=== PATIENT | female | born 1940 | race African-American/Black ===

== ENCOUNTER 2019-11-17 20:27 | Inpatient (IN) | payer MEDICARE, OTHER ==
[~2019-11-17] VITALS: Ht 167.6 cm; Wt 86.3 kg
[~2019-11-17 20:27] MED LIST: ATOR20TA; FLUO-125 PO; HYDR-2551; TOLT2TAB2
[2019-11-17 21:57] LABS: Basophils # (auto) 0 10 ^3/uL (0-0.2); Eosinophils # (auto) 0.1 10 ^3/uL (0-0.8); Hemoglobin 8.3 g/dL (12.2-16.2); Lymphocytes # (auto) 1.4 10 ^3/uL (0.4-5.4)
[2019-11-17 21:59] LABS: Basophils % (auto) 0.2 % (0.0-2.0); Eosinophils % (auto) 1.3 % (0.0-7.0); Hematocrit 26.2 % (36.0-46.0); Lymphocytes % (auto) 17.2 % (10.0-50.0); Mean Corpuscular Hemoglobin 27.1 pg (28.0-32.0); Mean Corpuscular Hgb Conc. 31.6 g/dL (32.0-36.0); Mean Corpuscular Volume 85.8 fL (80.0-100.0); Monocytes # (auto) 0.7 10 ^3/uL (0-1.3); Monocytes % (auto) 9.4 % (0.0-12.0); Neutrophils # (auto) 5.7 10 ^3/uL (1.6-8.6); Neutrophils % (auto) 71.9 % (37.0-80.0); Nucleated Red Blood Cells % 0.2 %; Platelet Count (auto) 347 10^3/uL (140-450); Red Blood Cells 3.06 10^6/uL (4.0-5.20); Red Cell Distribution Width 16.7 % (11.8-14.3); White Blood Cell 7.9 10^3/uL (4.4-10.8)
[2019-11-17 22:19] LABS: INR 0.97 (0.9-1.15); Partial Thromboplastin Time 25.1 sec (23.64-32.05)
[2019-11-17 22:32] LABS: Albumin 3.2 g/dL (3.4-5.0); Amylase 77 U/L (25-115); Anion Gap 5 (5-15); BUN/Creatinine Ratio 14.8; Blood Urea Nitrogen 20 mg/dL (7-18); Calcium 8.4 mg/dL (8.5-10.1); Carbon Dioxide 27 mmol/L (21-32); Chloride 110 mmol/L (98-107); GFR African American 49 mL/min; GFR Non-African American 40 mL/min; Glucose 95 mg/dL (74-106); Lipase 262 U/L (73-393); Magnesium 2.2 mg/dL (1.6-2.6); Potassium 3.5 mmol/L (3.5-5.1); Sodium 142 mmol/L (136-145)
[2019-11-17 22:41] LABS: Alanine Aminotransferase 29 U/L (13-56); Alkaline Phosphatase 121 U/L (45-117); Aspartate Aminotransferase 18 U/L (15-37); Bilirubin, Total 0.4 mg/dL (0.2-1.0); Total Protein 7.4 g/dL (6.4-8.2)
[2019-11-17] MEDS ORDERED: PANTOPRAZOLE 40 MG/10 ML VIAL INJ IV ONE (23:30)
[2019-11-17] MEDS ORDERED: SODIUM CHLORIDE 0.9% 1,000 ML IV ONE (23:30)
[2019-11-18] VITALS (8 sets, daily range): BP systolic 140–165; BP diastolic 63–90
[2019-11-18 00:13] LABS: Urine Bacteria FEW /hpf (None Seen); Urine Blood 1+ /uL (Negative); Urine Hyaline Cast FEW /lpf (0 - 2); Urine Mucus FEW (None Seen); Urine Specific Gravity 1.022 (1.001-1.035); Urine WBC 15 /hpf (0 - 5)
[2019-11-18 00:19] LABS: Alcohol, Urine < 3.0 mg/dL (0-10); Amphetamine Screen, Urine NEGATIVE (NEGATIVE); Barbiturate Scree,Urine NEGATIVE (NEGATIVE); Benzodiazephine Screen, Urine NEGATIVE (NEGATIVE); Cannabinoid Screen, Urine NEGATIVE (NEGATIVE); Cocaine Screen, Urine NEGATIVE (NEGATIVE); Opiate Scree,Urine NEGATIVE (NEGATIVE); Phencyclidine Screen, Urine NEGATIVE (NEGATIVE)
[2019-11-18] MEDS: SODIUM CHLORIDE 0.9% 1,000 ML IV SCH ×2 (01:24→18:12)
--- NOTE | 2019-11-18 01:58 | NUR ---
Telemetry admit from ER MARISOL DENNIS admitted to Telemetry unit. Patient oriented to Nidia Bautista,RN primary RN, unit, room, bed, and unit policies regarding patient care and visiting hours. Patient now on continuous telemetry monitoring, tele box #53 and telemetry reading on arrival to unit is NSR. Patient AAOX4, no acute S/S of distress, SOB or pain. On room air and ambulatory. Patient weighed by bedscale and encouraged to call if they need something. All questions and concerns addressed, patient verbalized understanding. Bed in lowest locked position, side rails up x2, call light within reach. Will continue to monitor every hour and as needed.
[2019-11-18 05:46] LABS: Basophils # (auto) 0 10 ^3/uL (0-0.2); Eosinophils # (auto) 0.1 10 ^3/uL (0-0.8); Eosinophils % (auto) 1.3 % (0.0-7.0); Monocytes # (auto) 0.8 10 ^3/uL (0-1.3)
[2019-11-18 05:47] LABS: Basophils % (auto) 0.5 % (0.0-2.0); Hematocrit 24.2 % (36.0-46.0); Hemoglobin 7.8 g/dL (12.2-16.2); Lymphocytes # (auto) 1.2 10 ^3/uL (0.4-5.4); Mean Corpuscular Hemoglobin 27.6 pg (28.0-32.0); Mean Corpuscular Hgb Conc. 32.1 g/dL (32.0-36.0); Mean Corpuscular Volume 85.9 fL (80.0-100.0); Monocytes % (auto) 9.6 % (0.0-12.0); Neutrophils # (auto) 6.2 10 ^3/uL (1.6-8.6); Neutrophils % (auto) 74.6 % (37.0-80.0); Platelet Count (auto) 283 10^3/uL (140-450); Red Blood Cells 2.81 10^6/uL (4.0-5.20); Red Cell Distribution Width 16.9 % (11.8-14.3); White Blood Cell 8.3 10^3/uL (4.4-10.8)
[2019-11-18 06:13] LABS: Potassium 3.6 mmol/L (3.5-5.1)
[2019-11-18 06:22] LABS: Calcium 7.8 mg/dL (8.5-10.1)
[2019-11-18] MEDS: cefTRIAXone 1GM/50ML D5W 50 ML IV SCH (09:29)
[2019-11-18] MEDS ORDERED: PANTOPRAZOLE 40 MG/10 ML VIAL INJ IV ONE (11:00)
--- NOTE | 2019-11-18 11:00 | NUR ---
MED REC COMPLETE SPOKE TO PATIENTS DAUGHTER, MARK, AND UPDATED MED REC
[2019-11-18] MEDS ORDERED: AGG25C PO (11:06)
[2019-11-18] MEDS ORDERED: BUPR100T14 PO (11:06)
[2019-11-18] MEDS ORDERED: MIRA50TA OR (11:08)
[2019-11-18] MEDS ORDERED: FERR-20 PO (11:08)
--- NOTE | 2019-11-18 11:10 | NUR ---
DR HARMAN BEDSIDE WITH PATIENT DISCUSSING PLAN OF CARE. ORDERS RECEIVED AND CARRIED OUT. INFORMED DR OF PATIENTS ELEVATED BP, NO ORDERS AT THIS TIME
--- NOTE | 2019-11-18 11:25 | NUR ---
BP MED ORDERS RECEIVED ORDERS FROM DR HARMAN TO START PATIENT BACK ON BP MEDS. CONFIRMED MED ORDER WITH PHARMACY AND PLACED ORDER RECEIVED FROM DR HARMAN
[2019-11-18] MEDS ORDERED: HCTZ 25 MG TAB PO ONE (11:30)
[2019-11-18] MEDS ORDERED: LOSARTAN POTASSIUM 50 MG TAB PO ONE (11:30)
--- NOTE | 2019-11-18 13:45 | NUR ---
DR NICOLAS BEDSIDE WITH PATIENT DISCUSSING PLAN OF CARE
[2019-11-18] MEDS: ATORVASTATIN 20 MG TAB PO SCH (17:23)
--- NOTE | 2019-11-18 19:50 | NUR ---
Opening Shift Note Assumed care of patient, awake and alert. No S/S of distress/SOB or pain. Instructed on POC and to call for assist PRN. Bed in lowest locked position, call light within reach, side rails up x2, fall precautions in place. Will continue to monitor for changes Q1hr and PRN.
[2019-11-19 05:00] VITALS: BP 160/85
[2019-11-19 07:12] LABS: White Blood Cell 7.3 10^3/uL (4.4-10.8)
[2019-11-19 07:13] LABS: Basophils # (auto) 0 10 ^3/uL (0-0.2); Eosinophils # (auto) 0.1 10 ^3/uL (0-0.8); Hemoglobin 7.5 g/dL (12.2-16.2); Monocytes # (auto) 0.6 10 ^3/uL (0-1.3); Neutrophils # (auto) 5.6 10 ^3/uL (1.6-8.6)
[2019-11-19 07:14] LABS: Basophils % (auto) 0.5 % (0.0-2.0); Eosinophils % (auto) 1.5 % (0.0-7.0); Hematocrit 23.5 % (36.0-46.0); Lymphocytes # (auto) 0.9 10 ^3/uL (0.4-5.4); Lymphocytes % (auto) 12.3 % (10.0-50.0); Mean Corpuscular Hemoglobin 27.4 pg (28.0-32.0); Mean Corpuscular Hgb Conc. 31.9 g/dL (32.0-36.0); Monocytes % (auto) 8.5 % (0.0-12.0); Neutrophils % (auto) 77.2 % (37.0-80.0); Platelet Count (auto) 270 10^3/uL (140-450); Red Blood Cells 2.73 10^6/uL (4.0-5.20); Red Cell Distribution Width 17.1 % (11.8-14.3)
[2019-11-19 07:23] LABS: INR 1.03 (0.9-1.15)
[2019-11-19 08:00] VITALS: BP 136/80
[2019-11-19 09:07] VITALS: BP 136/80
[2019-11-19] MEDS: PANTOPRAZOLE 40 MG/10 ML VIAL INJ IV SCH (09:25)
[2019-11-19] MEDS: LOSARTAN POTASSIUM 50 MG TAB PO SCH (09:26)
[2019-11-19] MEDS: cefTRIAXone 1GM/50ML D5W 50 ML IV SCH (09:26)
[2019-11-19] MEDS: buPROPion HCL 75 MG TAB PO SCH ×2 (09:27→21:45)
[2019-11-19] MEDS: HCTZ 25 MG TAB PO SCH (09:27)
[2019-11-19] MEDS: SODIUM CHLORIDE 0.9% 1,000 ML IV SCH (10:20)
--- NOTE | 2019-11-19 12:00 | NUR ---
DR NICOLAS ON UNIT
--- NOTE | 2019-11-19 12:05 | NUR ---
DR HARMAN BEDSIDE WITH PATIENT DISCUSSING PLAN OF CARE
--- NOTE | 2019-11-19 12:45 | NUR ---
INFORMED DR HARMAN PATIENT AGREED TO COLONOSCOPY. ORDERS RECEIVED TO HOLD D/C.
--- NOTE | 2019-11-19 12:50 | NUR ---
COLONOSCOPY INFORMED DR NICOLAS PATIENT HAS AGREED TO COLONOSCOPY TOMORROW.
[2019-11-19] MEDS ORDERED: GOLYTELY 4L KIT PO ONE (13:00)
[2019-11-19 13:40] VITALS: BP 160/76
[2019-11-19] MEDS: ONDANSETRON HCL 4 MG/2 ML VIAL IV PRN (16:37)
[2019-11-19 17:00] VITALS: BP 152/84
[2019-11-19] MEDS: ATORVASTATIN 20 MG TAB PO SCH (17:40)
[2019-11-19 22:00] VITALS: BP 142/72
[2019-11-20] MEDS: SODIUM CHLORIDE 0.9% 1,000 ML IV SCH ×2 (02:36→21:22)
[2019-11-20 05:00] VITALS: BP 133/79
[2019-11-20] MEDS ORDERED: GOLYTELY 4L KIT PO ONE (05:00)
[2019-11-20 06:55] LABS: Basophils # (auto) 0 10 ^3/uL (0-0.2); Basophils % (auto) 0.6 % (0.0-2.0); Eosinophils # (auto) 0.1 10 ^3/uL (0-0.8); Eosinophils % (auto) 1.6 % (0.0-7.0); Hematocrit 24.5 % (36.0-46.0); Hemoglobin 7.8 g/dL (12.2-16.2); Lymphocytes # (auto) 0.8 10 ^3/uL (0.4-5.4); Lymphocytes % (auto) 11.2 % (10.0-50.0); Mean Corpuscular Hemoglobin 27.5 pg (28.0-32.0); Mean Corpuscular Volume 85.9 fL (80.0-100.0); Monocytes # (auto) 0.6 10 ^3/uL (0-1.3); Monocytes % (auto) 8.8 % (0.0-12.0); Neutrophils # (auto) 5.2 10 ^3/uL (1.6-8.6); Neutrophils % (auto) 77.8 % (37.0-80.0); Platelet Count (auto) 261 10^3/uL (140-450); Red Blood Cells 2.85 10^6/uL (4.0-5.20); Red Cell Distribution Width 17.8 % (11.8-14.3); White Blood Cell 6.7 10^3/uL (4.4-10.8)
[2019-11-20 07:02] LABS: INR 1.02 (0.9-1.15); Partial Thromboplastin Time 25.2 sec (23.64-32.05)
[2019-11-20 07:10] LABS: Potassium 3.6 mmol/L (3.5-5.1)
[2019-11-20 07:12] LABS: BUN/Creatinine Ratio 6.3
--- NOTE | 2019-11-20 07:30 | NUR ---
Opening Shift Note Assumed care of patient, awake and alert. No S/S of distress/SOB or pain. Instructed on POC and to call for assist PRN, will continue to monitor for changes Q1hr and PRN. Bed is locked and in lowest position. Call light within reach.
[2019-11-20 08:00] VITALS: BP 156/70
[2019-11-20 09:00] VITALS: BP 156/70
[2019-11-20] MEDS: PANTOPRAZOLE 40 MG/10 ML VIAL INJ IV SCH (10:38)
[2019-11-20] MEDS: LOSARTAN POTASSIUM 50 MG TAB PO SCH (10:39)
[2019-11-20] MEDS: buPROPion HCL 75 MG TAB PO SCH ×2 (10:39→21:22)
[2019-11-20] MEDS: HCTZ 25 MG TAB PO SCH (10:39)
[2019-11-20] MEDS: cefTRIAXone 1GM/50ML D5W 50 ML IV SCH (10:40)
--- NOTE | 2019-11-20 12:30 | NUR ---
PRE-OP PHONE CALL RECEIVED FROM PRE-OP REGARDING PATIENTS COLONOSCOPY PROCEDURE. PRE-OP RN INFORMED PATIENT HAS NOT FINISHED GOLYTELY AND IS STILL HAVING LOOSE WATERY GREEN STOOLS. DR. NICOLAS WILL BE PAGED.
--- NOTE | 2019-11-20 12:35 | NUR ---
COLONOSCOPY PATIENT COLONOSCOPY RESCHEDULED FOR 11/21/2019. PATIENT WILL BE ON A CLEAR LIQUID DIET, NPO AFTER MIDNIGHT, PATIENT NEEDS TO FINISH GOLYTELY THAT IS AT BEDSIDE PER DR. NICOLAS. PATIENT IS AWARE OF RESCHEDULE OF COLONOSCOPY.
--- NOTE | 2019-11-20 12:54 | NUR ---
Est energy needs 0497-4433 kcal (20-25 kcal/kg BW 80.9kg) Est protein needs 65-81g (0.8-1g/kg BW 80.9kg) WIll reassess prn. Addendum: 11/20/19 at [address] Amended: Links added.
[2019-11-20 13:00] VITALS: BP 141/88
[2019-11-20] MEDS: ATORVASTATIN 20 MG TAB PO SCH (17:04)
[2019-11-20] MEDS ORDERED: cloNIDine HCL 0.1 MG TAB PO ONE (18:00)
--- NOTE | 2019-11-20 19:25 | NUR ---
ENDORSED CARE TO NIGHT BRYAN LAMAR
[2019-11-20 22:00] VITALS: BP 131/93
[2019-11-21] VITALS (8 sets, daily range): BP systolic 132–160; BP diastolic 69–86
[2019-11-21] MEDS ORDERED: DEXTROSE (50%) 50ML SYRG IV SCH
[2019-11-21] MEDS: InsuLIN REG 1unit/0.01ml Soln (100units/ml) SC SCH ×5 (06:00→23:28)
[2019-11-21] MEDS: ACCU-CHEK COMFORT CURVE STRIP VI SCH ×5 (06:00→23:28)
--- NOTE | 2019-11-21 07:20 | NUR ---
Opening Shift Note Assumed care of patient, awake and alert. No S/S of distress/SOB or pain.Bowel prep finished, this morning per night RN, patient reported stool is clear. Instructed on POC and to call for assist PRN, will continue to monitor for changes Q1hr and PRN. Bed is locked and in lowest position. Call light within reach.
--- NOTE | 2019-11-21 09:10 | NUR ---
COLONSCOPY TRANSPORTED PATIENT VIA HOSPITAL BED. TOLERATED WELL. ENDORSED CARE TO REJI PRE-OP RN.
[2019-11-21] MEDS ORDERED: FLUMAZENIL 0.1 MG/ML INJ 10ML MDV IV ONE (09:12)
[2019-11-21] MEDS ORDERED: SODIUM CHLORIDE LOCK 10 ML ONE (09:12)
[2019-11-21] MEDS ORDERED: NALOXONE HCL 0.4 MG/ML VIAL ONE (09:12)
[2019-11-21] MEDS ORDERED: diphenhdrAMINE HCL 50 MG/1 ML VL ONE (09:14)
[2019-11-21 09:22] LABS: Basophils # (auto) 0 10 ^3/uL (0-0.2); Eosinophils # (auto) 0.1 10 ^3/uL (0-0.8); Hemoglobin 7.5 g/dL (12.2-16.2); Mean Corpuscular Volume 85.8 fL (80.0-100.0); Monocytes # (auto) 0.5 10 ^3/uL (0-1.3); Neutrophils # (auto) 4.4 10 ^3/uL (1.6-8.6)
[2019-11-21 09:24] LABS: Basophils % (auto) 0.5 % (0.0-2.0); Eosinophils % (auto) 1.4 % (0.0-7.0); Hematocrit 23.8 % (36.0-46.0); Lymphocytes # (auto) 0.7 10 ^3/uL (0.4-5.4); Lymphocytes % (auto) 12.9 % (10.0-50.0); Mean Corpuscular Hemoglobin 26.9 pg (28.0-32.0); Mean Corpuscular Hgb Conc. 31.3 g/dL (32.0-36.0); Monocytes % (auto) 9.2 % (0.0-12.0); Platelet Count (auto) 259 10^3/uL (140-450); Red Blood Cells 2.77 10^6/uL (4.0-5.20); Red Cell Distribution Width 17.9 % (11.8-14.3); White Blood Cell 5.7 10^3/uL (4.4-10.8)
[2019-11-21] MEDS: MIDAZOLAM HCL 5 MG/ML-1ML VIAL ONE ×2 (09:39→09:44)
[2019-11-21] MEDS: fentaNYL CITRATE 100 MCG/2 ML VL ONE ×2 (09:39→09:44)
--- NOTE | 2019-11-21 10:41 | NUR ---
RETURNED FROM COLONOSCOPY RECEIVED FROM REJI ADAMS PATIENT DENIED PAIN, NO DISTRESS, TELE REATTACHED TO PATIENT. PER REPORT BIOSPY TAKEN AND SURGICAL CONSULT WITH DR FRY PENDING.
[2019-11-21] MEDS: LOSARTAN POTASSIUM 50 MG TAB PO SCH (11:22)
[2019-11-21] MEDS: buPROPion HCL 75 MG TAB PO SCH ×3 (11:22→22:08)
[2019-11-21] MEDS: HCTZ 25 MG TAB PO SCH (11:23)
[2019-11-21] MEDS: cefTRIAXone 1GM/50ML D5W 50 ML IV SCH (11:23)
[2019-11-21] MEDS: PANTOPRAZOLE 40 MG/10 ML VIAL INJ IV SCH (11:23)
[2019-11-21 12:08] LABS: Magnesium 1.8 mg/dL (1.6-2.6)
[2019-11-21 12:12] LABS: Phosphorus 3.2 mg/dL (2.5-4.90); Pre Albumin 19.8 mg/dL (20.0-40.0)
[2019-11-21] MEDS: SODIUM CHLORIDE 0.9% 1,000 ML IV SCH (12:20)
--- NOTE | 2019-11-21 15:16 | NUR ---
PICC LINE CONSENTS SIGNED BY DR SOSA.
[2019-11-21] MEDS ORDERED: TPN PER PHARMACY 0 ML IV SCH (16:00)
--- NOTE | 2019-11-21 16:00 | NUR ---
IV removal INFILTRATED IV DC'd with clean sterile technique, catheter fully intact. Pressure dressing applied to site. Patient tolerated well.
--- NOTE | 2019-11-21 17:00 | NUR ---
PICC LINE POSTPONED BRYAN OLIVAREZ STATED SHE IS TOO BUSY TO INSERT THE PICC LINE AND SHE WILL NEED TO DO IT TOMORROW.
--- NOTE | 2019-11-21 17:20 | NUR ---
HOUSE SUP MADE AWARE PICC LINE BRYAN OLIVAREZ WILL NOT HAVE TIME TO INSERT PICC LINE, THIS RN WAS INSTRUCTED TO CONTACT THE SPED TEACHER PICC LINE BRYAN MATIAS.
--- NOTE | 2019-11-21 17:40 | NUR ---
PER PBX PICC LINE RN CAN ONLY BE PAGED AT 8PM. WILL ENDORSE TO NIGHT RN. PATIENT WAITING FOR TPN AND 2 UNITS OF PRBC; NO OTHER LINE AVAILABLE.
[2019-11-21] MEDS: ATORVASTATIN 20 MG TAB PO SCH (18:29)
--- NOTE | 2019-11-21 18:30 | NUR ---
REFUSED ACCUCHECK PATIENT STATED "IM NOT EATING ANYTHING".
--- NOTE | 2019-11-21 19:16 | NUR ---
Opening Shift Note Assumed care of patient, awake and alert. No S/S of distress/SOB or pain. PICC line nurse at bedside. Instructed on POC and to call for assist PRN, will continue to monitor for changes Q1hr and PRN. Side rails up x2. Bed locked in lowest position. Call light within reach.
--- NOTE | 2019-11-21 19:30 | NUR ---
Unable to obtain PICC line PICC line nurse unable to place PICC line at this time.
[2019-11-21] MEDS ORDERED: AMINO ACID INFUSION IN D5W 2,000 ML IV NR (20:00)
--- NOTE | 2019-11-21 21:58 | NUR ---
1st unit blood transfusion Started Vitals within normal limits. Will monitor for 15 mins and then Q1H.
[2019-11-22] VITALS (9 sets, daily range): BP systolic 126–158; BP diastolic 70–85
--- NOTE | 2019-11-22 00:03 | NUR ---
First unit of blood transfused. No adverse reaction noted. Vital signs within normal limits. Will Administer second unit of blood.
--- NOTE | 2019-11-22 00:41 | NUR ---
2nd unit blood transfusion Started. Vitals within normal limits. Will monitor for 15 mins and then Q1H.
--- NOTE | 2019-11-22 03:05 | NUR ---
Second unit of blood transfused. No adverse reaction noted. Vital signs within normal limits.
[2019-11-22] MEDS: ACCU-CHEK COMFORT CURVE STRIP VI SCH ×4 (05:13→23:49)
[2019-11-22] MEDS: InsuLIN REG 1unit/0.01ml Soln (100units/ml) SC SCH ×4 (05:13→23:52)
[2019-11-22] MEDS: SODIUM CHLORIDE 0.9% 1,000 ML IV SCH ×2 (05:32→21:22)
[2019-11-22 07:13] LABS: Hematocrit 30.8 % (36.0-46.0); Hemoglobin 9.8 g/dL (12.2-16.2)
[2019-11-22 07:35] LABS: Albumin 2.9 g/dL (3.4-5.0); Calcium 8.1 mg/dL (8.5-10.1); Potassium 3.3 mmol/L (3.5-5.1)
[2019-11-22 07:40] LABS: Bilirubin, Total 0.8 mg/dL (0.2-1.0); Magnesium 1.8 mg/dL (1.6-2.6); Phosphorus 3.1 mg/dL (2.5-4.90); Total Protein 6.6 g/dL (6.4-8.2)
[2019-11-22] MEDS ORDERED: SODIUM CHLORIDE LOCK 50 ML ONE (07:54)
[2019-11-22] MEDS ORDERED: HYDROmorphone HCL 2 MG/ML VL ONE (07:54)
[2019-11-22] MEDS ORDERED: fentaNYL CITRATE 5 ML ONE (07:54)
[2019-11-22] MEDS ORDERED: fentaNYL CITRATE 100 MCG/2 ML VL ONE (07:54)
[2019-11-22] MEDS ORDERED: MIDAZOLAM HCL 1MG/1ML-2 ML VIAL ONE (07:54)
[2019-11-22] MEDS ORDERED: ONDANSETRON HCL 4 MG/2 ML VIAL ONE (07:54)
[2019-11-22] MEDS ORDERED: ROCURONIUM 10MG/ML 10ML VIAL IV ONE (07:54)
[2019-11-22] MEDS ORDERED: PROPOFOL 10 MG/ML 20 ML IV ONE (07:54)
--- NOTE | 2019-11-22 08:00 | NUR ---
PICC LINE RN BEDSIDE TO INSERT PICC LINE.
[2019-11-22] MEDS ORDERED: LIDOCAINE 1% (LOCAL ANESTH.) PF 5ml SDV ID ONE (08:30)
[2019-11-22] MEDS ORDERED: SUCCINYLCHOLINE CHLORIDE 20 MG/ML 10ML VIAL IV ONE (08:36)
--- NOTE | 2019-11-22 08:36 | NUR ---
PICC line placement Patient educated on need for PICC line placement. All risks and benefits explained and all questions and concerns addressed prior to procedure. Noted past medical history and allergies with no contraindications. INR and Plt counts within acceptable range. 5 fr PICC line inserted via right basilic vein using [employer]'s [employer] US and Tip Location System. Sterile technique with maximum barrier precautions utilized. Blood return obtained from each of the 2 lumens and each flushed easily with NS using proper technique. PICC secured with Stat-lock; biodisc and occlusive dressing applied. Stat portable chest x-ray obtained for PICC tip placement. *Baseline Arm Circumference 28 cm. Internal length 45 cm. External length 0 cm. PICC lot #[id number] Addendum: 11/22/19 at 1408 by SHER HO RN PICC placed at 08:00. Laureano ADAMS notified that PICC line has been placed, and that we are awaiting chest xray for confirmation to use.
--- NOTE | 2019-11-22 08:38 | NUR ---
TAKEN TO OR. TOLERATED WELL. ENDORSED CARE TO ALEXANDRA GUZMAN RN
[2019-11-22] MEDS ORDERED: cefTRIAXone SOD 1,000 MG VL ONE (08:44)
[2019-11-22] MEDS ORDERED: metroNIDAZOLE 500MG/100ML 100 ML IV ONE (08:44)
[2019-11-22] MEDS ORDERED: MORPHINE SULFATE 4 MG/ML SYR/VIAL IV PRN (08:45)
[2019-11-22] MEDS ORDERED: HYDROmorphone HCL 2 MG/ML VL IV PRN (08:45)
[2019-11-22] MEDS ORDERED: ONDANSETRON HCL 4 MG/2 ML VIAL IV PRN (08:45)
[2019-11-22] MEDS ORDERED: NEOSTIGMINE 1 MG/ML INJ (10mg/10ML VIAL) ONE (09:54)
[2019-11-22] MEDS ORDERED: GLYCOPYRROLATE 0.2 MG/ML 1ML VIAL ONE (09:54)
[2019-11-22] MEDS: HCTZ 25 MG TAB PO SCH (10:00)
[2019-11-22] MEDS: SODIUM CHLOR 0.9% PF (SALINE LOCK) 10ML VIAL/SYR IV SCH ×2 (10:00→21:22)
[2019-11-22] MEDS: PANTOPRAZOLE 40 MG/10 ML VIAL INJ IV SCH (10:00)
[2019-11-22] MEDS: LOSARTAN POTASSIUM 50 MG TAB PO SCH (10:00)
[2019-11-22] MEDS: buPROPion HCL 75 MG TAB PO SCH ×2 (10:00→21:29)
[2019-11-22] MEDS: cefTRIAXone 1GM/50ML D5W 50 ML IV SCH (10:00)
[2019-11-22] MEDS ORDERED: hydrALAZINE HCL 20 MG/ML VL ONE (10:45)
[2019-11-22] MEDS ORDERED: POTASSIUM PHOSPHATE 22 MEQ in SODIUM CHL 0.9% 100 ML IV ONE (11:00)
--- NOTE | 2019-11-22 13:00 | NUR ---
returned from surgery patient tolerated well.patient awake and groggy, arousable to name, denied pain. NG tube to right nare at 50cm, low intermittent suction. abdominal binder covering 2 dressings, clean radha and intact. j/p drain to left lower quadrant with minimal, serosanguineous drainage. Oxygen nasal cannula at 3 liters; NS at 60 mls.
[2019-11-22] MEDS: metroNIDAZOLE 500MG/100ML 100 ML IV SCH ×2 (14:00→21:22)
--- NOTE | 2019-11-22 14:30 | NUR ---
PICC line care/ Okay to use PICC line Xray completed and reviewed. PICC retracted 2 cm based on location. There was a mild amount of dried blood noted beneath dressing. Dressing changed and skin cleaned using sterile technique. No bleeding noted. New dressing was placed. Okay to use PICC line. Primary RN aware.
--- NOTE | 2019-11-22 14:31 | NUR ---
Nutrition Followup Notes (new PN) Wt: 81.3 kg Pt`s off the floor for sx when rounded this am. per record spt s/p colonoscopy and to have hemicolectomy today. pt is currently NPO and to begin PN support from tonight per records. Est energy needs 7093-1410 kcal (20-25 kcal/kg BW 80.9kg) Est protein needs 81-105g (1.0-1.3g/kg BW 80.9kg) reassessed as RFT wnl and pt post sx LAB: CA 8.1 L, ALB 2.9 L, PREALB 19.8 L. GI: Pt with no BM today per RN doc BS: 19 low risk Please refer to wound assessment report for full details. PES: Overweight aeb pt BMi is 28.8 kg/m2 which is overweight r/t caloric intake in excess of needs Comments Will continue to monitor NPO status, PN tolerance, skin status, pertinent labs and weight trends. Will f/u in 2-3 days. 1) Refer to OPD on DC 2) Continue current plan of care. 3) advance PN support to meet > 75% of needs
[2019-11-22] MEDS: ONDANSETRON HCL 4 MG/2 ML VIAL IV PRN (14:41)
[2019-11-22] MEDS: MORPHINE SULF INJ 2 MG/ML SYRINGE 1ML IV PRN (14:41)
--- NOTE | 2019-11-22 15:57 | NUR ---
Pharmacy notified patient still hasnt received TPN as ordered.
--- NOTE | 2019-11-22 17:00 | NUR ---
drained 100cc paty haywood drai, patient tolerated well.
--- NOTE | 2019-11-22 17:11 | NUR ---
BLOOD SUGAR 133 NO COVERAGE PATIENT IS NPO AND HAS NOT RECEIVED TPN. PHARMACY HAS BEEN NOTIFIED.
[2019-11-22] MEDS: ATORVASTATIN 20 MG TAB PO SCH (18:00)
[2019-11-22] MEDS: TPN PER PHARMACY IV NR ×9 (18:29)
--- NOTE | 2019-11-22 18:30 | NUR ---
scd placed on legs bilaterally
[2019-11-23] MEDS: MORPHINE SULF INJ 2 MG/ML SYRINGE 1ML IV PRN ×4 (04:44→20:11)
[2019-11-23 05:30] VITALS: BP 133/80
[2019-11-23] MEDS: ACCU-CHEK COMFORT CURVE STRIP VI SCH ×4 (06:24→23:48)
[2019-11-23] MEDS: metroNIDAZOLE 500MG/100ML 100 ML IV SCH ×3 (06:24→21:51)
[2019-11-23] MEDS: InsuLIN REG 1unit/0.01ml Soln (100units/ml) SC SCH ×4 (06:25→23:49)
--- NOTE | 2019-11-23 07:04 | NUR ---
CHASTITY Emptied 25cc of serous fluid removed from chastity bulb. Bulb depressed and capped.
--- NOTE | 2019-11-23 07:10 | NUR ---
OPENING NOTE Assumed care of patient at 0700. Respiratory sounds clear, unlabored and equal bilaterally. Patient verbalized that she is not having any pain at this time. Updated patient on POC. Bed locked in lowest position, HOB elevated at least 30 degrees, call light within reach and side rails up X 2. Will continue to monitor.
[2019-11-23 08:14] LABS: Albumin 2.5 g/dL (3.4-5.0); Calcium 7.9 mg/dL (8.5-10.1); Magnesium 1.9 mg/dL (1.6-2.6); Potassium 3.5 mmol/L (3.5-5.1)
[2019-11-23 08:18] LABS: BUN/Creatinine Ratio 12.7; Bilirubin, Total 0.5 mg/dL (0.2-1.0); Phosphorus 2.4 mg/dL (2.5-4.90); Total Protein 6.5 g/dL (6.4-8.2)
[2019-11-23 09:00] VITALS: BP 147/78
[2019-11-23] MEDS: PANTOPRAZOLE 40 MG/10 ML VIAL INJ IV SCH (09:53)
[2019-11-23] MEDS: LOSARTAN POTASSIUM 50 MG TAB PO SCH (09:54)
[2019-11-23] MEDS: HCTZ 25 MG TAB PO SCH (09:54)
[2019-11-23] MEDS: buPROPion HCL 75 MG TAB PO SCH ×2 (09:55→21:51)
[2019-11-23] MEDS: cefTRIAXone 1GM/50ML D5W 50 ML IV SCH (09:55)
[2019-11-23] MEDS: SODIUM CHLOR 0.9% PF (SALINE LOCK) 10ML VIAL/SYR IV SCH ×2 (09:58→21:51)
--- NOTE | 2019-11-23 11:30 | NUR ---
MD HARMAN AT BEDSIDE UPDATED MD ON PATIENT'S STATUS, MD IS AWARE. PER MD CONTINUE TO KEEP PATIENT NPO AND AWAIT FOR DR. SOSA TO SEE PATIENT. WILL FOLLOW THROUGH WITH ORDERS.
--- NOTE | 2019-11-23 13:19 | NUR ---
Assessment Cmm Technician spoke with pt per initial assessment. Pt is a 79 yr old AA female admitted for anemia. Pt was a/a/ox4, receptive to ss visit. Pt resides with her foster daughter Yohana who is 25 and able to assist pt as needed at home. Pt was independent with ADL's prior to admission, no dme. Pt does not have an AHCD, pt's daughter Loreto, who lives in [place], is pt's emergency decision maker. Pt declined AHCD info at this time. Pt's pcp is Dr. Carter. Plan is for pt to dc back home with family, ss will monitor pt for any home health needs upon dc. Addendum: 11/23/19 at 1325 by SOLO SANDERS Amended: Links added.
--- NOTE | 2019-11-23 13:46 | NUR ---
CHASTITY Emptied 35cc of serous fluid removed from chastity bulb. Bulb depressed and capped.
[2019-11-23 14:00] VITALS: BP 138/76
[2019-11-23] MEDS: SODIUM CHLORIDE 0.9% 1,000 ML IV SCH (14:20)
[2019-11-23 17:00] VITALS: BP 142/71
--- NOTE | 2019-11-23 17:04 | NUR ---
PATIENT ACCIDENTLY PULLED OUT NGT. WILL PLACE NEW ONE IN.
[2019-11-23] MEDS: ATORVASTATIN 20 MG TAB PO SCH (18:00)
--- NOTE | 2019-11-23 18:00 | NUR ---
Nasogastric tube insertion Patient educated on need for NG tube. All questions addressed. NGT inserted per MD order. Placement verified by aspiration of stomach contents, auscultation awaiting chest xray. Called radiology for stat CXR
--- NOTE | 2019-11-23 18:28 | NUR ---
NGT WAS NOT IN OPTIMAL PLACEMENT PER CXR. ATTEMPTED 5 TIMES (2 STUDENT LEAD DIE MOLDER RAMSEY, ONE TIME SELF, TWICE BY KAIWHAKAHAERE LETTY) UNSUCCESSFUL. PATIENT WANTS A BREAK FROM INSERTION.
--- NOTE | 2019-11-23 18:58 | NUR ---
CLOSING SHIFT NOTE ENDORSED CARE TO REGULATORY SUBMISSIONS ASSOCIATE RN YURY. PATIENT HAS NO S/S OF DISTRESS/SOB OR PAIN AT THIS TIME. INFORMED RN UNABLE TO ADMINISTER ATORVASTATIN DUE TO NO NGT. RN IS AWARE.
[2019-11-23] MEDS: TPN PER PHARMACY IV NR ×9 (19:45)
[2019-11-23] MEDS ORDERED: TPN PER PHARMACY IV NR ×10 (20:00)
[2019-11-23 22:21] VITALS: BP 154/86
[2019-11-24 05:38] VITALS: BP 151/79
[2019-11-24] MEDS: InsuLIN REG 1unit/0.01ml Soln (100units/ml) SC SCH ×3 (06:00→17:47)
[2019-11-24] MEDS: metroNIDAZOLE 500MG/100ML 100 ML IV SCH ×3 (06:58→22:06)
[2019-11-24] MEDS: ACCU-CHEK COMFORT CURVE STRIP VI SCH ×4 (06:59→23:48)
[2019-11-24] MEDS: SODIUM CHLORIDE 0.9% 1,000 ML IV SCH ×2 (06:59→23:47)
--- NOTE | 2019-11-24 07:39 | NUR ---
CHASTITY Emptied 50cc of serous fluid removed from chastity bulb. Bulb depressed and capped.
[2019-11-24 07:48] LABS: Basophils # (auto) 0 10 ^3/uL (0-0.2); Basophils % (auto) 0.2 % (0.0-2.0); Eosinophils # (auto) 0 10 ^3/uL (0-0.8); Eosinophils % (auto) 0.3 % (0.0-7.0); Hematocrit 29.5 % (36.0-46.0); Hemoglobin 9.3 g/dL (12.2-16.2); Lymphocytes # (auto) 0.7 10 ^3/uL (0.4-5.4); Lymphocytes % (auto) 3.9 % (10.0-50.0); Mean Corpuscular Hemoglobin 27.4 pg (28.0-32.0); Mean Corpuscular Hgb Conc. 31.5 g/dL (32.0-36.0); Monocytes # (auto) 1.1 10 ^3/uL (0-1.3); Monocytes % (auto) 6.5 % (0.0-12.0); Neutrophils # (auto) 15.7 10 ^3/uL (1.6-8.6); Neutrophils % (auto) 89.1 % (37.0-80.0); Platelet Count (auto) 225 10^3/uL (140-450); Red Blood Cells 3.39 10^6/uL (4.0-5.20); Red Cell Distribution Width 17.2 % (11.8-14.3); White Blood Cell 17.6 10^3/uL (4.4-10.8)
[2019-11-24] MEDS: ONDANSETRON HCL 4 MG/2 ML VIAL IV PRN (08:06)
[2019-11-24 08:08] LABS: Albumin 2.5 g/dL (3.4-5.0); Potassium 3.5 mmol/L (3.5-5.1)
[2019-11-24 08:12] LABS: BUN/Creatinine Ratio 15.6; Bilirubin, Total 0.5 mg/dL (0.2-1.0); Calcium 8.2 mg/dL (8.5-10.1); Phosphorus 2.3 mg/dL (2.5-4.90); Total Protein 6.4 g/dL (6.4-8.2)
--- NOTE | 2019-11-24 08:30 | NUR ---
Received pt resting in bed, call light with in reach, jane draining to gravity, TPN running, pt reports nausea, pt medicated for nausea, pt's CXR confirmed NGT placement, connected pt back in to suction to LIS, will continue to monitor pt.
[2019-11-24 09:16] VITALS: BP 163/86
[2019-11-24] MEDS ORDERED: POTASSIUM PHOSPHATE 22 MEQ in SODIUM CHL 0.9% 100 ML IV ONE (10:30)
[2019-11-24] MEDS: HCTZ 25 MG TAB PO SCH (10:56)
[2019-11-24] MEDS: buPROPion HCL 75 MG TAB PO SCH ×2 (10:57→22:07)
[2019-11-24] MEDS: LOSARTAN POTASSIUM 50 MG TAB PO SCH (10:57)
[2019-11-24] MEDS: SODIUM CHLOR 0.9% PF (SALINE LOCK) 10ML VIAL/SYR IV SCH ×2 (10:57→22:07)
[2019-11-24] MEDS: cefTRIAXone 1GM/50ML D5W 50 ML IV SCH (10:57)
[2019-11-24] MEDS: PANTOPRAZOLE 40 MG/10 ML VIAL INJ IV SCH (10:57)
--- NOTE | 2019-11-24 11:10 | NUR ---
Dr. Servin at bed side to see pt, doctor discussed the plan of care with pt.
--- NOTE | 2019-11-24 11:54 | NUR ---
Nutrition Followup Notes Wt: 86.3 kg Pt`s off the floor for sx when rounded this am. per record spt s/p colonoscopy and to have hemicolectomy today. pt is currently NPO with PN support @ 56 ml/hr providing 1460 kcals and 60 gm proteins 1220 NCP. Pt with fair PN support as it meets 72-90% kcals and 57-7% proteins Est energy needs 2421-5081 kcal (20-25 kcal/kg BW 80.9kg) Est protein needs 81-105g (1.0-1.3g/kg BW 80.9kg) reassessed as RFT wnl and pt post sx LAB: GLU 138 H, ALB 2.5 L. GI: Pt with no BM today per RN doc BS: 19 low risk Please refer to wound assessment report for full details. PES: Overweight aeb pt BMi is 28.8 kg/m2 which is overweight r/t caloric intake in excess of needs Comments Will continue to monitor NPO status, PN tolerance, skin status, pertinent labs and weight trends. Will f/u in 2-3 days. 1) Refer to OPD on DC 2) Continue current plan of care. 3) advance PN support to meet > 75% of needs
[2019-11-24] MEDS: PIPERACILLIN-TAZOB 3.375GM 100 ML IV SCH ×3 (12:10→23:47)
[2019-11-24 12:41] VITALS: BP 166/93
[2019-11-24 13:30] VITALS: BP 154/88
[2019-11-24 16:59] VITALS: BP 165/98
[2019-11-24] MEDS: ATORVASTATIN 20 MG TAB PO SCH (17:20)
--- NOTE | 2019-11-24 19:25 | NUR ---
NGT out ARTIFICIAL GLASS EYE MAKER reported to this primary RN, patients NGT is out. Entered room patient awake sitting up in bed holding NGT, patient states "I don't know how it came out, I was just on the phone." Patient alert and oriented x 3, re-oriented to time, patient follows direction and verbalized understanding. patient on oxygen at 2L via NC with even and unlabored respirations. Coates intact and draining to gravity, no kinks. Hypoactive bowel sounds. Surgical incision to mid abd, dressing clean, dry and intact. RANDA intact to right mid abd. Patient was able to turn with moderate assistance, sacrum intact, no redness noted. Bed in lowest locked position with side rails up x 2 and call light within reach, bed alarm on. Will insert new NGT.
[2019-11-24] MEDS ORDERED: TPN PER PHARMACY IV NR ×10 (20:00)
--- NOTE | 2019-11-24 21:35 | NUR ---
Nasogastric tube insertion Patient educated on need for NG tube, patient verbalized understanding. All questions addressed. NGT inserted per MD order. Placement verified by auscultation and chest x-ray.
[2019-11-24] MEDS: MORPHINE SULF INJ 2 MG/ML SYRINGE 1ML IV PRN (22:28)
--- NOTE | 2019-11-24 22:43 | NUR ---
Emptied 105mL from RANDA Drain of serosanguineous drainage. RANDA bulb to suction.
--- NOTE | 2019-11-24 22:45 | NUR ---
NGT verified with CXR NGT to LIS, light green drainage output.
[2019-11-25] MEDS: InsuLIN REG 1unit/0.01ml Soln (100units/ml) SC SCH ×4 (00:01→16:58)
--- NOTE | 2019-11-25 03:13 | NUR ---
Emptied 100mL from RANDA Drain of serosanguineous drainage. RANDA bulb to suction.
[2019-11-25] MEDS: metroNIDAZOLE 500MG/100ML 100 ML IV SCH ×3 (05:56→23:16)
[2019-11-25] MEDS: ACCU-CHEK COMFORT CURVE STRIP VI SCH ×3 (05:56→16:58)
--- NOTE | 2019-11-25 06:00 | NUR ---
Emptied 85mL from RANDA Drain of serosanguineous drainage. RANDA bulb to suction.
[2019-11-25 06:20] VITALS: BP 165/89
--- NOTE | 2019-11-25 06:25 | NUR ---
Paged Nader IRWIN RE: BP 165/89 patient denies pain, no s/s of distress. awaiting call back.
--- NOTE | 2019-11-25 06:28 | NUR ---
Received call back from MD Doe updated on patient status, no new orders at this time received, reassess BP and re-page if SBP >170.
--- NOTE | 2019-11-25 06:31 | NUR ---
NGT output 300ml for shift engineer
[2019-11-25 06:49] LABS: Basophils # (auto) 0 10 ^3/uL (0-0.2); Basophils % (auto) 0.1 % (0.0-2.0); Eosinophils # (auto) 0.2 10 ^3/uL (0-0.8); Eosinophils % (auto) 1.2 % (0.0-7.0); Hematocrit 30.8 % (36.0-46.0); Hemoglobin 10.1 g/dL (12.2-16.2); Lymphocytes # (auto) 0.6 10 ^3/uL (0.4-5.4); Lymphocytes % (auto) 3.8 % (10.0-50.0); Mean Corpuscular Hemoglobin 28.1 pg (28.0-32.0); Mean Corpuscular Hgb Conc. 32.8 g/dL (32.0-36.0); Mean Corpuscular Volume 85.8 fL (80.0-100.0); Monocytes # (auto) 1.2 10 ^3/uL (0-1.3); Monocytes % (auto) 7.1 % (0.0-12.0); Neutrophils # (auto) 14.3 10 ^3/uL (1.6-8.6); Neutrophils % (auto) 87.8 % (37.0-80.0); Nucleated Red Blood Cells % 0.1 %; Platelet Count (auto) 242 10^3/uL (140-450); Red Blood Cells 3.59 10^6/uL (4.0-5.20); Red Cell Distribution Width 16.5 % (11.8-14.3); White Blood Cell 16.2 10^3/uL (4.4-10.8)
[2019-11-25 06:53] LABS: Albumin 2.2 g/dL (3.4-5.0); Calcium 7.7 mg/dL (8.5-10.1); Potassium 3.5 mmol/L (3.5-5.1)
[2019-11-25 06:59] LABS: Bilirubin, Total 0.8 mg/dL (0.2-1.0)
[2019-11-25 07:02] LABS: Magnesium 2.2 mg/dL (1.6-2.6); Phosphorus 3.1 mg/dL (2.5-4.90)
[2019-11-25] MEDS: PIPERACILLIN-TAZOB 3.375GM 100 ML IV SCH ×3 (07:05→16:59)
--- NOTE | 2019-11-25 07:10 | NUR ---
Closing Note patient resting in bed oxygen on at 2L via NC with even and unlabored respirations. NGT secured and intact on LIS. Coates intact and draining to gravity. Abd binder. bed in lowest locked position with side rails up x 2 and call light within reach , bed alarm on. SCD's on to bilateral LE. Endorsed care to day shift RN.
--- NOTE | 2019-11-25 08:15 | NUR ---
RANDA OH APPROXIMATELY 110 ML SEROSANGUINOUS FLUID EMPTIED FROM RLQ RNADA DRAIN
--- NOTE | 2019-11-25 08:16 | NUR ---
Opening Shift Note Assumed care of patient, awake and alert. No S/S of distress/SOB or pain. Bed in lowest/locked position, bed rails up x2, call light within reach. Instructed on POC and to call for assist PRN. Will continue to monitor for changes Q1hr and PRN.
--- NOTE | 2019-11-25 08:16 | NUR ---
NG TUBE APPROXIMATELY 800 ML GREEN FLUID EMPTIED FROM SUCTION CANISTER. NEW CANISTER PLACED. WILL CONTINUE TO MONITOR
[2019-11-25 09:00] VITALS: BP 148/88
[2019-11-25] MEDS: PANTOPRAZOLE 40 MG/10 ML VIAL INJ IV SCH (09:31)
[2019-11-25] MEDS: SODIUM CHLOR 0.9% PF (SALINE LOCK) 10ML VIAL/SYR IV SCH ×2 (09:31→23:16)
[2019-11-25] MEDS: LOSARTAN POTASSIUM 50 MG TAB PO SCH (09:33)
[2019-11-25] MEDS: buPROPion HCL 75 MG TAB PO SCH ×2 (09:34→23:15)
[2019-11-25] MEDS: HCTZ 25 MG TAB PO SCH (09:34)
[2019-11-25] MEDS: MORPHINE SULF INJ 2 MG/ML SYRINGE 1ML IV PRN (09:43)
--- NOTE | 2019-11-25 09:46 | NUR ---
RANDA DRAIN APPROXIMATELY 40 ML SEROSANGUINOUS FLUID EMPTIED FROM RLQ RANDA DRAIN
--- NOTE | 2019-11-25 10:20 | NUR ---
MD ROUNDS DR Lee HARMAN AT BEDSIDE DISCUSSING POC WITH PATIENT. NEW ORDERS RECEIVED/WILL CARRY OUT. WILL CONTINUE TO MONITOR
--- NOTE | 2019-11-25 12:32 | NUR ---
PAGED IAN PAGED DR SOSA RE: NG TUBE, TPN FOR HOME HEALTH PER MD Lee HARMAN REQUEST. AWAITING RETURN CALL
--- NOTE | 2019-11-25 12:36 | NUR ---
MD RETURN CALL RECEIVED CALL FROM DR SOSA RE: NG TUBE, TPN FOR HOME HEALTH. NEW ORDERS RECEIVED, PER DR SOSA IF PATIENT IS PASSING GAS; D/C NG TUBE START CLEAR LIQUIDS. WILL CONTINUE TO MONITOR
[2019-11-25 13:00] VITALS: BP 145/77
[2019-11-25] MEDS: SODIUM CHLORIDE 0.9% 1,000 ML IV SCH ×2 (15:21→20:00)
--- NOTE | 2019-11-25 16:57 | NUR ---
RANDA DRAIN APPROXIMATELY 60 ML SEROSANGUINOUS FLUID EMPTIED FROM RLQ RANDA DRAIN
--- NOTE | 2019-11-25 16:57 | NUR ---
NG TUBE OUTPUT APPROXIMATELY 100 ML GREEN FLUID IN CANISTER.
[2019-11-25] MEDS: ATORVASTATIN 20 MG TAB PO SCH (16:59)
[2019-11-25 17:00] VITALS: BP 134/72
[2019-11-25] MEDS ORDERED: TPN PER PHARMACY IV NR ×11 (20:00)
[2019-11-25 22:00] VITALS: BP 135/76
--- NOTE | 2019-11-25 23:36 | NUR ---
ASSUMED CARE AT 1899. PATIENT ALERT ORIENTED, DENYING PAIN/DISCOMFORT. BOWEL SOUNDS ACTIVE TO RLQ. HYPOACTIVE TO LLQ RUQ AND LUQ. PT REQUESTED JUICE. DISCUSSED NPO STATUS UNTIL PASSING FLATUS. VERBALIZED INDERSTANDING. 2049 C/O PAIN TO ABDOMEN . MEDICATED WITH MORPHINE WITH ADEQUATE RELIEF FROM PAIN. WILL MONITOR
[2019-11-26] MEDS: MORPHINE SULF INJ 2 MG/ML SYRINGE 1ML IV PRN ×4 (00:47→21:00)
[2019-11-26] MEDS: PIPERACILLIN-TAZOB 3.375GM 100 ML IV SCH ×4 (00:47→16:51)
[2019-11-26 05:00] VITALS: BP 141/77
[2019-11-26] MEDS: ACCU-CHEK COMFORT CURVE STRIP VI SCH ×4 (06:00→16:51)
[2019-11-26] MEDS: InsuLIN REG 1unit/0.01ml Soln (100units/ml) SC SCH ×4 (06:29→16:51)
[2019-11-26] MEDS: metroNIDAZOLE 500MG/100ML 100 ML IV SCH ×3 (07:17→21:52)
[2019-11-26 09:00] VITALS: BP 138/71
[2019-11-26] MEDS: PANTOPRAZOLE 40 MG/10 ML VIAL INJ IV SCH (09:23)
[2019-11-26] MEDS: SODIUM CHLOR 0.9% PF (SALINE LOCK) 10ML VIAL/SYR IV SCH ×2 (09:24→21:52)
[2019-11-26] MEDS: LOSARTAN POTASSIUM 50 MG TAB PO SCH (09:24)
[2019-11-26] MEDS: HCTZ 25 MG TAB PO SCH (09:28)
[2019-11-26] MEDS: buPROPion HCL 75 MG TAB PO SCH ×2 (09:28→21:52)
[2019-11-26 10:28] LABS: Basophils # (auto) 0.1 10 ^3/uL (0-0.2); Basophils % (auto) 0.6 % (0.0-2.0); Eosinophils # (auto) 0.3 10 ^3/uL (0-0.8); Eosinophils % (auto) 2.4 % (0.0-7.0); Hematocrit 32.1 % (36.0-46.0); Hemoglobin 10.1 g/dL (12.2-16.2); Lymphocytes # (auto) 0.9 10 ^3/uL (0.4-5.4); Lymphocytes % (auto) 6.3 % (10.0-50.0); Mean Corpuscular Hemoglobin 27.1 pg (28.0-32.0); Mean Corpuscular Hgb Conc. 31.5 g/dL (32.0-36.0); Mean Corpuscular Volume 85.8 fL (80.0-100.0); Monocytes # (auto) 1.3 10 ^3/uL (0-1.3); Monocytes % (auto) 9.5 % (0.0-12.0); Neutrophils # (auto) 11.4 10 ^3/uL (1.6-8.6); Neutrophils % (auto) 81.2 % (37.0-80.0); Nucleated Red Blood Cells % 0.1 %; Platelet Count (auto) 270 10^3/uL (140-450); Red Blood Cells 3.74 10^6/uL (4.0-5.20); Red Cell Distribution Width 16.8 % (11.8-14.3)
--- NOTE | 2019-11-26 10:40 | NUR ---
MD ROUNDS DR Lee HARMAN AT BEDSIDE DISCUSSING POC WITH PATIENT. NEW ORDERS RECEIVED/WILL CARRY OUT. WILL CONTINUE TO MONITOR
[2019-11-26 11:15] LABS: Albumin 2.2 g/dL (3.4-5.0); Calcium 7.9 mg/dL (8.5-10.1); Magnesium 2.3 mg/dL (1.6-2.6); Potassium 4.1 mmol/L (3.5-5.1)
[2019-11-26 11:18] LABS: BUN/Creatinine Ratio 20.9; Bilirubin, Total 0.7 mg/dL (0.2-1.0); Phosphorus 2.9 mg/dL (2.5-4.90)
[2019-11-26 13:00] VITALS: BP 149/67
--- NOTE | 2019-11-26 14:33 | NUR ---
Nutrition Followup Notes Wt: 88.3 kg Pt`s s/p colonoscopy and hemicolectomy today. pt is currently NPO with PN support @ 70 ml/hr providing 1710 kcals and 80 gm proteins 1390 NCP. Pt with adequate PN support as it meets 84-105% kcals and 76-101% proteins Est energy needs 2585-2893 kcal (20-25 kcal/kg BW 80.9kg) Est protein needs 81-105g (1.0-1.3g/kg BW 80.9kg) reassessed as RFT wnl and pt post sx LAB: GLU 148 H, CA 7.7 L, ALB 2.2 L. GI: Pt with no BM today per RN doc BS: 20 low risk Please refer to wound assessment report for full details. PES: Overweight aeb pt BMi is 28.8 kg/m2 which is overweight r/t caloric intake in excess of needs Comments Will continue to monitor NPO status, PN tolerance, skin status, pertinent labs and weight trends. Will f/u in 2-3 days. 1) Refer to OPD on DC 2) Continue current plan of care. 3) advance PN support to meet > 75% of needs
[2019-11-26] MEDS: ATORVASTATIN 20 MG TAB PO SCH (16:51)
--- NOTE | 2019-11-26 16:52 | NUR ---
RANDA DRAIN APPROXIMATELY 40 ML SEROSANGUINOUS FLUID EMPTIED FROM RLQ RANDA DRAIN
--- NOTE | 2019-11-26 16:55 | NUR ---
NG TUBE OUTPUT APPROXIMATELY 350 ML GREEN FLUID IN CANISTER. OPENING SHIFT NG TUBE OUTPUT WAS APPROXIMATELY 250 ML GREEN FLUID.
[2019-11-26 17:00] VITALS: BP 149/79
--- NOTE | 2019-11-26 19:30 | NUR ---
Opening Shift Note Assumed care of patient, awake and alert. No S/S of distress/SOB or pain. POC discussed and questions answered. Bed locked in lowest position with side rails up x2 for safety. Call light is within reach and patient encouraged to call for assistance as needed. Will continue to monitor for changes Q1hr and PRN.
[2019-11-26] MEDS ORDERED: TPN PER PHARMACY IV NR ×12 (20:00)
[2019-11-26] MEDS: SODIUM CHLORIDE 0.9% 1,000 ML IV SCH (20:52)
[2019-11-26 22:13] VITALS: BP 154/81
[2019-11-27] MEDS: ACCU-CHEK COMFORT CURVE STRIP VI SCH ×4 (00:06→17:07)
[2019-11-27] MEDS: PIPERACILLIN-TAZOB 3.375GM 100 ML IV SCH ×4 (00:06→17:07)
[2019-11-27] MEDS: InsuLIN REG 1unit/0.01ml Soln (100units/ml) SC SCH ×4 (00:12→17:08)
--- NOTE | 2019-11-27 01:51 | NUR ---
ROUNDING ON PATIENT, PATIENT IS AWAKE STATING THE NG TUBE "CAME OUT". WILL CALL MD FOR NEW ORDERS.
--- NOTE | 2019-11-27 02:08 | NUR ---
RECEIVED ORDERS TO REPLACE NG TUBE. WILL CARRY OUT.
[2019-11-27] MEDS: MORPHINE SULF INJ 2 MG/ML SYRINGE 1ML IV PRN ×2 (03:33→13:22)
--- NOTE | 2019-11-27 05:07 | NUR ---
STILL PENDING CHEST XRAY RESULTS FOR PLACEMENT OF NGT. Addendum: 11/27/19 at 0568 by Olive Gutiérrez RN NGT NOT IN PLACE. DR. SOSA PAGED AT THIS TIME
[2019-11-27 05:26] VITALS: BP 155/72
[2019-11-27] MEDS: metroNIDAZOLE 500MG/100ML 100 ML IV SCH ×3 (05:42→20:56)
[2019-11-27 07:03] LABS: Albumin 2.2 g/dL (3.4-5.0); Calcium 7.8 mg/dL (8.5-10.1); Magnesium 2.5 mg/dL (1.6-2.6)
[2019-11-27 07:07] LABS: BUN/Creatinine Ratio 21.8; Bilirubin, Total 0.6 mg/dL (0.2-1.0); Phosphorus 3.1 mg/dL (2.5-4.90); Total Protein 6.3 g/dL (6.4-8.2)
--- NOTE | 2019-11-27 08:37 | NUR ---
MD RETURN CALL SPOKE WITH DR SOSA RE: NG TUBE. PER DR SOSA NG TUBE CAN REMAIN OUT. WILL CONTINUE TO MONITOR
[2019-11-27] MEDS: PANTOPRAZOLE 40 MG/10 ML VIAL INJ IV SCH (08:52)
[2019-11-27] MEDS: HCTZ 25 MG TAB PO SCH (08:53)
[2019-11-27] MEDS: SODIUM CHLOR 0.9% PF (SALINE LOCK) 10ML VIAL/SYR IV SCH ×2 (08:53→20:52)
[2019-11-27] MEDS: LOSARTAN POTASSIUM 50 MG TAB PO SCH (08:53)
[2019-11-27] MEDS: buPROPion HCL 75 MG TAB PO SCH ×2 (08:54→20:50)
[2019-11-27] MEDS: ACETAMINOPHEN 325 MG TAB PO PRN ×2 (08:58→21:41)
[2019-11-27 09:00] VITALS: BP 138/67
--- NOTE | 2019-11-27 10:10 | NUR ---
PHYSICAL THERAPY PATIENT AMBULATING IN HALLWAY WITH PT. PATIENT SITTING IN CHAIR. NO S/S OF DISTRESS, SOB. NO C/O PAIN. WILL CONTINUE TO MONITOR
--- NOTE | 2019-11-27 10:25 | NUR ---
DR IAN SOSA AT BEDSIDE ASSESSING PATIENT. DR SOSA UPDATED THIS RN THAT NG TUBE CAN REMAIN REMOVED, KEEP PATIENT NPO AT THIS MOMENT. WILL CONTINUE TO MONITOR
[2019-11-27 13:00] VITALS: BP 125/68
[2019-11-27 17:00] VITALS: BP 130/70
[2019-11-27] MEDS: ATORVASTATIN 20 MG TAB PO SCH (17:07)
--- NOTE | 2019-11-27 17:25 | NUR ---
RANDA DRAIN APPROXIMATELY 50 ML SEROSANGUINOUS FLUID EMPTIED FROM RLQ RANDA DRAIN
[2019-11-27] MEDS ORDERED: TPN PER PHARMACY IV NR ×12 (20:00)
--- NOTE | 2019-11-27 20:00 | NUR ---
Opening shift note Patient alert and oriented x 3, re-oriented to time, patient follows direction and verbalized understanding. patient on room air with even and unlabored respirations. Coates intact and draining to gravity, no kinks. Surgical incision to mid abd, dressing clean, dry and intact. RANDA intact to right mid abd. Patient was able to turn with moderate assistance, sacrum intact, no redness noted. Bed in lowest locked position with side rails up x 2 and call light within reach, bed alarm on. Will continue to monitor q1hr and prn.
[2019-11-27] MEDS: SODIUM CHLORIDE 0.9% 1,000 ML IV SCH (20:46)
[2019-11-27 22:41] VITALS: BP 156/82
[2019-11-28] MEDS: ACCU-CHEK COMFORT CURVE STRIP VI SCH ×4 (00:01→18:52)
[2019-11-28] MEDS: PIPERACILLIN-TAZOB 3.375GM 100 ML IV SCH ×5 (00:01→23:35)
[2019-11-28] MEDS: InsuLIN REG 1unit/0.01ml Soln (100units/ml) SC SCH ×4 (00:13→18:53)
[2019-11-28 05:12] VITALS: BP 146/80
[2019-11-28] MEDS: metroNIDAZOLE 500MG/100ML 100 ML IV SCH ×3 (05:31→22:15)
[2019-11-28 05:58] LABS: Basophils # (auto) 0 10 ^3/uL (0-0.2); Basophils % (auto) 0.3 % (0.0-2.0); Eosinophils # (auto) 0.3 10 ^3/uL (0-0.8); Hematocrit 31.7 % (36.0-46.0); Lymphocytes # (auto) 0.7 10 ^3/uL (0.4-5.4); Mean Corpuscular Hemoglobin 27.2 pg (28.0-32.0); Mean Corpuscular Hgb Conc. 31.5 g/dL (32.0-36.0); Mean Corpuscular Volume 86.2 fL (80.0-100.0); Monocytes # (auto) 1.4 10 ^3/uL (0-1.3); Monocytes % (auto) 9.9 % (0.0-12.0); Neutrophils # (auto) 11.3 10 ^3/uL (1.6-8.6); Neutrophils % (auto) 82.8 % (37.0-80.0); Platelet Count (auto) 277 10^3/uL (140-450); Red Blood Cells 3.68 10^6/uL (4.0-5.20); Red Cell Distribution Width 16.9 % (11.8-14.3); White Blood Cell 13.7 10^3/uL (4.4-10.8)
--- NOTE | 2019-11-28 06:00 | NUR ---
Emptied 55mL from RANDA Drain of serosanguineous drainage. RANDA bulb to suction.
[2019-11-28 06:15] LABS: Potassium 3.9 mmol/L (3.5-5.1)
--- NOTE | 2019-11-28 06:15 | NUR ---
BM patient has large loose dark brown bowel movement. patient was cleansed with full linen change. no redness to sacrum. noted redness to upper inner thighs, applied barrier cream. patient tolerated well.
[2019-11-28 06:23] LABS: Albumin 2.1 g/dL (3.4-5.0); Bilirubin, Total 0.4 mg/dL (0.2-1.0); Calcium 7.9 mg/dL (8.5-10.1); Magnesium 2.3 mg/dL (1.6-2.6); Phosphorus 3.1 mg/dL (2.5-4.90)
--- NOTE | 2019-11-28 07:15 | NUR ---
Closing Note patient resting in bed oxygen on at 2L via NC with even and unlabored respirations. Coates intact and draining to gravity. Abd binder. bed in lowest locked position with side rails up x 2 and call light within reach , bed alarm on. SCD's on to bilateral LE. Endorsed care to day shift RN.
[2019-11-28 09:00] VITALS: BP 143/63
[2019-11-28] MEDS: HCTZ 25 MG TAB PO SCH (09:37)
[2019-11-28] MEDS: buPROPion HCL 75 MG TAB PO SCH ×2 (09:37→22:15)
[2019-11-28] MEDS: SODIUM CHLOR 0.9% PF (SALINE LOCK) 10ML VIAL/SYR IV SCH ×2 (09:38→22:00)
[2019-11-28] MEDS: LOSARTAN POTASSIUM 50 MG TAB PO SCH (09:38)
[2019-11-28] MEDS: PANTOPRAZOLE 40 MG/10 ML VIAL INJ IV SCH (09:38)
[2019-11-28] MEDS: MORPHINE SULF INJ 2 MG/ML SYRINGE 1ML IV PRN ×2 (09:44→16:47)
--- NOTE | 2019-11-28 10:57 | NUR ---
Dr. Servin at bedside to discuss plan of care with patient. Patient has had 3 loose bowel movements in the last 2 hours. Orders received, will document and carry out
--- NOTE | 2019-11-28 11:00 | NUR ---
PHYSICAL THERAPY IN TODAY AND AMBULATED PATIENT APPROXIMATELY 100 FEET PER ELSA
--- NOTE | 2019-11-28 11:07 | NUR ---
Called pathology to obtain biopsy results. Awaiting fax of final results.
[2019-11-28] MEDS ORDERED: LOPERAMIDE HCL 2 MG CAP PO ONE (11:15)
[2019-11-28] MEDS ORDERED: LOPERAMIDE HCL 2 MG CAP PO PRN (11:15)
--- NOTE | 2019-11-28 12:00 | NUR ---
EMPTIED 90ML OF SEROSANGUINEOUS DRAINAGE FROM RIGHT RANDA DRAIN. COMPRESSED BULB BACK DOWN AND SECURED CLOSED.
[2019-11-28 12:35] VITALS: BP 148/70
--- NOTE | 2019-11-28 12:54 | NUR ---
Nutrition Followup Notes Wt: 88.3 kg Pt is NPO s/p surgery with TPN running @ 77 ml/hr, providing 1790 kcals, 100 gm proteins 1390 NPCs. Pt with adequate PN support as it meets 88-111% kcals and 95-123% proteins.Pt with no N/V/Pain today, feeling well. Will continue to monitor PO status, skin status, pertinent labs and weight trends. Will f/u in 2-3 days. Est energy needs 1591-6726 kcal (20-25 kcal/kg BW 80.9kg) Est protein needs 81-105g (1.0-1.3g/kg BW 80.9kg) reassessed as RFT wnl and pt post sx LAB: GLU 166 H, CA 7.9 L, ALB 2.1 L. GI: Pt with 1 BM today per RN doc BS: 19 low risk Please refer to wound assessment report for full details. PES: Overweight aeb pt BMI is 28.8 kg/m2 which is overweight r/t caloric intake in excess of needs Comments Will continue to monitor NPO status, PN tolerance, skin status, pertinent labs and weight trends. Will f/u in 2-3 days. 1) Refer to OPD on DC 2) Continue current plan of care. 3) advance PN support to meet > 75% of needs 4) Gradually advance pt to an oral diet when medically feasible and as tolerated per MD approval.
--- NOTE | 2019-11-28 13:30 | NUR ---
SPOKE WITH DR. Cinthya HARMAN REGARDING THE PATIENTS PATHOLOGY RESULTS. NOTIFIED HIM THE FAMILY IS REQUESTING THE PATHOLOGY RESULTS. DR. Cinthya HARMAN STATED HE WILL CALL THE FAMILY TOMORROW HE IS NO LONGER AT THE HOSPITAL.
--- NOTE | 2019-11-28 16:43 | NUR ---
COLLECTED C DIFF SAMPLE AND SENT TO LAB
[2019-11-28 16:54] VITALS: BP 149/75
[2019-11-28] MEDS: ATORVASTATIN 20 MG TAB PO SCH (18:51)
[2019-11-28] MEDS: SODIUM CHLORIDE 0.9% 1,000 ML IV SCH (20:00)
[2019-11-28] MEDS ORDERED: TPN PER PHARMACY IV NR ×12 (20:00)
[2019-11-29] MEDS: InsuLIN REG 1unit/0.01ml Soln (100units/ml) SC SCH ×5 (00:55→23:58)
[2019-11-29 01:46] VITALS: BP 148/66
[2019-11-29] MEDS: metroNIDAZOLE 500MG/100ML 100 ML IV SCH ×3 (05:10→21:05)
[2019-11-29] MEDS: ACCU-CHEK COMFORT CURVE STRIP VI SCH ×5 (05:14→23:53)
[2019-11-29 06:11] VITALS: BP 149/77
[2019-11-29] MEDS: PIPERACILLIN-TAZOB 3.375GM 100 ML IV SCH ×3 (06:21→17:03)
[2019-11-29 06:35] LABS: Basophils # (auto) 0.1 10 ^3/uL (0-0.2); Basophils % (auto) 0.5 % (0.0-2.0); Eosinophils # (auto) 0.2 10 ^3/uL (0-0.8); Monocytes # (auto) 1.5 10 ^3/uL (0-1.3); Monocytes % (auto) 9.5 % (0.0-12.0); Neutrophils # (auto) 12.9 10 ^3/uL (1.6-8.6); Red Cell Distribution Width 17.3 % (11.8-14.3); White Blood Cell 15.4 10^3/uL (4.4-10.8)
[2019-11-29 06:41] LABS: Eosinophils % (auto) 1.2 % (0.0-7.0); Hematocrit 29.8 % (36.0-46.0); Hemoglobin 9.6 g/dL (12.2-16.2); Lymphocytes # (auto) 0.8 10 ^3/uL (0.4-5.4); Lymphocytes % (auto) 5.1 % (10.0-50.0); Mean Corpuscular Hemoglobin 27.5 pg (28.0-32.0); Mean Corpuscular Hgb Conc. 32.2 g/dL (32.0-36.0); Mean Corpuscular Volume 85.4 fL (80.0-100.0); Neutrophils % (auto) 83.7 % (37.0-80.0); Platelet Count (auto) 293 10^3/uL (140-450); Red Blood Cells 3.49 10^6/uL (4.0-5.20)
[2019-11-29 07:00] LABS: Potassium 3.9 mmol/L (3.5-5.1)
[2019-11-29 07:08] LABS: Albumin 2.1 g/dL (3.4-5.0); BUN/Creatinine Ratio 25.7; Bilirubin, Total 0.4 mg/dL (0.2-1.0); Calcium 7.8 mg/dL (8.5-10.1); Total Protein 6.1 g/dL (6.4-8.2)
[2019-11-29 07:26] LABS: Pre Albumin 19.6 mg/dL (20.0-40.0)
--- NOTE | 2019-11-29 07:30 | NUR ---
Opening Shift Note Assumed care of patient, awake and alert. No S/S of distress/SOB or pain. Bed locked and in lowest position and call light is within reach. Instructed on POC and to call for assist PRN, and patient verbalized understanding. will continue to monitor for changes Q1hr and PRN.
[2019-11-29 08:40] VITALS: BP 143/69
[2019-11-29] MEDS: LOSARTAN POTASSIUM 50 MG TAB PO SCH (09:14)
[2019-11-29] MEDS: PANTOPRAZOLE 40 MG/10 ML VIAL INJ IV SCH (09:14)
[2019-11-29] MEDS: buPROPion HCL 75 MG TAB PO SCH ×2 (09:15→21:08)
[2019-11-29] MEDS: HCTZ 25 MG TAB PO SCH (09:15)
[2019-11-29] MEDS: SODIUM CHLOR 0.9% PF (SALINE LOCK) 10ML VIAL/SYR IV SCH ×2 (10:00→21:06)
[2019-11-29] MEDS: VANCOMYCIN 1GM/250ML 250 ML IV SCH ×2 (11:00→23:40)
[2019-11-29] MEDS ORDERED: VANCOMYCIN PER PHARMACY 0 MG IV SCH (11:00)
[2019-11-29 12:29] VITALS: BP 135/68
--- NOTE | 2019-11-29 16:08 | NUR ---
re-assessment Per consult [facility] for PT, med management, and safety eval. Per Dr Servin he has spoken with Sophie patients daughter and she is requesting [facility]. I have called Sophie and offered her a list of medicare providers. Per Sophie she wants [facility] that Dr Servin has suggested to her. MD order has been sent to [facility]. Per Rubi at [facility] home health service will start 24 to 48 hours from discharge. Sophie has been notified. Addendum: 11/29/19 at 1613 by Alexa WELSH Amended: Links added.
[2019-11-29 16:31] VITALS: BP 157/73
[2019-11-29] MEDS: MORPHINE SULF INJ 2 MG/ML SYRINGE 1ML IV PRN (17:03)
[2019-11-29] MEDS: ATORVASTATIN 20 MG TAB PO SCH (17:03)
--- NOTE | 2019-11-29 19:00 | NUR ---
Endorsed care to BRYAN MCQUEEN, Sowmya.
--- NOTE | 2019-11-29 19:30 | NUR ---
Opening Shift Note Assumed care of patient, awake and alert in High [place]'s position. No S/S of distress/SOB or pain this time. Instructed on POC and to call for assist PRN, will continue to monitor for changes Q1hr and PRN. RANDA drain to abd; dressing intact at midline. Nurse call light within pt reach. Bed low.
--- NOTE | 2019-11-29 19:37 | NUR ---
TPN rate decreased to 20ml/hr as instructed. Pt A&O, denies pain. Watching TV.
[2019-11-29] MEDS: SODIUM CHLORIDE 0.9% 1,000 ML IV SCH (20:00)
[2019-11-29] MEDS ORDERED: TPN PER PHARMACY IV NR ×12 (20:00)
--- NOTE | 2019-11-29 20:40 | NUR ---
Assisting GLOVE PRESSER with cleaning and repositioning pt after she was up to BSC. Dark bile green loose stool passed. Sheela care given and pt repositioned in bed. Pt mehnaz activity well.
[2019-11-29] MEDS: ACETAMINOPHEN 325 MG TAB PO PRN (21:07)
[2019-11-29 22:00] VITALS: BP 148/66
[2019-11-30] MEDS: metroNIDAZOLE 500MG/100ML 100 ML IV SCH ×3 (04:34→21:36)
[2019-11-30] MEDS: InsuLIN REG 1unit/0.01ml Soln (100units/ml) SC SCH ×3 (06:00→18:00)
[2019-11-30] MEDS: ACCU-CHEK COMFORT CURVE STRIP VI SCH ×3 (06:02→18:00)
[2019-11-30] MEDS: PIPERACILLIN-TAZOB 3.375GM 100 ML IV SCH ×2 (06:03)
[2019-11-30 06:11] LABS: Basophils # (auto) 0 10 ^3/uL (0-0.2); Basophils % (auto) 0.3 % (0.0-2.0); Eosinophils # (auto) 0.2 10 ^3/uL (0-0.8); Eosinophils % (auto) 1.7 % (0.0-7.0); Hematocrit 29.1 % (36.0-46.0); Hemoglobin 9.3 g/dL (12.2-16.2); Lymphocytes # (auto) 1.1 10 ^3/uL (0.4-5.4); Lymphocytes % (auto) 8.4 % (10.0-50.0); Mean Corpuscular Hemoglobin 27.1 pg (28.0-32.0); Mean Corpuscular Hgb Conc. 31.9 g/dL (32.0-36.0); Monocytes # (auto) 1.5 10 ^3/uL (0-1.3); Monocytes % (auto) 11.3 % (0.0-12.0); Neutrophils # (auto) 10.6 10 ^3/uL (1.6-8.6); Neutrophils % (auto) 78.3 % (37.0-80.0); Platelet Count (auto) 285 10^3/uL (140-450); Red Blood Cells 3.43 10^6/uL (4.0-5.20); Red Cell Distribution Width 16.9 % (11.8-14.3); White Blood Cell 13.5 10^3/uL (4.4-10.8)
[2019-11-30 06:31] LABS: Albumin 2.1 g/dL (3.4-5.0); Calcium 7.8 mg/dL (8.5-10.1); Potassium 3.7 mmol/L (3.5-5.1)
[2019-11-30 06:36] LABS: BUN/Creatinine Ratio 21.8; Bilirubin, Total 0.5 mg/dL (0.2-1.0); Total Protein 5.9 g/dL (6.4-8.2)
--- NOTE | 2019-11-30 06:56 | NUR ---
40ml watermelon colored drainage emptied from RANDA drain. Pt rouses and acknowledges person present by gaze or one word and goes back to sleep. Will endorse to day RN.
--- NOTE | 2019-11-30 07:30 | NUR ---
Opening Shift Note Assumed care of patient, awake and alert. No S/S of distress/SOB or pain. Bed locked and in lowest position and call light is within reach. Instructed on POC and to call for assist PRN, and patient verbalized understanding. Will continue to monitor for changes Q1hr and PRN.
[2019-11-30 09:00] VITALS: BP 149/80
[2019-11-30] MEDS: LOSARTAN POTASSIUM 50 MG TAB PO SCH (09:15)
[2019-11-30] MEDS: PANTOPRAZOLE 40 MG/10 ML VIAL INJ IV SCH (09:15)
[2019-11-30] MEDS: HCTZ 25 MG TAB PO SCH (09:16)
[2019-11-30] MEDS: buPROPion HCL 75 MG TAB PO SCH ×2 (09:16→21:36)
[2019-11-30] MEDS: SODIUM CHLOR 0.9% PF (SALINE LOCK) 10ML VIAL/SYR IV SCH ×2 (09:16→21:36)
[2019-11-30] MEDS: VANCOMYCIN 1GM/250ML 250 ML IV SCH (11:00)
[2019-11-30] MEDS: LINEZOLID 600MG/300ML 300 ML IV SCH ×2 (12:00→22:47)
[2019-11-30] MEDS: MORPHINE SULF INJ 2 MG/ML SYRINGE 1ML IV PRN ×2 (12:09→18:39)
[2019-11-30 13:00] VITALS: BP 146/74
--- NOTE | 2019-11-30 14:02 | NUR ---
Nutrition Followup Notes Wt: 86.4 kg Pt reports appetite is okay. Denies N/V and reports diarrhea possibly from the food. pt with inadequate oral intake aeb pt with 58% po intake x 3 on 11/28 per RN note. Est energy needs [id number] kcal (20-25 kcal/kg BW 80.9kg) Est protein needs 81-105g (1.0-1.3g/kg BW 80.9kg) reassessed as RFT wnl and pt post sx LAB: BUN 22H, Ca 7.8L, Alb 2.1L GI: Pt with 3 BMs today per RN doc BS: 19 low risk Please refer to wound assessment report for full details. PES: Overweight aeb pt BMI is 28.8 kg/m2 which is overweight r/t caloric intake in excess of needs Comments Will continue to monitor NPO status, PN tolerance, skin status, pertinent labs and weight trends. Will f/u in 3-5 days. 1) Refer to OPD on DC 2) Continue current plan of care. 3) advance PN support to meet > 75% of needs 4) Gradually advance pt to an oral diet when medically feasible and as tolerated per MD approval.
[2019-11-30 17:00] VITALS: BP 120/70
--- NOTE | 2019-11-30 18:06 | NUR ---
Spoke with daughter Maryjo, who stated that patient's brother Morro, is to pick patient up tomorrow between 1-2 pm if discharged.
[2019-11-30] MEDS: ATORVASTATIN 20 MG TAB PO SCH (18:11)
[2019-11-30] MEDS: SODIUM CHLORIDE 0.9% 1,000 ML IV SCH (18:38)
--- NOTE | 2019-11-30 20:07 | NUR ---
OPEN NOTE assumed care of pt. upon entering room pt awake and alert. pt on 2L nc no dsitress noted or expressed. pt has abdominal dressing and binder, dressing is clean dry and intact. pt has bulb drain in place, 40ml serous fluid emptied. pt updated on plan of care. bed locked, low and 2x rails up. call light in reach. this nurse to round q1hr and prn. pt encouraged to call as needed.
[2019-11-30] MEDS: ACETAMINOPHEN 325 MG TAB PO PRN (20:17)
[2019-11-30 22:00] VITALS: BP 140/75
[2019-12-01] MEDS: ACCU-CHEK COMFORT CURVE STRIP VI SCH ×3 (00:39→12:00)
[2019-12-01] MEDS: InsuLIN REG 1unit/0.01ml Soln (100units/ml) SC SCH ×3 (00:40→12:00)
[2019-12-01] MEDS: MORPHINE SULF INJ 2 MG/ML SYRINGE 1ML IV PRN ×2 (04:02→11:06)
[2019-12-01 05:00] VITALS: BP 139/79
[2019-12-01] MEDS: metroNIDAZOLE 500MG/100ML 100 ML IV SCH ×2 (06:13→13:46)
--- NOTE | 2019-12-01 07:29 | NUR ---
Opening Note Assumed pt care from NOC RN. Pt is a/ox4 with no s/s of distress or SOB. Pt is currently sitting upright in bed with no complaints at this time. Coates is present, free of kinks and draining to gravity. Incision to abdomen is clean, dry and intact. RANDA drain is present. Discussed POC with pt; pt verbalized understanding. Safety measures maintained with call light within reach, bed in lowest position and side rails up. Will continue to monitor.
[2019-12-01] MEDS: PANTOPRAZOLE 40 MG/10 ML VIAL INJ IV SCH (08:41)
[2019-12-01] MEDS: buPROPion HCL 75 MG TAB PO SCH (08:42)
[2019-12-01] MEDS: LINEZOLID 600MG/300ML 300 ML IV SCH (08:42)
[2019-12-01] MEDS: HCTZ 25 MG TAB PO SCH (08:42)
[2019-12-01] MEDS: LOSARTAN POTASSIUM 50 MG TAB PO SCH (08:42)
[2019-12-01] MEDS: SODIUM CHLOR 0.9% PF (SALINE LOCK) 10ML VIAL/SYR IV SCH (08:46)
[2019-12-01] MEDS: ACETAMINOPHEN 325 MG TAB PO PRN (08:49)
[2019-12-01 08:52] VITALS: BP 135/68
--- NOTE | 2019-12-01 09:30 | NUR ---
D/C Coates Coates catheter removed per BRYAN alegria. Pt states that she feels well enough to [facility]ulate [facility] Catheter was removed. Pt instructed to call with any needs for assistance. Will continue to monitor voiding needs. Addendum: 12/01/19 at 1341 by PROSPER CASTELLANOS RN RN Pt has since been able to void. Will continue with d/c.
--- NOTE | 2019-12-01 09:49 | NUR ---
Dr Servin at Bedside MD to see pt. Plans to d/c pt home today. MD requests that PICC line be d/c'ed. Will implement and noptify family of d/c. Will also continue to monitor pt's voiding needs post jane removal.
--- NOTE | 2019-12-01 11:02 | NUR ---
Updated Pt's Daughter Updated pt's daughter as to status of d/c, need to void and pending Alexa Moss to see pt. Informed her that I would inform her once all is set up. Will continue to monitor.
--- NOTE | 2019-12-01 11:15 | NUR ---
Pt declined PT tx with c/o fatigue. She stated she will engage in PT "after lunch". Addendum: 12/01/19 at 1131 by Shakeel العراقي AIRCRAFT SERVICER Amended: Links added.
[2019-12-01 12:30] VITALS: BP 135/68
[2019-12-01 13:00] VITALS: BP 140/69
--- NOTE | 2019-12-01 14:40 | NUR ---
PICC Line and Tele 53 D/C'ed PICC line to pt's R upper arm d/c'ed. Catheter was removed fully intact. Site is asymptomatic. Pressure was applied to site for 3 minutes with gauze and pressure dressing then applied. Pt instructed to keep dressing on for 30-40 minutes. Tele 53 d/c'ed and sent back to ICU Staff made aware.
--- NOTE | 2019-12-01 16:32 | NUR ---
Pt D/C'ed Off Unit Pt d/c'ed off unit via wheelchair. Pt is a/ox4 with no s/s of distress or SOB. Pt provided education material, follow up appointment information, and all questions were answered. Pt rx placed in [facility]. PICC line and tele were d/c'ed.
--- NOTE | 2019-12-01 17:02 | NUR ---
Forgotten Prescription Prescription was left behind by patient. Left Rx with [facility] to fill. Notified pt's daughter, Sophie [phone]. She is aware of need to strip picker additional RX.
== END 2019-12-01 16:34 | disposition home health service (06) | DRG 330 ==
LOC: ER 20:27 → TELE 20:28 → TELE-WESTW 11-18 01:57
PROVIDERS: ADMIT Hospitalist; ATTEND Family Medicine
PROC: 0DBE8ZX Excision of Large Intestine, Via Natural or Artificial Opening Endoscopic, Diagnostic (ICD-10-PCS; 2019-11-21)
PROC: 0D1L0Z4 Bypass Transverse Colon to Cutaneous, Open Approach (ICD-10-PCS; 2019-11-22)
PROC: 02H633Z Insertion of Infusion Device into Right Atrium, Percutaneous Approach (ICD-10-PCS; 2019-11-22)
PROC: 30233N1 Transfusion of Nonautologous Red Blood Cells into Peripheral Vein, Percutaneous Approach (ICD-10-PCS; 2019-11-22)
PROC: 0DTF0ZZ Resection of Right Large Intestine, Open Approach (ICD-10-PCS; principal; 2019-11-22 08:46)
PROC: 0D9670Z Drainage of Stomach with Drainage Device, Via Natural or Artificial Opening (ICD-10-PCS; 2019-11-27)
DX: C18.2 Malignant neoplasm of ascending colon (principal); K62.5 Hemorrhage of anus and rectum; D62 Acute posthemorrhagic anemia; N39.0 Urinary tract infection, site not specified; K57.30 Diverticulosis of large intestine without perforation or abscess without bleeding; K63.89 Other specified diseases of intestine; E78.00 Pure hypercholesterolemia, unspecified; F32.9 Major depressive disorder, single episode, unspecified; I12.9 Hypertensive chronic kidney disease with stage 1 through stage 4 chronic kidney disease, or unspecified chronic kidney disease; N18.3 Chronic kidney disease, stage 3 (moderate); E78.5 Hyperlipidemia, unspecified; Z53.29 Procedure and treatment not carried out because of patient's decision for other reasons; B95.2 Enterococcus as the cause of diseases classified elsewhere; E66.9 Obesity, unspecified; Z90.710 Acquired absence of both cervix and uterus; Z86.73 Personal history of transient ischemic attack (TIA), and cerebral infarction without residual deficits; Z68.25 Body mass index [BMI] 25.0-25.9, adult
CPT/HCPCS: 36415; 36569; 45380; 71045; 74176; 80048; 80053; 80061; 80307; 81001; 82040; 82150; 82378; 82962; 83690; 83735; 84075; 84100; 84450; 84460; 84478; 84484; 85014; 85018; 85025; 85379; 85610; 85730; 86850; 86900; 86901; 86920; 87040; 87086; 87088; 87186; 87493; 93005; 93306; 96365; 96366; 96375; 96376; 97110; 97116; 97163; 97530; C9113; G0378; J0330; J0696; J1815; J2250; J2405; J2543; J2704; J3490; J7131

== ENCOUNTER 2020-07-29 10:52 | Emergency (ER) | payer MEDICARE, OTHER ==
[~2020-07-29] VITALS: Ht 165.1 cm; Wt 70.3 kg
[~2020-07-29 10:52] MED LIST changes: +AGG25C PO; +BUPR100T14 PO; +FERR-20 PO; -HYDR-2551; +MIRA50TA OR; -TOLT2TAB2
[2020-07-29] MEDS ORDERED: cefTRIAXone 1GM/50ML D5W 50 ML IV ONE (11:15)
[2020-07-29 11:23] LABS: Basophils # (auto) 0 10 ^3/uL (0-0.2); Eosinophils # (auto) 0.1 10 ^3/uL (0-0.8); Monocytes # (auto) 0.8 10 ^3/uL (0-1.3); Neutrophils # (auto) 3.2 10 ^3/uL (1.6-8.6); Red Cell Distribution Width 15.2 % (11.8-14.3); White Blood Cell 5.2 10^3/uL (4.4-10.8)
[2020-07-29 11:24] LABS: Basophils % (auto) 0.6 % (0.0-2.0); Eosinophils % (auto) 1.3 % (0.0-7.0); Hematocrit 32.3 % (36.0-46.0); Hemoglobin 11.1 g/dL (12.2-16.2); Lymphocytes % (auto) 20.3 % (10.0-50.0); Mean Corpuscular Hemoglobin 39.4 pg (28.0-32.0); Mean Corpuscular Hgb Conc. 34.5 g/dL (32.0-36.0); Mean Corpuscular Volume 114.4 fL (80.0-100.0); Monocytes % (auto) 15.7 % (0.0-12.0); Neutrophils % (auto) 62.1 % (37.0-80.0); Nucleated Red Blood Cells % 0.2 %; Platelet Count (auto) 133 10^3/uL (140-450); Red Blood Cells 2.82 10^6/uL (4.0-5.20)
[2020-07-29 11:50] LABS: Chloride 111 mmol/L (98-107); Potassium 3.7 mmol/L (3.5-5.1); Sodium 143 mmol/L (136-145)
[2020-07-29 11:59] LABS: Alanine Aminotransferase 25 U/L (13-56); Alkaline Phosphatase 74 U/L (45-117); Anion Gap 9 (5-15); Aspartate Aminotransferase 38 U/L (15-37); BUN/Creatinine Ratio 13.9; Bilirubin, Total 1.4 mg/dL (0.2-1.0); Blood Urea Nitrogen 19 mg/dL (7-18); Calcium 8.6 mg/dL (8.5-10.1); Carbon Dioxide 23 mmol/L (21-32); GFR African American 48 mL/min; GFR Non-African American 40 mL/min; Glucose 80 mg/dL (74-106); Total Protein 6.8 g/dL (6.4-8.2)
[2020-07-29 12:27] VITALS: BP 148/69
== END 2020-07-29 14:20 | disposition home or self-care (01) ==
LOC: ER 10:52
DX: L03.032 Cellulitis of left toe (principal); R07.9 Chest pain, unspecified; D64.9 Anemia, unspecified; E44.1 Mild protein-calorie malnutrition; Z68.25 Body mass index [BMI] 25.0-25.9, adult; Z20.822 Contact with and (suspected) exposure to COVID-19
CPT/HCPCS: 36415; 71045; 73700; 80053; 83880; 84484; 85025; 87426; 96365; 96366; 99285; C9803; J0696; U0003

== ENCOUNTER 2022-01-08 17:24 | Emergency (ER) | payer OTHER, MEDICARE ==
[~2022-01-08] VITALS: Ht 165.1 cm; Wt 70.9 kg
[~2022-01-08 17:24] MED LIST changes: +BUPR-160 PO; -BUPR100T14 PO
[2022-01-08 18:47] LABS: Urine Bacteria MANY /hpf (None Seen); Urine Blood 3+ /uL (Negative); Urine Specific Gravity 1.018 (1.001-1.035); Urine WBC 517 /hpf (0 - 5); Urine WBC Clumps PRESENT /hpf (None Seen)
[2022-01-08 18:58] LABS: Albumin 3.1 g/dL (3.4-5.0); Calcium 8.5 mg/dL (8.5-10.1)
[2022-01-08 18:59] LABS: INR 0.98 (0.9-1.15)
[2022-01-08 19:01] LABS: Basophils # (auto) 0.1 10 ^3/uL (0-0.2); Basophils % (auto) 0.5 % (0.0-2.0); Eosinophils # (auto) 0.2 10 ^3/uL (0-0.8); Eosinophils % (auto) 2.1 % (0.0-7.0); Hematocrit 37.8 % (36.0-46.0); Hemoglobin 12.1 g/dL (12.2-16.2); Lymphocytes # (auto) 1.5 10 ^3/uL (0.4-5.4); Lymphocytes % (auto) 15.1 % (10.0-50.0); Mean Corpuscular Hemoglobin 31.5 pg (28.0-32.0); Mean Corpuscular Hgb Conc. 31.9 g/dL (32.0-36.0); Mean Corpuscular Volume 98.6 fL (80.0-100.0); Monocytes # (auto) 0.6 10 ^3/uL (0-1.3); Monocytes % (auto) 6.4 % (0.0-12.0); Neutrophils # (auto) 7.5 10 ^3/uL (1.6-8.6); Neutrophils % (auto) 75.9 % (37.0-80.0); Red Blood Cells 3.84 10^6/uL (4.0-5.20); Red Cell Distribution Width 13.3 % (11.8-14.3); White Blood Cell 9.9 10^3/uL (4.4-10.8)
[2022-01-08 19:15] LABS: Bilirubin, Total 0.4 mg/dL (0.2-1.0); Total Protein 6.7 g/dL (6.4-8.2)
[2022-01-08] MEDS ORDERED: NITR-87 PO (20:20)
[2022-01-08] MEDS ORDERED: SODIUM CHLORIDE 0.9% 1,000 ML IV ONE (20:30)
[2022-01-09 00:29] VITALS: BP 145/68
== END 2022-01-09 01:20 | disposition home or self-care (01) ==
LOC: ER 17:24
DX: N39.0 Urinary tract infection, site not specified (principal); I12.9 Hypertensive chronic kidney disease with stage 1 through stage 4 chronic kidney disease, or unspecified chronic kidney disease; N18.9 Chronic kidney disease, unspecified; E78.5 Hyperlipidemia, unspecified; Z86.73 Personal history of transient ischemic attack (TIA), and cerebral infarction without residual deficits; Z90.710 Acquired absence of both cervix and uterus
CPT/HCPCS: 36415; 74176; 80053; 81001; 82270; 85025; 85610; 96360; 99284; J7030

== ENCOUNTER 2024-05-31 09:33 | Inpatient (IN) | payer MEDICARE, OTHER, MEDICAID ==
[~2024-05-31] VITALS: Ht 157.5 cm; Wt 66.6 kg
[~2024-05-31 09:33] MED LIST changes: -BUPR-160 PO; +BUPR-346 PO; -FERR-20 PO; +FERR325T24 PO; +NITR-87 PO
--- NOTE | 2024-05-31 10:34 | ED.PDOC ---
History of Present Illness HPI Comments 83 year old female brought in by family presents to the ED with chief complaint of abnormal labs. Daughter reports that the patient had gotten a call from her Gasoline Locomotive Crane Operator noting that her Sodium was 167 and she had a UTI, advising to come to the ED for further evaluation. Daughter relays that the patient had her dialysis suspended by the food or baggage handling rampman a week ago due to not needing it. Patient denies any confusion, weakness, dizziness, headache, fever, chills, SOB, or chest pain. Chief Complaint: Abnormal LAB's Time Seen by MD: 10:30 Primary Care Provider: TAD Reviewed Notes: Nurses Notes, Medications, Allergies Allergies: Coded Allergies: NO KNOWN ALLERGIES (Unverified , 07/10/10) Home Meds Active Scripts Nitrofurantoin Monohydrate Mac (Macrobid) 100 Mg Cap, 100 MG PO BID for 7 Days, #14 CAP Prov:GLENDY KNAPP DO 01/08/22 Reported Medications Mirabegron Base (MYRBETRIQ) 50 Mg Tab, 50 MG OR DAILY, TAB 11/18/19 Ferrous Sulfate (Ferrous Sulfate) 325 Mg Tab, 325 MG PO BIDWM for 30 Days, MG 11/18/19 Bupropion Hcl (Bupropion Hcl) 100 Mg Tab, 150 MG PO DAILY for 30 Days, MG 11/18/19 Aspirin-Dipyridamole (Aggrenox) 1 Cap Cap, 1 CAP PO BID, #60 CAP 5 Refills 11/18/19 Fluoxetine Hcl (Fluoxetine Hcl) 20 Mg Cap, 40 MG PO DAILY 07/10/10 Atorvastatin Calcium (Lipitor) 20 Mg Tab 07/10/10 Information Source: Patient, Relative Mode of Arrival: Ambulatory Severity: Moderate Timing: Hours Duration: Since onset Prehospital treatment: None Past Medical History PAST MEDICAL HISTORY: Anemia, Cancer, CKF, CVA, Depression, High Lipids, HTN Surgical History: Hysterectomy Surgical History (Other): Colon cancer surgery BLASTING GANG MINER History: No Pertinent BLASTING GANG MINER History Family History Family History: Unknown Social History Smoker: Non-Smoker Alcohol: Other Drugs: Denies Drug Use Lives In: Home Constitutional: denies: chills, diaphoresis, fatigue, fever, malaise, sweats, weakness, others EENTM: denies: blurred vision, double vision, ear bleeding, ear discharge, ear drainage, ear pain, ear ringing, eye pain, eye redness, hearing loss, mouth pain, mouth swelling, nasal discharge, nose bleeding, nose congestion, nose pain, photophobia, tearing, throat pain, throat swelling, voice changes, others Respiratory: denies: cough, hemoptysis, orthopnea, SOB at rest, shortness of breath, SOB with excertion, stridor, wheezing, others Cardiovascular: denies: chest pain, dizzy spells, diaphoresis, Dyspnea on exertion, edema, irregular heart beat, left arm pain, lightheadedness, palpitations, PND, syncope, others Gastrointestinal: denies: abdomen distended, abdominal pain, blood streaked bowels, constipated, diarrhea, dysphagia, difficulty swallowing, hematemesis, melena, nausea, poor appetite, poor fluid intake, rectal bleeding, rectal pain, vomiting, others Genitourinary: denies: abnormal vagina bleeding, burning, dyspareunia, dysuria, flank pain, frequency, hematuria, incontinence, pain, , vagina discharge, urgency, others Neurological: denies: dizziness, fainting, headache, left sided numbness, left sided weakness, numbness, paresthesia, pre-existing deficit, right sided numbness, right sided weakness, seizure, speech problems, tingling, tremors, weakness, others Musculoskeletal: denies: back pain, gout, joint pain, joint swelling, muscle pain, muscle stiffness, neck pain, others Integumetry: denies: bruises, change in color, change in hair/nails, dryness, laceration, lesions, lumps, rash, wounds, others Allergic/Immunocompromised: denies: Difficulty Healing, Frequent Infections, Hives, Itching, others Hematologic/Lymphatic: denies: anemia, blood clots, easy bleeding, easy bruising, swollen glands, others Endocrine: denies: excessive hunger, excessive sweating, excessive thirst, excessive urination, flushing, intolerance to cold, intolerance to heat, unexplained weight gain, unexplained weight loss, others Psychiatric: denies: anxiety, bipolar disorder, depression, hopeless, panic disorder, schizophrenia, sleepless, suicidal, others All Other Systems: Reviewed and Negative Physical Exam General Appearance: Moderate Distress, Normal HEENT: Normal ENT Inspection, PERRL/EOMI Neck: Full Range of Motion, Non-Tender, Normal, Normal Inspection Respiratory: Chest Non-Tender, Lungs Clear, No Accessory Muscle Use, No Respiratory Distress, Normal Breath Sounds Cardiovascular: No Edema, No JVD, No Murmur, No Gallop, Normal Peripheral Pulses, Regular Rate/Rhythm Breast Exam: Deferred Gastrointestinal: No Organomegaly, Non Tender, No Pulsatile Mass, Normal Bowel Sounds, Soft Genitalia: Deferred Pelvic: Deferred Rectal: Deferred Extremities: No calf tenderness, Normal capillary refill, Non-tender, No pedal edema Musculoskeletal : Apperance: Normal Neurologic: Alert, food production worker II-XII nml as Tested, No Motor Deficits, Normal Affect, Normal Mood, No Sensory Deficits Cerebellar Function: NOT DONE Reflexes: NOT DONE Skin: Dry, Pallor, Warm Peripheral Pulses: 3+ Radial (R), 3+ Radial (L) Lymphatic: No Adenopathy Was a procedure done? Was a procedure done?: No Differential Dx Considerations may include: Hypernatremia, UTI X-Ray, Labs, Meds, VS Vital Signs Date Time Temp Pulse Resp B/P (MAP) Pulse Ox O2 Delivery O2 Flow Rate FiO2 05/31/24 14:00 89 14 86/57 (67) 98 05/31/24 13:00 94 14 84/54 (64) 98 05/31/24 12:37 98 12 97 Room Air* 0 21 05/31/24 12:30 97 14 79/53 (62) 97 05/31/24 12:07 96.4 100 14 91/58 (69) 99 96.4 05/31/24 11:40 78 14 49/29 (36) 94 05/31/24 09:53 96.3 88 20 112/43 (66) 97 Lab Test 05/31/24 13:30 05/31/24 12:31 Range/Units Urine Color Yellow Yellow Urine Clarity Turbid H Clear Urine pH 5.5 5.0-9.0 Urine Specific [place] 1.018 1.001-1.035 Urine Protein 1+ H Negative Urine Ketones Trace Negative Urine Blood Trace H Negative /uL Urine Nitrite Negative Negative Urine Bilirubin Negative Negative Urine Urobilinogen Normal Negative mg/dL Urine Leukocyte Esterase 3+ Negative /uL Urine RBC 2 0 - 4 /hpf Urine WBC 374 0 - 5 /hpf Urine Squamous Epithelial Cells Few <5 /hpf Urine Bacteria Few H None Seen /hpf Urine Glucose Normal Normal mg/dL White Blood Count 9.8 4.4-10.8 10^3/uL Red Blood Count 2.98 L 4.0-5.20 10^6/uL Hemoglobin 9.6 L 12.2-16.2 g/dL Hematocrit 30.4 L 36.0-46.0 % Mean Corpuscular Volume 102.1 H 80.0-100.0 fL Mean Corpuscular Hemoglobin 32.1 H 28.0-32.0 pg Mean Corpuscular Hemoglobin Concent 31.4 L 32.0-36.0 g/dL Red Cell Distribution Width 16.2 H 11.8-14.3 % Platelet Count 250 140-450 10^3/uL Mean Platelet Volume 8.9 6.9-10.8 fL Neutrophils (%) (Auto) 80.1 H 37.0-80.0 % Lymphocytes (%) (Auto) 14.4 10.0-50.0 % Monocytes (%) (Auto) 4.4 0.0-12.0 % Eosinophils (%) (Auto) 0.9 0.0-7.0 % Basophils (%) (Auto) 0.2 0.0-2.0 % Neutrophils # (Auto) 7.9 1.6-8.6 10 ^3/uL Lymphocytes # (Auto) 1.4 0.4-5.4 10 ^3/uL Monocytes # (Auto) 0.4 0-1.3 10 ^3/uL Eosinophils # (Auto) 0.1 0-0.8 10 ^3/uL Basophils # (Auto) 0 0-0.2 10 ^3/uL Nucleated Red Blood Cells 0.2 % Sodium Level 167 *H 136-145 mmol/L Potassium Level 4.2 3.5-5.1 mmol/L Chloride Level 134 H 98-107 mmol/L Carbon Dioxide Level 23 20-31 mmol/L Anion Gap 10 5-15 Blood Urea Nitrogen 81 *H 9-23 mg/dL Creatinine 2.52 H 0.550-1.02 mg/dL Glomerular Filtration Rate Calc 19 >90 mL/min BUN/Creatinine Ratio 32.1 H 10.0-20.0 Serum Glucose 131 H 74-106 mg/dL Calcium Level 9.5 8.7-10.4 mg/dL Current Medications Medications (Trade) Dose Ordered Sig/Jared Route Start Time Stop Time Status Last Admin Sodium Chloride 1,000 ml @ 1,000 mls/hr Q1H ONCE IV 05/31/24 13:30 05/31/24 14:29 DC 05/31/24 13:35 Patient alert. Sent by nephrology. Blood pressure on the low side. Saturation pristine on room air. Establish intravenous access. Was given fluids. Possible hypernatremia. Possible urinary tract infection. Was given Rocephin. Nephrology has stopped dialysis. Reviewed her previous visit. Family at bedside. Continue cardiac monitoring. Time of 1ST Reevaluation: 11:30 Reevaluation 1ST: Unchanged Patient Education/Counseling: Diagnosis, Treatment Family Education/Counseling: Diagnosis, Treatment Additional Information I reviewed the following notes from patient's past medical encounters: 01/08/22 for hematuria The following tests were ordered, and results were reviewed by me: CBC, BMP, UA Additional Information was gathered from interviewing the following independent historians: Family I reviewed and agreed with the following test results read by other providers: None I discussed treatment and results with medical personnel and family Departure 1 Departure Time of Disposition: 11:45 Impression: Primary Impression: Sepsis due to urinary tract infection Additional Impressions: Anemia Qualified Codes: D64.9 - Anemia, unspecified Hypotension Qualified Codes: I95.9 - Hypotension, unspecified Hypernatremia Disposition: ADMITTED INPATIENT Admit to: Med Surg Condition: Guarded Critical Care Note Critical Care Time?: Yes (90 min-critical care time only) Stability Stability form required: No Heart Score Heart Score: Heart Score Response (Comments) Value History N/A 0 EKG N/A 0 Age N/A 0 Risk Factors N/A 0 Troponin N/A 0 Total 0 I personally scribed for MINGO BENJAMIN MD ([email or web address]) on 05/31/24 at 10:34. Electronically submitted by Mendoza Isaacs ([email or web address]). MINGO BENJAMIN MD May 31, 2024 10:34
[2024-05-31 12:37] VITALS: PULSE 98; RESP 12; O2SAT 97
[2024-05-31 13:03] LABS: Basophils # (auto) 0 10 ^3/uL (0-0.2); Basophils % (auto) 0.2 % (0.0-2.0); Eosinophils # (auto) 0.1 10 ^3/uL (0-0.8); Eosinophils % (auto) 0.9 % (0.0-7.0); Hematocrit 30.4 % (36.0-46.0); Hemoglobin 9.6 g/dL (12.2-16.2); Lymphocytes # (auto) 1.4 10 ^3/uL (0.4-5.4); Lymphocytes % (auto) 14.4 % (10.0-50.0); Mean Corpuscular Hemoglobin 32.1 pg (28.0-32.0); Mean Corpuscular Hgb Conc. 31.4 g/dL (32.0-36.0); Mean Corpuscular Volume 102.1 fL (80.0-100.0); Monocytes # (auto) 0.4 10 ^3/uL (0-1.3); Monocytes % (auto) 4.4 % (0.0-12.0); Neutrophils # (auto) 7.9 10 ^3/uL (1.6-8.6); Neutrophils % (auto) 80.1 % (37.0-80.0); Nucleated Red Blood Cells % 0.2 %; Platelet Count (auto) 250 10^3/uL (140-450); Red Blood Cells 2.98 10^6/uL (4.0-5.20); Red Cell Distribution Width 16.2 % (11.8-14.3); White Blood Cell 9.8 10^3/uL (4.4-10.8)
[2024-05-31 13:11] LABS: Potassium 4.2 mmol/L (3.5-5.1)
[2024-05-31 13:12] LABS: Anion Gap 10 (5-15); Calcium 9.5 mg/dL (8.7-10.4); Carbon Dioxide 23 mmol/L (20-31)
[2024-05-31 13:17] LABS: BUN/Creatinine Ratio 32.1 (10.0-20.0)
[2024-05-31 13:21] LABS: Chloride 134 mmol/L (98-107); Glucose 131 mg/dL (74-106)
[2024-05-31 13:22] LABS: Blood Urea Nitrogen 81 mg/dL (9-23); Sodium 167 mmol/L (136-145)
[2024-05-31] MEDS: SODIUM CHLORIDE 0.9% 1,000 ML IV ONE (13:35)
[2024-05-31 14:46] LABS: Urine Bacteria FEW /hpf (None Seen); Urine Blood TRACE /uL (Negative); Urine Clarity Turbid (Clear); Urine Color Yellow (Yellow); Urine Protein, UAD 1+ (Negative); Urine Specific Gravity 1.018 (1.001-1.035); Urine Squamous Epithelial Cell FEW /hpf (<5); Urine Urobilinogen Normal (Negative); Urine WBC 374 /hpf (0 - 5); Urine pH 5.5 (5.0-9.0)
--- NOTE | 2024-05-31 15:26 | DVHINCON2 ---
Date of service: May 31, 2024 Reason for Consultation Acute kidney injury History of Present Illness 83-year-old female past medical history of acute kidney injury on hemodialysis. Patient was stopped on dialysis one week ago. She presents to the hospital for evaluation after renal clinic showed abnormal laboratory values. Her serum sodium was noted to be 167. Nephrology consulted for acute management. She has a positive urinalysis for urinary tract infection Allergies: Coded Allergies: NO KNOWN ALLERGIES (Unverified , 07/10/10) Home Meds Active Scripts Nitrofurantoin Monohydrate Mac (Macrobid) 100 Mg Cap, 100 MG PO BID for 7 Days, #14 CAP Prov:GLENDY KNAPP 01/08/22 Reported Medications Amlodipine Besylate (Amlodipine Besylate) 10 Mg Tab, 1 TAB PO DAILY 05/31/24 Carvedilol (Carvedilol) 6.25 Mg Tab, 1 TAB PO BID 05/31/24 Carbidopa-Levodopa (Carbidopa/Levodopa Er) 25 /100 Tab, 25-100 05/31/24 Pantoprazole Sodium Sesquihydr (Pantoprazole Sodium) 40 Mg Tab, 1 TAB PO DAILY 05/31/24 Mirabegron Base (MYRBETRIQ) 50 Mg Tab, 50 MG OR DAILY, TAB 11/18/19 Ferrous Sulfate (Ferrous Sulfate) 325 Mg Tab, 325 MG PO BIDWM for 30 Days, MG 11/18/19 Bupropion Hcl (Bupropion Hcl) 100 Mg Tab, 150 MG PO DAILY for 30 Days, MG 11/18/19 Aspirin-Dipyridamole (Aggrenox) 1 Cap Cap, 1 CAP PO BID, #60 CAP 5 Refills 11/18/19 Fluoxetine Hcl (Fluoxetine Hcl) 20 Mg Cap, 40 MG PO DAILY 07/10/10 Atorvastatin Calcium (Lipitor) 20 Mg Tab 07/10/10 Current Medications Current Medications Medications (Trade) Dose Ordered Sig/Jared Route PRN Reason Start Time Stop Time Status Last Admin Sodium Chloride 1,000 ml @ 70 mls/hr [id number] IV 05/31/24 16:00 05/31/24 16:09 Ondansetron HCl (Zofran) 4 mg Q4HP PRN IV NAUSEA / VOMITING 05/31/24 16:00 Enoxaparin Sodium (Lovenox) 30 mg DAILY SC 06/01/24 10:00 Ceftriaxone Sodium 50 ml @ 100 mls/hr DAILY@09 IV 06/01/24 09:00 Norepinephrine Bitartrate 250 ml @ 3.75 mls/hr Q24H IV 05/31/24 16:15 05/31/24 16:33 Family History: Patient reports no known family medical history. H&P Exam Vital Signs/I&O Vital Sign Date Time Temp Pulse Resp B/P (MAP) Pulse Ox O2 Delivery O2 Flow Rate FiO2 05/31/24 20:45 86 22 117/53 (74) 95 05/31/24 19:30 Room Air* 0 21 05/31/24 19:30 99.8 99.8 Physical Exam frail elderly female AAOxO no edema rrr jane nd nt ABD Labs/Diagnostic Data Labs/Diagnostic Data Laboratory Tests Test 05/31/24 15:39 05/31/24 13:30 05/31/24 12:31 Range/Units Lactic Acid Level 1.2 0.4-2.0 mmol/L Urine Color Yellow Yellow Urine Clarity Turbid H Clear Urine pH 5.5 5.0-9.0 Urine Specific [place] 1.018 1.001-1.035 Urine Protein 1+ H Negative Urine Ketones Trace Negative Urine Blood Trace H Negative /uL Urine Nitrite Negative Negative Urine Bilirubin Negative Negative Urine Urobilinogen Normal Negative mg/dL Urine Leukocyte Esterase 3+ Negative /uL Urine RBC 2 0 - 4 /hpf Urine WBC 374 0 - 5 /hpf Urine Squamous Epithelial Cells Few <5 /hpf Urine Bacteria Few H None Seen /hpf Urine Glucose Normal Normal mg/dL White Blood Count 9.8 4.4-10.8 10^3/uL Red Blood Count 2.98 L 4.0-5.20 10^6/uL Hemoglobin 9.6 L 12.2-16.2 g/dL Hematocrit 30.4 L 36.0-46.0 % Mean Corpuscular Volume 102.1 H 80.0-100.0 fL Mean Corpuscular Hemoglobin 32.1 H 28.0-32.0 pg Mean Corpuscular Hemoglobin Concent 31.4 L 32.0-36.0 g/dL Red Cell Distribution Width 16.2 H 11.8-14.3 % Platelet Count 250 140-450 10^3/uL Mean Platelet Volume 8.9 6.9-10.8 fL Neutrophils (%) (Auto) 80.1 H 37.0-80.0 % Lymphocytes (%) (Auto) 14.4 10.0-50.0 % Monocytes (%) (Auto) 4.4 0.0-12.0 % Eosinophils (%) (Auto) 0.9 0.0-7.0 % Basophils (%) (Auto) 0.2 0.0-2.0 % Neutrophils # (Auto) 7.9 1.6-8.6 10 ^3/uL Lymphocytes # (Auto) 1.4 0.4-5.4 10 ^3/uL Monocytes # (Auto) 0.4 0-1.3 10 ^3/uL Eosinophils # (Auto) 0.1 0-0.8 10 ^3/uL Basophils # (Auto) 0 0-0.2 10 ^3/uL Nucleated Red Blood Cells 0.2 % Erythrocyte Sedimentation Rate 96 H 0-20 mm/hr Sodium Level 167 *H 136-145 mmol/L Potassium Level 4.2 3.5-5.1 mmol/L Chloride Level 134 H 98-107 mmol/L Carbon Dioxide Level 23 20-31 mmol/L Anion Gap 10 5-15 Blood Urea Nitrogen 81 *H 9-23 mg/dL Creatinine 2.52 H 0.550-1.02 mg/dL Glomerular Filtration Rate Calc 19 >90 mL/min BUN/Creatinine Ratio 32.1 H 10.0-20.0 Serum Glucose 131 H 74-106 mg/dL Calcium Level 9.5 8.7-10.4 mg/dL C-Reactive Protein High Sensitivity 5.84 H <1.0 mg/dL Assessment Acute kidney injury likely in the setting of sepsis and volume depletion recently recovered renal function off dialysis Chronic kidney disease 3a Hypernatremia due to volume depletion Prerenal BISI Urinary tract infection Hypotonic IV fluids Electrolyte replacement IV antibiotics Avoid hypotension Plan discussed with: Patient CLEMENTINA DOWLING MD May 31, 2024 15:26
[2024-05-31] MEDS: SOD CHL 0.45% 1,000 ML IV ONE (15:30)
[2024-05-31] MEDS ORDERED: ONDANSETRON HCL 4 MG/2 ML VIAL IV PRN (16:00)
[2024-05-31] MEDS: cefTRIAXone 1GM/50ML D5W 50 ML IV ONE (16:05)
[2024-05-31] MEDS: SODIUM CHLORIDE 0.9% 1,000 ML IV SCH (16:09)
--- NOTE | 2024-05-31 16:18 | DVHHP2 ---
History of Present Illness Reason for Visit: Abnormal labs History of Present Illness Kamala Galaviz is an 83-year-old female with past medical history of hypertension, hyperlipidemia, end-stage renal disease on HD 3 days a week since April of 2024 per caregiver, anemia, CVA, depression, colonoscopy, and hysterectomy who presents to the ED with abnormal labs and confusion. Per caregiver Azeb, the hand or machine paster called her and advised her to take the patient to the hospital today as yesterday the patient had labs drawn at [facility] with results given today that were abnormal. Patient was supposed to go get dialyzed today however nephrology called the patient's caregiver and informed her that the patient no longer needed dialysis. Patient's caregiver denies any recent illness or sick contacts. Cardiovascular: HTN, hyperipidemia [employer]: CVA Heme/Onc: Anemia NOS Psych: Depression Renal/: Chronic renal failure Past Surgical History: Hysterectomy, Other (Colonoscopy) Family History: None Smoke: No ALCOHOL: none Drugs: None Lives: Other (Caregiver) Domestic Violence: Neg Review of Systems Constitutional: No: Fever, Chills, Sweats, Weakness, Malaise, Other Eyes: No: Pain, Vision change, Conjunctivae inflammation, Eyelid inflammation, Other, Redness ENT: No: Ear pain, Ear discharge, Nose pain, Nose discharge, Nose congestion, Mouth pain, Mouth swelling, Throat pain, Throat swelling, Other Respiratory: No: Cough, Dry, Shortness of breath, SOB with excertion, Wheezing, Hemoptysis, Pleuritic Pain, Sputum, Wheezing, Other Cardiovascular: No: Chest Pain, Palpitations, Orthopnea, Paroxysmal Noc. Dyspnea, Edema, Lt Headedness, Other Gastrointestinal: No: Nausea, Vomiting, Abdominal Pain, Diarrhea, Constipation, Melena, Hematochezia, Other Genitourinary: No Dysuria, No Frequency, No Incontinence, No Hematuria, No Retention, No Other Musculoskeletal: No: other, neck pain, shoulder pain, arm pain, back pain, hand pain, leg pain, foot pain Skin: No: Rash, Lesions, Jaundice, Bruising, Other Neurological: Confusion; No: Weakness, Numbness, Incoordination, Change in speech, Seizures, Other Allergies: Coded Allergies: NO KNOWN ALLERGIES (Unverified , 07/10/10) Exam Vital Signs Vital Signs Date Time Temp Pulse Resp B/P (MAP) Pulse Ox O2 Delivery O2 Flow Rate FiO2 05/31/24 14:00 89 14 86/57 (67) 98 05/31/24 12:37 Room Air* 0 21 05/31/24 12:07 96.4 96.4 General Appearance: Alert, Oriented X3, Cooperative, No acute distress HEENT: Atraumatic, PERRLA, EOMI, Mucous membr. moist/pink Respiratory: Clear to auscultation, Normal air movement Cardiovascular: Normal S1, Normal S2, No murmurs Abdominal: Normal bowel sounds, Soft, No tenderness, No hepatospenomegaly, No masses Extremities: No clubbing, No cyanosis, No edema, Normal pulses, No tenderness/swelling Skin: No significant lesion Neuro: Normal speech, Normal tone, Sensation intact Psych/Mental Status: Mental status NL, Mood NL Labs/Xrays Labs Test 05/31/24 13:30 05/31/24 12:31 Range/Units Urine Color Yellow Yellow Urine Clarity Turbid H Clear Urine pH 5.5 5.0-9.0 Urine Specific Thornton 1.018 1.001-1.035 Urine Protein 1+ H Negative Urine Ketones Trace Negative Urine Blood Trace H Negative /uL Urine Nitrite Negative Negative Urine Bilirubin Negative Negative Urine Urobilinogen Normal Negative mg/dL Urine Leukocyte Esterase 3+ Negative /uL Urine RBC 2 0 - 4 /hpf Urine WBC 374 0 - 5 /hpf Urine Squamous Epithelial Cells Few <5 /hpf Urine Bacteria Few H None Seen /hpf Urine Glucose Normal Normal mg/dL White Blood Count 9.8 4.4-10.8 10^3/uL Red Blood Count 2.98 L 4.0-5.20 10^6/uL Hemoglobin 9.6 L 12.2-16.2 g/dL Hematocrit 30.4 L 36.0-46.0 % Mean Corpuscular Volume 102.1 H 80.0-100.0 fL Mean Corpuscular Hemoglobin 32.1 H 28.0-32.0 pg Mean Corpuscular Hemoglobin Concent 31.4 L 32.0-36.0 g/dL Red Cell Distribution Width 16.2 H 11.8-14.3 % Platelet Count 250 140-450 10^3/uL Mean Platelet Volume 8.9 6.9-10.8 fL Neutrophils (%) (Auto) 80.1 H 37.0-80.0 % Lymphocytes (%) (Auto) 14.4 10.0-50.0 % Monocytes (%) (Auto) 4.4 0.0-12.0 % Eosinophils (%) (Auto) 0.9 0.0-7.0 % Basophils (%) (Auto) 0.2 0.0-2.0 % Neutrophils # (Auto) 7.9 1.6-8.6 10 ^3/uL Lymphocytes # (Auto) 1.4 0.4-5.4 10 ^3/uL Monocytes # (Auto) 0.4 0-1.3 10 ^3/uL Eosinophils # (Auto) 0.1 0-0.8 10 ^3/uL Basophils # (Auto) 0 0-0.2 10 ^3/uL Nucleated Red Blood Cells 0.2 % Sodium Level 167 *H 136-145 mmol/L Potassium Level 4.2 3.5-5.1 mmol/L Chloride Level 134 H 98-107 mmol/L Carbon Dioxide Level 23 20-31 mmol/L Anion Gap 10 5-15 Blood Urea Nitrogen 81 *H 9-23 mg/dL Creatinine 2.52 H 0.550-1.02 mg/dL Glomerular Filtration Rate Calc 19 >90 mL/min BUN/Creatinine Ratio 32.1 H 10.0-20.0 Serum Glucose 131 H 74-106 mg/dL Calcium Level 9.5 8.7-10.4 mg/dL Assessment/Plan Assessment/Plan Assessment/Plan: UTI rule out sepsis ESRD on HD (M/W/F) since Apr 2024 Elevated BUN Elevated creatinine Anemia Coates catheterization IV antibiotics-ceftriaxone NS 1 L UA Urine culture Lactic acid Blood cultures ESR CRP Procalcitonin Protonix IV fluids Lovenox 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 labs Chronic hypertension Continue home medications Chronic hyperlipidemia Continue home medication History of anemia Monitor History of CVA Monitor Chronic depression Continue home medications FEN/PPX diet IVf DVT prophylaxis - Lovenox PUD prophylaxis - Protonix Discussed plan with patient, patient's daughter, patient's caregiver and nurse Admit to ICU Home meds reconciled Plan discussed with: Patient My Orders Orders - KATIE IRAHETA Procedure Category Date Status Time Urine Bacterial CIARA 05/31/24 Logged Culture 15:21 Lactic Acid W/ Reflex LAB 05/31/24 Logged Order 15:21 Blood Culture CIARA 05/31/24 Logged 15:21 Erythrocyte LAB 05/31/24 In Process Sedimentation Rate 15:21 C-Reactive Protein LAB 05/31/24 In Process 15:21 *Dr. [facility] CONS 05/31/24 Transmitted -[place] 15:51 Admit ADMIT 05/31/24 Transmitted 15:51 Allergies JOSE M 05/31/24 Transmitted 15:51 Code Status CODE 05/31/24 Transmitted 15:51 0.9% Ns 1000 Ml PHA 05/31/24 Transmitted 16:00 Ondansetron Hcl PHA 05/31/24 Transmitted (Zofran) 16:00 Complete Blood Count LAB 06/01/24 Verified 04:00 Comprehensive LAB 06/01/24 Verified Metabolic Panel 04:00 Npo (Nothing By DIET 05/31/24 Transmitted Mouth) Diet Dinner Enoxaparin Sodium PHA 06/01/24 Transmitted (Lovenox) 10:00 Ceftriaxone Ivpb PHA 06/01/24 Transmitted Rocephin 09:00 Date of Service: May 31, 2024 Billing Provider: KATIE IRAHETA Common Visit Codes: [id number] INP/OBS CARE (HIGH) KATIE IRAHETA May 31, 2024 16:18
[2024-05-31] MEDS ORDERED: CARB25TA77 (16:22)
[2024-05-31] MEDS ORDERED: PANT40T PO (16:22)
[2024-05-31] MEDS ORDERED: AMLO1TAB23 PO (16:22)
[2024-05-31] MEDS ORDERED: CARV6.2551 PO (16:22)
[2024-05-31] MEDS: NOREPINEPHRINE 8 MG/250ML KIT 250 ML IV SCH (16:33)
[2024-05-31 16:51] LABS: Erythrocyte Sedimentation Rate 96 mm/hr (0-20)
[2024-05-31] MEDS: LORazepam 2MG/ML-1ML VIAL IV ONE (18:45)
[2024-05-31 19:30] VITALS: PULSE 113; RESP 20; O2SAT 94
--- NOTE | 2024-05-31 19:56 | DVH ---
CHEST RADIOGRAPH Indication: insertion central line access Technique: Single frontal view of the chest was obtained COMPARISON: CHEST PORTABLE on DOS: 07/29/20, CHEST PORTABLE on DOS: 11/27/19, CHEST PORTABLE on DOS: 03/05, CHEST PORTABLE on DOS: 11/24/19 FINDINGS: Lines and Tubes: Right chest port, right central venous catheter and left tunneled central venous cat heter in satisfactory position. Lungs: Congestion Pleura: No effusion. No pneumothorax. Cardiomediastinal contours: Unremarkable Bones: Unremarkable IMPRESSION: Mild congestion. Lines and tubes in satisfactory position. No appreciable pneumothorax.
[2024-05-31] MEDS: SOD CHL 0.45% 1,000 ML IV SCH (22:00)
[2024-06-01 01:29] LABS: COVID19 ANTIGEN SOFIA FIA POSITIVE (NEGATIVE)
[2024-06-01 01:30] LABS: Rapid Influenza A Negative (Negative); Rapid Influenza B Negative (Negative)
[2024-06-01 07:12] LABS: Basophils # (auto) 0 10 ^3/uL (0-0.2); Basophils % (auto) 0.3 % (0.0-2.0); Eosinophils # (auto) 0.1 10 ^3/uL (0-0.8); Lymphocytes # (auto) 1.2 10 ^3/uL (0.4-5.4); Mean Corpuscular Hemoglobin 32.5 pg (28.0-32.0); Monocytes # (auto) 0.4 10 ^3/uL (0-1.3); White Blood Cell 6.7 10^3/uL (4.4-10.8)
[2024-06-01 07:15] LABS: Eosinophils % (auto) 1.5 % (0.0-7.0); Hematocrit 26.2 % (36.0-46.0); Hemoglobin 8.4 g/dL (12.2-16.2); Mean Corpuscular Volume 101.5 fL (80.0-100.0); Monocytes % (auto) 6.2 % (0.0-12.0); Nucleated Red Blood Cells % 0.2 %; Platelet Count (auto) 209 10^3/uL (140-450); Red Blood Cells 2.58 10^6/uL (4.0-5.20); Red Cell Distribution Width 16.2 % (11.8-14.3)
[2024-06-01 07:33] LABS: Alanine Aminotransferase < 9 U/L (7-40); Albumin 3.4 g/dL (3.2-4.8); Alkaline Phosphatase 123 U/L (46-116); Anion Gap 11 (5-15); Aspartate Aminotransferase 11 U/L (13-40); BUN/Creatinine Ratio 31.2 (10.0-20.0); Blood Urea Nitrogen 69 mg/dL (9-23); Calcium 8.3 mg/dL (8.7-10.4); Carbon Dioxide 21 mmol/L (20-31); Chloride 136 mmol/L (98-107); Glucose 70 mg/dL (74-106); Potassium 3.9 mmol/L (3.5-5.1); Total Protein 6.1 g/dL (5.7-8.2)
[2024-06-01 07:35] LABS: Bilirubin, Total 0.3 mg/dL (0.2-1.0); Sodium 168 mmol/L (136-145)
[2024-06-01] MEDS: D5W 5% 1,000 ML IV SCH (08:15)
--- NOTE | 2024-06-01 08:49 | DVHSR ---
APPROVED REPORT EXAM: Two-dimensional and M-mode echocardiogram with Doppler and color Doppler. Blood Pressure: 86/57 mmHg INDICATION Hypotensive RISK FACTORS Height: 5' 2", Weight: 137 DIMENSIONS LVDd3.9 (3.8-5.7cm)LA (2D)3.7 (1.9-4.0cm)Aortic Root3.4 (2.0-3.7cm) LVDs2.6 (2.5-4.0cm)LA (MM) (1.9-4.0cm)Aortic Cusp Exc1.8 (1.5-2.0cm) EF (%) 60.0 (55-70%)Rt. Atrium3.8 (1.9-4.0cm)Asc. Aorta cm IVSd1.1 (0.7-1.1cm)RV (D) (1.8-2.4cm) PWd0.9 (0.7-1.1cm) Mitral Valve MitralMitral Stenosis E wave1.10m/sMV Mean GR.mmHg E/A ratio0.02D MVAcm2 Aortic Valve Aortic ValveAortic Stenosis V11.00m/Shikha Mean GR.4mmHg V21.20m/Shikha Peak GR.6mmHg LVOT Diameter2.1 (1.8-2.4cm)Doppler AVA2.88cm2 Pulmonic Valve V20.60m/s Tricuspid Valve TR Velocity2.60m/s [id number] LEFT VENTRICLE The left ventricle is of normal size. Wall thickness is normal. Ejection fraction is estimated at 5 5-60%. There is no regional wall motion abnormalities. Diastolic function is indeterminate. RIGHT VENTRICLE Right ventricle is likely of normal size and systolic function. ATRIA Both atria are mildly dilated in size. MITRAL VALVE There is mild mitral annular calcification. No significant mitral regurgitation. PULMONIC VALVE Likely normal. TRICUSPID VALVE There is yigdvemh-le-zwopam central tricuspid regurgitation. PA systolic pressure is estimated at 35 mm Hg. AORTIC VALVE Trileaflet in morphology. Normal structure and function. GREAT VESSELS The aortic root is of normal size. Proximal ascending aorta is not visualized. PERICARDIAL EFFUSION No significant effusion. IVC is not well visualized. Conclusion The study is technically limited. Normal left ventricular size and systolic function. Ejection fraction estimated at 55-60%. The right ventricle is likely of normal size and systolic function. [id number]-[id number] tricuspid regurgitation. PA systolic pressure is estimated at 35 mm Hg. No significant pericardial effusion.
[2024-06-01] MEDS: cefTRIAXone 1GM/50ML D5W 50 ML IV SCH (09:00)
[2024-06-01] MEDS: ENOXAPARIN SOD 30 MG/0.3 ML SYRINGE SC SCH (10:00)
--- NOTE | 2024-06-01 11:02 | DVHNC2 ---
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) Indication: Hypotension, Volume resuscitation, Inability to obtain IV Room prepared for procedure: Yes Reclamation Supervisor performed hand hygien: Yes Maximal sterile barrier precau: Mask/Eye shield, Sterile gown, Cap, Sterlie gloves, Large sterlie drape Skin Preparation: Chlorhexidine gluconate Skin preparation completely dr: Yes Insertion site: Right, Internal jugular, Line secured Central line catheter type: [id number] dialysis Number of lumens: 3 Central line exchanged over a: No Antiseptic ointment applied to: Yes Post Assessment: Chest X-Ray, No Pneumothorax Informed consent obtained: Yes Risks/benefits/alt described: Yes Date of Service: May 31, 2024 Billing Provider: MINGO BENJAMIN MD Common Visit Codes: PROCEDURE ONLY Procedure Codes: [id number] NON-TUNNEL CV CATH CHRISTIE MOORE RESIDENT Jun 01, 2024 11:02
[2024-06-01 12:32] VITALS: PULSE 85; RESP 14; O2SAT 96
--- NOTE | 2024-06-01 14:21 | DVHPN2 ---
Progress Note Date Seen: Jun 01, 2024 Medical Necessity Reason Pt with a Central, PICC or Fol: Yes The following are medically ne: Coates Catheter Subjective Review of Systems: NEURO:Abnormal Objective vital signs Vital Sign Date Time Temp Pulse Resp B/P (MAP) Pulse Ox O2 Delivery O2 Flow Rate FiO2 06/01/24 12:32 85 14 96 Room Air* 0 21 06/01/24 12:00 119/55 (76) 05/31/24 19:30 99.8 99.8 Total Intake and Output 05/31/24 05/31/24 06/01/24 15:00 23:00 07:00 Intake Total 1000 ml 1609.375 ml 550.9375 ml Output Total 200 ml 300 ml 500 ml Balance 800 ml 1309.375 ml 50.9375 ml medications Current Medications Medications Dose Ordered Sig/Jared Route Start Time Stop Time Status Last Admin Dose Admin Ondansetron HCl 4 mg Q4HP PRN IV 05/31/24 16:00 Enoxaparin Sodium 30 mg DAILY SC 06/01/24 10:00 06/01/24 10:00 30 MG Ceftriaxone Sodium 50 ml @ 100 mls/hr DAILY@09 IV 06/01/24 09:00 06/01/24 09:00 100 MLS/HR Norepinephrine Bitartrate 250 ml @ 3.75 mls/hr Q24H IV 05/31/24 16:15 05/31/24 16:33 3.75 MLS/HR Dextrose 1,000 ml @ 100 mls/hr Q10H IV 06/01/24 08:15 06/01/24 08:15 100 MLS/HR Examination: GENERAL:Abnormal, NEURO:Abnormal laboratory and microbiology Laboratory Tests 06/01/24 06:13 Test 06/01/24 14:02 Range/Units Serum Glucose Pending Microbiology Date/Time Source Procedure Growth Status 05/31/24 13:30 Urine - [place] Urine Culture - Preliminary Resulted Problem List/Assessment/Plan Problem List/Assessment/Plan Acute kidney injury likely in the setting of sepsis and volume depletion recently recovered renal function off dialysis Chronic kidney disease 3a Hypernatremia due to volume depletion Prerenal BISI Urinary tract infection Hypotonic IV fluids change from 0.45%NACL to D5W @100cc/hr Electrolyte replacement IV antibiotics Avoid hypotension Plan discussed with: Patient My Orders My Orders Orders - CLEMENTINA DOWLING MD Procedure Category Date Status Time D5w 5% (Dextrose 5%) PHA 06/01/24 In Process 08:15 CLEMENTINA DOWLING MD Jun 01, 2024 14:21
[2024-06-01 14:50] LABS: Anion Gap 11 (5-15); Potassium 3.8 mmol/L (3.5-5.1)
[2024-06-01 14:56] LABS: BUN/Creatinine Ratio 26.9 (10.0-20.0)
[2024-06-01 15:13] LABS: Blood Urea Nitrogen 56 mg/dL (9-23); Calcium 8.3 mg/dL (8.7-10.4); Carbon Dioxide 19 mmol/L (20-31); Chloride 136 mmol/L (98-107); Glucose 115 mg/dL (74-106)
[2024-06-01 15:15] LABS: Sodium 166 mmol/L (136-145)
--- NOTE | 2024-06-01 20:19 | DVHPNRES ---
Progress Note Date Seen: Jun 01, 2024 Resident Creating Document: CYDNEY SERVIN RESIDENT Medical Necessity Reason Pt with a Central, PICC or Fol: Yes The following are medically ne: Coates Catheter Subjective Review of Systems Kamala Galaviz is an 83-year-old female with past medical history as described below presents to the ED with abnormal labs and confusion. Per caregiver Azeb, the hogshead stripper called her and advised her to take the patient to the hospital today as yesterday the patient had labs drawn at [facility] with results given today that were abnormal. Patient was supposed to go get dialyzed today however nephrology called the patient's caregiver and informed her that the patient no longer needed dialysis. Patient's caregiver denies any recent illness or sick contacts. Past medical history: hypertension, hyperlipidemia, end-stage renal disease on HD 3 days a week since April of 2024 per caregiver, anemia, CVA, depression, Past Surgical History: Hysterectomy, Colonoscopy Social history: Patient lives with caregiver and does not smoke, drink alcohol or use drugs. Review of systems Patient is confused and does not responds to questions being asked. Objective vital signs Vital Sign Date Time Temp Pulse Resp B/P (MAP) Pulse Ox O2 Delivery O2 Flow Rate FiO2 06/01/24 19:52 98.9 72 12 119/65 (83) 94 98.9 06/01/24 12:32 Room Air* 0 21 Total Intake and Output 05/31/24 05/31/24 06/01/24 15:00 23:00 07:00 Intake Total 1000 ml 1609.375 ml 550.9375 ml Output Total 200 ml 300 ml 500 ml Balance 800 ml 1309.375 ml 50.9375 ml medications Current Medications Medications Dose Ordered Sig/Jared Route Start Time Stop Time Status Last Admin Dose Admin Ondansetron HCl 4 mg Q4HP PRN IV 05/31/24 16:00 Enoxaparin Sodium 30 mg DAILY SC 06/01/24 10:00 06/01/24 10:00 30 MG Ceftriaxone Sodium 50 ml @ 100 mls/hr DAILY@09 IV 06/01/24 09:00 06/01/24 09:00 100 MLS/HR Norepinephrine Bitartrate 250 ml @ 3.75 mls/hr Q24H IV 05/31/24 16:15 05/31/24 16:33 3.75 MLS/HR Dextrose 1,000 ml @ 100 mls/hr Q10H IV 06/01/24 08:15 06/01/24 18:17 100 MLS/HR Examination Physical Examination Constitutional: Patient is A&O x1, is confused, sitting comfortably in bed without any acute respiratory distress Gen - no pallor, no icterus, no cyanosis, no clubbing, no LAD, no edema . Skin - Patients skin is warm and dry. HEENT - normocephalic, atraumatic, dry mucous membranes. Neck - full ROM, no LAD, Pulmonary - B/L equal air entry without crackles cardiovascular - normal S1,S2 heard. no murmurs heard. GI - soft abdomen. bowel sounds normoactive Neurological - patient is confused and further assessment could not be done laboratory and microbiology Laboratory Tests 06/01/24 14:02 06/01/24 06:13 Test 06/01/24 14:02 Range/Units Serum Glucose 115 H 74-106 mg/dL Microbiology Date/Time Source Procedure Growth Status 05/31/24 15:39 Blood Blood Culture - Preliminary NO GROWTH AFTER 24 HOURS OF INCUBATION. Resulted 05/31/24 13:30 Urine - [place] Urine Culture - Preliminary Resulted Problem List/Assessment/Plan Problem List/Assessment/Plan Sepsis UTI Acute kidney injury likely in the setting of sepsis and volume depletion Hypernatremia likely d/t volume depletion ?ESRD on HD (M/W/F) since Apr 2024, recovered renal function off dialysis Chronic kidney disease 3a Acute kidney injury likely in the setting of sepsis and volume depletion recently recovered renal function off dialysis Chronic kidney disease 3a Plan - Patient given 1L bolus in the ED - Free water deficiet 5.6L - now on D5W, with goal of correcting sodium <12Meq over 24hrs - BMP q6hrs - Ceftriaxone 1g IV Goals of care discussed with the patient's daughter and caregiver for over 23 mins. Full code Plan discussed with Plan discussed with: Daughter, Other (Caregiver azeb) My Orders My Orders Orders - CYDNEY SERVIN RESIDENT Procedure Category Date Status Time Full Liq Diet DIET 06/01/24 Transmitted Lunch Basic Metabolic Panel LAB 06/02/24 Verified 00:00 Basic Metabolic Panel LAB 06/02/24 Verified 06:00 Basic Metabolic Panel LAB 06/02/24 Verified 12:00 Basic Metabolic Panel LAB 06/02/24 Verified 18:00 Communication Order ORDERS 06/01/24 Transmitted 12:15 Date of Service: Jun 01, 2024 Billing Provider: PARIS SANCHEZ MD Common Visit Codes: [id number] INP/OBS CARE(HIGH) CYDNEY SERVIN RESIDENT Jun 01, 2024 20:19 PARIS SANCHEZ MD Jun 02, 2024 15:03
--- NOTE | 2024-06-01 23:42 | DVH ---
EXAM: CT HEAD WITHOUT CONTRAST INDICATION: ALOC, h/o previous stroke TECHNIQUE: CT of the head without intravenous contrast. Radiation Dose : 1. Head: CT Dose: CTDI volume is 57.5 mGy. Dose-length product is 1018 mGy*cm The dose indicators for CT are the volume Computed Tomography (CT) Dose Index (CTDIvol) and the Dose Length Product (DLP), and are measured in units of mGy and mGy-cm, respectively. These indicators are not patient dose, but values generated from the CT scanner acquisition factors. The report includes radiation exposure data for exposures received during this examination. COMPARISON: None FINDINGS: There is no evidence of acute intracranial hemorrhage, extra-axial collection, mass effect, midline s hift, herniation or hydrocephalus. The ventricles, sulci and cisterns are age appropriate. The hall-white differentiation is intact. Multiple chronic lacunar infarcts are seen in the bilateral basal ganglia ( right greater than left) Patchy periventricular and subcortical white matter hypoattenuation is nonspecific but may be related to small vessel ischemic disease. The visualized paranasal sinuses and mastoid air cells are clear. The surrounding soft tissues and osseous structures are unremarkable. IMPRESSION: 1. No acute intracranial abnormality. 2. Chronic microvascular ischemic changes. 3. Multiple chronic lacunar infarcts are seen in the bilateral basal ganglia (right greater than left ) Radiation optimization: All CT scans at this facility use at least one of these dose optimization lencho hniques: automated exposure control mA and/or kV adjustment per patient size (includes targeted exam s where dose is matched to clinical indication) or iterative reconstruction.
[2024-06-01 23:52] VITALS: BP 129/73; PULSE 86; RESP 17; TEMP 98.8; O2SAT 100
[2024-06-02] VITALS (10 sets, daily range): BP systolic 116–141; BP diastolic 65–74; PULSE 79–94; RESP 16–18; TEMP 89.8–98.8; O2SAT 94–100
[2024-06-02 00:48] LABS: Potassium 3.7 mmol/L (3.5-5.1)
[2024-06-02 00:49] LABS: Anion Gap 10 (5-15); Carbon Dioxide 21 mmol/L (20-31)
[2024-06-02 00:55] LABS: Glucose 80 mg/dL (74-106)
[2024-06-02 01:25] LABS: Blood Urea Nitrogen 51 mg/dL (9-23); Calcium 8.4 mg/dL (8.7-10.4); Chloride 132 mmol/L (98-107)
[2024-06-02 01:28] LABS: Sodium 163 mmol/L (136-145)
[2024-06-02 06:24] LABS: Basophils # (auto) 0 10 ^3/uL (0-0.2); Eosinophils # (auto) 0.1 10 ^3/uL (0-0.8); Hemoglobin 8.3 g/dL (12.2-16.2); Lymphocytes # (auto) 1.5 10 ^3/uL (0.4-5.4); Monocytes # (auto) 0.5 10 ^3/uL (0-1.3); Monocytes % (auto) 6.7 % (0.0-12.0)
[2024-06-02 06:27] LABS: Basophils % (auto) 0.4 % (0.0-2.0); Eosinophils % (auto) 1.6 % (0.0-7.0); Hematocrit 25.6 % (36.0-46.0); Lymphocytes % (auto) 20.6 % (10.0-50.0); Mean Corpuscular Hemoglobin 32.7 pg (28.0-32.0); Mean Corpuscular Hgb Conc. 32.5 g/dL (32.0-36.0); Mean Corpuscular Volume 100.6 fL (80.0-100.0); Neutrophils # (auto) 5.1 10 ^3/uL (1.6-8.6); Neutrophils % (auto) 70.7 % (37.0-80.0); Nucleated Red Blood Cells % 0.2 %; Platelet Count (auto) 192 10^3/uL (140-450); Red Blood Cells 2.55 10^6/uL (4.0-5.20); Red Cell Distribution Width 15.9 % (11.8-14.3); White Blood Cell 7.1 10^3/uL (4.4-10.8)
[2024-06-02 06:40] LABS: Anion Gap 10 (5-15); Carbon Dioxide 22 mmol/L (20-31)
[2024-06-02 06:45] LABS: BUN/Creatinine Ratio 26.1 (10.0-20.0); Glucose 92 mg/dL (74-106)
[2024-06-02] MEDS ORDERED: REMDESIVIR PER PHARMACY 0 ML IV SCH ×2 (06:45)
[2024-06-02 06:48] LABS: Blood Urea Nitrogen 46 mg/dL (9-23); Calcium 8.4 mg/dL (8.7-10.4); Chloride 130 mmol/L (98-107); Potassium 3.5 mmol/L (3.5-5.1)
[2024-06-02 06:54] LABS: Sodium 162 mmol/L (136-145)
[2024-06-02] MEDS: REMDESIVIR 200mg in NS 210mL LOADING DOSE ADULT IV ONE (09:00)
[2024-06-02] MEDS: ENOXAPARIN SOD 30 MG/0.3 ML SYRINGE SC SCH (10:00)
[2024-06-02] MEDS: ASPirin 81 mg TAB PO SCH (10:57)
[2024-06-02] MEDS: FLUoxetine HCL 20 MG CAP PO SCH (10:57)
[2024-06-02 12:52] LABS: Potassium 3.7 mmol/L (3.5-5.1)
[2024-06-02 12:53] LABS: Anion Gap 12 (5-15); Carbon Dioxide 21 mmol/L (20-31)
[2024-06-02 12:58] LABS: BUN/Creatinine Ratio 24.8 (10.0-20.0); Glucose 87 mg/dL (74-106)
[2024-06-02 13:05] LABS: Blood Urea Nitrogen 41 mg/dL (9-23); Calcium 8.4 mg/dL (8.7-10.4); Chloride 128 mmol/L (98-107)
[2024-06-02 13:06] LABS: Sodium 161 mmol/L (136-145)
[2024-06-02 19:24] LABS: Potassium 3.6 mmol/L (3.5-5.1)
[2024-06-02 19:25] LABS: Anion Gap 11 (5-15); Carbon Dioxide 20 mmol/L (20-31)
--- NOTE | 2024-06-02 19:28 | DVHPN2 ---
Progress Note Date Seen: Jun 02, 2024 Medical Necessity Reason Pt with a Central, PICC or Fol: Yes The following are medically ne: Coates Catheter Subjective Patient reports: Other (Feels weak) Review of Systems: Deferred Objective vital signs Vital Sign Date Time Temp Pulse Resp B/P (MAP) Pulse Ox O2 Delivery O2 Flow Rate FiO2 06/02/24 17:06 82 17 129/65 (86) 97 06/02/24 08:59 97.7 97.7 06/02/24 08:00 Room Air* 0 21 Total Intake and Output 06/01/24 06/01/24 06/02/24 15:00 23:00 07:00 Intake Total 610 ml 400 ml 0 ml Output Total 400 ml Balance 610 ml 400 ml -400 ml medications Current Medications Medications Dose Ordered Sig/Jared Route Start Time Stop Time Status Last Admin Dose Admin Ondansetron HCl 4 mg Q4HP PRN IV 05/31/24 16:00 Ceftriaxone Sodium 50 ml @ 100 mls/hr DAILY@09 IV 06/01/24 09:00 06/02/24 10:58 100 MLS/HR Norepinephrine Bitartrate 250 ml @ 3.75 mls/hr Q24H IV 05/31/24 16:15 05/31/24 16:33 3.75 MLS/HR Dextrose 1,000 ml @ 100 mls/hr Q10H IV 06/01/24 08:15 06/02/24 16:27 100 MLS/HR Enoxaparin Sodium 30 mg DAILY SC 06/02/24 10:00 Fluoxetine HCl 40 mg DAILY PO 06/02/24 10:00 06/02/24 10:57 40 MG Aspirin 81 mg DAILY PO 06/02/24 10:00 06/02/24 10:57 81 MG Remdesivir 100 mg/ Sodium Chloride 250 ml @ 250 mls/hr DAILY@1500 IV 06/03/24 15:00 06/06/24 15:59 Remdesivir 0 ml @ 0 mls/hr PER PHARMACY IV 06/02/24 06:45 06/06/24 06:46 laboratory and microbiology Laboratory Tests 06/02/24 05:43 Test 06/02/24 18:30 Range/Units Serum Glucose Pending Microbiology Date/Time Source Procedure Growth Status 05/31/24 15:39 Blood Blood Culture - Preliminary NO GROWTH AFTER 48 HOURS OF INCUBATION. Resulted 05/31/24 13:30 Urine - [place] Urine Culture - Final Complete Problem List/Assessment/Plan Problem List/Assessment/Plan Acute kidney injury likely in the setting of sepsis and volume depletion recently recovered renal function off dialysis Chronic kidney disease 3a Hypernatremia due to volume depletion Prerenal BISI Urinary tract infection Recommendations Continue D5W IV remove tunneled dialysis catheter We will follow Plan discussed with: Patient My Orders My Orders Orders - SHANNA FOX MD Procedure Category Date Status Time * Radiologist Consult CONS 06/02/24 Transmitted 12:50 SHANNA FOX MD Jun 02, 2024 19:28
[2024-06-02 19:30] LABS: BUN/Creatinine Ratio 24.1 (10.0-20.0); Blood Urea Nitrogen 38 mg/dL (9-23); Calcium 8.4 mg/dL (8.7-10.4); Chloride 125 mmol/L (98-107); Glucose 85 mg/dL (74-106); Sodium 156 mmol/L (136-145)
--- NOTE | 2024-06-02 19:31 | DVHPNRES ---
Progress Note Date Seen: Jun 02, 2024 Resident Creating Document: CYDNEY SERVIN RESIDENT Medical Necessity Reason Pt with a Central, PICC or Fol: Yes The following are medically ne: Coates Catheter Subjective Review of Systems Kamala Galaviz is an 83-year-old female with past medical history as described below presents to the ED with abnormal labs and confusion. Per caregiver Azeb, the sales attendant called her and advised her to take the patient to the hospital today as yesterday the patient had labs drawn at [facility] with results given today that were abnormal. Patient was supposed to go get dialyzed today however nephrology called the patient's caregiver and informed her that the patient no longer needed dialysis. Patient's caregiver denies any recent illness or sick contacts. Past medical history: hypertension, hyperlipidemia, end-stage renal disease on HD 3 days a week since April of 2024 per caregiver, anemia, CVA, depression, Past Surgical History: Hysterectomy, Colonoscopy Social history: Patient lives with caregiver and does not smoke, drink alcohol or use drugs. Review of systems Patient is confused and reports that she is feeling well. Objective vital signs Vital Sign Date Time Temp Pulse Resp B/P (MAP) Pulse Ox O2 Delivery O2 Flow Rate FiO2 06/02/24 17:06 82 17 129/65 (86) 97 06/02/24 08:59 97.7 97.7 06/02/24 08:00 Room Air* 0 21 Total Intake and Output 06/01/24 06/01/24 06/02/24 15:00 23:00 07:00 Intake Total 610 ml 400 ml 0 ml Output Total 400 ml Balance 610 ml 400 ml -400 ml medications Current Medications Medications Dose Ordered Sig/Jared Route Start Time Stop Time Status Last Admin Dose Admin Ondansetron HCl 4 mg Q4HP PRN IV 05/31/24 16:00 Ceftriaxone Sodium 50 ml @ 100 mls/hr DAILY@09 IV 06/01/24 09:00 06/02/24 10:58 100 MLS/HR Norepinephrine Bitartrate 250 ml @ 3.75 mls/hr Q24H IV 05/31/24 16:15 05/31/24 16:33 3.75 MLS/HR Dextrose 1,000 ml @ 100 mls/hr Q10H IV 06/01/24 08:15 06/02/24 16:27 100 MLS/HR Enoxaparin Sodium 30 mg DAILY SC 06/02/24 10:00 Fluoxetine HCl 40 mg DAILY PO 06/02/24 10:00 06/02/24 10:57 40 MG Aspirin 81 mg DAILY PO 06/02/24 10:00 06/02/24 10:57 81 MG Remdesivir 100 mg/ Sodium Chloride 250 ml @ 250 mls/hr DAILY@1500 IV 06/03/24 15:00 06/06/24 15:59 Remdesivir 0 ml @ 0 mls/hr PER PHARMACY IV 06/02/24 06:45 06/06/24 06:46 Examination Physical Examination Constitutional: Patient is A&O x1, is confused, sitting comfortably in bed without any acute respiratory distress Gen - no pallor, no icterus, no cyanosis, no clubbing, no LAD, no edema . Skin - Patients skin is warm and dry. HEENT - normocephalic, atraumatic, dry mucous membranes. Neck - full ROM, no LAD, Pulmonary - B/L equal air entry without crackles cardiovascular - normal S1,S2 heard. no murmurs heard. GI - soft abdomen. bowel sounds normoactive Neurological - patient is confused and further assessment could not be done laboratory and microbiology Laboratory Tests 06/02/24 05:43 Test 06/02/24 18:30 Range/Units Serum Glucose Pending Microbiology Date/Time Source Procedure Growth Status 05/31/24 15:39 Blood Blood Culture - Preliminary NO GROWTH AFTER 48 HOURS OF INCUBATION. Resulted 05/31/24 13:30 Urine - [place] Urine Culture - Final Complete Problem List/Assessment/Plan Problem List/Assessment/Plan Sepsis UTI Acute kidney injury likely in the setting of sepsis and volume depletion Hypernatremia likely d/t volume depletion ?ESRD on HD (M/W/F) since Apr 2024, recovered renal function off dialysis Chronic kidney disease 3a Acute kidney injury likely in the setting of sepsis and volume depletion recently recovered renal function off dialysis Chronic kidney disease 3a COVID pneumonia Plan - Patient given 1L bolus in the ED - Free water deficiet 5.6L - now on D5W, with goal of correcting sodium <12Meq over 24hrs - BMP q6hrs - Ceftriaxone 1g IV - On remdesevir 100mg daily Goals of care discussed with the patient's daughter and caregiver for over 23 mins. Full code Plan discussed with Plan discussed with: Patient My Orders My Orders Orders - CYDNEY SERVIN Procedure Category Date Status Time Enoxaparin Sodium PHA 06/02/24 In Process (Lovenox) 10:00 Fluoxetine Capsule PHA 06/02/24 In Process (Prozac Capsule) 10:00 Aspirin Tablet PHA 06/02/24 In Process 10:[address] 06/01/24 Resulted 21:55 Remdesivir 100mg PHA 06/03/24 In Process (Veklury) 15:00 Remdesivir Per PHA 06/02/24 In Process Pharmacy 06:45 Date of Service: Jun 02, 2024 Billing Provider: PARIS SANCHEZ MD Common Visit Codes: [id number] INP/OBS CARE(HIGH) CYDNEY SERVIN RESIDENT Jun 02, 2024 19:31 PARIS SANCHEZ MD Jun 02, 2024 21:24
[2024-06-03] VITALS (8 sets, daily range): BP systolic 130–144; BP diastolic 69–77; PULSE 56–83; RESP 16–19; TEMP 97–98.7; O2SAT 96–99
[2024-06-03 05:02] LABS: Basophils # (auto) 0 10 ^3/uL (0-0.2); Basophils % (auto) 0.2 % (0.0-2.0); Eosinophils # (auto) 0.1 10 ^3/uL (0-0.8); Eosinophils % (auto) 1.8 % (0.0-7.0); Hematocrit 27.8 % (36.0-46.0); Hemoglobin 8.9 g/dL (12.2-16.2); Lymphocytes # (auto) 1.5 10 ^3/uL (0.4-5.4); Lymphocytes % (auto) 19.9 % (10.0-50.0); Mean Corpuscular Hgb Conc. 32.1 g/dL (32.0-36.0); Mean Corpuscular Volume 99.5 fL (80.0-100.0); Monocytes # (auto) 0.3 10 ^3/uL (0-1.3); Monocytes % (auto) 4.3 % (0.0-12.0); Neutrophils # (auto) 5.6 10 ^3/uL (1.6-8.6); Neutrophils % (auto) 73.8 % (37.0-80.0); Nucleated Red Blood Cells % 0.1 %; Platelet Count (auto) 202 10^3/uL (140-450); Red Blood Cells 2.79 10^6/uL (4.0-5.20); Red Cell Distribution Width 15.5 % (11.8-14.3); White Blood Cell 7.5 10^3/uL (4.4-10.8)
[2024-06-03 05:33] LABS: Anion Gap 11 (5-15); Carbon Dioxide 21 mmol/L (20-31)
[2024-06-03 05:38] LABS: Chloride 121 mmol/L (98-107); Glucose 94 mg/dL (74-106); Potassium 3.3 mmol/L (3.5-5.1); Sodium 153 mmol/L (136-145)
[2024-06-03 05:39] LABS: BUN/Creatinine Ratio 24.1 (10.0-20.0); Blood Urea Nitrogen 41 mg/dL (9-23)
[2024-06-03] MEDS: POTASSIUM EFFERVESENT TAB 25 MEQ PO ONE (12:11)
[2024-06-03 14:55] LABS: Anion Gap 10 (5-15); Carbon Dioxide 22 mmol/L (20-31)
[2024-06-03] MEDS: REMDESIVIR 100mg in NS 230mL (5 DAY REGIMEN) IV SCH (14:59)
[2024-06-03 15:00] LABS: Glucose 95 mg/dL (74-106)
[2024-06-03 15:01] LABS: Blood Urea Nitrogen 35 mg/dL (9-23); Calcium 8.2 mg/dL (8.7-10.4); Chloride 118 mmol/L (98-107); Potassium 3.1 mmol/L (3.5-5.1); Sodium 150 mmol/L (136-145)
--- NOTE | 2024-06-03 15:43 | DVHPNRES ---
Progress Note Date Seen: Jun 03, 2024 Resident Creating Document: CYDNEY SERVIN RESIDENT Medical Necessity Reason Pt with a Central, PICC or Fol: Yes The following are medically ne: Coates Catheter Subjective Review of Systems Patient is more alert and oriented, reports that he is feeling better. denies shortness of breath, chest pain, abdominal pain. Follows commands Objective vital signs Vital Sign Date Time Temp Pulse Resp B/P (MAP) Pulse Ox O2 Delivery O2 Flow Rate FiO2 06/03/24 13:00 98.5 79 16 130/71 (90) 96 98.5 06/03/24 08:00 Room Air* 0 21 Total Intake and Output 06/02/24 06/02/24 06/03/24 15:00 23:00 07:00 Intake Total 300 ml 500 ml 1300 ml Output Total 1750 ml 800 ml Balance 300 ml -1250 ml 500 ml medications Current Medications Medications Dose Ordered Sig/Jared Route Start Time Stop Time Status Last Admin Dose Admin Ondansetron HCl 4 mg Q4HP PRN IV 05/31/24 16:00 Ceftriaxone Sodium 50 ml @ 100 mls/hr DAILY@09 IV 06/01/24 09:00 06/03/24 09:15 100 MLS/HR Norepinephrine Bitartrate 250 ml @ 3.75 mls/hr Q24H IV 05/31/24 16:15 05/31/24 16:33 3.75 MLS/HR Dextrose 1,000 ml @ 100 mls/hr Q10H IV 06/01/24 08:15 06/03/24 00:26 100 MLS/HR Enoxaparin Sodium 30 mg DAILY SC 06/02/24 10:00 06/03/24 09:15 30 MG Fluoxetine HCl 40 mg DAILY PO 06/02/24 10:00 06/03/24 09:15 40 MG Aspirin 81 mg DAILY PO 06/02/24 10:00 06/03/24 09:15 81 MG Remdesivir 100 mg/ Sodium Chloride 250 ml @ 250 mls/hr DAILY@1500 IV 06/03/24 15:00 06/06/24 15:59 06/03/24 14:59 250 MLS/HR Remdesivir 0 ml @ 0 mls/hr PER PHARMACY IV 06/02/24 06:45 06/06/24 06:46 Examination Physical Examination Constitutional: Patient is alert and oriented to place, time, person but does not know why she is in the hospital. No acute distress Gen - no pallor, no icterus, no cyanosis, no clubbing, no LAD, no edema . Skin - Patients skin is warm and dry. HEENT - normocephalic, atraumatic, dry mucous membranes. Neck - full ROM, no LAD, Pulmonary - B/L equal air entry without crackles cardiovascular - normal S1,S2 heard. no murmurs heard. GI - soft abdomen. bowel sounds normoactive Neurological - patient is A/O X 3. Bilateral lower extremity strength 3/5, bilateral upper extremity strength 3/5, no sensory deficit, no tremors. laboratory and microbiology Laboratory Tests 06/03/24 14:18 06/03/24 04:12 Test 06/03/24 14:18 Range/Units Serum Glucose 95 74-106 mg/dL Microbiology Date/Time Source Procedure Growth Status 05/31/24 15:39 Blood Blood Culture - Preliminary NO GROWTH AFTER 48 HOURS OF INCUBATION. Resulted 05/31/24 13:30 Urine - [place] Urine Culture - Final Complete Problem List/Assessment/Plan Problem List/Assessment/Plan Sepsis UTI Acute kidney injury likely in the setting of sepsis and volume depletion Hypernatremia likely d/t volume depletion ?ESRD on HD (M/W/F) since Apr 2024, recovered renal function off dialysis Chronic kidney disease 3a Acute kidney injury likely in the setting of sepsis and volume depletion recently recovered renal function off dialysis Chronic kidney disease 3a COVID pneumonia hypokalemia Plan - Patient given 1L bolus in the ED - Free water deficiet 5.6L - now on D5W, with goal of correcting sodium <12Meq over 24hrs - BMP q6hrs - serum sodium improving with the regular pattern. - Ceftriaxone 1g IV - remdesivir discontinued - potassium replacement with oral 50 mEq, magnesium pending - physical therapy evaluation Goals of care discussed with the patient's daughter and caregiver for over 23 mins. Full code Plan discussed with Dr. Mathews Plan discussed with: Patient, Other (RN (go )) My Orders My Orders Orders - CYDNEY SERVIN RESIDENT Procedure Category Date Status Time Pt Request For Service PT 06/03/24 Logged 09:46 Basic Metabolic Panel LAB 06/03/24 Logged 22:00 Basic Metabolic Panel LAB 06/04/24 Verified 06:00 Magnesium LAB 06/03/24 Verified 15:30 Potassium Chl Cristino PHA 06/03/24 Verified KCL 15:30 Date of Service: Jun 03, 2024 Billing Provider: ANNETTE MATHEWS MD Common Visit Codes: [id number] INP/OBS CARE(HIGH) CYDNEY SERVIN RESIDENT Jun 03, 2024 15:43 ANNETTE MATHEWS MD Jun 03, 2024 23:08
[2024-06-03] MEDS: POTASSIUM CHLORIDE 20 MEQ, LIDOCAINE 1% (LOCAL ANESTH.) 2 ML in SODIUM CHL 0.9% 100 ML IV ONE ×2 (17:24→21:00)
--- NOTE | 2024-06-03 19:07 | DVHPN2 ---
Progress Note Date Seen: Jun 03, 2024 Medical Necessity Reason Pt with a Central, PICC or Fol: Yes The following are medically ne: Coates Catheter Subjective Patient reports: Other Review of Systems: RESPIRATORY:Abnormal (cough) Objective vital signs Vital Sign Date Time Temp Pulse Resp B/P (MAP) Pulse Ox O2 Delivery O2 Flow Rate FiO2 06/03/24 16:52 98.5 56 16 144/69 (94) 97 98.5 06/03/24 08:00 Room Air* 0 21 Total Intake and Output 06/02/24 06/02/24 06/03/24 15:00 23:00 07:00 Intake Total 300 ml 500 ml 1300 ml Output Total 1750 ml 800 ml Balance 300 ml -1250 ml 500 ml medications Current Medications Medications Dose Ordered Sig/Jared Route Start Time Stop Time Status Last Admin Dose Admin Ondansetron HCl 4 mg Q4HP PRN IV 05/31/24 16:00 Ceftriaxone Sodium 50 ml @ 100 mls/hr DAILY@09 IV 06/01/24 09:00 06/03/24 09:15 100 MLS/HR Norepinephrine Bitartrate 250 ml @ 3.75 mls/hr Q24H IV 05/31/24 16:15 05/31/24 16:33 3.75 MLS/HR Dextrose 1,000 ml @ 100 mls/hr Q10H IV 06/01/24 08:15 06/03/24 00:26 100 MLS/HR Enoxaparin Sodium 30 mg DAILY SC 06/02/24 10:00 06/03/24 09:15 30 MG Fluoxetine HCl 40 mg DAILY PO 06/02/24 10:00 06/03/24 09:15 40 MG Aspirin 81 mg DAILY PO 06/02/24 10:00 06/03/24 09:15 81 MG Examination: GENERAL:Normal, LUNGS:Abnormal, ABDOMEN:Normal, MSK:Normal, NEURO:Normal laboratory and microbiology Laboratory Tests 06/03/24 14:18 06/03/24 04:12 Test 06/03/24 14:18 Range/Units Serum Glucose 95 74-106 mg/dL Microbiology Date/Time Source Procedure Growth Status 05/31/24 15:39 Blood Blood Culture - Preliminary NO GROWTH AFTER 72 HOURS OF INCUBATION. Resulted 05/31/24 13:30 Urine - [place] Urine Culture - Final Complete Problem List/Assessment/Plan Problem List/Assessment/Plan Acute kidney injury likely in the setting of sepsis and volume depletion recently recovered renal function off dialysis Chronic kidney disease 3a Hypernatremia due to volume depletion Prerenal BISI Urinary tract infection Recommendations Continue D5W IV --reduce rate sodium better remove tunneled dialysis catheter We will follow Plan discussed with: Patient, Other SHANNA FOX MD Jun 03, 2024 19:07
[2024-06-03] MEDS: D5W 5% 1,000 ML IV SCH (19:15)
[2024-06-03] MEDS: MAGNESIUM SULFATE 1GM/100ML 100 ML IV SCH (20:57)
[2024-06-03] MEDS: POTASSIUM CHL 20MEQ/100ML 100 ML IV ONE (22:52)
[2024-06-03] MEDS: MAGNESIUM SULFATE 1GM/100ML 100 ML IV ONE (22:53)
[2024-06-03 23:41] LABS: Anion Gap 9 (5-15); Carbon Dioxide 22 mmol/L (20-31)
[2024-06-03 23:46] LABS: BUN/Creatinine Ratio 21.9 (10.0-20.0)
[2024-06-03 23:57] LABS: Blood Urea Nitrogen 32 mg/dL (9-23); Calcium 8.2 mg/dL (8.7-10.4); Chloride 119 mmol/L (98-107); Glucose 121 mg/dL (74-106); Sodium 150 mmol/L (136-145)
[2024-06-04] VITALS (8 sets, daily range): BP systolic 98–150; BP diastolic 61–86; PULSE 80–88; RESP 16–18; TEMP 97.1–98.6; O2SAT 94–100
[2024-06-04 05:51] LABS: Basophils # (auto) 0 10 ^3/uL (0-0.2); Basophils % (auto) 0.3 % (0.0-2.0); Eosinophils # (auto) 0.1 10 ^3/uL (0-0.8); Eosinophils % (auto) 1.5 % (0.0-7.0); Hematocrit 31.5 % (36.0-46.0); Hemoglobin 10.3 g/dL (12.2-16.2); Lymphocytes # (auto) 1.2 10 ^3/uL (0.4-5.4); Lymphocytes % (auto) 13.3 % (10.0-50.0); Mean Corpuscular Hemoglobin 32.2 pg (28.0-32.0); Mean Corpuscular Hgb Conc. 32.6 g/dL (32.0-36.0); Mean Corpuscular Volume 98.9 fL (80.0-100.0); Monocytes # (auto) 0.4 10 ^3/uL (0-1.3); Monocytes % (auto) 4.6 % (0.0-12.0); Neutrophils # (auto) 7.2 10 ^3/uL (1.6-8.6); Neutrophils % (auto) 80.3 % (37.0-80.0); Nucleated Red Blood Cells % 0.1 %; Platelet Count (auto) 241 10^3/uL (140-450); Red Blood Cells 3.19 10^6/uL (4.0-5.20)
[2024-06-04 06:01] LABS: Potassium 4.1 mmol/L (3.5-5.1)
[2024-06-04 06:02] LABS: Anion Gap 11 (5-15); Carbon Dioxide 21 mmol/L (20-31)
[2024-06-04 06:07] LABS: BUN/Creatinine Ratio 20.3 (10.0-20.0); Glucose 101 mg/dL (74-106)
[2024-06-04 06:16] LABS: Blood Urea Nitrogen 27 mg/dL (9-23); Calcium 8.6 mg/dL (8.7-10.4); Chloride 116 mmol/L (98-107); Sodium 148 mmol/L (136-145)
--- NOTE | 2024-06-04 10:38 | DVHPNRES ---
Progress Note Date Seen: Jun 04, 2024 Resident Creating Document: ANANT HARRIS RESIDENT Medical Necessity Reason Pt with a Central, PICC or Fol: Yes The following are medically ne: Coates Catheter Subjective Review of Systems Patient is more alert and oriented, reports that he is feeling better. denies shortness of breath, chest pain, abdominal pain. Follows commands Objective vital signs Vital Sign Date Time Temp Pulse Resp B/P (MAP) Pulse Ox O2 Delivery O2 Flow Rate FiO2 06/04/24 09:00 97.8 81 16 98/80 (86) 97 97.8 06/04/24 08:00 Room Air* 0 21 Total Intake and Output 06/03/24 06/03/24 06/04/24 15:00 23:00 07:00 Intake Total 1030 ml 660 ml 200 ml Output Total 751 ml 1300 ml Balance 1030 ml -91 ml -1100 ml medications Current Medications Medications Dose Ordered Sig/Jared Route Start Time Stop Time Status Last Admin Dose Admin Ondansetron HCl 4 mg Q4HP PRN IV 05/31/24 16:00 Ceftriaxone Sodium 50 ml @ 100 mls/hr DAILY@09 IV 06/01/24 09:00 06/03/24 09:15 100 MLS/HR Norepinephrine Bitartrate 250 ml @ 3.75 mls/hr Q24H IV 05/31/24 16:15 05/31/24 16:33 3.75 MLS/HR Enoxaparin Sodium 30 mg DAILY SC 06/02/24 10:00 06/03/24 09:15 30 MG Fluoxetine HCl 40 mg DAILY PO 06/02/24 10:00 06/03/24 09:15 40 MG Aspirin 81 mg DAILY PO 06/02/24 10:00 06/03/24 09:15 81 MG Dextrose 1,000 ml @ 50 mls/hr Q20H IV 06/03/24 19:15 06/04/24 03:24 50 MLS/HR Examination Physical Examination Constitutional: Patient is alert and oriented to place, time, person but does not know why she is in the hospital. No acute distress Gen - no pallor, no icterus, no cyanosis, no clubbing, no LAD, no edema . Skin - Patients skin is warm and dry. HEENT - normocephalic, atraumatic, dry mucous membranes. Neck - full ROM, no LAD, Pulmonary - B/L equal air entry without crackles cardiovascular - normal S1,S2 heard. no murmurs heard. GI - soft abdomen. bowel sounds normoactive Neurological - patient is A/O X 3. Bilateral lower extremity strength 3/5, bilateral upper extremity strength 3/5, no sensory deficit, no tremors laboratory and microbiology Laboratory Tests 06/04/24 05:30 Test 06/04/24 05:30 Range/Units Serum Glucose 101 74-106 mg/dL Microbiology Date/Time Source Procedure Growth Status 05/31/24 15:39 Blood Blood Culture - Preliminary NO GROWTH AFTER 72 HOURS OF INCUBATION. Resulted 05/31/24 13:30 Urine - [place] Urine Culture - Final Complete Problem List/Assessment/Plan Problem List/Assessment/Plan Sepsis UTI Acute kidney injury likely in the setting of sepsis and volume depletion Hypernatremia likely d/t volume depletion ?ESRD on HD (M/W/F) since Apr 2024, recovered renal function off dialysis Chronic kidney disease 3a Acute kidney injury likely in the setting of sepsis and volume depletion recently recovered renal function off dialysis Chronic kidney disease 3a COVID pneumonia hypokalemia hypomagnesemia Plan - Patient given 1L bolus in the ED - Free water deficit 1.8 L - D5W 50cc/h - BMP daily - serum sodium improving with the regular pattern. - Ceftriaxone 1g IV - remdesivir discontinued - potassium replacement with oral 50 mEq, magnesium corrected - physical therapy evaluation -Pending IR for tunneled catheter removal tomorrow Goals of care discussed with the patient's daughter and caregiver for over 23 mins. Full code Plan discussed with Dr. Mathews Plan discussed with: Patient, Other (rn) Date of Service: Jun 04, 2024 Billing Provider: ANNETTE MATHEWS MD Common Visit Codes: [id number] INP/OBS CARE(HIGH) ANANT HARRIS RESIDENT Jun 04, 2024 10:38 ANNETTE MATHEWS MD Jun 05, 2024 00:20
--- NOTE | 2024-06-04 12:36 | DVHPN2 ---
Progress Note Date Seen: Jun 04, 2024 Medical Necessity Reason Pt with a Central, PICC or Fol: Yes The following are medically ne: Coates Catheter Subjective Patient reports: No new complaints, Other Review of Systems: Deferred Objective vital signs Vital Sign Date Time Temp Pulse Resp B/P (MAP) Pulse Ox O2 Delivery O2 Flow Rate FiO2 06/04/24 09:00 97.8 81 16 98/80 (86) 97 97.8 06/04/24 08:00 Room Air* 0 21 Total Intake and Output 06/03/24 06/03/24 06/04/24 15:00 23:00 07:00 Intake Total 1030 ml 660 ml 200 ml Output Total 751 ml 1300 ml Balance 1030 ml -91 ml -1100 ml medications Current Medications Medications Dose Ordered Sig/Jared Route Start Time Stop Time Status Last Admin Dose Admin Ondansetron HCl 4 mg Q4HP PRN IV 05/31/24 16:00 Ceftriaxone Sodium 50 ml @ 100 mls/hr DAILY@09 IV 06/01/24 09:00 06/04/24 10:06 100 MLS/HR Norepinephrine Bitartrate 250 ml @ 3.75 mls/hr Q24H IV 05/31/24 16:15 05/31/24 16:33 3.75 MLS/HR Enoxaparin Sodium 30 mg DAILY SC 06/02/24 10:00 06/04/24 10:06 30 MG Fluoxetine HCl 40 mg DAILY PO 06/02/24 10:00 06/04/24 10:06 40 MG Aspirin 81 mg DAILY PO 06/02/24 10:00 06/04/24 10:06 81 MG Dextrose 1,000 ml @ 50 mls/hr Q20H IV 06/03/24 19:15 06/04/24 03:24 50 MLS/HR Examination: GENERAL:Normal, LUNGS:Abnormal, NEURO:Normal laboratory and microbiology Laboratory Tests 06/04/24 05:30 Test 06/04/24 05:30 Range/Units Serum Glucose 101 74-106 mg/dL Microbiology Date/Time Source Procedure Growth Status 05/31/24 15:39 Blood Blood Culture - Preliminary NO GROWTH AFTER 72 HOURS OF INCUBATION. Resulted 05/31/24 13:30 Urine - [place] Urine Culture - Final Complete Problem List/Assessment/Plan Problem List/Assessment/Plan Acute kidney injury likely in the setting of sepsis and volume depletion recently recovered renal function off dialysis Chronic kidney disease 3a Hypernatremia due to volume depletion Prerenal BISI Urinary tract infection Positive COVID Recommendations Continue D5W IV --reduce rate sodium better remove tunneled dialysis catheter---IR consulted We will follow Plan discussed with: Patient, Other My Orders My Orders Orders - SHANNA FOX MD Procedure Category Date Status Time D5w 5% (Dextrose 5%) PHA 06/03/24 In Process 19:15 SHANNA FOX MD Jun 04, 2024 12:36
[2024-06-04 13:36] LABS: Urine Bacteria None Seen /hpf (None Seen); Urine WBC None Seen /hpf (0 - 5)
[2024-06-04 13:39] LABS: Urine Blood 2+ /uL (Negative); Urine Clarity Clear (Clear); Urine Color Light-Yellow (Yellow); Urine Protein, UAD 1+ (Negative); Urine Specific Gravity 1.012 (1.001-1.035); Urine Squamous Epithelial Cell None Seen /hpf (<5); Urine Urobilinogen Normal (Negative); Urine pH 6.5 (5.0-9.0)
[2024-06-04] MEDS: LORazepam 2MG/ML-1ML VIAL IV ONE (15:56)
[2024-06-04] MEDS: TEMAZEPAM 15 MG CAP PO ONE (22:02)
[2024-06-05] VITALS (8 sets, daily range): BP systolic 120–163; BP diastolic 53–92; PULSE 72–85; RESP 17–18; TEMP 97.1–98.7; O2SAT 94–98
[2024-06-05] MEDS: LIDOCAINE 2%HCL (LOCAL ANESTH.) INJ 10ml MDV ONE (08:48)
--- NOTE | 2024-06-05 10:05 | DVH ---
CHEST RADIOGRAPH Indication: POST TD CATHETER REMOVAL Technique: Single frontal view of the chest was obtained Comparison: XY CHEST XRAY 1 VIEW on DOS: 05/31/24, CHEST PORTABLE on DOS: 07/29/20, CHEST PORTABLE on D OS: 11/27/19, CHEST PORTABLE on DOS: 11/24/19, CHEST PORTABLE on DOS: 11/24/19 FINDINGS: Lines and Tubes: Right chest port with tip in the cavoatrial junction. Left hemodialysis catheter rem andrew Lungs: No focal consolidation. Pleura: No effusion. No pneumothorax. Cardiomediastinal contours: Unremarkable Bones: No acute osseous abnormality. IMPRESSION: No acute cardiopulmonary disease.
[2024-06-05 10:26] LABS: Basophils # (auto) 0 10 ^3/uL (0-0.2); Basophils % (auto) 0.3 % (0.0-2.0); Eosinophils # (auto) 0.2 10 ^3/uL (0-0.8); Eosinophils % (auto) 2.1 % (0.0-7.0); Hemoglobin 10.5 g/dL (12.2-16.2); Lymphocytes # (auto) 1.1 10 ^3/uL (0.4-5.4); Lymphocytes % (auto) 12.8 % (10.0-50.0); Mean Corpuscular Hemoglobin 32.2 pg (28.0-32.0); Mean Corpuscular Hgb Conc. 32.9 g/dL (32.0-36.0); Mean Corpuscular Volume 97.8 fL (80.0-100.0); Monocytes # (auto) 0.4 10 ^3/uL (0-1.3); Monocytes % (auto) 4.3 % (0.0-12.0); Neutrophils # (auto) 6.7 10 ^3/uL (1.6-8.6); Neutrophils % (auto) 80.5 % (37.0-80.0); Nucleated Red Blood Cells % 0.1 %; Platelet Count (auto) 255 10^3/uL (140-450); Red Blood Cells 3.27 10^6/uL (4.0-5.20); Red Cell Distribution Width 15.1 % (11.8-14.3); White Blood Cell 8.4 10^3/uL (4.4-10.8)
[2024-06-05 10:52] LABS: Alanine Aminotransferase 11 U/L (7-40); Albumin 3.9 g/dL (3.2-4.8); Anion Gap 9 (5-15); Aspartate Aminotransferase 16 U/L (13-40); BUN/Creatinine Ratio 13.6 (10.0-20.0); Blood Urea Nitrogen 16 mg/dL (9-23); Calcium 9.1 mg/dL (8.7-10.4); Carbon Dioxide 23 mmol/L (20-31); Glucose 104 mg/dL (74-106); Magnesium 1.8 mg/dL (1.6-2.6)
[2024-06-05 10:53] LABS: Bilirubin, Total 0.5 mg/dL (0.2-1.0); Total Protein 7.2 g/dL (5.7-8.2)
[2024-06-05 10:56] LABS: Alkaline Phosphatase 161 U/L (46-116); Chloride 113 mmol/L (98-107); Potassium 3.3 mmol/L (3.5-5.1); Sodium 145 mmol/L (136-145)
[2024-06-05 11:30] LABS: COVID19 ANTIGEN SOFIA FIA POSITIVE (NEGATIVE)
[2024-06-05] MEDS: POTASSIUM EFFERVESENT TAB 25 MEQ PO ONE (15:01)
--- NOTE | 2024-06-05 16:09 | DVHPN2 ---
Progress Note Date Seen: Jun 05, 2024 Medical Necessity Reason Pt with a Central, PICC or Fol: Yes The following are medically ne: Coates Catheter Subjective Patient reports: No new complaints Other Systems: Patient seen and examined by myself today Objective vital signs Vital Sign Date Time Temp Pulse Resp B/P (MAP) Pulse Ox O2 Delivery O2 Flow Rate FiO2 06/05/24 13:00 98.1 85 18 127/74 (91) 95 98.1 06/05/24 08:00 Room Air* 0 21 Total Intake and Output 06/04/24 06/04/24 06/05/24 15:00 23:00 07:00 Intake Total 250 ml 300 ml 650 ml Output Total 1100 ml 1200 ml Balance 250 ml -800 ml -550 ml medications Current Medications Medications Dose Ordered Sig/Jared Route Start Time Stop Time Status Last Admin Dose Admin Ondansetron HCl 4 mg Q4HP PRN IV 05/31/24 16:00 Ceftriaxone Sodium 50 ml @ 100 mls/hr DAILY@09 IV 06/01/24 09:00 06/05/24 09:40 100 MLS/HR Enoxaparin Sodium 30 mg DAILY SC 06/02/24 10:00 06/04/24 10:06 30 MG Fluoxetine HCl 40 mg DAILY PO 06/02/24 10:00 06/05/24 09:40 40 MG Aspirin 81 mg DAILY PO 06/02/24 10:00 06/05/24 09:41 81 MG Dextrose 1,000 ml @ 50 mls/hr Q20H IV 06/03/24 19:15 06/05/24 03:46 50 MLS/HR Examination: LUNGS:Normal, CVS:Normal, MSK:Normal laboratory and microbiology Laboratory Tests 06/05/24 10:03 Test 06/05/24 10:03 Range/Units Serum Glucose 104 74-106 mg/dL Microbiology Date/Time Source Procedure Growth Status 05/31/24 15:39 Blood Blood Culture - Final NO GROWTH AFTER 5 DAYS OF INCUBATION. Complete 05/31/24 13:30 Urine - [place] Urine Culture - Final Complete Problem List/Assessment/Plan Problem List/Assessment/Plan Acute kidney injury likely in the setting of sepsis and volume depletion recently recovered renal function off dialysis Chronic kidney disease 3a Hypernatremia due to volume depletion Prerenal BISI Urinary tract infection Positive COVID Recommendations Kidney function is improving Continue D5W IV --reduce rate sodium better remove tunneled dialysis catheter---IR consulted We will follow Plan discussed with: Patient NICK NICHOLAS MD Jun 05, 2024 16:08
--- NOTE | 2024-06-05 20:59 | DVHPNRES ---
Progress Note Date Seen: Jun 05, 2024 Resident Creating Document: CYDNEY SERVIN RESIDENT Medical Necessity Reason Pt with a Central, PICC or Fol: Yes The following are medically ne: Coates Catheter Subjective Review of Systems Patient's level of conscoiusness has been fluctuating. denies shortness of breath, chest pain, abdominal pain. Follows commands Objective vital signs Vital Sign Date Time Temp Pulse Resp B/P (MAP) Pulse Ox O2 Delivery O2 Flow Rate FiO2 06/05/24 20:00 72 06/05/24 20:00 Room Air* 0 21 06/05/24 16:49 97.7 18 137/77 (97) 96 97.7 Total Intake and Output 06/04/24 06/04/24 06/05/24 15:00 23:00 07:00 Intake Total 250 ml 300 ml 650 ml Output Total 1100 ml 1200 ml Balance 250 ml -800 ml -550 ml medications Current Medications Medications Dose Ordered Sig/Jared Route Start Time Stop Time Status Last Admin Dose Admin Ondansetron HCl 4 mg Q4HP PRN IV 05/31/24 16:00 Ceftriaxone Sodium 50 ml @ 100 mls/hr DAILY@09 IV 06/01/24 09:00 06/05/24 09:40 100 MLS/HR Enoxaparin Sodium 30 mg DAILY SC 06/02/24 10:00 06/04/24 10:06 30 MG Fluoxetine HCl 40 mg DAILY PO 06/02/24 10:00 06/05/24 09:40 40 MG Aspirin 81 mg DAILY PO 06/02/24 10:00 06/05/24 09:41 81 MG Dextrose 1,000 ml @ 50 mls/hr Q20H IV 06/03/24 19:15 06/05/24 03:46 50 MLS/HR Examination Constitutional: Patient is alert and oriented to place, person but not to time and does not know why she is in the hospital. No acute distress Gen - no pallor, no icterus, no cyanosis, no clubbing, no LAD, no edema . Skin - Patients skin is warm and dry. HEENT - normocephalic, atraumatic, dry mucous membranes. Neck - full ROM, no LAD, Pulmonary - B/L equal air entry without crackles cardiovascular - normal S1,S2 heard. no murmurs heard. GI - soft abdomen. bowel sounds normoactive Neurological - patient is A/O X 2. Bilateral lower extremity strength 3/5, bilateral upper extremity strength 3/5, no sensory deficit, no tremors laboratory and microbiology Laboratory Tests 06/05/24 10:03 Test 06/05/24 10:03 Range/Units Serum Glucose 104 74-106 mg/dL Microbiology Date/Time Source Procedure Growth Status 05/31/24 15:39 Blood Blood Culture - Final NO GROWTH AFTER 5 DAYS OF INCUBATION. Complete 05/31/24 13:30 Urine - [place] Urine Culture - Final Complete Problem List/Assessment/Plan Problem List/Assessment/Plan Sepsis UTI Acute kidney injury likely in the setting of sepsis and volume depletion Hypernatremia likely d/t volume depletion ?ESRD on HD (M/W/F) since Apr 2024, recovered renal function off dialysis Chronic kidney disease 3a Acute kidney injury likely in the setting of sepsis and volume depletion recently recovered renal function off dialysis Chronic kidney disease 3a COVID pneumonia hypokalemia Plan - Patient given 1L bolus in the ED - Free water deficiet 5.6L - now on D5W, with goal of correcting sodium <12Meq over 24hrs - BMP q6hrs - serum sodium improving with the regular pattern. - Ceftriaxone 1g IV - remdesivir discontinued - potassium replacement with oral 50 mEq, - physical therapy evaluation recommends patient can be d/c to homw if she has caregivers. - Serum sodium now within normal range, D5W to be held Goals of care discussed with the caregiver for over 23 mins. Full code Plan discussed with Dr. New Plan discussed with: Other (caregiver- shwetha) My Orders My Orders Orders - CYDNEY SERVIN Procedure Category Date Status Time * Book [employer]er CONS 06/05/24 Transmitted Consult CYDNEY SERVIN RESIDENT Jun 05, 2024 20:59
[2024-06-06 01:00] VITALS: BP 147/82; PULSE 84; RESP 18; TEMP 96.7; O2SAT 97
[2024-06-06 05:00] VITALS: BP_SYST 147; BP_SYST 162; BP_DIAS 82; BP_DIAS 89; PULSE 77; PULSE 84; RESP 18; TEMP 97.6; TEMP 97.9; O2SAT 97; O2SAT 98
[2024-06-06 06:12] LABS: Potassium 3.8 mmol/L (3.5-5.1)
[2024-06-06 06:13] LABS: Anion Gap 7 (5-15); Carbon Dioxide 24 mmol/L (20-31)
[2024-06-06 06:14] LABS: Calcium 9.3 mg/dL (8.7-10.4)
[2024-06-06 06:18] LABS: BUN/Creatinine Ratio 14.6 (10.0-20.0); Blood Urea Nitrogen 19 mg/dL (9-23); Chloride 114 mmol/L (98-107); Glucose 88 mg/dL (74-106); Sodium 145 mmol/L (136-145)
[2024-06-06] MEDS: D5W 5% IV ONE ×2 (06:39→10:01)
[2024-06-06 08:00] VITALS: PULSE 79; PULSE 85; RESP 18; O2SAT 100
[2024-06-06 09:00] VITALS: BP 152/87; PULSE 79; RESP 18; TEMP 97.5; O2SAT 98
--- NOTE | 2024-06-06 10:30 | DVHPN2 ---
Progress Note Date Seen: Jun 06, 2024 Medical Necessity Reason Pt with a Central, PICC or Fol: Yes The following are medically ne: [place] Catheter Subjective Patient reports: No new complaints Other Systems: Patient seen and examined by myself today in follow-up Objective vital signs Vital Sign Date Time Temp Pulse Resp B/P (MAP) Pulse Ox O2 Delivery O2 Flow Rate FiO2 06/06/24 09:00 97.5 79 18 152/87 (108) 98 97.5 06/05/24 20:00 Room Air* 0 21 Total Intake and Output 06/05/24 06/05/24 06/06/24 15:00 23:00 07:00 Intake Total 100 ml 1780 ml 100 ml Output Total 800 ml 500 ml Balance 100 ml 980 ml -400 ml medications Current Medications Medications Dose Ordered Sig/Jared Route Start Time Stop Time Status Last Admin Dose Admin Ondansetron HCl 4 mg Q4HP PRN IV 05/31/24 16:00 Enoxaparin Sodium 30 mg DAILY SC 06/02/24 10:00 06/04/24 10:06 30 MG Fluoxetine HCl 40 mg DAILY PO 06/02/24 10:00 06/06/24 09:35 40 MG Aspirin 81 mg DAILY PO 06/02/24 10:00 06/06/24 09:36 81 MG Examination: LUNGS:Normal, CVS:Normal, MSK:Normal laboratory and microbiology Laboratory Tests 06/06/24 05:13 06/05/24 10:03 Test 06/06/24 05:13 Range/Units Serum Glucose 88 74-106 mg/dL Microbiology Date/Time Source Procedure Growth Status 05/31/24 15:39 Blood Blood Culture - Final NO GROWTH AFTER 5 DAYS OF INCUBATION. Complete 05/31/24 13:30 Urine - [place] Urine Culture - Final Complete Problem List/Assessment/Plan Problem List/Assessment/Plan Acute kidney injury likely in the setting of sepsis and volume depletion recently recovered renal function off dialysis Chronic kidney disease 3a Hypernatremia due to volume depletion Prerenal BISI Urinary tract infection Positive COVID Recommendations Kidney function continue to improve off hemodialysis Hypernatremia resolved Increase H2O intake remove tunneled dialysis catheter---IR consulted I will sign off this case, please refer to nephrology two weeks after discharge for Chronic Kidney Disease follow-up Thank you for the consult Plan discussed with: Patient NICK NICHOLAS MD Jun 06, 2024 10:30
[2024-06-06 10:40] VITALS: BP 152/87; PULSE 79; RESP 18; TEMP 97.5; O2SAT 100
[2024-06-06] MEDS: CARVEDILOL 3.125 MG TAB PO ONE (10:59)
--- NOTE | 2024-06-06 19:34 | DVHDSRES ---
Discharge Summary Date of Admission Resident Creating Document: CYDNEY SERVIN RESIDENT May 31, 2024 at 15:51 Date of Discharge: Jun 06, 2024 Admitting Diagnosis UTI rule out sepsis ESRD on HD (M/W/F) since Apr 2024 Elevated BUN Elevated creatinine Anemia Chronic hypertension Chronic hyperlipidemia History of anemia History of CVA Chronic depression Wounds: none Labs/Diagnostic Data: Laboratory Results Test 06/06/24 05:13 06/05/24 10:03 06/05/24 09:47 06/04/24 13:30 Sodium Level 145 mmol/L (136-145) Potassium Level 3.8 mmol/L (3.5-5.1) Chloride Level 114 mmol/L (98-107) Carbon Dioxide Level 24 mmol/L (20-31) Anion Gap 7 (5-15) Blood Urea Nitrogen 19 mg/dL (9-23) Creatinine 1.30 mg/dL (0.550-1.02) Glomerular Filtration Rate Calc 41 mL/min (>90) BUN/Creatinine Ratio 14.6 (10.0-20.0) Serum Glucose 88 mg/dL (74-106) Calcium Level 9.3 mg/dL (8.7-10.4) White Blood Count 8.4 10^3/uL (4.4-10.8) Red Blood Count 3.27 10^6/uL (4.0-5.20) Hemoglobin 10.5 g/dL (12.2-16.2) Hematocrit 32.0 % (36.0-46.0) Mean Corpuscular Volume 97.8 fL (80.0-100.0) Mean Corpuscular Hemoglobin 32.2 pg (28.0-32.0) Mean Corpuscular Hemoglobin Concent 32.9 g/dL (32.0-36.0) Red Cell Distribution Width 15.1 % (11.8-14.3) Platelet Count 255 10^3/uL (140-450) Mean Platelet Volume 8.8 fL (6.9-10.8) Neutrophils (%) (Auto) 80.5 % (37.0-80.0) Lymphocytes (%) (Auto) 12.8 % (10.0-50.0) Monocytes (%) (Auto) 4.3 % (0.0-12.0) Eosinophils (%) (Auto) 2.1 % (0.0-7.0) Basophils (%) (Auto) 0.3 % (0.0-2.0) Neutrophils # (Auto) 6.7 10 ^3/uL (1.6-8.6) Lymphocytes # (Auto) 1.1 10 ^3/uL (0.4-5.4) Monocytes # (Auto) 0.4 10 ^3/uL (0-1.3) Eosinophils # (Auto) 0.2 10 ^3/uL (0-0.8) Basophils # (Auto) 0 10 ^3/uL (0-0.2) Nucleated Red Blood Cells 0.1 % Magnesium Level 1.8 mg/dL (1.6-2.6) Total Bilirubin 0.5 mg/dL (0.2-1.0) Aspartate Amino Transferase (AST) 16 U/L (13-40) Alanine Aminotransferase (ALT) 11 U/L (7-40) Alkaline Phosphatase 161 U/L (46-116) Total Protein 7.2 g/dL (5.7-8.2) Albumin 3.9 g/dL (3.2-4.8) SARS-CoV-2 Antigen (Rapid) Positive (NEGATIVE) Urine Color Light-yellow (Yellow) Urine Clarity Clear (Clear) Urine pH 6.5 (5.0-9.0) Urine Specific [place] 1.012 (1.001-1.035) Urine Protein 1+ (Negative) Urine Ketones Negative (Negative) Urine Blood 2+ /uL (Negative) Urine Nitrite 2+ (Negative) Urine Bilirubin Negative (Negative) Urine Urobilinogen Normal mg/dL (Negative) Urine Leukocyte Esterase 2+ /uL (Negative) Urine RBC <1 /hpf (0 - 4) Urine WBC None seen /hpf (0 - 5) Urine Squamous Epithelial Cells None seen /hpf (<5) Urine Bacteria None seen /hpf (None Seen) Urine Glucose Normal mg/dL (Normal) Test 05/31/24 22:52 05/31/24 15:39 05/31/24 12:31 Influenza Type A Antigen Negative (Negative) Influenza Type B Antigen Negative (Negative) Lactic Acid Level 1.2 mmol/L (0.4-2.0) Erythrocyte Sedimentation Rate 96 mm/hr (0-20) C-Reactive Protein High Sensitivity 5.84 mg/dL (<1.0) Other Laboratory Tests 06/06/24 05:13 06/05/24 10:03 Brief Hx & Hospital Course: Kamala Tapia is an 83-year-old female with past medical history as described below presents to the ED with abnormal labs and confusion. Per caregiver Azeb, the physiotherapist's assistant called her and advised her to take the patient to the hospital today as yesterday the patient had labs drawn at [facility] with results given today that were abnormal. Patient was supposed to go get dialyzed today however nephrology called the patient's caregiver and informed her that the patient no longer needed dialysis. Patient's caregiver denies any recent illness or sick contacts. Past medical history: hypertension, hyperlipidemia, end-stage renal disease on HD 3 days a week since April of 2024 per caregiver, anemia, CVA, depression, Past Surgical History: Hysterectomy, Colonoscopy Social history: Patient lives with caregiver and does not smoke, drink alcohol or use drugs. Hospital course On admission patient had altered level of consciousness and was agitated. On admission patient had low blood pressure likely in septic shock and had to be put on pressors support for a few hours following which her blood pressure stabilized and the pressor support was taken off. Patient had hyponatremia with sodium at 168. Water deficit was calculated to be 5.6 L and patient was started on D5 water with goal of correcting hypernatremia at a rate of less than 12 mEq/24hrs. Patient's electrolytes were monitored every 6 hours with a gradual reduction of the serum sodium. Patient was COVID positive and the put on isolation. Patient did not have respiratory distress throughout the course of the hospital stay. Serum sodium levels gradually improved at were within the normal range. Physical therapy assessed with the patient and recommended that patient can be sent home if she has caregivers. Patient's mental status improved. Patient's blood pressure remained within normal limits throughout most of the hospital stay but during the last day at blood pressures started to beat elevated and she was started on her home medication of carvedilol 6.25 mg b.i.d. caregivers were explained that patient can be started on her home blood pressure medication of carvedilol. Amlodipine can be also given to the patient if her blood pressure keeps elevated despite giving carvedilol. Patient was discharged in stable condition to home. Discharge plan Discharged in stable condition to home Follow up in the discharge clinic in 1 week Follow up with the PCP in 1 week Follow up with the Nephrology in the outpatient clinic with Dr. Curry in 2 weeks for further workup. Discharge medication: Continued home medications Consults/Reason for consult Nephrology consult due to ?ESRD, CKD stage 3, hypernatremia Operations or Procedures 2D echocardiogram Normal left ventricular size and systolic function. Ejection fraction estimated at 55-60%. The right ventricle is likely of normal size and systolic function. [id number] tricuspid regurgitation. PA systolic pressure is estimated at 35 mm Hg. No significant pericardial effusion. Tunneled catheter removal by IR Condition at Discharge: Good Final Diagnosis/Problems List Sepsis UTI Acute kidney injury likely in the setting of sepsis and volume depletion Hypernatremia likely d/t volume depletio ?ESRD on HD (M/W/F) since Apr 2024, recovered renal function off dialysis Chronic kidney disease 3a Acute kidney injury likely in the setting of sepsis and volume depletion recently recovered renal function off dialysis Chronic kidney disease 3a COVID pneumonia hypokalemia Discharge Disposition: Home Discharge Instruct/Medications Diet: Regular Activity: No Restrictions, As Tolerated Follow Up/Referral: Follow up in the d/c clinic in one week Follow up in the nephrology outpatient clinic with in 2 weeks Medications: as per EMR Discharge Statement: "Patient was advised to return to the ER or call 911 if any headaches, dizziness, shortness of breath, chest pain, abdominal pain, bleeding, fevers, or worsening of medical condition. Patient was counseled about treatment plan, medications, possible side effects, patientverbalized understanding. All questions were answered to the best of my ability. This discharge took greater then 30 minutes in planning, reviewing documentation, counseling the patient, and discussing with other team members." ASSESSMENT ASSESSMENT Assessment Sepsis UTI Acute kidney injury likely in the setting of sepsis and volume depletion Hypernatremia likely d/t volume depletion ?ESRD on HD (M/W/F) since Apr 2024, recovered renal function off dialysis Chronic kidney disease 3a Acute kidney injury likely in the setting of sepsis and volume depletion recently recovered renal function off dialysis Chronic kidney disease 3a COVID pneumonia hypokalemia CYDNEY SERVIN RESIDENT Jun 06, 2024 19:34
== END 2024-06-06 11:51 | disposition home or self-care (01) | DRG 871 ==
LOC: ER 09:33 → OVERFLOW 15:51 → TELE-EAST 06-01 23:34
PROVIDERS: ADMIT Hospitalist; ATTEND Hospitalist
PROC: 05HM33Z Insertion of Infusion Device into Right Internal Jugular Vein, Percutaneous Approach (ICD-10-PCS; principal; 2024-05-31)
PROC: XW033E5 Introduction of Remdesivir Anti-infective into Peripheral Vein, Percutaneous Approach, New Technology Group 5 (ICD-10-PCS; 2024-06-02)
DX: A41.89 Other specified sepsis (principal); J12.82 Pneumonia due to coronavirus disease 2019; N18.6 End stage renal disease; U07.1 COVID-19; R65.21 Severe sepsis with septic shock; N39.0 Urinary tract infection, site not specified; N17.9 Acute kidney failure, unspecified; E87.0 Hyperosmolality and hypernatremia; I12.0 Hypertensive chronic kidney disease with stage 5 chronic kidney disease or end stage renal disease; E86.9 Volume depletion, unspecified; D64.9 Anemia, unspecified; E87.6 Hypokalemia; E83.42 Hypomagnesemia; E78.5 Hyperlipidemia, unspecified; F32.A Depression, unspecified; Z99.2 Dependence on renal dialysis; Z86.73 Personal history of transient ischemic attack (TIA), and cerebral infarction without residual deficits; Z85.038 Personal history of other malignant neoplasm of large intestine; Z90.710 Acquired absence of both cervix and uterus
CPT/HCPCS: 36415; 36556; 70450; 71045; 80048; 80053; 81001; 83605; 83735; 85025; 85652; 86141; 87040; 87086; 87426; 87804; 92610; 93306; 96365; 97110; 97116; 97163; 97530; 99291; 99292; G0378; J2003; J3480

== ENCOUNTER 2024-06-29 18:15 | Inpatient (IN) | payer MEDICARE, OTHER, MEDICAID ==
[~2024-06-29] VITALS: Ht 162.6 cm; Wt 65.8 kg
[~2024-06-29 18:15] MED LIST changes: +AMLO1TAB23 PO; +CARB25TA77; +CARV6.2551 PO; -NITR-87 PO; +PANT40T PO
[2024-06-29] MEDS: SODIUM CHLORIDE 0.9% 1,000 ML IVB ONE (18:30)
[2024-06-29] MEDS: DOPamine 1600MCG/ML D5W 250 ML IV SCH (18:30)
--- NOTE | 2024-06-29 18:34 | ECG ---
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
[2024-06-29 18:45] VITALS: PULSE 47; RESP 12; O2SAT 99
--- NOTE | 2024-06-29 18:52 | ED.PDOC ---
Altered Mental Status HPI Comments 83-year-old female who comes in with chief complaint of altered level of consciousness with significant amount of hypothermia. According to the family, the patient was altered last night. 911 was called because the patient worsened today. When the paramedics arrived, the patient had a blood pressure of 84/40 with a pulse rate in the 40s. The patient was extremely cold to touch. When the patient arrived, the patient's blood pressure dropped even further. She was able to try to answer questions but because of her CVA she does have problems with her speech. There has been no vomiting or diarrhea. We are unable to get a history from the patient but we did called the hospice nurse who gave us some information on the patient. Chief Complaint: ALOC Time Seen by MD: 18:20 Primary Care Provider: TAD Reviewed Notes: Nurses Notes, Digital Account Coordinator Notes, Medications, Allergies (No allergies to medications) Allergies: Coded Allergies: NO KNOWN ALLERGIES (Unverified , 07/10/10) Home Meds Reported Medications Amlodipine Besylate (Amlodipine Besylate) 10 Mg Tab, 1 TAB PO DAILY 05/31/24 Carvedilol (Carvedilol) 6.25 Mg Tab, 1 TAB PO BID 05/31/24 Carbidopa-Levodopa (Carbidopa/Levodopa Er) 25 /100 Tab, 25-100 05/31/24 Pantoprazole Sodium Sesquihydr (Pantoprazole Sodium) 40 Mg Tab, 1 TAB PO DAILY 05/31/24 Mirabegron Base (MYRBETRIQ) 50 Mg Tab, 50 MG OR DAILY, TAB 11/18/19 Ferrous Sulfate (Ferrous Sulfate) 325 Mg Tab, 325 MG PO BIDWM for 30 Days, MG 11/18/19 Bupropion Hcl (Bupropion Hcl) 100 Mg Tab, 150 MG PO DAILY for 30 Days, MG 11/18/19 Aspirin-Dipyridamole (Aggrenox) 1 Cap Cap, 1 CAP PO BID, #60 CAP 5 Refills 11/18/19 Fluoxetine Hcl (Fluoxetine Hcl) 20 Mg Cap, 40 MG PO DAILY 07/10/10 Atorvastatin Calcium (Lipitor) 20 Mg Tab 07/10/10 Information Source: Emergency Med Personnel Mode of Arrival: EMS Severity: Moderate, Unable to Care for Self, Unresponsive Timing: Days Duration: Since onset Prehospital treatment: Accucheck (Accu-Chek was 173 EN route that), Director Case, IVF Quality: Decreased Alertness, Confusion Recent: Other (Hypothermia) History of: CVA Associated Signs and Symptoms: Slurred Speech Past Medical History PAST MEDICAL HISTORY: Anemia, Cancer, CKF, CVA, Depression, GERD, High Lipids, HTN Surgical History: Hysterectomy DATA WAREHOUSING SPECIALIST History: No Pertinent DATA WAREHOUSING SPECIALIST History Family History Family History: Unknown Social History Smoker: Non-Smoker Alcohol: Denies ETOH Use Drugs: Denies Drug Use Lives In: Home Constitutional: reports: weakness; denies: chills, diaphoresis, fatigue, fever, malaise, sweats, others EENTM: denies: blurred vision, double vision, ear bleeding, ear discharge, ear drainage, ear pain, ear ringing, eye pain, eye redness, hearing loss, mouth pain, mouth swelling, nasal discharge, nose bleeding, nose congestion, nose pain, photophobia, tearing, throat pain, throat swelling, voice changes, others Respiratory: denies: cough, hemoptysis, orthopnea, SOB at rest, shortness of breath, SOB with excertion, stridor, wheezing, others Cardiovascular: denies: chest pain, dizzy spells, diaphoresis, Dyspnea on exertion, edema, irregular heart beat, left arm pain, lightheadedness, palpitations, PND, syncope, others Gastrointestinal: denies: abdomen distended, abdominal pain, blood streaked bowels, constipated, diarrhea, dysphagia, difficulty swallowing, hematemesis, melena, nausea, poor appetite, poor fluid intake, rectal bleeding, rectal pain, vomiting, others Genitourinary: denies: abnormal vagina bleeding, burning, dyspareunia, dysuria, flank pain, frequency, hematuria, incontinence, pain, , vagina discharge, urgency, others Neurological: reports: weakness (Generalized weakness); denies: dizziness, fainting, headache, left sided numbness, left sided weakness, numbness, paresthesia, pre-existing deficit, right sided numbness, right sided weakness, seizure, speech problems, tingling, tremors, others Musculoskeletal: denies: back pain, gout, joint pain, joint swelling, muscle pain, muscle stiffness, neck pain, others Integumetry: reports: others (Hypothermia); denies: bruises, change in color, change in hair/nails, dryness, laceration, lesions, lumps, rash, wounds Allergic/Immunocompromised: denies: Difficulty Healing, Frequent Infections, Hives, Itching, others Hematologic/Lymphatic: denies: anemia, blood clots, easy bleeding, easy bruising, swollen glands, others Endocrine: denies: excessive hunger, excessive sweating, excessive thirst, excessive urination, flushing, intolerance to cold, intolerance to heat, unexplained weight gain, unexplained weight loss, others Psychiatric: denies: anxiety, bipolar disorder, depression, hopeless, panic disorder, schizophrenia, sleepless, suicidal, others Physical Exam General Appearance: Moderate Distress, Obese HEENT: Pale Conjuntivae (L), Pale Conjuntivae (R), Pharynx Normal, TMs Normal Neck: Full Range of Motion, Non-Tender, Normal, Normal Inspection Respiratory: Chest Non-Tender, Lungs Clear, No Accessory Muscle Use, No Respiratory Distress, Normal Breath Sounds Cardiovascular: Bradycardia, No Edema, No JVD, No Murmur, No Gallop Breast Exam: Deferred Gastrointestinal: No Organomegaly, Non Tender, No Pulsatile Mass, Normal Bowel Sounds, Soft Genitalia: Deferred Pelvic: Deferred Rectal: Deferred Extremities: No calf tenderness, Normal capillary refill, Pedal edema Musculoskeletal : Apperance: Normal Neurologic: oncology nurse II-XII nml as Tested, Motor Weakness, No Sensory Deficits, Other (Lethargic) Cerebellar Function: Unable to Test Reflexes: Normal Skin: Dry, Pallor, Other (Very cold to touch) Lymphatic: No Adenopathy EKG EKG : Pulse Rate (adult): 48 Cardiac Rhythm: SB Block: None ST: Nonsp Was a procedure done? Was a procedure done?: Yes Sedation Sedation?: No Informed consent obtained: No Central Line Recorder of insertion practice: Mechanic Foreman Occupation of enrollment services vice president: Other (Resident physician with supervision of the attending) Indication: Hypotension, CVP monitoring, Volume resuscitation Room prepared for procedure: Yes Mechanic Foreman performed hand hygien: Yes Maximal sterile barrier precau: Mask/Eye shield, Sterile gown, Cap, Sterlie gloves, Large sterlie drape Skin Preparation: Chlorhexidine gluconate Skin preparation completely dr: Yes Insertion site: Left, Internal jugular Central line catheter type: Gzo-[id number]-[id number] dialysis Number of lumens: 3 Central line exchanged over a: No Antiseptic ointment applied to: Yes Post Assessment: Chest X-Ray, Proper placement Informed consent obtained: No Risks/benefits/alt described: No Differential Diagnosis (ALOC) Differential Diagnosis: Dehydration, Encephalopathy, Hypoxemia, Other (Hypothermia, sepsis) X-Ray, Labs, Meds, VS Vital Signs Date Time Temp Pulse Resp B/P (MAP) Pulse Ox O2 Delivery O2 Flow Rate FiO2 06/29/24 21:19 116/48 06/29/24 20:47 75 06/29/24 19:30 94/33 06/29/24 19:30 94/33 06/29/24 19:05 71/31 06/29/24 19:01 85.3 53 9 68/32 (44) 96 85.3 06/29/24 18:45 47 12 99 Room Air* 0 21 06/29/24 18:42 84.2 48 16 66/39 (48) 97 67/31 (43) 06/29/24 18:30 50/24 06/29/24 18:23 48 06/29/24 18:17 48 Lab Test 06/29/24 20:52 06/29/24 19:23 06/29/24 19:00 06/29/24 18:58 Range/Units Troponin I High Sensitivity Pending 13 </=34 ng/L White Blood Count 10.2 4.4-10.8 10^3/uL Red Blood Count 3.61 L 4.0-5.20 10^6/uL Hemoglobin 11.5 L 12.2-16.2 g/dL Hematocrit 36.1 36.0-46.0 % Mean Corpuscular Volume 100.2 H 80.0-100.0 fL Mean Corpuscular Hemoglobin 31.9 28.0-32.0 pg Mean Corpuscular Hemoglobin Concent 31.8 L 32.0-36.0 g/dL Red Cell Distribution Width 17.4 H 11.8-14.3 % Platelet Count 178 140-450 10^3/uL Mean Platelet Volume 9.6 6.9-10.8 fL Neutrophils (%) (Auto) 85.6 H 37.0-80.0 % Lymphocytes (%) (Auto) 9.7 L 10.0-50.0 % Monocytes (%) (Auto) 3.9 0.0-12.0 % Eosinophils (%) (Auto) 0.5 0.0-7.0 % Basophils (%) (Auto) 0.3 0.0-2.0 % Neutrophils # (Auto) 8.7 H 1.6-8.6 10 ^3/uL Lymphocytes # (Auto) 1.0 0.4-5.4 10 ^3/uL Monocytes # (Auto) 0.4 0-1.3 10 ^3/uL Eosinophils # (Auto) 0 0-0.8 10 ^3/uL Basophils # (Auto) 0 0-0.2 10 ^3/uL Nucleated Red Blood Cells 0.1 % Sodium Level 152 H 136-145 mmol/L Potassium Level 4.4 3.5-5.1 mmol/L Chloride Level 118 H 98-107 mmol/L Carbon Dioxide Level 24 20-31 mmol/L Anion Gap 10 5-15 Blood Urea Nitrogen 62 H 9-23 mg/dL Creatinine 2.19 H 0.550-1.02 mg/dL Glomerular Filtration Rate Calc 22 >90 mL/min BUN/Creatinine Ratio 28.3 H 10.0-20.0 Serum Glucose 162 H 74-106 mg/dL Hemoglobin A1c Pending Lactic Acid Level 1.4 0.4-2.0 mmol/L Calcium Level 9.2 8.7-10.4 mg/dL Magnesium Level 2.4 1.6-2.6 mg/dL Influenza Type A Antigen Negative Negative Influenza Type B Antigen Negative Negative SARS-CoV-2 Antigen (Rapid) Negative NEGATIVE Urine Color Yellow Yellow Urine Clarity Turbid H Clear Urine pH 6.0 5.0-9.0 Urine Specific [place] 1.015 1.001-1.035 Urine Protein Trace H Negative Urine Ketones Negative Negative Urine Blood Negative Negative /uL Urine Nitrite Negative Negative Urine Bilirubin Negative Negative Urine Urobilinogen Normal Negative mg/dL Urine Leukocyte Esterase 3+ Negative /uL Urine RBC 3 0 - 4 /hpf Urine Microscopic WBC 67 H 0-5 /HPF Urine Squamous Epithelial Cells Few <5 /hpf Urine Bacteria Few H None Seen /hpf Urine Glucose Normal Normal mg/dL Current Medications Medications (Trade) Dose Ordered Sig/Jared Route Start Time Stop Time Status Last Admin Sodium Chloride 1,000 ml @ 1,000 mls/hr Q1H ONCE IVB 06/29/24 18:30 06/29/24 19:29 DC 06/29/24 18:30 Dopamine HCl/ Dextrose 250 ml @ 13.5 mls/hr [id number] IV 06/29/24 18:45 06/29/24 18:30 Norepinephrine Bitartrate 250 ml @ 3.75 mls/hr Q24H IV 06/29/24 19:00 06/29/24 19:05 Phenylephrine HCl 250 ml @ 30 mls/hr [id number] ONCE IV 06/29/24 21:04 06/30/24 05:23 06/29/24 21:19 Ceftriaxone Sodium 50 ml @ 100 mls/hr ONCE ONCE IV 06/29/24 21:00 06/29/24 21:29 DC 06/29/24 21:18 Famotidine (Pepcid Injection) 20 mg Q48H IV 06/29/24 22:00 06/29/24 21:28 Sodium Chloride (Saline Lock Ns) 10 ml Q8HR IV 06/29/24 22:00 06/29/24 21:29 IV Hep-Lock was established. The patient was significantly hypotensive The patient was then started on normal saline as a bolus We then placed at [place] to warm the patient was secondary to this significantly decreased temperature The urine test is positive for a UTI The patient was given Rocephin 1 g IV piggyback The CBC shows anemia with a hemoglobin of 11.5 and hematocrit of 36.1 The chemistry panel shows a BUN of 62 and a creatinine of 2.19 The rest of the chemistry panel is within normal limits The patient was started on dopamine initially when the patient arrived The patient was then also started on norepinephrine The patient remained hypotensive so phenylephrine was had it. The patient was blood pressure now seems to be increasing so we are going to monitor the phenylephrine The patient was also started on Pepcid 20 mg IV push The patient was being admitted to the ICU Critical Care involved bedside management as well as decision making an interpretation of labs Patient's seems to be improving and waking up at this time as family has arrived at bedside Images Reviewed?: Images reviewed and evaluated by me Time of 1ST Reevaluation: 21:40 Reevaluation 1ST: Improved Patient Education/Counseling: Pt Unresponsive Family Education/Counseling: Diagnosis, Treatment, Prognosis Departure 1 Departure Time of Disposition: 21:42 Impression: Primary Impression: Hypothermia Qualified Codes: T68.XXXA - Hypothermia, initial encounter Additional Impressions: Encephalopathy Qualified Codes: G93.40 - Encephalopathy, unspecified Hypotensive episode Symptomatic bradycardia Disposition: ADMITTED INPATIENT Admit to: ICU Condition: Critical Critical Care Note Critical Care Time?: Yes (90 min-critical care time only) Stability Stability form required: Yes Unstable for transfer: ICU, CCU, PCU, EWELINA (Intensive VS monitoring), Low BP (low high or fluctuating BP), May require CPR (possible rapid decline), ED Physician Assesment (Clinical assesment) Heart Score Heart Score: Heart Score Response (Comments) Value History Highly Suspicious 2 EKG Repolarization Disturb 1 Age >65 2 Risk Factors >3 or Hx ASHD 2 Troponin Normal limit 0 Total 7 ROHINI ROBBINS MD Jun 29, 2024 18:52
[2024-06-29] MEDS: DOPamine 1600MCG/ML D5W 250 ML IV ONE (18:55)
--- NOTE | 2024-06-29 18:57 | DVH ---
EXAM: CT HEAD WITHOUT CONTRAST HISTORY: aloc COMPARISON: CT HEAD WITHOUT CONTRAST on DOS: 06/01/24 TECHNIQUE: Axial images were obtained and reformatted in coronal and sagittal planes. All CT scans at this medical facility are performed using dose modulation techniques as appropriate t o a performed exam including the following: Automated exposure control was utilized; adjustment of th e MA and/or KV according to patient size; and use of iterative reconstruction technique. CT Dose: CTDI volume is 60 mGy. Dose-length product is 11 14 mGy*cm FINDINGS: Supratentorial Region: No evidence for large acute territorial ischemia. Old bilateral basal ganglia infarcts noted. No intracranial hemorrhage is noted. Confluent white matter hypoattenuating foci ar e noted bilaterally, which typically reflect chronic microvascular ischemic changes. Posterior Fossa: No acute abnormality. Brainstem: Unremarkable. Sellar/Suprasellar Region: Unremarkable. Ventricles, Cisterns, Sulci: Age-appropriate. Orbits: Unremarkable. Paranasal Sinuses: Unremarkable. Mastoid Air Cells: Unremarkable. Vasculature: Unremarkable. Bones/Soft Tissues: No acute abnormality. Other: None. IMPRESSION: 1. No acute intracranial process.
[2024-06-29] MEDS: NOREPINEPHRINE 8 MG/250ML KIT 250 ML IV SCH (19:05)
--- NOTE | 2024-06-29 19:08 | DVH ---
EXAMINATION: AP portable chest radiograph CLINICAL HISTORY: aloc COMPARISON: XY CHEST PORTABLE on DOS: 06/05/24, XY CHEST XRAY 1 VIEW on DOS: 05/31/24, CHEST PORTABLE o n DOS: 07/29/20 FINDINGS: Multiple wires overlie the thorax. Stable appearing right chest port catheter. Mild diffuse interstitial prominence and central vascular redistribution. No lobar consolidation mani ntified. No definite pleural effusion or pneumothorax. IMPRESSION: Pulmonary vascular congestion/interstitial edema. Please correlate to exclude atypical infection.
[2024-06-29] MEDS: NOREPINEPHRINE 8 MG/250ML KIT 250 ML IV ONE (19:09)
[2024-06-29 19:30] VITALS: PULSE 60; RESP 10; O2SAT 96
[2024-06-29 19:35] LABS: COVID19 ANTIGEN SOFIA FIA NEGATIVE (NEGATIVE); Rapid Influenza A Negative (Negative); Rapid Influenza B Negative (Negative)
[2024-06-29 19:41] LABS: Urine Bacteria FEW /hpf (None Seen); Urine Blood Negative /uL (Negative); Urine Clarity Turbid (Clear); Urine Color Yellow (Yellow); Urine Protein, UAD TRACE (Negative); Urine Specific Gravity 1.015 (1.001-1.035); Urine Squamous Epithelial Cell FEW /hpf (<5); Urine Urobilinogen Normal (Negative); Urine WBC 67 /HPF (0-5)
[2024-06-29 19:48] LABS: Basophils # (auto) 0 10 ^3/uL (0-0.2); Basophils % (auto) 0.3 % (0.0-2.0); Eosinophils # (auto) 0 10 ^3/uL (0-0.8); Eosinophils % (auto) 0.5 % (0.0-7.0); Hematocrit 36.1 % (36.0-46.0); Hemoglobin 11.5 g/dL (12.2-16.2); Lymphocytes % (auto) 9.7 % (10.0-50.0); Mean Corpuscular Hemoglobin 31.9 pg (28.0-32.0); Mean Corpuscular Hgb Conc. 31.8 g/dL (32.0-36.0); Mean Corpuscular Volume 100.2 fL (80.0-100.0); Monocytes # (auto) 0.4 10 ^3/uL (0-1.3); Monocytes % (auto) 3.9 % (0.0-12.0); Neutrophils # (auto) 8.7 10 ^3/uL (1.6-8.6); Neutrophils % (auto) 85.6 % (37.0-80.0); Nucleated Red Blood Cells % 0.1 %; Platelet Count (auto) 178 10^3/uL (140-450); Red Blood Cells 3.61 10^6/uL (4.0-5.20); Red Cell Distribution Width 17.4 % (11.8-14.3); White Blood Cell 10.2 10^3/uL (4.4-10.8)
[2024-06-29 19:52] LABS: Potassium 4.4 mmol/L (3.5-5.1)
[2024-06-29 19:53] LABS: Anion Gap 10 (5-15); Carbon Dioxide 24 mmol/L (20-31)
[2024-06-29 19:54] LABS: Calcium 9.2 mg/dL (8.7-10.4)
[2024-06-29 19:59] LABS: BUN/Creatinine Ratio 28.3 (10.0-20.0); Magnesium 2.4 mg/dL (1.6-2.6)
[2024-06-29 20:00] LABS: Blood Urea Nitrogen 62 mg/dL (9-23); Chloride 118 mmol/L (98-107); Glucose 162 mg/dL (74-106); Sodium 152 mmol/L (136-145)
--- NOTE | 2024-06-29 20:49 | DVH ---
EXAMINATION: AP portable chest radiograph CLINICAL HISTORY: Central line placement- left jugular COMPARISON: XY CHEST PORTABLE on DOS: 06/29/24 Findings and impression: Interval placement of a left-sided central venous line. The tip of the catheter terminates in the SV C just above the expected level of the cavoatrial junction. No sizeable pneumothorax identified. Grossly unchanged pulmonary vascular congestion/interstitial edema.
[2024-06-29] MEDS ORDERED: AZITHROMYCIN 500MG/ 250ML 250 ML IV ONE (21:00)
[2024-06-29] MEDS ORDERED: HYDROcodone-ACET 5/325MG TAB PO PRN (21:00)
[2024-06-29] MEDS ORDERED: DOCUSATE SOD 100 MG CAP PO PRN (21:00)
[2024-06-29] MEDS ORDERED: ONDANSETRON HCL 4 MG/2 ML VIAL IV PRN (21:00)
[2024-06-29] MEDS: cefTRIAXone 1GM/50ML D5W 50 ML IV ONE (21:18)
[2024-06-29] MEDS: PHENYLEPHRINE IV 250 ML IV ONE (21:19)
[2024-06-29] MEDS: FAMOTIDINE (10MG/ML) 2ML VL IV SCH (21:28)
[2024-06-29] MEDS: CARBIDOPA W LEVODOPA 25/100mg TABLET PO SCH (21:29)
[2024-06-29] MEDS: SODIUM CHLOR 0.9% PF (SALINE LOCK) 10ML VIAL/SYR IV SCH (21:29)
[2024-06-29] MEDS: ATORVASTATIN 20 MG TAB PO SCH (21:30)
--- NOTE | 2024-06-29 22:39 | DVHHP2 ---
History of Present Illness Reason for Visit: Hypotension History of Present Illness The patient is a 83-year-old female with multiple past medical history including depression, CVA, cancer, and hypertension who presented to [facility] ED for evaluation of altered level of consciousness. Patient's caregiver reports patient progressively get worse with hypothermia, extremely cold to touch, generalized weakness, and hypotensive, so EMS were called. When the paramedics arrived, the patient had a blood pressure of 84/40 with a pulse rate in the 40s. Patient was seen and evaluated in the ED, laboratory data shows WBC 10.2, platelets 178, sodium 152, potassium 4.4, BUN 62, creatinine 2.19, GFR 22, glucose 162, hemoglobin A1c 4.6, troponin 13, blood pressure 71/31 trending up to 141/41, heart rate 48, temperature 91.9 F, O2 saturation 99% on oxygen. Chest x-ray revealing pulmonary vascular congestion/interstitial edema; please correlate to exclude atypical infection. Urinalysis positive for urinary tract infection. Patient was started on IV norepinephrine drip, please see medication orders section in the computer. On my assessment, mortgage loan reviewer at bedside, no diaphoresis, no shortness of breaths, no diarrhea, no nausea, no vomiting, no fever, no chills. Patient was admitted for further evaluation and medical management. Past Medical History Anemia, Cancer, CKF, CVA, Depression, GERD, High Lipids, HTN Past Surgical History Hysterectomy Family History Reviewed, noncontributory to the management of this case. Past Social History The patient lives at home, denies smoking, alcohol or illicit drugs abuse. Review of Systems Constitutional: Yes: Weakness; No: Fever, Chills, Sweats, Malaise, Other Eyes: No: Pain, Vision change, Conjunctivae inflammation, Eyelid inflammation, Other, Redness ENT: No: Ear pain, Ear discharge, Nose pain, Nose discharge, Nose congestion, Mouth pain, Mouth swelling, Throat pain, Throat swelling, Other Respiratory: Shortness of breath; No: Cough, Dry, SOB with excertion, Wheezing, Hemoptysis, Pleuritic Pain, Sputum, Wheezing, Other Cardiovascular: No: Chest Pain, Palpitations, Orthopnea, Paroxysmal Noc. Dyspnea, Edema, Lt Headedness, Other Gastrointestinal: No: Nausea, Vomiting, Abdominal Pain, Diarrhea, Constipation, Melena, Hematochezia, Other Genitourinary: No Dysuria, No Frequency, No Incontinence, No Hematuria, No Retention, No Other Musculoskeletal: No: other, neck pain, shoulder pain, arm pain, back pain, hand pain, leg pain, foot pain Skin: No: Rash, Lesions, Jaundice, Bruising, Other Neurological: Weakness, Other (Altered level of consciousness); No: Numbness, Incoordination, Change in speech, Confusion, Seizures Allergies: Coded Allergies: NO KNOWN ALLERGIES (Unverified , 07/10/10) Medications Current Medications Medications Dose Ordered Sig/Jared Route Start Time Stop Time Status Last Admin Dose Admin Dopamine HCl/ Dextrose 250 ml @ 13.5 mls/hr [id number] IV 06/29/24 18:45 06/29/24 18:30 54 MLS/HR Norepinephrine Bitartrate 250 ml @ 3.75 mls/hr Q24H IV 06/29/24 19:00 06/29/24 19:05 3.75 MLS/HR Ceftriaxone Sodium 50 ml @ 100 mls/hr DAILY@09 IV 06/30/24 09:00 Famotidine 20 mg Q48H IV 06/29/24 22:00 06/29/24 21:28 20 MG Atorvastatin Calcium 10 mg HS PO 06/29/24 22:00 Sodium Chloride 10 ml Q8HR IV 06/29/24 22:00 06/29/24 21:29 10 ML Acetaminophen/ Hydrocodone Bitart 1 tab Q4HP PRN PO 06/29/24 21:00 Ondansetron HCl 4 mg Q4HP PRN IV 06/29/24 21:00 Docusate Sodium 100 mg BIDPRN PRN PO 06/29/24 21:00 Acetaminophen 650 mg Q6HP PRN PO 06/29/24 21:00 Carbidopa/Levodopa 1 tab TID PO 06/29/24 22:00 Doxycycline Hyclate 100 ml @ 50 mls/hr Q12H IV 06/29/24 21:45 Exam Vital Signs Vital Signs Date Time Temp Pulse Resp B/P (MAP) Pulse Ox O2 Delivery O2 Flow Rate FiO2 06/29/24 22:05 112/46 06/29/24 21:43 48 06/29/24 19:30 10 96 Nasal Cannula* 2 28 06/29/24 19:01 85.3 85.3 General Appearance: Alert, Oriented X3, Cooperative, No acute distress HEENT: Atraumatic, PERRLA, EOMI, Mucous membr. moist/pink Respiratory: Normal air movement, Other (Diminished breath sounds) Cardiovascular: Regular rate, Normal S1, Normal S2, No murmurs Abdominal: Normal bowel sounds, Soft, No tenderness, No hepatospenomegaly, No masses Extremities: No clubbing, No cyanosis, No edema, Normal pulses, No tenderness/swelling Skin: No rashes, No breakdown, No significant lesion Neuro: Normal speech, Normal tone, Sensation intact, Cranial nerves 3-12 NL, Reflexes 2+, Other (Generalized weakness) Psych/Mental Status: Mental status NL, Mood NL Labs/Xrays Labs Test 06/29/24 20:52 06/29/24 19:23 06/29/24 19:00 06/29/24 18:58 Range/Units Troponin I High Sensitivity 14 </=34 ng/L White Blood Count 10.2 4.4-10.8 10^3/uL Red Blood Count 3.61 L 4.0-5.20 10^6/uL Hemoglobin 11.5 L 12.2-16.2 g/dL Hematocrit 36.1 36.0-46.0 % Mean Corpuscular Volume 100.2 H 80.0-100.0 fL Mean Corpuscular Hemoglobin 31.9 28.0-32.0 pg Mean Corpuscular Hemoglobin Concent 31.8 L 32.0-36.0 g/dL Red Cell Distribution Width 17.4 H 11.8-14.3 % Platelet Count 178 140-450 10^3/uL Mean Platelet Volume 9.6 6.9-10.8 fL Neutrophils (%) (Auto) 85.6 H 37.0-80.0 % Lymphocytes (%) (Auto) 9.7 L 10.0-50.0 % Monocytes (%) (Auto) 3.9 0.0-12.0 % Eosinophils (%) (Auto) 0.5 0.0-7.0 % Basophils (%) (Auto) 0.3 0.0-2.0 % Neutrophils # (Auto) 8.7 H 1.6-8.6 10 ^3/uL Lymphocytes # (Auto) 1.0 0.4-5.4 10 ^3/uL Monocytes # (Auto) 0.4 0-1.3 10 ^3/uL Eosinophils # (Auto) 0 0-0.8 10 ^3/uL Basophils # (Auto) 0 0-0.2 10 ^3/uL Nucleated Red Blood Cells 0.1 % Sodium Level 152 H 136-145 mmol/L Potassium Level 4.4 3.5-5.1 mmol/L Chloride Level 118 H 98-107 mmol/L Carbon Dioxide Level 24 20-31 mmol/L Anion Gap 10 5-15 Blood Urea Nitrogen 62 H 9-23 mg/dL Creatinine 2.19 H 0.550-1.02 mg/dL Glomerular Filtration Rate Calc 22 >90 mL/min BUN/Creatinine Ratio 28.3 H 10.0-20.0 Serum Glucose 162 H 74-106 mg/dL Hemoglobin A1c 4.6 <5.7 % A1C Lactic Acid Level 1.4 0.4-2.0 mmol/L Calcium Level 9.2 8.7-10.4 mg/dL Magnesium Level 2.4 1.6-2.6 mg/dL Influenza Type A Antigen Negative Negative Influenza Type B Antigen Negative Negative SARS-CoV-2 Antigen (Rapid) Negative NEGATIVE Urine Color Yellow Yellow Urine Clarity Turbid H Clear Urine pH 6.0 5.0-9.0 Urine Specific [place] 1.015 1.001-1.035 Urine Protein Trace H Negative Urine Ketones Negative Negative Urine Blood Negative Negative /uL Urine Nitrite Negative Negative Urine Bilirubin Negative Negative Urine Urobilinogen Normal Negative mg/dL Urine Leukocyte Esterase 3+ Negative /uL Urine RBC 3 0 - 4 /hpf Urine Microscopic WBC 67 H 0-5 /HPF Urine Squamous Epithelial Cells Few <5 /hpf Urine Bacteria Few H None Seen /hpf Urine Glucose Normal Normal mg/dL PATIENT: MARISOL DENNIS PACCT: [id number] UNIT: [id number] : 1940 LOC: ER ROOM / BED: / AGE / SEX: 83 / F ADM STATUS: REG ER SERVICE 182 ORDERING PHYSICIAN: ROHINI ROBBINS MD PROCEDURE(s): HWOCT - HEAD WITHOUT CONTRAST REASON: aloc ORDER NUMBER(s): [id number], ACCESSION NUMBER(s): [id number] EXAM: CT HEAD WITHOUT CONTRAST HISTORY: aloc COMPARISON: CT HEAD WITHOUT CONTRAST on DOS: 06/01/24 TECHNIQUE: Axial images were obtained and reformatted in coronal and sagittal planes. All CT scans at this medical facility are performed using dose modulation techniques as appropriate to a performed exam including the following: Automated exposure control was utilized; adjustment of the MA and/or KV according to patient size; and use of iterative reconstruction technique. CT Dose: CTDI volume is 60 mGy. Dose-length product is 11 14 mGy*cm FINDINGS: Supratentorial Region: No evidence for large acute territorial ischemia. Old bilateral basal ganglia infarcts noted. No intracranial hemorrhage is noted. Co nfluent white matter hypoattenuating foci are noted bilaterally, which typically reflect chronic microvascular ischemic changes. Posterior Fossa: No acute abnormality. Brainstem: Unremarkable. Sellar/Suprasellar Region: Unremarkable. Ventricles, Cisterns, Sulci: Age-appropriate. Orbits: Unremarkable. Paranasal Sinuses: Unremarkable. Mastoid Air Cells: Unremarkable. Vasculature: Unremarkable. Bones/Soft Tissues: No acute abnormality. Other: None. IMPRESSION: 1. No acute intracranial process. ORDERING PHYSICIAN: ROHINI ROBBINS MD PROCEDURE(s): CXRP - CHEST PORTABLE REASON: aloc ORDER NUMBER(s): [id number], ACCESSION NUMBER(s): [id number] EXAMINATION: AP portable chest radiograph CLINICAL HISTORY: aloc COMPARISON: XY CHEST PORTABLE on DOS: 06/05/24, XY CHEST XRAY 1 VIEW on DOS: 05/31/24, CHEST PORTABLE on DOS: 07/29/20 FINDINGS: Multiple wires overlie the thorax. Stable appearing right chest port catheter. Mild diffuse interstitial prominence and central vascular redistribution. No lobar consolidation identified. No definite pleural effusion or pneumothorax. IMPRESSION: Pulmonary vascular congestion/interstitial edema. Please correlate to exclude atypical infection. ORDERING PHYSICIAN: ROHINI ROBBINS MD PROCEDURE(s): CXR1 - CHEST XRAY 1 VIEW REASON: Central line placement- left jugular ORDER NUMBER(s): [id number], ACCESSION NUMBER(s): [id number] EXAMINATION: AP portable chest radiograph CLINICAL HISTORY: Central line placement- left jugular COMPARISON: XY CHEST PORTABLE on DOS: 06/29/24 Findings and impression: Interval placement of a left-sided central venous line. The tip of the catheter terminates in the SVC just above the expected level of the cavoatrial junction. No sizeable pneumothorax identified. Grossly unchanged pulmonary vascular congestion/interstitial edema. Assessment/Plan Assessment/Plan Hypothermia, initial encounter Encephalopathy Acute renal injury Encephalopathy, unspecified Hypotensive episode Urinary tract infection Symptomatic bradycardia Generalized weakness Plan 1. Admit to intensive care unit 2. Breathing treatment 3. Pain control management 4. IV antibiotic management 5. Management of fluids and electrolytes 6. Consultation for cardiology/nephrology 7. Diagnostic test chest x-ray 8. DVT prophylaxis on SCDs 9. Repeat labs CBC, CMP in a.m. 10. Home medication reviewed and reconciled 11. Continue with current medical management 12. Treatment plan discussed with patient and RN. Patient verbalized understanding. Plan discussed with: Patient, Other (RN) My Orders Orders - BRENT CARR DNP Procedure Category Date Status Time * Cardiology Consult CONS 06/29/24 Transmitted 20:52 Ceftriaxone 1gm/50ml PHA 06/30/24 In Process D5w (Rocephin) 09:00 Atorvastatin (Lipitor) PHA 06/29/24 In Process 22:00 Urine Bacterial CIARA 06/29/24 In Process Culture 20:52 *Dr. Abhi Rhodes CONS 06/29/24 Transmitted -[place] 20:52 Allergies JOSE M 06/29/24 In Process 20:52 Code Status CODE 06/29/24 Transmitted 20:52 Sodium Chloride Lock PHA 06/29/24 In Process (Saline Lock Ns) 22:00 Oxygen Per Hour RT 06/29/24 Transmitted 20:52 Hydrocodone-Acet PHA 06/29/24 In Process 5/325mg Tab ([place] 21:00 Ondansetron Hcl PHA 06/29/24 In Process (Zofran) 21:00 Docusate Sodium PHA 06/29/24 In Process Capsule (Colace 21:00 Fall Risk Precautions JOSE M 06/29/[address] 20:52 Complete Blood Count LAB 06/30/24 Verified 04:00 Comprehensive LAB 06/30/24 Verified Metabolic Panel 04:00 Cardiac DIET 06/30/24 Transmitted Diet-2gna,Lofat,Lochol Breakfast Condition: Critical JOSE M 06/29/24 In Process 20:52 Acetaminophen Tablet PHA 06/29/24 In Process (Tylenol Tablet) 21:00 Sequential JOSE M 06/29/24 In Process Compression Device Carbidopa W Levodopa PHA 06/29/24 In Process 25/100mg (Sinemet 2 22:00 Famotidine Injection PHA 06/29/24 In Process (Pepcid Injection) 22:00 Pharmacy JOSE M 06/29/24 In Process Clarification: 21:13 Pharmacy JOSE M 06/29/24 In Process Clarification: 21:14 Doxycycline PHA 06/29/24 In Process 100mg/100ml 21:45 Problem List: (1) Hypothermia, initial encounter (2) Symptomatic bradycardia (3) Encephalopathy (4) Hypotensive episode (5) Acute renal injury (6) Encephalopathy, unspecified (7) Urinary tract infection (8) Generalized weakness Date of Service: Jun 29, 2024 Billing Provider: BRENT CARR DNP Common Visit Codes: [id number] INP/OBS CARE (HIGH) BRENT CARR DNP Jun 29, 2024 22:39
[2024-06-29] MEDS ORDERED: MORPHINE SULFATE INJ 2 MG/ml SYRG IV PRN (22:45)
[2024-06-29] MEDS ORDERED: NITROGLYCERIN 0.4 MG SL TAB SL PRN (22:45)
[2024-06-29] MEDS: DOXYCYCLINE 100MG/100ML 100 ML IV SCH (23:05)
[2024-06-30] MEDS: ACETAMINOPHEN 325 MG TAB PO PRN (04:11)
[2024-06-30 05:48] LABS: Basophils # (auto) 0 10 ^3/uL (0-0.2); Basophils % (auto) 0.2 % (0.0-2.0); Eosinophils # (auto) 0 10 ^3/uL (0-0.8); Eosinophils % (auto) 0.1 % (0.0-7.0); Hematocrit 31.3 % (36.0-46.0); Hemoglobin 9.9 g/dL (12.2-16.2); Lymphocytes # (auto) 0.4 10 ^3/uL (0.4-5.4); Lymphocytes % (auto) 2.9 % (10.0-50.0); Mean Corpuscular Hemoglobin 31.5 pg (28.0-32.0); Mean Corpuscular Hgb Conc. 31.7 g/dL (32.0-36.0); Mean Corpuscular Volume 99.5 fL (80.0-100.0); Monocytes # (auto) 0.8 10 ^3/uL (0-1.3); Monocytes % (auto) 6.6 % (0.0-12.0); Neutrophils # (auto) 11.2 10 ^3/uL (1.6-8.6); Neutrophils % (auto) 90.2 % (37.0-80.0); Nucleated Red Blood Cells % 0.1 %; Platelet Count (auto) 193 10^3/uL (140-450); Red Blood Cells 3.14 10^6/uL (4.0-5.20); Red Cell Distribution Width 16.7 % (11.8-14.3); White Blood Cell 12.4 10^3/uL (4.4-10.8)
[2024-06-30 06:09] LABS: Alanine Aminotransferase 17 U/L (7-40); Anion Gap 13 (5-15); Aspartate Aminotransferase 34 U/L (13-40); BUN/Creatinine Ratio 23.5 (10.0-20.0); Calcium 8.7 mg/dL (8.7-10.4); Carbon Dioxide 20 mmol/L (20-31)
[2024-06-30 06:10] LABS: Total Protein 6.8 g/dL (5.7-8.2)
[2024-06-30 06:23] LABS: Alkaline Phosphatase 138 U/L (46-116); Blood Urea Nitrogen 58 mg/dL (9-23); Chloride 120 mmol/L (98-107); Glucose 62 mg/dL (74-106); Sodium 153 mmol/L (136-145)
[2024-06-30 06:35] LABS: Bilirubin, Total 0.2 mg/dL (0.2-1.0)
--- NOTE | 2024-06-30 06:45 | ECG ---
[facility] Test Date: 2024-06-29 Test Time: 20:47:22 Pat Name: MARISOL DENNIS Department: ER Room: [address] [place] [address] Gender: F [employer]: RA : 1940 Requested By: ROHINI ROBBINS Order Number: [id number] Reading MD: Jensen Little Measurements Intervals [place] Rate: 75 P: 61 WV: 162 QRS: -42 QRSD: 135 T: 96 QT: 489 QTc: 547 Interpretive Statements Sinus rhythm Left bundle branch block Electronically Signed On 06-30-2024 8:21:56 PST by Jensen Little Please click the below link to view image of tracing.
[2024-06-30 08:13] LABS: Triglycerides 109 mg/dL (< 150)
[2024-06-30 08:14] LABS: LDL Cholesterol 26 mg/dL (< 100)
[2024-06-30 08:15] LABS: Cholesterol 112 mg/dL (< 200); HDL Cholesterol 60 mg/dL (40-59)
[2024-06-30] MEDS: cefTRIAXone 1GM/50ML D5W 50 ML IV SCH (09:10)
[2024-06-30] MEDS ORDERED: AZITHROMYCIN 500MG/ 250ML 250 ML IV SCH (10:00)
--- NOTE | 2024-06-30 11:16 | DVHINCON2 ---
[facility] 06/30/24 1116: Date Seen: Jun 30, 2024 Referring Physician MARIAJOSE Kellogg Reason for Consultation Hypotension History of Present Illness This is an 83-year-old female patient who presents to the emergency room with chief complaint of altered level of mentation and hypothermia. At the time of assessment, the patient remains confused, patient's caregiver at bedside able to provide a more accurate history. According to the caregiver, she noticed that the patient was acting more altered than usual and also noted that her skin temperature seemed cold to touch. She called the home health nurse who came over and did a set of vital signs. Apparently, the home health nurse was unable to get a temperature reading on the patient so EMS was called and she was brought to the emergency room for further evaluation. Upon emergency room arrival, the patient was noted to be hypotensive as well as hypothermic with rectal temperature reading as low as 83.5F (per ER nurse notes). Cardiology has now been consulted for hypotension. Initial twelve lead electrocardiogram reveals sinus bradycardia with PVC and left bundle branch block. 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 Initial troponin level of 13ng/L. Significant past medical history includes hypertension, dyslipidemia, chronic kidney disease recently on temporary hemodialysis which was stopped last month, colon cancer, Parkinson's disease, and dementia. The patient does not follow with a pie bottomer in the outpatient setting according to the caregiver. Of note, the patient was recently seen at this facility last month and was diagnosed with COVID and urinary tract infection. During this admission, the patient still has a urinary tract infection. Past Medical History Past medical history reviewed. No other significant than mentioned above. Past Surgical History Hysterectomy Family History: Depression G8 BROTHER, Onset:40's - 50 Hypertension G8 SISTER, Onset:50's - 60 Family History Family history reviewed. Social History Patient lives with caregiver and does not use tobacco, use illicit drugs, or drink alcohol Allergies: Coded Allergies: NO KNOWN ALLERGIES (Unverified , 07/10/10) Home Meds Reported Medications Amlodipine Besylate (Amlodipine Besylate) 10 Mg Tab, 1 TAB PO DAILY 05/31/24 Carvedilol (Carvedilol) 6.25 Mg Tab, 1 TAB PO BID 05/31/24 Carbidopa-Levodopa (Carbidopa/Levodopa Er) 25 /100 Tab, 25-100 1/15/25 Pantoprazole Sodium Sesquihydr (Pantoprazole Sodium) 40 Mg Tab, 1 TAB PO DAILY 05/31/24 Mirabegron Base (MYRBETRIQ) 50 Mg Tab, 50 MG OR DAILY, TAB 11/18/19 Ferrous Sulfate (Ferrous Sulfate) 325 Mg Tab, 325 MG PO BIDWM for 30 Days, MG 11/18/19 Bupropion Hcl (Bupropion Hcl) 100 Mg Tab, 150 MG PO DAILY for 30 Days, MG 11/18/19 Aspirin-Dipyridamole (Aggrenox) 1 Cap Cap, 1 CAP PO BID, #60 CAP 5 Refills 11/18/19 Fluoxetine Hcl (Fluoxetine Hcl) 20 Mg Cap, 40 MG PO DAILY 07/10/10 Atorvastatin Calcium (Lipitor) 20 Mg Tab 07/10/10 Home Meds Home medications reviewed. Current Medications Current Medications Medications (Trade) Dose Ordered Sig/Jared Route PRN Reason Start Time Stop Time Status Last Admin Dopamine HCl/ Dextrose 250 ml @ 13.5 mls/hr [id number] IV 06/29/24 18:45 06/29/24 18:30 Norepinephrine Bitartrate 250 ml @ 3.75 mls/hr Q24H IV 06/29/24 19:00 06/30/24 11:00 Ceftriaxone Sodium 50 ml @ 100 mls/hr DAILY@09 IV 06/30/24 09:00 06/30/24 09:10 Famotidine (Pepcid Injection) 20 mg Q48H IV 06/29/24 22:00 06/29/24 21:28 Atorvastatin Calcium (Lipitor) 10 mg HS PO 06/29/24 22:00 Azithromycin 250 ml @ 125 mls/hr DAILY IV 06/30/24 10:00 06/29/24 21:35 DC Sodium Chloride (Saline Lock Ns) 10 ml Q8HR IV 06/29/24 22:00 06/30/24 06:06 Acetaminophen/ Hydrocodone Bitart ([place] 5/325MG Tab) 1 tab Q4HP PRN PO MODERATE PAIN (4-6 PAIN SCALE) 06/29/24 21:00 Ondansetron HCl (Zofran) 4 mg Q4HP PRN IV NAUSEA / VOMITING 06/29/24 21:00 Docusate Sodium (Colace Capsule) 100 mg BIDPRN PRN PO FOR CONSTIPATION 06/29/24 21:00 Acetaminophen (Tylenol Tablet) 650 mg Q6HP PRN PO PAIN SCALE 1-3 OR TEMP>100.4 06/29/24 21:00 06/30/24 04:11 Carbidopa/Levodopa (Sinemet 25/ 100MG) 1 tab TID PO 06/29/24 22:00 Doxycycline Hyclate 100 ml @ 50 mls/hr Q12H IV 06/29/24 21:45 06/30/24 09:40 Nitroglycerin (Ntrostat Sublingual) 0.4 mg Q5MINP PRN SL FOR CHEST PAIN 06/29/24 22:45 Morphine Sulfate 2 mg Q30M PRN IV FOR CHEST PAIN 06/29/24 22:45 Review of Systems Constitutional: No symptom reported Ears, Nose, & Throat: No symptom reported Eyes: No symptom reported Neurological: Altered level of mentation Pulmonary/Respiratory: No symptoms reported Cardiovascular: No symptom reported Gastrointestinal: No symptom reported Genitourinary: No symptom reported Musculoskeletal: No symptom reported Skin: No symptom reported Psychiatric: No symptom reported Endocrine: No symptom reported Hematologic/Lymphatic: No symptom reported Vital Signs Vital Signs Date Time Temp Pulse Resp B/P (MAP) Pulse Ox O2 Delivery O2 Flow Rate FiO2 06/30/24 11:00 119/60 06/30/24 10:15 97.9 95 14 100 97.9 06/29/24 19:30 Nasal Cannula* 2 28 Physical Exam General Appearance: Restless Pulmonary/Respiratory: Clear, bilateral breaths sounds. Cardiovascular/Chest: Regular rate and rhythm. Peripheral Pulses: 2+ Radial (R). 2+ Radial (L). 2+ Pedal (R). 2+ Pedal (L) Abdominal Exam: Normal bowel sounds. Ankle Exam: Negative ankle edema Lower extremities: Negative lower extremity edema Neuro/Mental Status: A/OX1, confused Thoughts/Psych: Deferred Appearance: No acute distress. Skin Exam: Normal inspection. Normal color. Warm and dry. Labs/Diagnostic Data Labs Test 06/30/24 05:30 06/29/24 20:52 06/29/24 19:23 06/29/24 19:00 Range/Units White Blood Count 12.4 H 4.4-10.8 10^3/uL Red Blood Count 3.14 L 4.0-5.20 10^6/uL Hemoglobin 9.9 L 12.2-16.2 g/dL Hematocrit 31.3 #L 36.0-46.0 % Mean Corpuscular Volume 99.5 80.0-100.0 fL Mean Corpuscular Hemoglobin 31.5 28.0-32.0 pg Mean Corpuscular Hemoglobin Concent 31.7 L 32.0-36.0 g/dL Red Cell Distribution Width 16.7 H 11.8-14.3 % Platelet Count 193 140-450 10^3/uL Mean Platelet Volume 9.6 6.9-10.8 fL Neutrophils (%) (Auto) 90.2 H 37.0-80.0 % Lymphocytes (%) (Auto) 2.9 L 10.0-50.0 % Monocytes (%) (Auto) 6.6 0.0-12.0 % Eosinophils (%) (Auto) 0.1 0.0-7.0 % Basophils (%) (Auto) 0.2 0.0-2.0 % Neutrophils # (Auto) 11.2 H 1.6-8.6 10 ^3/uL Lymphocytes # (Auto) 0.4 0.4-5.4 10 ^3/uL Monocytes # (Auto) 0.8 0-1.3 10 ^3/uL Eosinophils # (Auto) 0 0-0.8 10 ^3/uL Basophils # (Auto) 0 0-0.2 10 ^3/uL Nucleated Red Blood Cells 0.1 % Sodium Level 153 H 136-145 mmol/L Potassium Level 5.0 3.5-5.1 mmol/L Chloride Level 120 H 98-107 mmol/L Carbon Dioxide Level 20 20-31 mmol/L Anion Gap 13 5-15 Blood Urea Nitrogen 58 H 9-23 mg/dL Creatinine 2.47 H 0.550-1.02 mg/dL Glomerular Filtration Rate Calc 19 >90 mL/min BUN/Creatinine Ratio 23.5 H 10.0-20.0 Serum Glucose 62 L 74-106 mg/dL Calcium Level 8.7 8.7-10.4 mg/dL Total Bilirubin 0.2 0.2-1.0 mg/dL Aspartate Amino Transferase (AST) 34 13-40 U/L Alanine Aminotransferase (ALT) 17 7-40 U/L Alkaline Phosphatase 138 H 46-116 U/L Total Protein 6.8 5.7-8.2 g/dL Albumin 4.0 3.2-4.8 g/dL Triglycerides Level 109 < 150 mg/dL Cholesterol Level 112 < 200 mg/dL LDL Cholesterol 26 < 100 mg/dL HDL Cholesterol 60 H 40-59 mg/dL Thyroid Stimulating Hormone (TSH) 2.18 0.55-4.78 uIU/mL Troponin I High Sensitivity 14 </=34 ng/L Hemoglobin A1c 4.6 <5.7 % A1C Lactic Acid Level 1.4 0.4-2.0 mmol/L Magnesium Level 2.4 1.6-2.6 mg/dL Influenza Type A Antigen Negative Negative Influenza Type B Antigen Negative Negative SARS-CoV-2 Antigen (Rapid) Negative NEGATIVE Test 06/29/24 18:58 Range/Units Urine Color Yellow Yellow Urine Clarity Turbid H Clear Urine pH 6.0 5.0-9.0 Urine Specific [place] 1.015 1.001-1.035 Urine Protein Trace H Negative Urine Ketones Negative Negative Urine Blood Negative Negative /uL Urine Nitrite Negative Negative Urine Bilirubin Negative Negative Urine Urobilinogen Normal Negative mg/dL Urine Leukocyte Esterase 3+ Negative /uL Urine RBC 3 0 - 4 /hpf Urine Microscopic WBC 67 H 0-5 /HPF Urine Squamous Epithelial Cells Few <5 /hpf Urine Bacteria Few H None Seen /hpf Urine Glucose Normal Normal mg/dL Microbiology Date/Time Source Procedure Growth Status 06/29/24 18:58 Voided Urine Urine Culture - Preliminary Resulted Assessment Hypotension in the setting of septic shock History of hypertension 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 Rivas): Case discussed and reviewed with . Previous transthoracic e chocardiogram from 05/31/2024 reveals an EF of 55-60%. Hypotension likely in the setting of septic shock from urinary tract infection. Continue vasopressors for hemodynamic support as needed. Continue supportive care. There is no further inpatient cardiac workup indicated at this time. Critical care time spent: 40 minutes This medical document was created using an electronic medical record system with voice recognition software and computerized dictation system. Although this document has been carefully reviewed, there might still be some phonetic and typographical errors. Occasional wrong-word or ``sound-alike substitutions may have occurred due to the inherent limitations of voice recognition software. These areas are purely typographical due to imperfections of the software programs and do not reflect any compromise in the patient's medical care. Please read the chart carefully and recognize, using context, where these substitutions have occurred. Plan discussed with: Other (Bedside RN and caregiver at bedside) NYHA Physical activity limitations: NA Date of Service: Jun 30, 2024 Billing Provider: [facility] Common Codes: [id number] INP/OBS CARE (High) Cardiology Consultation Codes: [id number] CONSULT <45MIN HOWIE RIVAS MD 06/30/24 1629: Family History: Depression G8 BROTHER, Onset:40's - 50 Hypertension G8 SISTER, Onset:50's - 60 Allergies: Coded Allergies: NO KNOWN ALLERGIES (Unverified , 07/10/10) Home Meds Reported Medications Amlodipine Besylate (Amlodipine Besylate) 10 Mg Tab, 1 TAB PO DAILY 05/31/24 Carvedilol (Carvedilol) 6.25 Mg Tab, 1 TAB PO BID 05/31/24 Carbidopa-Levodopa (Carbidopa/Levodopa Er) 25 /100 Tab, 25-100 05/31/24 Pantoprazole Sodium Sesquihydr (Pantoprazole Sodium) 40 Mg Tab, 1 TAB PO DAILY 05/31/24 Mirabegron Base (MYRBETRIQ) 50 Mg Tab, 50 MG OR DAILY, TAB 11/18/19 Ferrous Sulfate (Ferrous Sulfate) 325 Mg Tab, 325 MG PO BIDWM for 30 Days, MG 20 Bupropion Hcl (Bupropion Hcl) 100 Mg Tab, 150 MG PO DAILY for 30 Days, MG 11/18/19 Aspirin-Dipyridamole (Aggrenox) 1 Cap Cap, 1 CAP PO BID, #60 CAP 5 Refills 11/18/19 Fluoxetine Hcl (Fluoxetine Hcl) 20 Mg Cap, 40 MG PO DAILY 07/10/10 Atorvastatin Calcium (Lipitor) 20 Mg Tab 07/10/10 Plan/Recommendation pt seen with CV team pt appears in very poor health pressors and fluids as needed for low BP y poor prognosis [facility] Jun 30, 2024 11:16 HOWIE RIVAS MD Jun 30, 2024 16:29
--- NOTE | 2024-06-30 13:13 | DVHPN2 ---
Reviewed: Care Plan, H&P, Labs, Medications, Previous Orders, Radiology Changes from previous H/P or p: No Changes Eyes: No Pain, No Vision change, No Conjunctivae inflammation, No Eyelid inflammation, No Other, No Redness ENT: No Ear pain, No Ear discharge, No Nose pain, No Nose discharge, No Nose congestion, No Mouth pain, No Mouth swelling, No Throat pain, No Throat swelling, No Other Cardiovascular: No Chest Pain, No Palpitations, No Orthopnea, No Paroxysmal Noc. Dyspnea, No Edema, No Lt Headedness, No Other Respiratory: No Cough, No Dry; Shortness of breath; No SOB with excertion, No Wheezing, No Hemoptysis, No Pleuritic Pain, No Sputum, No Other Gastrointestinal: No Nausea, No Vomiting, No Abdominal Pain, No Diarrhea, No Constipation, No Melena, No Hematochezia, No Other Genitourinary: No Dysuria, No Frequency, No Incontinence, No Hematuria, No Retention, No Other Musculoskeletal: No other, No neck pain, No shoulder pain, No arm pain, No back pain, No hand pain, No leg pain, No foot pain Skin: No Rash, No Lesions, No Jaundice, No Bruising, No Other Objective Vitals Vital Signs Date Time Temp Pulse Resp B/P (MAP) Pulse Ox O2 Delivery O2 Flow Rate FiO2 06/30/24 13:06 120/62 06/30/24 10:15 97.9 95 14 100 97.9 06/29/24 19:30 Nasal Cannula* 2 28 Intake/Output Intake and Output 06/30/24 07:00 Intake Total 157.75 ml Output Total 475 ml Balance -317.25 ml Intake IV Total 157.75 ml Output Urine Total 475 ml Medications Current Medications Medications Dose Ordered Sig/Jared Route Start Time Stop Time Status Last Admin Dose Admin Dopamine HCl/ Dextrose 250 ml @ 13.5 mls/hr [id number] IV 06/29/24 18:45 06/29/24 18:30 54 MLS/HR Norepinephrine Bitartrate 250 ml @ 3.75 mls/hr Q24H IV 06/29/24 19:00 06/30/24 11:00 22.5 MLS/HR Ceftriaxone Sodium 50 ml @ 100 mls/hr DAILY@09 IV 06/30/24 09:00 06/30/24 09:10 100 MLS/HR Famotidine 20 mg Q48H IV 06/29/24 22:00 06/29/24 21:28 20 MG Atorvastatin Calcium 10 mg HS PO 06/29/24 22:00 Sodium Chloride 10 ml Q8HR IV 06/29/24 22:00 06/30/24 06:06 10 ML Acetaminophen/ Hydrocodone Bitart 1 tab Q4HP PRN PO 06/29/24 21:00 Ondansetron HCl 4 mg Q4HP PRN IV 06/29/24 21:00 Docusate Sodium 100 mg BIDPRN PRN PO 06/29/24 21:00 Acetaminophen 650 mg Q6HP PRN PO 06/29/24 21:00 06/30/24 04:11 650 MG Carbidopa/Levodopa 1 tab TID PO 06/29/24 22:00 Doxycycline Hyclate 100 ml @ 50 mls/hr Q12H IV 06/29/24 21:45 06/30/24 09:40 50 MLS/HR Nitroglycerin 0.4 mg Q5MINP PRN SL 06/29/24 22:45 Morphine Sulfate 2 mg Q30M PRN IV 06/29/24 22:45 Laboratory Results Laboratory Tests 06/30/24 05:30 Chemistry Test 06/29/24 19:23 06/30/24 05:30 Calcium Level 9.2 mg/dL (8.7-10.4) 8.7 mg/dL (8.7-10.4) Magnesium Level 2.4 mg/dL (1.6-2.6) Albumin 4.0 g/dL (3.2-4.8) Total Protein 6.8 g/dL (5.7-8.2) Lipid panel Test 06/30/24 05:30 Cholesterol Level 112 mg/dL (< 200) HDL Cholesterol 60 mg/dL (40-59) H Triglycerides Level 109 mg/dL (< 150) LFT Test 06/30/24 05:30 Alanine Aminotransferase (ALT) 17 U/L (7-40) Alkaline Phosphatase 138 U/L (46-116) H Aspartate Amino Transferase (AST) 34 U/L (13-40) Total Bilirubin 0.2 mg/dL (0.2-1.0) HgA1c, TSH Test 06/29/24 19:23 06/30/24 05:30 Hemoglobin A1c 4.6 % A1C (<5.7) Thyroid Stimulating Hormone (TSH) 2.18 uIU/mL (0.55-4.78) Urinalysis Test 06/29/24 18:58 Urine Color Yellow (Yellow) Urine Clarity Turbid (Clear) H Urine pH 6.0 (5.0-9.0) Urine Specific [place] 1.015 (1.001-1.035) Urine Protein Trace (Negative) H Urine Ketones Negative (Negative) Urine Blood Negative /uL (Negative) Urine Nitrite Negative (Negative) Urine Bilirubin Negative (Negative) Urine Urobilinogen Normal mg/dL (Negative) Urine Leukocyte Esterase 3+ /uL (Negative) Urine RBC 3 /hpf (0 - 4) Urine Microscopic WBC 67 /HPF (0-5) H Urine Squamous Epithelial Cells Few /hpf (<5) Urine Bacteria Few /hpf (None Seen) H Urine Glucose Normal mg/dL (Normal) Microbiology Microbiology Date/Time Source Procedure Growth Status 06/29/24 18:58 Voided Urine Urine Culture - Preliminary Resulted Labs and/or images reviewed: Labs reviewed by me, Image(s) reviewed by me Assessment/Plan Assessment/Plan Septic shock with hypothermia altered mental status secondary to acute urinary tract infection: Blood cultures urine cultures Rocephin Acute hypotension: Dopamine drip, cardiology consult Possible community-acquired pneumonia: Rocephin doxycycline Acute kidney injury: Consult for Dr. Abhi baeza Acute hypothermia Hypernatremia likely d/t volume depletio Chronic kidney disease 3a History of COVID pneumonia Parkinson's disease: Sinemet hypokalemia Hypercholesterolemia: Lipitor Severe malnutrition TSH normal 2.18 Time spent 70 minutes Patient is full code Advanced care planning time 20 minutes Plan discussed with: Patient Date of Service: Jun 30, 2024 Billing Provider: JEF HARMAN MD Common Visit Codes: [id number] CARE 30-74 MIN JEF HARMAN MD Jun 30, 2024 13:13
[2024-06-30 16:49] LABS: Protein, Urine 46.7 mg/dL (1-14)
[2024-06-30 16:52] LABS: Creatinine, Urine 76.63 mg/dL (30.0-125.0)
[2024-06-30 19:30] VITALS: O2SAT 99
[2024-06-30] MEDS: SOD CHL 0.45% 1,000 ML IV SCH (20:00)
[2024-07-01 04:30] LABS: Basophils % (auto) 0.3 % (0.0-2.0); Eosinophils # (auto) 0.1 10 ^3/uL (0-0.8); Hemoglobin 10.2 g/dL (12.2-16.2); Lymphocytes # (auto) 1.6 10 ^3/uL (0.4-5.4); Monocytes # (auto) 0.9 10 ^3/uL (0-1.3); Nucleated Red Blood Cells % 0.2 %
[2024-07-01 04:31] LABS: Basophils # (auto) 0 10 ^3/uL (0-0.2); Eosinophils % (auto) 0.7 % (0.0-7.0); Hematocrit 32.9 % (36.0-46.0); Lymphocytes % (auto) 10.2 % (10.0-50.0); Mean Corpuscular Hemoglobin 31.5 pg (28.0-32.0); Mean Corpuscular Volume 101.5 fL (80.0-100.0); Monocytes % (auto) 5.5 % (0.0-12.0); Neutrophils # (auto) 12.9 10 ^3/uL (1.6-8.6); Neutrophils % (auto) 83.3 % (37.0-80.0); Platelet Count (auto) 118 10^3/uL (140-450); Red Blood Cells 3.24 10^6/uL (4.0-5.20); Red Cell Distribution Width 17.4 % (11.8-14.3); White Blood Cell 15.5 10^3/uL (4.4-10.8)
[2024-07-01 05:26] LABS: Large Platelets FEW; Platelet Estimate Decrea
[2024-07-01 05:39] LABS: Anion Gap 9 (5-15); Carbon Dioxide 21 mmol/L (20-31); Potassium 4.8 mmol/L (3.5-5.1)
[2024-07-01 05:40] LABS: Calcium 9.2 mg/dL (8.7-10.4)
[2024-07-01 05:44] LABS: Uric Acid 9.1 mg/dL (3.1-7.8)
[2024-07-01 05:45] LABS: BUN/Creatinine Ratio 22.2 (10.0-20.0)
[2024-07-01 05:47] LABS: Phosphorus 3.3 mg/dL (2.4-5.1)
[2024-07-01 06:01] LABS: Blood Urea Nitrogen 51 mg/dL (9-23); Chloride 123 mmol/L (98-107); Glucose 70 mg/dL (74-106); Sodium 153 mmol/L (136-145)
[2024-07-01 08:03] VITALS: PULSE 60; RESP 10; O2SAT 96
[2024-07-01] MEDS: D5W/SOD CHL 0.45% 1,000 ML IV SCH (08:58)
[2024-07-01 10:55] VITALS: BP 139/80; PULSE 96; RESP 16; TEMP 99; O2SAT 97
--- NOTE | 2024-07-01 11:42 | DVHPN2 ---
Reviewed: Care Plan, H&P, Labs, Medications, Previous Orders, Radiology Changes from previous H/P or p: No Changes Eyes: No Pain, No Vision change, No Conjunctivae inflammation, No Eyelid inflammation, No Other, No Redness ENT: No Ear pain, No Ear discharge, No Nose pain, No Nose discharge, No Nose congestion, No Mouth pain, No Mouth swelling, No Throat pain, No Throat swelling, No Other Cardiovascular: No Chest Pain, No Palpitations, No Orthopnea, No Paroxysmal Noc. Dyspnea, No Edema, No Lt Headedness, No Other Respiratory: No Cough, No Dry; Shortness of breath; No SOB with excertion, No Wheezing, No Hemoptysis, No Pleuritic Pain, No Sputum, No Other Gastrointestinal: No Nausea, No Vomiting, No Abdominal Pain, No Diarrhea, No Constipation, No Melena, No Hematochezia, No Other Genitourinary: No Dysuria, No Frequency, No Incontinence, No Hematuria, No Retention, No Other Musculoskeletal: No other, No neck pain, No shoulder pain, No arm pain, No back pain, No hand pain, No leg pain, No foot pain Skin: No Rash, No Lesions, No Jaundice, No Bruising, No Other Objective Vitals Vital Signs Date Time Temp Pulse Resp B/P (MAP) Pulse Ox O2 Delivery O2 Flow Rate FiO2 07/01/24 10:10 98.3 98 20 113/59 (77) 98 98.3 07/01/24 08:03 Nasal Cannula* 2 28 Intake/Output Intake and Output 07/01/24 07:00 Intake Total 1479.5625 ml Output Total 700 ml Balance 779.5625 ml Intake IV Total 1479.5625 ml Output Urine Total 700 ml Medications Current Medications Medications Dose Ordered Sig/Jared Route Start Time Stop Time Status Last Admin Dose Admin Dopamine HCl/ Dextrose 250 ml @ 13.5 mls/hr [id number] IV 06/29/24 18:45 06/29/24 18:30 54 MLS/HR Ceftriaxone Sodium 50 ml @ 100 mls/hr DAILY@09 IV 06/30/24 09:00 07/01/24 09:04 100 MLS/HR Famotidine 20 mg Q48H IV 06/29/24 22:00 06/29/24 21:28 20 MG Atorvastatin Calcium 10 mg HS PO 06/29/24 22:00 Sodium Chloride 10 ml Q8HR IV 06/29/24 22:00 07/01/24 06:20 10 ML Acetaminophen/ Hydrocodone Bitart 1 tab Q4HP PRN PO 06/29/24 21:00 Ondansetron HCl 4 mg Q4HP PRN IV 06/29/24 21:00 Docusate Sodium 100 mg BIDPRN PRN PO 06/29/24 21:00 Acetaminophen 650 mg Q6HP PRN PO 06/29/24 21:00 06/30/24 04:11 650 MG Carbidopa/Levodopa 1 tab TID PO 06/29/24 22:00 Doxycycline Hyclate 100 ml @ 50 mls/hr Q12H IV 06/29/24 21:45 06/30/24 21:30 50 MLS/HR Nitroglycerin 0.4 mg Q5MINP PRN SL 06/29/24 22:45 Morphine Sulfate 2 mg Q30M PRN IV 06/29/24 22:45 Dextrose/Sodium Chloride 1,000 ml @ 100 mls/hr Q10H IV 07/01/24 08:45 07/01/24 08:58 100 MLS/HR Laboratory Results Laboratory Tests 07/01/24 04:02 Chemistry Test 07/01/24 04:02 Calcium Level 9.2 mg/dL (8.7-10.4) Phosphorus Level 3.3 mg/dL (2.4-5.1) Urinalysis Test 06/29/24 18:58 Urine Color Yellow (Yellow) Urine Clarity Turbid (Clear) H Urine pH 6.0 (5.0-9.0) Urine Specific [place] 1.015 (1.001-1.035) Urine Protein Trace (Negative) H Urine Ketones Negative (Negative) Urine Blood Negative /uL (Negative) Urine Nitrite Negative (Negative) Urine Bilirubin Negative (Negative) Urine Urobilinogen Normal mg/dL (Negative) Urine Leukocyte Esterase 3+ /uL (Negative) Urine RBC 3 /hpf (0 - 4) Urine Microscopic WBC 67 /HPF (0-5) H Urine Squamous Epithelial Cells Few /hpf (<5) Urine Bacteria Few /hpf (None Seen) H Urine Creatinine 76.63 mg/dL (30.0-125.0) Urine Sodium 98 mmol/L (40-220) Urine Glucose Normal mg/dL (Normal) Urine Total Protein 46.7 mg/dL (1-14) H Microbiology Microbiology Date/Time Source Procedure Growth Status 06/29/24 19:23 Blood Blood Culture - Preliminary NO GROWTH AFTER 24 HOURS OF INCUBATION. Resulted 06/29/24 18:58 Voided Urine Urine Culture - Preliminary Resulted Labs and/or images reviewed: Labs reviewed by me, Image(s) reviewed by me Assessment/Plan Assessment/Plan Septic shock with hypothermia altered mental status secondary to acute urinary tract infection: Blood cultures to urine cultures growing Enterococcus species and Gram-negative rods, continue Rocephin until final result Acute hypotension: Dopamine drip, cardiology consult appreciated Possible community-acquired pneumonia: Rocephin doxycycline Acute kidney injury: Consult for Dr. Abhi baeza Acute hypothermia Hypernatremia likely d/t volume depletion Chronic kidney disease 3A History of COVID pneumonia Parkinson's disease: Sinemet hypokalemia Hypercholesterolemia: Lipitor Severe malnutrition TSH normal 2.18 Time spent 70 minutes Patient is full code Advanced care planning time 20 minutes Daughter Sophie [phone] at bedside Patient is DNR per her daughter's wishes Plan discussed with: Patient Date of Service: Jul 01, 2024 Billing Provider: JEF HARMAN MD Common Visit Codes: [id number] CARE 30-74 MIN JEF HARMAN MD Jul 01, 2024 11:42
[2024-07-01 13:00] VITALS: BP 130/68; PULSE 93; RESP 18; TEMP 97.6; O2SAT 95
[2024-07-01 17:00] VITALS: BP 128/67; PULSE 95; RESP 20; TEMP 97.3; O2SAT 94
--- NOTE | 2024-07-01 17:17 | DVHINCON2 ---
Date of service: Jul 01, 2024 Referring Physician Lopez Kellogg DNP Reason for Consultation BISI History of Present Illness Mrs. Galaviz is a 83-year-old female with known history of chronic kidney disease presents for further evaluation and management of altered mental status. Patient was seen in her room, she was somnolent, minimally responsive. Patient's two sisters were at the bedside evaluation has revealed acute kidney injury, hypernatremia. Most of the history was obtained through the chart. Past Medical History Anemia, Cancer, CKF, CVA, Depression, GERD, High Lipids, HTN Past Surgical History Hysterectomy Allergies: Coded Allergies: NO KNOWN ALLERGIES (Unverified , 07/10/10) Home Meds Reported Medications Amlodipine Besylate (Amlodipine Besylate) 10 Mg Tab, 1 TAB PO DAILY 05/31/24 Carvedilol (Carvedilol) 6.25 Mg Tab, 1 TAB PO BID 05/31/24 Carbidopa-Levodopa (Carbidopa/Levodopa Er) 25 /100 Tab, 25-100 05/31/24 Pantoprazole Sodium Sesquihydr (Pantoprazole Sodium) 40 Mg Tab, 1 TAB PO DAILY 05/31/24 Mirabegron Base (MYRBETRIQ) 50 Mg Tab, 50 MG OR DAILY, TAB 11/18/19 Ferrous Sulfate (Ferrous Sulfate) 325 Mg Tab, 325 MG PO BIDWM for 30 Days, MG 11/18/19 Bupropion Hcl (Bupropion Hcl) 100 Mg Tab, 150 MG PO DAILY for 30 Days, MG 11/18/19 Aspirin-Dipyridamole (Aggrenox) 1 Cap Cap, 1 CAP PO BID, #60 CAP 5 Refills 11/18/19 Fluoxetine Hcl (Fluoxetine Hcl) 20 Mg Cap, 40 MG PO DAILY 07/10/10 Atorvastatin Calcium (Lipitor) 20 Mg Tab 07/10/10 Current Medications Current Medications Medications (Trade) Dose Ordered Sig/Jared Route PRN Reason Start Time Stop Time Status Last Admin Dextrose/Sodium Chloride 1,000 ml @ 100 mls/hr Q10H IV 07/01/24 08:45 07/01/24 08:58 Doxycycline Hyclate 100 ml @ 50 mls/hr Q12H IV 07/02/24 02:00 Ceftriaxone Sodium 50 ml @ 100 mls/hr DAILY IV 07/02/24 10:00 Family History: Depression G8 BROTHER, Onset:40's - 50 Hypertension G8 SISTER, Onset:50's - 60 Review of Systems Unable to be obtained due to patient's mental status H&P Exam Vital Signs/I&O Vital Sign Date Time Temp Pulse Resp B/P (MAP) Pulse Ox O2 Delivery O2 Flow Rate FiO2 07/01/24 17:00 97.3 95 20 128/67 (87) 94 97.3 07/01/24 10:55 Nasal Cannula* 2 28 Intake and Output 06/30/24 07/01/24 19:00 07:00 Intake Total 338.3125 ml 1141.25 ml Output Total 700 ml Balance 338.3125 ml 441.25 ml IV Total 338.3125 ml 1141.25 ml Output Urine Total 700 ml Physical Exam Gen: nad, elderly heent: nc/at, mmm lungs: cta anteriorly cvs: no rub abd: soft, bowel sounds audible ext: no edema skin: no rash neuro: Somnolent Labs/Diagnostic Data Labs/Diagnostic Data Laboratory Tests Test 07/01/24 04:02 06/30/24 05:30 06/29/24 20:52 06/29/24 19:23 Range/Units White Blood Count 15.5 H 12.4 H 10.2 4.4-10.8 10^3/uL Red Blood Count 3.24 L 3.14 L 3.61 L 4.0-5.20 10^6/uL Hemoglobin 10.2 L 9.9 L 11.5 L 12.2-16.2 g/dL Hematocrit 32.9 L 31.3 #L 36.1 36.0-46.0 % Mean Corpuscular Volume 101.5 H 99.5 100.2 H 80.0-100.0 fL Mean Corpuscular Hemoglobin 31.5 31.5 31.9 28.0-32.0 pg Mean Corpuscular Hemoglobin Concent 31.0 L 31.7 L 31.8 L 32.0-36.0 g/dL Red Cell Distribution Width 17.4 H 16.7 H 17.4 H 11.8-14.3 % Platelet Count 118 L 193 178 140-450 10^3/uL Mean Platelet Volume 10.1 9.6 9.6 6.9-10.8 fL Neutrophils (%) (Auto) 83.3 H 90.2 H 85.6 H 37.0-80.0 % Lymphocytes (%) (Auto) 10.2 2.9 L 9.7 L 10.0-50.0 % Monocytes (%) (Auto) 5.5 6.6 3.9 0.0-12.0 % Eosinophils (%) (Auto) 0.7 0.1 0.5 0.0-7.0 % Basophils (%) (Auto) 0.3 0.2 0.3 0.0-2.0 % Neutrophils # (Auto) 12.9 H 11.2 H 8.7 H 1.6-8.6 10 ^3/uL Lymphocytes # (Auto) 1.6 0.4 1.0 0.4-5.4 10 ^3/uL Monocytes # (Auto) 0.9 0.8 0.4 0-1.3 10 ^3/uL Eosinophils # (Auto) 0.1 0 0 0-0.8 10 ^3/uL Basophils # (Auto) 0 0 0 0-0.2 10 ^3/uL Nucleated Red Blood Cells 0.2 0.1 0.1 % Platelet Estimate Decrea Large Platelets Few Sodium Level 153 H 153 H 152 H 136-145 mmol/L Potassium Level 4.8 5.0 4.4 3.5-5.1 mmol/L Chloride Level 123 H 120 H 118 H 98-107 mmol/L Carbon Dioxide Level 21 20 24 20-31 mmol/L Anion Gap 9 13 10 5-15 Blood Urea Nitrogen 51 H 58 H 62 H 9-23 mg/dL Creatinine 2.30 H 2.47 H 2.19 H 0.550-1.02 mg/dL Glomerular Filtration Rate Calc 21 19 22 >90 mL/min BUN/Creatinine Ratio 22.2 H 23.5 H 28.3 H 10.0-20.0 Serum Glucose 70 L 62 L 162 H 74-106 mg/dL Uric Acid 9.1 H 3.1-7.8 mg/dL Calcium Level 9.2 8.7 9.2 8.7-10.4 mg/dL Phosphorus Level 3.3 2.4-5.1 mg/dL Total Bilirubin 0.2 0.2-1.0 mg/dL Aspartate Amino Transferase (AST) 34 13-40 U/L Alanine Aminotransferase (ALT) 17 7-40 U/L Alkaline Phosphatase 138 H 46-116 U/L Total Protein 6.8 5.7-8.2 g/dL Albumin 4.0 3.2-4.8 g/dL Triglycerides Level 109 < 150 mg/dL Cholesterol Level 112 < 200 mg/dL LDL Cholesterol 26 < 100 mg/dL HDL Cholesterol 60 H 40-59 mg/dL Thyroid Stimulating Hormone (TSH) 2.18 0.55-4.78 uIU/mL Troponin I High Sensitivity 14 13 </=34 ng/L Hemoglobin A1c 4.6 <5.7 % A1C Lactic Acid Level 1.4 0.4-2.0 mmol/L Magnesium Level 2.4 1.6-2.6 mg/dL Test 06/29/24 19:00 06/29/24 18:58 Range/Units Influenza Type A Antigen Negative Negative Influenza Type B Antigen Negative Negative SARS-CoV-2 Antigen (Rapid) Negative NEGATIVE Urine Color Yellow Yellow Urine Clarity Turbid H Clear Urine pH 6.0 5.0-9.0 Urine Specific [place] 1.015 1.001-1.035 Urine Protein Trace H Negative Urine Ketones Negative Negative Urine Blood Negative Negative /uL Urine Nitrite Negative Negative Urine Bilirubin Negative Negative Urine Urobilinogen Normal Negative mg/dL Urine Leukocyte Esterase 3+ Negative /uL Urine RBC 3 0 - 4 /hpf Urine Microscopic WBC 67 H 0-5 /HPF Urine Squamous Epithelial Cells Few <5 /hpf Urine Bacteria Few H None Seen /hpf Urine Creatinine 76.63 30.0-125.0 mg/dL Urine Sodium 98 40-220 mmol/L Urine Glucose Normal Normal mg/dL Urine Total Protein 46.7 H 1-14 mg/dL Microbiology Date/Time Source Procedure Growth Status 06/29/24 18:58 Voided Urine Urine Culture - Final Escherichia coli - ESBL Enterococcus faecalis Complete Assessment IMP: 1) Hemodynamically mediated BISI/VMN prerenal state/ dehydration 2) hypernatremia 3) history of hypertension 4) toxic metabolic encephalopathy REC: - urine studies, serial chemistry panels - hypotonic IV fluids - discussed plan of care from Nephrology perspective with patient's family at bedside - continue to follow closely with you. Thank you for the consultation Plan discussed with: Other ROZINA MAURICE MD Jul 01, 2024 17:17
[2024-07-01 20:00] VITALS: PULSE 18; RESP 18; O2SAT 99
[2024-07-01 21:00] VITALS: BP 133/88; PULSE 82; RESP 18; TEMP 97.6; O2SAT 99
[2024-07-02] VITALS (8 sets, daily range): BP systolic 118–142; BP diastolic 68–80; PULSE 18–89; RESP 17–20; TEMP 97.6–97.8; O2SAT 95–100
[2024-07-02] MEDS: DOXYCYCLINE 100MG/100ML 100 ML IV SCH (02:19)
[2024-07-02 07:49] LABS: Anion Gap 9 (5-15); Calcium 9.2 mg/dL (8.7-10.4); Carbon Dioxide 23 mmol/L (20-31)
[2024-07-02 07:54] LABS: BUN/Creatinine Ratio 23.5 (10.0-20.0); Glucose 90 mg/dL (74-106)
[2024-07-02 08:06] LABS: Blood Urea Nitrogen 42 mg/dL (9-23); Chloride 117 mmol/L (98-107); Sodium 149 mmol/L (136-145)
[2024-07-02] MEDS: cefTRIAXone 1GM/50ML D5W 50 ML IV SCH (10:21)
--- NOTE | 2024-07-02 11:19 | DVHPN2 ---
Reviewed: Care Plan, H&P, Labs, Medications, Previous Orders, Radiology Changes from previous H/P or p: No Changes Eyes: No Pain, No Vision change, No Conjunctivae inflammation, No Eyelid inflammation, No Other, No Redness ENT: No Ear pain, No Ear discharge, No Nose pain, No Nose discharge, No Nose congestion, No Mouth pain, No Mouth swelling, No Throat pain, No Throat swelling, No Other Cardiovascular: No Chest Pain, No Palpitations, No Orthopnea, No Paroxysmal Noc. Dyspnea, No Edema, No Lt Headedness, No Other Respiratory: No Cough, No Dry; Shortness of breath; No SOB with excertion, No Wheezing, No Hemoptysis, No Pleuritic Pain, No Sputum, No Other Gastrointestinal: No Nausea, No Vomiting, No Abdominal Pain, No Diarrhea, No Constipation, No Melena, No Hematochezia, No Other Genitourinary: No Dysuria, No Frequency, No Incontinence, No Hematuria, No Retention, No Other Musculoskeletal: No other, No neck pain, No shoulder pain, No arm pain, No back pain, No hand pain, No leg pain, No foot pain Skin: No Rash, No Lesions, No Jaundice, No Bruising, No Other Objective Vitals Vital Signs Date Time Temp Pulse Resp B/P (MAP) Pulse Ox O2 Delivery O2 Flow Rate FiO2 07/02/24 09:29 97.6 71 17 118/68 (85) 98 97.6 07/01/24 20:00 Nasal Cannula* 2 28 Intake/Output Intake and Output 07/02/24 07:00 Intake Total 450 ml Output Total 2450 ml Balance -2000 ml Intake Oral 0 ml IV Total 450 ml Output Urine Total 2450 ml # Bowel Movements 2 Medications Current Medications Medications Dose Ordered Sig/Jared Route Start Time Stop Time Status Last Admin Dose Admin Dopamine HCl/ Dextrose 250 ml @ 13.5 mls/hr [id number] IV 06/29/24 18:45 06/29/24 18:30 54 MLS/HR Famotidine 20 mg Q48H IV 06/29/24 22:00 07/01/24 21:39 20 MG Atorvastatin Calcium 10 mg HS PO 06/29/24 22:00 07/01/24 21:39 10 MG Sodium Chloride 10 ml Q8HR IV 06/29/24 22:00 07/02/24 06:43 10 ML Acetaminophen/ Hydrocodone Bitart 1 tab Q4HP PRN PO 06/29/24 21:00 Ondansetron HCl 4 mg Q4HP PRN IV 06/29/24 21:00 Docusate Sodium 100 mg BIDPRN PRN PO 06/29/24 21:00 Acetaminophen 650 mg Q6HP PRN PO 06/29/24 21:00 06/30/24 04:11 650 MG Carbidopa/Levodopa 1 tab TID PO 06/29/24 22:00 07/02/24 06:44 1 TAB Nitroglycerin 0.4 mg Q5MINP PRN SL 06/29/24 22:45 Morphine Sulfate 2 mg Q30M PRN IV 06/29/24 22:45 Dextrose/Sodium Chloride 1,000 ml @ 100 mls/hr Q10H IV 07/01/24 08:45 07/02/24 04:54 100 MLS/HR Doxycycline Hyclate 100 ml @ 50 mls/hr Q12H IV 07/02/24 02:00 07/02/24 02:19 50 MLS/HR Ceftriaxone Sodium 50 ml @ 100 mls/hr DAILY IV 07/02/24 10:00 07/02/24 10:21 100 MLS/HR Laboratory Results Laboratory Tests 07/01/24 04:02 07/02/24 07:10 Chemistry Test 07/02/24 07:10 Calcium Level 9.2 mg/dL (8.7-10.4) Urinalysis Test 06/29/24 18:58 Urine Color Yellow (Yellow) Urine Clarity Turbid (Clear) H Urine pH 6.0 (5.0-9.0) Urine Specific [place] 1.015 (1.001-1.035) Urine Protein Trace (Negative) H Urine Ketones Negative (Negative) Urine Blood Negative /uL (Negative) Urine Nitrite Negative (Negative) Urine Bilirubin Negative (Negative) Urine Urobilinogen Normal mg/dL (Negative) Urine Leukocyte Esterase 3+ /uL (Negative) Urine RBC 3 /hpf (0 - 4) Urine Microscopic WBC 67 /HPF (0-5) H Urine Squamous Epithelial Cells Few /hpf (<5) Urine Bacteria Few /hpf (None Seen) H Urine Creatinine 76.63 mg/dL (30.0-125.0) Urine Sodium 98 mmol/L (40-220) Urine Glucose Normal mg/dL (Normal) Urine Total Protein 46.7 mg/dL (1-14) H Microbiology Microbiology Date/Time Source Procedure Growth Status 06/29/24 19:23 Blood Blood Culture - Preliminary NO GROWTH AFTER 48 HOURS OF INCUBATION. Resulted 06/29/24 18:58 Voided Urine Urine Culture - Final Escherichia coli - ESBL Enterococcus faecalis Complete Labs and/or images reviewed: Labs reviewed by me, Image(s) reviewed by me Assessment/Plan Assessment/Plan Septic shock with hypothermia altered mental status secondary to acute urinary tract infection: Blood cultures neg, urine cultures growing ESBL E coli and E faecalis for which she will be placed on Invanz and Zyvox respectively Acute hypotension: Dopamine drip, cardiology consult appreciated Possible community-acquired pneumonia: Continue doxycycline DC Rocephin Acute kidney injury: Consult for Dr. Abhi baeza Acute hypothermia Hypernatremia likely d/t volume depletion Chronic kidney disease 3A History of COVID pneumonia Parkinson's disease: Sinemet hypokalemia Hypercholesterolemia: Lipitor Julia test negative Flu test negative Severe malnutrition TSH normal 2.18 Time spent 60 minutes Patient is full code Advanced care planning time 20 minutes Daughter Sophie [phone] at bedside Patient is DNR per her daughter's wishes Caregiver Azeb [phone] at bedside, patient was in [place] Apr 2024 for two weeks for sepsis, subsequently went to [place] post acute. Plan discussed with: Patient My Orders Orders - JEF HARMAN MD Procedure Category Date Status Time Code Status CODE 07/01/24 Transmitted 11:42 Ceftriaxone 1gm/50ml PHA 07/02/24 In Process D5w (Rocephin) 10:00 Date of Service: Jul 02, 2024 Billing Provider: JEF HARMAN MD Common Visit Codes: [id number] CARE 30-74 MIN JEF HARMAN MD Jul 02, 2024 11:19
[2024-07-02] MEDS ORDERED: ERTAPENEM SOD INJ 1 GM in SODIUM CHL 0.9% 50 ML IV ONE (11:30)
[2024-07-02] MEDS ORDERED: ERTAPENEM SOD INJ 0.5 GM in SODIUM CHL 0.9% 50 ML IV ONE ×2 (12:15→13:00)
--- NOTE | 2024-07-02 13:16 | DVHPN2 ---
Progress Note Date Seen: Jul 02, 2024 Medical Necessity Reason Pt with a Central, PICC or Fol: Yes The following are medically ne: Coates Catheter Subjective Review of Systems No new complaints. Family states pt is more alert today. Patient reports: No new complaints, Feels better Objective vital signs Vital Sign Date Time Temp Pulse Resp B/P (MAP) Pulse Ox O2 Delivery O2 Flow Rate FiO2 07/02/24 12:17 97.7 70 20 129/69 (89) 99 97.7 07/01/24 20:00 Nasal Cannula* 2 28 Total Intake and Output 07/01/24 07/01/24 07/02/24 15:00 23:00 07:00 Intake Total 250 ml 100 ml 100 ml Output Total 700 ml 200 ml 1550 ml Balance -450 ml -100 ml -1450 ml medications Current Medications Medications Dose Ordered Sig/Jared Route Start Time Stop Time Status Last Admin Dose Admin Dopamine HCl/ Dextrose 250 ml @ 13.5 mls/hr [id number] IV 06/29/24 18:45 06/29/24 18:30 54 MLS/HR Famotidine 20 mg Q48H IV 06/29/24 22:00 07/01/24 21:39 20 MG Atorvastatin Calcium 10 mg HS PO 06/29/24 22:00 07/01/24 21:39 10 MG Sodium Chloride 10 ml Q8HR IV 06/29/24 22:00 07/02/24 06:43 10 ML Acetaminophen/ Hydrocodone Bitart 1 tab Q4HP PRN PO 06/29/24 21:00 Ondansetron HCl 4 mg Q4HP PRN IV 06/29/24 21:00 Docusate Sodium 100 mg BIDPRN PRN PO 06/29/24 21:00 Acetaminophen 650 mg Q6HP PRN PO 06/29/24 21:00 06/30/24 04:11 650 MG Carbidopa/Levodopa 1 tab TID PO 06/29/24 22:00 07/02/24 06:44 1 TAB Nitroglycerin 0.4 mg Q5MINP PRN SL 06/29/24 22:45 Morphine Sulfate 2 mg Q30M PRN IV 06/29/24 22:45 Dextrose/Sodium Chloride 1,000 ml @ 100 mls/hr Q10H IV 07/01/24 08:45 07/02/24 04:54 100 MLS/HR Linezolid 300 ml @ 150 mls/hr Q12HR IV 07/02/24 22:00 Ertapenem 0.5 gm/ Sodium Chloride 50 ml @ 100 mls/hr DAILY IV 07/03/24 10:00 Examination Gen: Patient appears stated age. In no acute distress. Pulm: Bilateral air entry no wheezes, rhonchi or rales. CVS: RRR, Normal S1 and S2 Ext: No edema Neuro: AOx3 laboratory and microbiology Laboratory Tests 07/02/24 07:10 07/01/24 04:02 Test 07/02/24 07:10 Range/Units Serum Glucose 90 74-106 mg/dL Microbiology Date/Time Source Procedure Growth Status 06/29/24 19:23 Blood Blood Culture - Preliminary NO GROWTH AFTER 48 HOURS OF INCUBATION. Resulted 06/29/24 18:58 Voided Urine Urine Culture - Final Escherichia coli - ESBL Enterococcus faecalis Complete Labs and/or images reviewed: Labs reviewed by me (family) Problem List/Assessment/Plan Problem List/Assessment/Plan IMP: 1) Hemodynamically mediated BISI/VMN prerenal state/ dehydration- improving downtrending creat 1.79. GFR 28 2) hypernatremia- improving Na 149 3) history of hypertension-within target range 4) toxic metabolic encephalopathy REC: - Continue serial chemistry panels - Continue hypotonic IV fluids -Renal U/S -Will continue to follow Case discussed with Dr Moe Plan discussed with: Patient, Other (Family) NABIL MAKI Jul 02, 2024 13:16
[2024-07-02 13:51] LABS: INR 1.07 (0.9-1.15); Partial Thromboplastin Time 31.6 SEC (24.5-34.5); Prothrombin Time 11.3 sec (9.3-11.8)
[2024-07-02] MEDS: ERTAPENEM SOD INJ 1 GM in SODIUM CHL 0.9% 50 ML IV ONE (14:42)
[2024-07-02] MEDS: LIDOCAINE 1% (LOCAL ANESTH.) PF 5ml SDV ID ONE (15:33)
--- NOTE | 2024-07-02 18:56 | DVH ---
INDICATION: BISI TECHNIQUE: Multiple real-time sonographic images of the kidneys and bladder were obtained. COMPARISON: None FINDINGS: The right kidney measures 11 cm in length, which is normal in size. There is normal echogenicity of t he right kidney. No hydronephrosis. 1cm right renal cyst. The left kidney measures 10 cm in length, which is normal in size. There is normal echogenicity of th e left kidney. No hydronephrosis. No large intraluminal masses are seen in the bladder. Prior to voiding the bladder volume measures volume cc. Following voiding, the bladder volume residual measures cc. IMPRESSION: 1. Normal sonographic appearance of the kidneys. No hydronephrosis.
[2024-07-02] MEDS: LINEZOLID 600MG/300ML 300 ML IV SCH (22:02)
[2024-07-02] MEDS: SODIUM CHLOR 0.9% PF (SALINE LOCK) 10ML VIAL/SYR IV SCH (22:03)
[2024-07-03] VITALS (8 sets, daily range): BP systolic 120–153; BP diastolic 72–86; PULSE 18–74; RESP 15–18; TEMP 97.5–98.6; O2SAT 92–100
[2024-07-03] MEDS: TEMAZEPAM 15 MG CAP PO ONE (03:18)
[2024-07-03 07:45] LABS: Basophils # (auto) 0 10 ^3/uL (0-0.2); Basophils % (auto) 0.2 % (0.0-2.0); Eosinophils # (auto) 0.2 10 ^3/uL (0-0.8); Eosinophils % (auto) 2.2 % (0.0-7.0); Hematocrit 29.9 % (36.0-46.0); Hemoglobin 9.7 g/dL (12.2-16.2); Lymphocytes # (auto) 1.1 10 ^3/uL (0.4-5.4); Lymphocytes % (auto) 12.7 % (10.0-50.0); Mean Corpuscular Hemoglobin 31.9 pg (28.0-32.0); Mean Corpuscular Hgb Conc. 32.3 g/dL (32.0-36.0); Mean Corpuscular Volume 98.8 fL (80.0-100.0); Monocytes # (auto) 0.6 10 ^3/uL (0-1.3); Monocytes % (auto) 6.4 % (0.0-12.0); Neutrophils # (auto) 6.9 10 ^3/uL (1.6-8.6); Neutrophils % (auto) 78.5 % (37.0-80.0); Nucleated Red Blood Cells % 0.1 %; Platelet Count (auto) 114 10^3/uL (140-450); Red Blood Cells 3.03 10^6/uL (4.0-5.20); Red Cell Distribution Width 16.3 % (11.8-14.3); White Blood Cell 8.8 10^3/uL (4.4-10.8)
[2024-07-03 07:51] LABS: Albumin 3.7 g/dL (3.2-4.8); Anion Gap 10 (5-15); Aspartate Aminotransferase 22 U/L (13-40); BUN/Creatinine Ratio 21.6 (10.0-20.0); Calcium 9.6 mg/dL (8.7-10.4); Carbon Dioxide 21 mmol/L (20-31); Glucose 78 mg/dL (74-106); Potassium 4.1 mmol/L (3.5-5.1); Sodium 144 mmol/L (136-145)
[2024-07-03 07:52] LABS: Bilirubin, Total 0.7 mg/dL (0.2-1.0); Total Protein 6.5 g/dL (5.7-8.2)
[2024-07-03 08:00] LABS: Alanine Aminotransferase < 9 U/L (7-40); Alkaline Phosphatase 127 U/L (46-116); Blood Urea Nitrogen 30 mg/dL (9-23); Chloride 113 mmol/L (98-107)
[2024-07-03] MEDS ORDERED: ERTAPENEM SOD INJ 1 GM in SODIUM CHL 0.9% 50 ML IV SCH (10:00)
--- NOTE | 2024-07-03 11:48 | DVHPN2 ---
Reviewed: Care Plan, H&P, Labs, Medications, Previous Orders, Radiology Changes from previous H/P or p: No Changes Eyes: No Pain, No Vision change, No Conjunctivae inflammation, No Eyelid inflammation, No Other, No Redness ENT: No Ear pain, No Ear discharge, No Nose pain, No Nose discharge, No Nose congestion, No Mouth pain, No Mouth swelling, No Throat pain, No Throat swelling, No Other Cardiovascular: No Chest Pain, No Palpitations, No Orthopnea, No Paroxysmal Noc. Dyspnea, No Edema, No Lt Headedness, No Other Respiratory: No Cough, No Dry; Shortness of breath; No SOB with excertion, No Wheezing, No Hemoptysis, No Pleuritic Pain, No Sputum, No Other Gastrointestinal: No Nausea, No Vomiting, No Abdominal Pain, No Diarrhea, No Constipation, No Melena, No Hematochezia, No Other Genitourinary: No Dysuria, No Frequency, No Incontinence, No Hematuria, No Retention, No Other Musculoskeletal: No other, No neck pain, No shoulder pain, No arm pain, No back pain, No hand pain, No leg pain, No foot pain Skin: No Rash, No Lesions, No Jaundice, No Bruising, No Other Objective Vitals Vital Signs Date Time Temp Pulse Resp B/P (MAP) Pulse Ox O2 Delivery O2 Flow Rate FiO2 07/03/24 10:58 98.4 71 15 120/76 (91) 94 98.4 07/02/24 20:00 Nasal Cannula* 2 28 Intake/Output Intake and Output 07/03/24 07:00 Intake Total 0 ml Output Total 650 ml Balance -650 ml Intake Oral 0 ml Output Urine Total 650 ml # Bowel Movements 1 Medications Current Medications Medications Dose Ordered Sig/Jared Route Start Time Stop Time Status Last Admin Dose Admin Dopamine HCl/ Dextrose 250 ml @ 13.5 mls/hr [id number] IV 06/29/24 18:45 06/29/24 18:30 54 MLS/HR Famotidine 20 mg Q48H IV 06/29/24 22:00 07/01/24 21:39 20 MG Atorvastatin Calcium 10 mg HS PO 06/29/24 22:00 07/02/24 22:01 10 MG Sodium Chloride 10 ml Q8HR IV 06/29/24 22:00 07/03/24 06:39 10 ML Acetaminophen/ Hydrocodone Bitart 1 tab Q4HP PRN PO 06/29/24 21:00 Ondansetron HCl 4 mg Q4HP PRN IV 06/29/24 21:00 Docusate Sodium 100 mg BIDPRN PRN PO 06/29/24 21:00 Acetaminophen 650 mg Q6HP PRN PO 06/29/24 21:00 06/30/24 04:11 650 MG Carbidopa/Levodopa 1 tab TID PO 06/29/24 22:00 07/03/24 06:39 1 TAB Nitroglycerin 0.4 mg Q5MINP PRN SL 06/29/24 22:45 Morphine Sulfate 2 mg Q30M PRN IV 06/29/24 22:45 Dextrose/Sodium Chloride 1,000 ml @ 100 mls/hr Q10H IV 07/01/24 08:45 07/03/24 02:21 100 MLS/HR Linezolid 300 ml @ 150 mls/hr Q12HR IV 07/02/24 22:00 07/02/24 22:02 150 MLS/HR Ertapenem 0.5 gm/ Sodium Chloride 50 ml @ 100 mls/hr DAILY IV 07/03/24 10:00 Sodium Chloride 10 ml QSHIFT@10,22 IV 07/02/24 22:00 07/02/24 22:03 10 ML Laboratory Results Laboratory Tests 07/03/24 05:50 Chemistry Test 07/03/24 05:50 Albumin 3.7 g/dL (3.2-4.8) Calcium Level 9.6 mg/dL (8.7-10.4) Total Protein 6.5 g/dL (5.7-8.2) Coagulation Test 07/02/24 13:14 Prothrombin Time 11.3 sec (9.3-11.8) Prothrombin Time INR 1.07 (0.9-1.15) Activated Partial Thromboplast Time 31.6 SEC (24.5-34.5) LFT Test 07/03/24 05:50 Alanine Aminotransferase (ALT) < 9 U/L (7-40) Alkaline Phosphatase 127 U/L (46-116) H Aspartate Amino Transferase (AST) 22 U/L (13-40) Total Bilirubin 0.7 mg/dL (0.2-1.0) Urinalysis Test 06/29/24 18:58 Urine Color Yellow (Yellow) Urine Clarity Turbid (Clear) H Urine pH 6.0 (5.0-9.0) Urine Specific [place] 1.015 (1.001-1.035) Urine Protein Trace (Negative) H Urine Ketones Negative (Negative) Urine Blood Negative /uL (Negative) Urine Nitrite Negative (Negative) Urine Bilirubin Negative (Negative) Urine Urobilinogen Normal mg/dL (Negative) Urine Leukocyte Esterase 3+ /uL (Negative) Urine RBC 3 /hpf (0 - 4) Urine Microscopic WBC 67 /HPF (0-5) H Urine Squamous Epithelial Cells Few /hpf (<5) Urine Bacteria Few /hpf (None Seen) H Urine Creatinine 76.63 mg/dL (30.0-125.0) Urine Sodium 98 mmol/L (40-220) Urine Glucose Normal mg/dL (Normal) Urine Total Protein 46.7 mg/dL (1-14) H Microbiology Microbiology Date/Time Source Procedure Growth Status 06/29/24 19:23 Blood Blood Culture - Preliminary NO GROWTH AFTER 72 HOURS OF INCUBATION. Resulted 06/29/24 18:58 Voided Urine Urine Culture - Final Escherichia coli - ESBL Enterococcus faecalis Complete Labs and/or images reviewed: Labs reviewed by me, Image(s) reviewed by me Assessment/Plan Assessment/Plan Septic shock with hypothermia altered mental status secondary to acute urinary tract infection: Blood cultures neg, urine cultures growing ESBL E coli and E faecalis for which she will be placed on Invanz and Zyvox respectively Recurrent falls at home Acute hypotension: Dopamine drip, cardiology consult appreciated Possible community-acquired pneumonia: Continue doxycycline DC Rocephin Acute kidney injury: Consult for Dr. Abhi baeza Acute hypothermia Hypernatremia likely d/t volume depletion Chronic kidney disease 3A History of COVID pneumonia Parkinson's disease: Sinemet hypokalemia Hypercholesterolemia: Lipitor Julia test negative Flu test negative Severe malnutrition TSH normal 2.18 Time spent 40 minutes Patient is full code Advanced care planning time 20 minutes Daughter Sophie [phone] at bedside Patient is DNR per her daughter's wishes Caregiver Azeb [phone] at bedside, patient was in [place] Apr 2024 for two weeks for sepsis, subsequently went to [place] post acute. Plan discussed with: Patient My Orders Orders - JEF HARMAN MD Procedure Category Date Status Time Ertapenem Sod Inj PHA 07/03/24 In Process (Invanz) 10:00 Change Dressing Prn [facility] 07/02/24 In Process 16:33 Lidocaine 1% (Local PHA 07/02/24 In Process Anesth.) (Xylocaine 16:45 Sodium Chloride Lock PHA 07/02/24 In Process (Saline Lock Ns) 22:00 Do Not Use Picc For [facility] 07/02/24 In Process Blood Cult 16:33 May Draw Blood From [facility] 07/02/24 In Process Picc 16:33 Ok To Use Picc [facility] 07/02/24 In Process 16:33 Change Picc Dressing [facility] 07/02/24 In Process Q7 Days 16:33 Date of Service: Jul 03, 2024 Billing Provider: JEF HARMAN MD Common Visit Codes: [id number] INP/OBS CARE(HIGH) JEF HARMAN MD Jul 03, 2024 11:48
--- NOTE | 2024-07-03 11:56 | DVHPN2 ---
Progress Note Date Seen: Jul 03, 2024 Medical Necessity Reason Pt with a Central, PICC or Fol: Yes The following are medically ne: Coates Catheter Subjective Patient reports: Feels better Objective vital signs Vital Sign Date Time Temp Pulse Resp B/P (MAP) Pulse Ox O2 Delivery O2 Flow Rate FiO2 07/03/24 10:58 98.4 71 15 120/76 (91) 94 98.4 07/02/24 20:00 Nasal Cannula* 2 28 Total Intake and Output 07/02/24 07/02/24 07/03/24 15:00 23:00 07:00 Intake Total 0 ml Output Total 650 ml Balance -650 ml medications Current Medications Medications Dose Ordered Sig/Jared Route Start Time Stop Time Status Last Admin Dose Admin Dopamine HCl/ Dextrose 250 ml @ 13.5 mls/hr [id number] IV 06/29/24 18:45 06/29/24 18:30 54 MLS/HR Famotidine 20 mg Q48H IV 06/29/24 22:00 07/01/24 21:39 20 MG Atorvastatin Calcium 10 mg HS PO 06/29/24 22:00 07/02/24 22:01 10 MG Sodium Chloride 10 ml Q8HR IV 06/29/24 22:00 07/03/24 06:39 10 ML Acetaminophen/ Hydrocodone Bitart 1 tab Q4HP PRN PO 06/29/24 21:00 Ondansetron HCl 4 mg Q4HP PRN IV 06/29/24 21:00 Docusate Sodium 100 mg BIDPRN PRN PO 06/29/24 21:00 Acetaminophen 650 mg Q6HP PRN PO 06/29/24 21:00 06/30/24 04:11 650 MG Carbidopa/Levodopa 1 tab TID PO 06/29/24 22:00 07/03/24 06:39 1 TAB Nitroglycerin 0.4 mg Q5MINP PRN SL 06/29/24 22:45 Morphine Sulfate 2 mg Q30M PRN IV 06/29/24 22:45 Dextrose/Sodium Chloride 1,000 ml @ 100 mls/hr Q10H IV 07/01/24 08:45 07/03/24 02:21 100 MLS/HR Linezolid 300 ml @ 150 mls/hr Q12HR IV 07/02/24 22:00 07/02/24 22:02 150 MLS/HR Ertapenem 0.5 gm/ Sodium Chloride 50 ml @ 100 mls/hr DAILY IV 07/03/24 10:00 Sodium Chloride 10 ml QSHIFT@10,22 IV 07/02/24 22:00 07/02/24 22:03 10 ML Examination: GENERAL:Normal, CVS:Normal laboratory and microbiology Laboratory Tests 07/03/24 05:50 Test 07/03/24 05:50 Range/Units Serum Glucose 78 74-106 mg/dL Microbiology Date/Time Source Procedure Growth Status 06/29/24 19:23 Blood Blood Culture - Preliminary NO GROWTH AFTER 72 HOURS OF INCUBATION. Resulted 06/29/24 18:58 Voided Urine Urine Culture - Final Escherichia coli - ESBL Enterococcus faecalis Complete Problem List/Assessment/Plan Problem List/Assessment/Plan Acute kidney injury ckd 3a hypernatremia hypertension toxic metabolic encephalopathy Kimberly improving w/ hypotonic fluids Na improving avoid hypotension Plan discussed with: Patient CLEMENTINA DOWLING MD Jul 03, 2024 11:56
--- NOTE | 2024-07-03 11:57 | DVHDS2 ---
Discharge Summary Date of Admission Jun 29, 2024 at 22:38 Date of Discharge: Jul 03, 2024 Admitting Diagnosis Shortness of breath generalized weakness Wounds: none Labs/Diagnostic Data: Laboratory Results Test 07/03/24 05:50 07/02/24 13:14 07/01/24 04:02 06/30/24 05:30 White Blood Count 8.8 10^3/uL (4.4-10.8) Red Blood Count 3.03 10^6/uL (4.0-5.20) Hemoglobin 9.7 g/dL (12.2-16.2) Hematocrit 29.9 % (36.0-46.0) Mean Corpuscular Volume 98.8 fL (80.0-100.0) Mean Corpuscular Hemoglobin 31.9 pg (28.0-32.0) Mean Corpuscular Hemoglobin Concent 32.3 g/dL (32.0-36.0) Red Cell Distribution Width 16.3 % (11.8-14.3) Platelet Count 114 10^3/uL (140-450) Mean Platelet Volume 10.2 fL (6.9-10.8) Neutrophils (%) (Auto) 78.5 % (37.0-80.0) Lymphocytes (%) (Auto) 12.7 % (10.0-50.0) Monocytes (%) (Auto) 6.4 % (0.0-12.0) Eosinophils (%) (Auto) 2.2 % (0.0-7.0) Basophils (%) (Auto) 0.2 % (0.0-2.0) Neutrophils # (Auto) 6.9 10 ^3/uL (1.6-8.6) Lymphocytes # (Auto) 1.1 10 ^3/uL (0.4-5.4) Monocytes # (Auto) 0.6 10 ^3/uL (0-1.3) Eosinophils # (Auto) 0.2 10 ^3/uL (0-0.8) Basophils # (Auto) 0 10 ^3/uL (0-0.2) Nucleated Red Blood Cells 0.1 % Sodium Level 144 mmol/L (136-145) Potassium Level 4.1 mmol/L (3.5-5.1) Chloride Level 113 mmol/L (98-107) Carbon Dioxide Level 21 mmol/L (20-31) Anion Gap 10 (5-15) Blood Urea Nitrogen 30 mg/dL (9-23) Creatinine 1.39 mg/dL (0.550-1.02) Glomerular Filtration Rate Calc 38 mL/min (>90) BUN/Creatinine Ratio 21.6 (10.0-20.0) Serum Glucose 78 mg/dL (74-106) Calcium Level 9.6 mg/dL (8.7-10.4) Total Bilirubin 0.7 mg/dL (0.2-1.0) Aspartate Amino Transferase (AST) 22 U/L (13-40) Alanine Aminotransferase (ALT) < 9 U/L (7-40) Alkaline Phosphatase 127 U/L (46-116) Total Protein 6.5 g/dL (5.7-8.2) Albumin 3.7 g/dL (3.2-4.8) Prothrombin Time 11.3 sec (9.3-11.8) Prothrombin Time INR 1.07 (0.9-1.15) Activated Partial Thromboplast Time 31.6 SEC (24.5-34.5) Platelet Estimate Decrea Large Platelets Few Uric Acid 9.1 mg/dL (3.1-7.8) Phosphorus Level 3.3 mg/dL (2.4-5.1) Triglycerides Level 109 mg/dL (< 150) Cholesterol Level 112 mg/dL (< 200) LDL Cholesterol 26 mg/dL (< 100) HDL Cholesterol 60 mg/dL (40-59) Thyroid Stimulating Hormone (TSH) 2.18 uIU/mL (0.55-4.78) Test 06/29/24 20:52 06/29/24 19:23 06/29/24 19:00 06/29/24 18:58 Troponin I High Sensitivity 14 ng/L (</=34) Hemoglobin A1c 4.6 % A1C (<5.7) Lactic Acid Level 1.4 mmol/L (0.4-2.0) Magnesium Level 2.4 mg/dL (1.6-2.6) Influenza Type A Antigen Negative (Negative) Influenza Type B Antigen Negative (Negative) SARS-CoV-2 Antigen (Rapid) Negative (NEGATIVE) Urine Color Yellow (Yellow) Urine Clarity Turbid (Clear) Urine pH 6.0 (5.0-9.0) Urine Specific [place] 1.015 (1.001-1.035) Urine Protein Trace (Negative) Urine Ketones Negative (Negative) Urine Blood Negative /uL (Negative) Urine Nitrite Negative (Negative) Urine Bilirubin Negative (Negative) Urine Urobilinogen Normal mg/dL (Negative) Urine Leukocyte Esterase 3+ /uL (Negative) Urine RBC 3 /hpf (0 - 4) Urine Microscopic WBC 67 /HPF (0-5) Urine Squamous Epithelial Cells Few /hpf (<5) Urine Bacteria Few /hpf (None Seen) Urine Creatinine 76.63 mg/dL (30.0-125.0) Urine Sodium 98 mmol/L (40-220) Urine Glucose Normal mg/dL (Normal) Urine Total Protein 46.7 mg/dL (1-14) Other Laboratory Tests 07/03/24 05:50 Brief Hx & Hospital Course: 83-year-old female with a history of Parkinson's disease hypercholesterolemia hypotension brought in by the family for generalized weakness altered mental status and recurrent falls at home. Patient was found to be in septic shock with the hypothermia of temperature 92 which has slowly recovered. Patient was found to have complicated urinary tract infection treated with Rocephin blood cultures negative urine cultures growing ESBL E coli and E faecalis placed on Invanz and Zyvox respectively. Julia test negative flu test negative. Hyponatremia secondary to volume depletion resolved patient has community- acquired pneumonia treated with the doxycycline. Patient will be discharged to intermediate facility to receive Invanz and Zyvox for UTI and doxycycline for pneumonia. The plan is agreeable with the patient's daughter Sophie and the caregiver Azeb. Consults/Reason for consult None Operations or Procedures None Condition at Discharge: Fair Final Diagnosis/Problems List Septic shock with hypothermia altered mental status secondary to acute urinary tract infection: Blood cultures neg, urine cultures growing ESBL E coli and E faecalis for which she will be placed on Invanz and Zyvox respectively Recurrent falls at home Acute hypotension: Dopamine drip, cardiology consult appreciated Possible community-acquired pneumonia: Continue doxycycline DC Rocephin Acute kidney injury: Consult for Dr. Abhi baeza Acute hypothermia Hypernatremia likely d/t volume depletion Chronic kidney disease 3A History of COVID pneumonia Parkinson's disease: Sinemet hypokalemia Hypercholesterolemia: Lipitor Julia test negative Flu test negative Severe malnutrition TSH normal 2.18 Discharge Disposition: Intermediate Facility Discharge Instruct/Medications Diet: Cardiac 2g Na,low cholest Activity: Light activity Follow Up/Referral: Follow up with the [facility] Medications: Zyvox 600 mg IV q.12h for three weeks Invanz 1 g IV daily for three weeks Both For complicated UTI 35 (Time taken For discharge summary 35 minutes) Discharge Statement: "Patient was advised to return to the ER or call 911 if any headaches, dizziness, shortness of breath, chest pain, abdominal pain, bleeding, fevers, or worsening of medical condition. Patient was counseled about treatment plan, medications, possible side effects, patientverbalized understanding. All questions were answered to the best of my ability. This discharge took greater then 30 minutes in planning, reviewing documentation, counseling the patient, and discussing with other team members." ASSESSMENT ASSESSMENT Assessment Septic shock with hypothermia altered mental status secondary to acute urinary tract infection: Blood cultures neg, urine cultures growing ESBL E coli and E faecalis for which she will be placed on Invanz and Zyvox respectively Recurrent falls at home Acute hypotension: Dopamine drip, cardiology consult appreciated Possible community-acquired pneumonia: Continue doxycycline DC Rocephin Acute kidney injury: Consult for Dr. Abhi baeza Acute hypothermia Hypernatremia likely d/t volume depletion Chronic kidney disease 3A History of COVID pneumonia Parkinson's disease: Sinemet hypokalemia Hypercholesterolemia: Lipitor Julia test negative Flu test negative Severe malnutrition TSH normal 2.18 Date of Service: Jul 03, 2024 Billing Provider: JEF HARMAN MD Common Visit Codes: 71686-VHA/OBS DISCH DAY >30min JEF HARMAN MD Jul 03, 2024 11:57
[2024-07-03] MEDS: ERTAPENEM SOD INJ 0.5 GM in SODIUM CHL 0.9% 50 ML IV SCH (15:50)
== END 2024-07-03 18:30 | DRG 871 ==
LOC: EDBD 18:15 → ER 18:15 → OVERFLOW 22:38 → TELE-WESTW 07-01 10:35 → TELE-EAST 07-01 18:54
PROVIDERS: ADMIT Family Medicine; ATTEND Family Medicine
PROC: 02HV33Z Insertion of Infusion Device into Superior Vena Cava, Percutaneous Approach (ICD-10-PCS; principal; 2024-06-29)
PROC: 02HV33Z Insertion of Infusion Device into Superior Vena Cava, Percutaneous Approach (ICD-10-PCS; 2024-07-02)
PROC: B548ZZA Ultrasonography of Superior Vena Cava, Guidance (ICD-10-PCS; 2024-07-02)
DX: A41.9 Sepsis, unspecified organism (principal); E43 Unspecified severe protein-calorie malnutrition; R65.21 Severe sepsis with septic shock; N17.0 Acute kidney failure with tubular necrosis; G92.8 Other toxic encephalopathy; J18.9 Pneumonia, unspecified organism; N39.0 Urinary tract infection, site not specified; E87.0 Hyperosmolality and hypernatremia; E87.1 Hypo-osmolality and hyponatremia; T68.XXXA Hypothermia, initial encounter; Z20.822 Contact with and (suspected) exposure to COVID-19; I07.1 Rheumatic tricuspid insufficiency; Z66 Do not resuscitate; N18.31 Chronic kidney disease, stage 3a; I12.9 Hypertensive chronic kidney disease with stage 1 through stage 4 chronic kidney disease, or unspecified chronic kidney disease; E87.6 Hypokalemia; B95.2 Enterococcus as the cause of diseases classified elsewhere; E86.0 Dehydration; G20.A1 Parkinson's disease without dyskinesia, without mention of fluctuations; K21.9 Gastro-esophageal reflux disease without esophagitis; I49.3 Ventricular premature depolarization; F02.80 Dementia in other diseases classified elsewhere, unspecified severity, without behavioral disturbance, psychotic disturbance, mood disturbance, and anxiety; E78.00 Pure hypercholesterolemia, unspecified; R29.6 Repeated falls; Z86.73 Personal history of transient ischemic attack (TIA), and cerebral infarction without residual deficits; Z90.710 Acquired absence of both cervix and uterus; Z82.49 Family history of ischemic heart disease and other diseases of the circulatory system; Z81.8 Family history of other mental and behavioral disorders; Z85.038 Personal history of other malignant neoplasm of large intestine; Z86.16 Personal history of COVID-19; Z87.01 Personal history of pneumonia (recurrent); X31.XXXA Exposure to excessive natural cold, initial encounter; Z68.23 Body mass index [BMI] 23.0-23.9, adult
CPT/HCPCS: 36415; 36556; 36569; 70450; 71045; 76775; 76937; 80048; 80053; 80061; 81001; 82570; 83036; 83605; 83735; 84100; 84156; 84300; 84443; 84484; 84550; 85025; 85610; 85730; 87040; 87086; 87088; 87186; 87426; 87804; 92610; 93005; 96361; 96365; 96368; 99291; 99292; G0378; J1335; J3490

== ENCOUNTER 2025-03-07 08:58 | Inpatient (IN) | payer MEDICARE, OTHER ==
[~2025-03-07] VITALS: Ht 165.1 cm; Wt 160.5 kg
[2025-03-07 09:41] VITALS: PULSE 93; RESP 13; O2SAT 96
--- NOTE | 2025-03-07 10:54 | ED.PDOC ---
Lyle. trauma (HPI) HPI Comments This is an 84 year old female BIBA and accompanied by daughter presenting to the ED with chief complaint of fall injury. Daughter reports that when patient was walking to the living room with her walker this morning around 7am, she had fell to her knees due to her legs giving out and before she could help the patient, she fell backwards onto her back. Daughter relays that the patient now has knee and back pain since then, but her fall is unexplained as she did not trip on anything to cause her to fall. Daughter states patient is now unable to stand on her own. Daughter notes patient was recently told she had kidney issues and needed to drink more water, but she has not been as much as she was told to. Patient denies any chest pain, SOB, dizziness, N/V, headache, head injury, or syncope. Chief Complaint: Fall Injury Time Seen by MD: 10:52 Primary Care Provider: TAD Reviewed notes: Nurses Notes, Post Anesthesia Care Unit Nurse Notes, Medications, Allergies Allergies: Coded Allergies: NO KNOWN ALLERGIES (Unverified , 07/10/10) Home Meds Reported Medications Amlodipine Besylate (Amlodipine Besylate) 10 Mg Tab, 1 TAB PO DAILY 05/31/24 Carvedilol (Carvedilol) 6.25 Mg Tab, 1 TAB PO BID 05/31/24 Carbidopa-Levodopa (Carbidopa/Levodopa Er) 25 /100 Tab, 25-100 05/31/24 Pantoprazole Sodium Sesquihydr (Pantoprazole Sodium) 40 Mg Tab, 1 TAB PO DAILY 05/31/24 Mirabegron Base (MYRBETRIQ) 50 Mg Tab, 50 MG OR DAILY, TAB 11/18/19 Ferrous Sulfate (Ferrous Sulfate) 325 Mg Tab, 325 MG PO BIDWM for 30 Days, MG 11/18/19 Bupropion Hcl (Bupropion Hcl) 100 Mg Tab, 150 MG PO DAILY for 30 Days, MG 11/18/19 Aspirin-Dipyridamole (Aggrenox) 1 Cap Cap, 1 CAP PO BID, #60 CAP 5 Refills 11/18/19 Fluoxetine Hcl (Fluoxetine Hcl) 20 Mg Cap, 40 MG PO DAILY 07/10/10 Atorvastatin Calcium (Lipitor) 20 Mg Tab 07/10/10 Information Source: Patient, Relative (Child) Mode of Arrival: EMS Severity: Moderate Timing: Hours Duration: Since onset Prehospital treatment: None Location: Back, (L) Knee, (R) Knee Mechanism: Fall Past Medical History PAST MEDICAL HISTORY: Anemia, Cancer, CKF, CVA, Depression, GERD, High Lipids, HTN Surgical History: Hysterectomy STERILE PROCESS COORDINATOR 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: No Pertinent STERILE PROCESS COORDINATOR History Family History Family History: Unknown Social History Smoker: Non-Smoker Alcohol: Denies ETOH Use Drugs: Denies Drug Use Lives In: Home Constitutional: denies: chills, diaphoresis, fatigue, fever, malaise, sweats, weakness, others EENTM: denies: blurred vision, double vision, ear bleeding, ear discharge, ear drainage, ear pain, ear ringing, eye pain, eye redness, hearing loss, mouth pain, mouth swelling, nasal discharge, nose bleeding, nose congestion, nose pain, photophobia, tearing, throat pain, throat swelling, voice changes, others Respiratory: denies: cough, hemoptysis, orthopnea, SOB at rest, shortness of breath, SOB with excertion, stridor, wheezing, others Cardiovascular: denies: chest pain, dizzy spells, diaphoresis, Dyspnea on exertion, edema, irregular heart beat, left arm pain, lightheadedness, palpitations, PND, syncope, others Gastrointestinal: denies: abdomen distended, abdominal pain, blood streaked bowels, constipated, diarrhea, dysphagia, difficulty swallowing, hematemesis, melena, nausea, poor appetite, poor fluid intake, rectal bleeding, rectal pain, vomiting, others Genitourinary: denies: abnormal vagina bleeding, burning, dyspareunia, dysuria, flank pain, frequency, hematuria, incontinence, pain, , vagina discharge, urgency, others Neurological: denies: dizziness, fainting, headache, left sided numbness, left sided weakness, numbness, paresthesia, pre-existing deficit, right sided numbness, right sided weakness, seizure, speech problems, tingling, tremors, we akness, others Musculoskeletal: reports: back pain, others (knee pain); denies: gout, joint pain, joint swelling, muscle pain, muscle stiffness, neck pain Integumetry: denies: bruises, change in color, change in hair/nails, dryness, laceration, lesions, lumps, rash, wounds, others Allergic/Immunocompromised: denies: Difficulty Healing, Frequent Infections, Hives, Itching, others Hematologic/Lymphatic: denies: anemia, blood clots, easy bleeding, easy bruising, swollen glands, others Endocrine: denies: excessive hunger, excessive sweating, excessive thirst, excessive urination, flushing, intolerance to cold, intolerance to heat, unexplained weight gain, unexplained weight loss, others Psychiatric: denies: anxiety, bipolar disorder, depression, hopeless, panic disorder, schizophrenia, sleepless, suicidal, others All Other Systems: Reviewed and Negative Physical Exam General Appearance: No Apparent Distress, Normal HEENT: Normal ENT Inspection, Pharynx Normal, TMs Normal Neck: Full Range of Motion, Non-Tender, Normal, Normal Inspection Respiratory: Chest Non-Tender, Lungs Clear, No Accessory Muscle Use, No Respiratory Distress, Normal Breath Sounds Cardiovascular: No Edema, No JVD, No Murmur, No Gallop, Normal Peripheral Pulses, Regular Rate/Rhythm Breast Exam: Deferred Gastrointestinal: No Organomegaly, Non Tender, No Pulsatile Mass, Normal Bowel Sounds, Soft Genitalia: Deferred Pelvic: Deferred Rectal: Deferred Extremities: No calf tenderness, Normal capillary refill, Normal inspection, Normal range of motion, Non-tender, No pedal edema Musculoskeletal : Apperance: Normal Neurologic: Alert, smash piecer II-XII nml as Tested, No Motor Deficits, Normal Affect, Normal Mood, No Sensory Deficits Cerebellar Function: Normal Reflexes: Normal Skin: Dry, Normal Color, Warm Lymphatic: No Adenopathy Was a procedure done? Was a procedure done?: No Differential Diagnosis Multiple Trauma: Fractures, Spine Injury, Tracheal Injury, Hematoma, Laceration Neck Injury: Cervical Muscle Spasm X-Ray, Labs, Meds, VS Vital Signs Date Time Temp Pulse Resp B/P (MAP) Pulse Ox O2 Delivery O2 Flow Rate FiO2 03/07/25 09:41 98.0 93 13 150/72 (98) 96 98.0 03/07/25 09:41 93 13 96 Room Air* 0 21 03/07/25 09:00 98.2 94 16 181/96 96 98.2 Lab Test 03/07/25 13:12 Range/Units White Blood Count 12.4 H 4.4-10.8 10^3/uL Red Blood Count 4.45 4.0-5.20 10^6/uL Hemoglobin 14.1 12.2-16.2 g/dL Hematocrit 43.9 36.0-46.0 % Mean Corpuscular Volume 98.5 80.0-100.0 fL Mean Corpuscular Hemoglobin 31.6 28.0-32.0 pg Mean Corpuscular Hemoglobin Concent 32.1 32.0-36.0 g/dL Red Cell Distribution Width 16.6 H 11.8-14.3 % Platelet Count 199 140-450 10^3/uL Mean Platelet Volume 8.9 6.9-10.8 fL Neutrophils (%) (Auto) 72.5 37.0-80.0 % Lymphocytes (%) (Auto) 17.5 10.0-50.0 % Monocytes (%) (Auto) 8.8 0.0-12.0 % Eosinophils (%) (Auto) 1.0 0.0-7.0 % Basophils (%) (Auto) 0.2 0.0-2.0 % Neutrophils # (Auto) 9.0 H 1.6-8.6 10 ^3/uL Lymphocytes # (Auto) 2.2 0.4-5.4 10 ^3/uL Monocytes # (Auto) 1.1 0-1.3 10 ^3/uL Eosinophils # (Auto) 0.1 0-0.8 10 ^3/uL Basophils # (Auto) 0 0-0.2 10 ^3/uL Nucleated Red Blood Cells 0.1 % Sodium Level 156 H 136-145 mmol/L Potassium Level 4.3 3.5-5.1 mmol/L Chloride Level 120 H 98-107 mmol/L Carbon Dioxide Level 22 20-31 mmol/L Anion Gap 14 5-15 Blood Urea Nitrogen 64 H 9-23 mg/dL Creatinine 1.94 H 0.550-1.02 mg/dL Glomerular Filtration Rate Calc 25 >90 mL/min BUN/Creatinine Ratio 33.0 H 10.0-20.0 Serum Glucose 105 74-106 mg/dL Calcium Level 8.6 L 8.7-10.4 mg/dL Troponin I High Sensitivity 11 </=34 ng/L [facility] [id number] [place] [id number] Ph: [phone] DIAGNOSTIC IMAGING Diagnostic Imaging Report : [id number] Signed PATIENT: MARISOL DENNIS PACCT: [id number] UNIT: [id number] : 1940 LOC: ER ROOM / BED: / AGE / SEX: 84 / F ADM STATUS: REG ER SERVICE 14 ORDERING PHYSICIAN: KENIA RAM MD PROCEDURE(s): CXRP - CHEST PORTABLE REASON: syncope ORDER NUMBER(s): [id number], ACCESSION NUMBER(s): [id number] EXAM: XY CHEST PORTABLE Indication: syncope Technique: Single frontal view of the chest was obtained Comparison: XY CHEST XRAY 1 VIEW on DOS: 06/29/24, XY CHEST PORTABLE on DOS: 06/29/24, XY CHEST PORTABLE on DOS: 06/05/24, XY CHEST XRAY 1 VIEW on DOS: 05/31/24, CHEST PORTABLE on DOS: 07/29/20 FINDINGS: Lines and Tubes: Right chest port tip projects over superior vena cava. Lungs: No focal consolidation. Pleura: No effusion. No pneumothorax. Cardiomediastinal contours: Unremarkable Bones: No acute osseous abnormality. IMPRESSION: No acute cardiopulmonary disease. ATED BY: АНДРЕЙ MCCLOUD MD DICTATED DATE/TIME: 03/07/25 130 SIGNED BY: АНДРЕЙ MCCLOUD MD SIGNED DATE/TIME: 03/07/25 130 CC: [place] [id number] Ph: [phone] DIAGNOSTIC IMAGING Diagnostic Imaging Report : [id number] Signed PATIENT: MARISOL DENNIS PACCT: [id number] UNIT: [id number] : 1940 LOC: ER ROOM / BED: / AGE / SEX: 84 / F ADM STATUS: REG ER SERVICE 14 ORDERING PHYSICIAN: KENIA RAM MD PROCEDURE(s): LKNE3 - L KNEE 3V XRAY REASON: fall ORDER NUMBER(s): [id number], ACCESSION NUMBER(s): [id number] EXAM: XY L KNEE 3V XRAY, US US Guided Vascular Access CLINICAL INDICATION: fall TECHNIQUE: XY L KNEE 3V XRAY, US US Guided Vascular Access Comparison: XY R KNEE 3V XRAY on DOS: 03/07/25 FINDINGS/IMPRESSION: Small joint effusion. Possible nondisplaced mid left patellar pole fracture. Correlate with point tenderness. ATED BY: DAFNE BUTLER MD DICTATED DATE/TIME: 03/07/25 130 SIGNED BY: DAFNE BUTLER MD SIGNED DATE/TIME: 03/07/25 130 CC: [place] [id number] Ph: [phone] DIAGNOSTIC IMAGING Diagnostic Imaging Report : [id number] Signed PATIENT: MARISOL DENNIS PACCT: [id number] UNIT: [id number] : 1940 LOC: ER ROOM / BED: / AGE / SEX: 84 / F ADM STATUS: REG ER SERVICE 14 ORDERING PHYSICIAN: KENIA RAM MD PROCEDURE(s): RKN3 - R KNEE 3V XRAY REASON: fall ORDER NUMBER(s): [id number], ACCESSION NUMBER(s): [id number] CLINICAL INDICATION: Pain; fall TECHNIQUE: 3 radiographic views of the right knee were obtained. Comparison: XY L KNEE 3V XRAY on DOS: 03/07/25 FINDINGS/IMPRESSION: There is no evidence of acute fracture or dislocation. The visualized joint space is well maintained. The alignment is anatomical. There is no radiopaque foreign body. ATED BY: АНДРЕЙ MCCLOUD MD DICTATED DATE/TIME: 03/07/25 130 SIGNED BY: АНДРЕЙ MCCLOUD MD SIGNED DATE/TIME: 03/07/25 130 CC: [address] [id number] Ph: [phone] DIAGNOSTIC IMAGING Diagnostic Imaging Report : [id number] Signed PATIENT: MARISOL DENNIS PACCT: [id number] UNIT: [id number] : 1940 LOC: ER ROOM / BED: / AGE / SEX: 84 / F ADM STATUS: REG ER SERVICE 14 ORDERING PHYSICIAN: KENIA RAM MD PROCEDURE(s): HWOCT - HEAD WITHOUT CONTRAST REASON: syncope ORDER NUMBER(s): [id number], ACCESSION NUMBER(s): [id number] CLINICAL HISTORY: syncope TECHNIQUE: Helical scanning was performed of the head from the skull base to the vertex. Multiplanar reconstructions were performed. This exam was performed according to our departmental dose optimization program. Up-to-date CT equipment and radiation dose reduction techniques are utilized as appropriate. CTDI 62 DLP 1221 COMPARISON: CT BRAIN on DOS: 12/11/24, CT HEAD WITHOUT CONTRAST on DOS: 06/29/24, CT HEAD WITHOUT CONTRAST on DOS: 06/01/24 FINDINGS: There is no evidence for acute intracranial hemorrhage, acute ischemic changes, mass, mass effect, or extra-axial fluid collection. There is no hydrocephalus or midline shift. There is no effacement of the cerebral sulci and basal subarachnoid cisterns. The hall-white matter differentiation is well maintained. Scattered white matter hypoattenuation is most compatible with a mild to mo derate burden of chronic small vessel ischemic change. 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 The imaged paranasal sinuses are clear. IMPRESSION: NO ACUTE INTRACRANIAL ABNORMALITY SEEN. ATED BY: KYLER BRITTON MD DICTATED DATE/TIME: 03/07/251243 SIGNED BY: KYLER BRITTON MD SIGNED DATE/TIME: 03/07/251243 CC: Images Reviewed?: Images reviewed and evaluated by me Time of 1ST Reevaluation: 11:51 Reevaluation 1ST: Unchanged Patient Education/Counseling: Diagnosis, Treatment Family Education/Counseling: Diagnosis, Treatment Departure 1 Departure Time of Disposition: 15:15 (Patient presented with syncope today and should be admitted. Data: 1. I ordered and reviewed the result of at least 3 labs including a CBC, BMP, and troponin. 2. I independently interpreted the following tests: EKG which shows a sinus arrhythmia and a chest x-ray which shows benign chest and a CT head which shows benign brain.Risk:This patient has a high risk of morbidity due to further diagnostic testing or treatment and may suffer from an acute cardiac, neurologic, or infectious disorder. Rationale: Patient should be admitted to the hospital for further management.) Impression: Primary Impression: Syncope and collapse Additional Impression: Patellar fracture Disposition: 09 ADMITTED INPATIENT Admit to: Tele Condition: Guarded Critical Care Note Critical Care Time?: Yes Critical care comment: Syncope Authorized and Performed by: Kenia Ram MD Total critical care time: Approximately 36 minutes Due to a high probability of clinically significant, life threatening deterioration, the patient required my highest level of preparedness to intervene emergently and I personally spent this critical care time directly and personally managing the patient. This critical care time included obtaining a history; examining the patient; pulse oximetry; ordering and review of studies; arranging urgent treatment with development of a management plan; evaluation of patient's response to treatment; frequent reassessment; and, discussions with other providers. This critical care time was performed to assess and manage the high probability of imminent, life-threatening deterioration that could result in multi-organ failure. It was exclusive of separately billable procedures and treating other patients and teaching time. Please see my other sections and the rest of the note for further information on patient assessment and treatment. Stability Stability form required: No Heart Score Heart Score: Heart Score Response (Comments) Value History Highly Suspicious 2 EKG Normal 0 Age >65 2 Risk Factors >3 or Hx ASHD 2 Troponin 1-2 x's Normal limit 1 Total 7 I personally scribed for KENIA RAM MD ([email or web address]) on 03/07/25 at 10:54. Electronically submitted by Mendoza Isaacs ([email or web address]). I personally scribed for KENIA RAM MD ([email or web address]) on 03/07/25 at 13:43. Electronically submitted by Mendoza Isaacs ([email or web address]). KENIA RAM MD Mar 07, 2025 10:54
--- NOTE | 2025-03-07 12:47 | DVH ---
CLINICAL HISTORY: syncope TECHNIQUE: Helical scanning was performed of the head from the skull base to the vertex. Multiplanar reconstructions were performed. This exam was performed according to our departmental dose optimizat ion program. Up-to-date CT equipment and radiation dose reduction techniques are utilized as appropri ate. CTDI 62 DLP 1221 COMPARISON: CT BRAIN on DOS: 12/11/24, CT HEAD WITHOUT CONTRAST on DOS: 06/29/24, CT HEAD WITHOUT CONTR AST on DOS: 06/01/24 FINDINGS: There is no evidence for acute intracranial hemorrhage, acute ischemic changes, mass, mass effect, or extra-axial fluid collection. There is no hydrocephalus or midline shift. There is no effacement of the cerebral sulci and basal subarachnoid cisterns. The hall-white matter differentiation is well phoebe ntained. Scattered white matter hypoattenuation is most compatible with a mild to moderate burden of chronic s mall vessel ischemic change. 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 The imaged paranasal sinuses are clear. IMPRESSION: NO ACUTE INTRACRANIAL ABNORMALITY SEEN.
--- NOTE | 2025-03-07 13:04 | DVH ---
CLINICAL INDICATION: Pain; fall TECHNIQUE: 3 radiographic views of the right knee were obtained. Comparison: XY L KNEE 3V XRAY on DOS: 03/07/25 FINDINGS/IMPRESSION: There is no evidence of acute fracture or dislocation. The visualized joint space is well maintained. The alignment is anatomical. There is no radiopaque foreign body.
--- NOTE | 2025-03-07 13:04 | DVH ---
EXAM: XY CHEST PORTABLE Indication: syncope Technique: Single frontal view of the chest was obtained Comparison: XY CHEST XRAY 1 VIEW on DOS: 06/29/24, XY CHEST PORTABLE on DOS: 06/29/24, XY CHEST PORTABL E on DOS: 06/05/24, XY CHEST XRAY 1 VIEW on DOS: 05/31/24, CHEST PORTABLE on DOS: 07/29/20 FINDINGS: Lines and Tubes: Right chest port tip projects over superior vena cava. Lungs: No focal consolidation. Pleura: No effusion. No pneumothorax. Cardiomediastinal contours: Unremarkable Bones: No acute osseous abnormality. IMPRESSION: No acute cardiopulmonary disease.
--- NOTE | 2025-03-07 13:06 | DVH ---
EXAM: XY L KNEE 3V XRAY, US US Guided Vascular Access CLINICAL INDICATION: fall TECHNIQUE: XY L KNEE 3V XRAY, US US Guided Vascular Access Comparison: XY R KNEE 3V XRAY on DOS: 03/07/25 FINDINGS/IMPRESSION: Small joint effusion. Possible nondisplaced mid left patellar pole fracture. Correlate with point t enderness.
[2025-03-07 13:36] LABS: Hematocrit 43.9 % (36.0-46.0); Hemoglobin 14.1 g/dL (12.2-16.2); Mean Corpuscular Hemoglobin 31.6 pg (28.0-32.0); Mean Corpuscular Volume 98.5 fL (80.0-100.0); Nucleated Red Blood Cells % 0.1 %
[2025-03-07 14:17] LABS: Potassium 4.3 mmol/L (3.5-5.1)
[2025-03-07 14:18] LABS: Anion Gap 14 (5-15); Carbon Dioxide 22 mmol/L (20-31)
[2025-03-07 14:21] LABS: Calcium 8.6 mg/dL (8.7-10.4); Chloride 120 mmol/L (98-107); Sodium 156 mmol/L (136-145)
[2025-03-07 14:23] LABS: BUN/Creatinine Ratio 33.0 (10.0-20.0); Glucose 105 mg/dL (74-106)
[2025-03-07 14:27] LABS: Blood Urea Nitrogen 64 mg/dL (9-23)
[2025-03-07] MEDS ORDERED: ACETAMINOPHEN 325 MG TAB PO PRN (17:15)
[2025-03-07] MEDS ORDERED: ONDANSETRON HCL 4 MG/2 ML VIAL IV PRN (17:15)
[2025-03-07] MEDS ORDERED: MEMA1TAB5 PO (17:28)
[2025-03-07] MEDS ORDERED: OLAN20TA PO (17:28)
[2025-03-07] MEDS ORDERED: METO-158 PO (17:28)
[2025-03-07] MEDS ORDERED: QUET50TA PO (17:28)
--- NOTE | 2025-03-07 17:50 | DVHHP2 ---
History of Present Illness Reason for Visit: Fall History of Present Illness Kamala Galaviz is an 84-year-old female with past medical history of dementia, chronic renal insufficiency that required HD earlier this year, depression, hypertension, and GERD, who was brought to the hospital via EMS S/P fall. Patient lives with her caregiver, she witnessed the fall. She states the patient usually does well when she ambulates with her walker. This morning about 0700 she was walking back from the bathroom when the caregiver noticed she paused. She looked over and fell to her knees, then fell back. The caregiver states she was not able to get to her before she fell, but that she did not hit her head or lose consciousness. She called EMS to bring her to the hospital because the patient was in too much pain to get up from the ground. Patient follows with Dr. Moe[facility] group for nephrology and was recently seen in office. 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 GI: GERD Heme/Onc: Cancer (colon) Psych: Depression Renal/: Chronic renal insuff Past Surgical History: Other (hemicolectomy) Smoke: No ALCOHOL: none Drugs: None Lives: Other (caregiver) Domestic Violence: Neg Review of Systems Constitutional: No: Fever, Chills, Sweats, Weakness, Malaise, Other Eyes: No: Pain, Vision change, Conjunctivae inflammation, Eyelid inflammation, Other, Redness ENT: No: Ear pain, Ear discharge, Nose pain, Nose discharge, Nose congestion, Mouth pain, Mouth swelling, Throat pain, Throat swelling, Other Respiratory: No: Cough, Dry, Shortness of breath, SOB with excertion, Wheezing, Hemoptysis, Pleuritic Pain, Sputum, Wheezing, Other Cardiovascular: No: Chest Pain, Palpitations, Orthopnea, Paroxysmal Noc. Dyspnea, Edema, Lt Headedness, Other Gastrointestinal: No: Nausea, Vomiting, Abdominal Pain, Diarrhea, Constipation, Melena, Hematochezia, Other Genitourinary: No Dysuria, No Frequency, No Incontinence, No Hematuria, No Retention, No Other Musculoskeletal: leg pain (left knee); No: other, neck pain, shoulder pain, arm pain, back pain, hand pain, foot pain Skin: No: Rash, Lesions, Jaundice, Bruising, Other Neurological: Incoordination (fall); No: Weakness, Numbness, Change in speech, Confusion, Seizures, Other Allergies: Coded Allergies: NO KNOWN ALLERGIES (Unverified , 07/10/10) Medications Current Medications Medications Dose Ordered Sig/Jared Route Start Time Stop Time Status Last Admin Dose Admin Acetaminophen/ Hydrocodone Bitart 1 tab Q4HP PRN PO 03/07/25 17:15 UNV Ondansetron HCl 4 mg Q4HP PRN IV 03/07/25 17:15 UNV Docusate Sodium 100 mg BIDPRN PRN PO 03/07/25 17:15 UNV Acetaminophen 650 mg Q6HP PRN PO 03/07/25 17:15 UNV Carbidopa/Levodopa 1 tab DAILY PO 03/08/25 10:00 UNV Exam Vital Signs Vital Signs Date Time Temp Pulse Resp B/P (MAP) Pulse Ox O2 Delivery O2 Flow Rate FiO2 03/07/25 09:41 98.0 93 13 150/72 (98) 96 98.0 03/07/25 09:41 Room Air* 0 21 General Appearance: Alert, Cooperative, Other (dimentia at baseline, oriented x 2) HEENT: Atraumatic, PERRLA, Mucous membr. moist/pink Respiratory: Clear to auscultation, Normal air movement Cardiovascular: Regular rate, Normal S1, Normal S2, No murmurs Abdominal: Normal bowel sounds, Soft, No tenderness, No hepatospenomegaly Extremities: No clubbing, No cyanosis, Normal pulses, Other (tenderness to left knee and swelling) Skin: No rashes, No breakdown, No significant lesion Neuro: Normal speech, Other (uses a walker at baseline, not able to ambulate at this time due to pain) Psych/Mental Status: Mental status NL, Mood NL Labs/Xrays Labs Test 03/07/25 13:12 Range/Units White Blood Count 12.4 H 4.4-10.8 10^3/uL Red Blood Count 4.45 4.0-5.20 10^6/uL Hemoglobin 14.1 12.2-16.2 g/dL Hematocrit 43.9 36.0-46.0 % Mean Corpuscular Volume 98.5 80.0-100.0 fL Mean Corpuscular Hemoglobin 31.6 28.0-32.0 pg Mean Corpuscular Hemoglobin Concent 32.1 32.0-36.0 g/dL Red Cell Distribution Width 16.6 H 11.8-14.3 % Platelet Count 199 140-450 10^3/uL Mean Platelet Volume 8.9 6.9-10.8 fL Neutrophils (%) (Auto) 72.5 37.0-80.0 % Lymphocytes (%) (Auto) 17.5 10.0-50.0 % Monocytes (%) (Auto) 8.8 0.0-12.0 % Eosinophils (%) (Auto) 1.0 0.0-7.0 % Basophils (%) (Auto) 0.2 0.0-2.0 % Neutrophils # (Auto) 9.0 H 1.6-8.6 10 ^3/uL Lymphocytes # (Auto) 2.2 0.4-5.4 10 ^3/uL Monocytes # (Auto) 1.1 0-1.3 10 ^3/uL Eosinophils # (Auto) 0.1 0-0.8 10 ^3/uL Basophils # (Auto) 0 0-0.2 10 ^3/uL Nucleated Red Blood Cells 0.1 % Sodium Level 156 H 136-145 mmol/L Potassium Level 4.3 3.5-5.1 mmol/L Chloride Level 120 H 98-107 mmol/L Carbon Dioxide Level 22 20-31 mmol/L Anion Gap 14 5-15 Blood Urea Nitrogen 64 H 9-23 mg/dL Creatinine 1.94 H 0.550-1.02 mg/dL Glomerular Filtration Rate Calc 25 >90 mL/min BUN/Creatinine Ratio 33.0 H 10.0-20.0 Serum Glucose 105 74-106 mg/dL Calcium Level 8.6 L 8.7-10.4 mg/dL Troponin I High Sensitivity 11 </=34 ng/L EXAM: XY CHEST PORTABLE FINDINGS: Lines and Tubes: Right chest port tip projects over superior vena cava. Lungs: No focal consolidation. Pleura: No effusion. No pneumothorax. Cardiomediastinal contours: Unremarkable Bones: No acute osseous abnormality. IMPRESSION: No acute cardiopulmonary disease. TECHNIQUE: Helical scanning was performed of the head from the skull base to the vertex. FINDINGS: There is no evidence for acute intracranial hemorrhage, acute ischemic changes, mass, mass effect, or extra-axial fluid collection. There is no hydrocephalus or midline shift. There is no effacement of the cerebral sulci and basal subarachnoid cisterns. The hall-white matter differentiation is well maintained. Scattered white matter hypoattenuation is most compatible with a mild to moderate burden of chronic small vessel ischemic change. There is old right bas al ganglia infarct. The imaged paranasal sinuses are clear. IMPRESSION: NO ACUTE INTRACRANIAL ABNORMALITY SEEN. CLINICAL INDICATION: Pain; fall TECHNIQUE: 3 radiographic views of the right knee were obtained. Comparison: XY L KNEE 3V XRAY on DOS: 03/07/25 FINDINGS/IMPRESSION: There is no evidence of acute fracture or dislocation. The visualized joint space is well maintained. The alignment is anatomical. There is no radiopaque foreign body. EXAM: XY L KNEE 3V XRAY, US US Guided Vascular Access FINDINGS/IMPRESSION: Small joint effusion. Possible nondisplaced mid left patellar pole fracture. Correlate with point tenderness. TECHNIQUE: 3 radiographic views of the right knee were obtained. FINDINGS/IMPRESSION: There is no evidence of acute fracture or dislocation. The visualized joint space is well maintained. The alignment is anatomical. There is no radiopaque foreign body. SEPSIS Sepsis Screen Date sepsis recognized/suspect: Mar 07, 2025 Time Sepsis recognized/suspect: 09 Recent Procedure: No On Antibiotic Therapy: No Respiratory Rate >20: No Heart Rate >90: Yes Temp<36 C (96.8 F) or >38.3 C: No SBP <90 or MAP <65 mmHG: No New Acute Mental Status Change: No Is the patient on CPAP, BIPAP,: No Physician Orders Urinalysis (03/07/25 12:15) Chest Portable (03/07/25 12:15) Head Without Contrast (03/07/25 12:15) Electrocardigram (03/07/25 12:15) R Knee 3v Xray (03/07/25 12:15) L Knee 3v Xray (03/07/25 12:15) Admit (03/07/25 17:15) Code Status (03/07/25 17:15) 2 Gm Sodium Diet (03/07/25 Dinner) Hydrocodone-Acet 5/325mg Tab ([place] 5/32 (03/07/25 17:15) Ondansetron Hcl (Zofran) (03/07/25 17:15) Docusate Sodium Capsule (Colace Capsule) (03/07/25 17:15) Fall Risk Precautions In Place QSHIFT (03/07/25 17:15) Complete Blood Count (03/08/25 04:00) Comprehensive Metabolic Panel (03/08/25 04:00) Condition: Serious (03/07/25 17:15) Acetaminophen Tablet (Tylenol Tablet) (03/07/25 17:15) Carbidopa W Levodopa Cr 25/100 (Sinemet (03/08/25 10:00) Metoprolol Tartrate Tablet (Lopressor Ta (03/07/25 22:00) (Nf) Memantine Hydrochloride (Memantine (03/07/25 22:00) (Nf) Olanzapine (Zyprexa) (03/07/25 22:00) (Nf) Quetiapine Fumerate (Seroquel) (03/07/25 18:00) Vital Signs Date Time Temp Pulse Resp B/P (MAP) Pulse Ox O2 Delivery O2 Flow Rate FiO2 03/07/25 09:41 98.0 93 13 150/72 (98) 96 98.0 03/07/25 09:41 93 13 96 Room Air* 0 21 Laboratory Tests Test 03/07/25 13:12 White Blood Count 12.4 10^3/uL (4.4-10.8) H Assessment/Plan Assessment/Plan Assessment: Patellar fracture, S/P fall, Near syncopal episode, Acute on chronic kidney injury, Depression, Hypertension, Dementia, Plan: Admit to Med-Surg, Orthopedic consult, Pain management, Fall precautions, Physical therapy once cleared from orthopedic surgery, Consider nephrology consult, Home medications reconciled, Plan discussed with: Patient My Orders Orders - 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 Procedure Category Date Status Time Admit ADMIT 03/07/25 Transmitted 17:15 Code Status CODE 03/07/25 Transmitted 17:15 2 Gm Sodium Diet DIET 03/07/25 Transmitted Dinner Hydrocodone-Acet PHA 03/07/25 Logged 5/325mg Tab ([place]and[place]s 17:15 Ondansetron Hcl PHA 03/07/25 Logged (Zofran) 17:15 Docusate Sodium PHA 03/07/25 Logged Capsule (Colace 17:15 Fall Risk Precautions JOSE M 03/07/[address] 17:15 Complete Blood Count LAB 03/08/25 Verified 04:00 Comprehensive LAB 03/08/25 Verified Metabolic Panel 04:00 Condition: Serious JOSE M 03/07/25 In Process 17:15 Acetaminophen Tablet PHA 03/07/25 Logged (Tylenol Tablet) 17:15 Carbidopa W Levodopa PHA 03/08/25 Logged Cr 25/100 (Sinemet 10:00 Metoprolol Tartrate PHA 03/07/25 Transmitted Tablet (Lopressor Ta 22:00 (Nf) Memantine PHA 03/07/25 Transmitted Hydrochloride 22:00 (Nf) Olanzapine PHA 03/07/25 Transmitted (Zyprexa) 22:00 (Nf) Quetiapine PHA 03/07/25 Transmitted Fumerate (Seroquel) 18:00 Date of Service: Mar 07, 2025 Billing Provider: RAJIV PEREZ Common Visit Codes: [id number] INP/OBS CARE (MOD) RAJIV PEREZ Mar 07, 2025 17:50
[2025-03-07] MEDS: SOD CHL 0.45% 1,000 ML IV ONE (18:58)
[2025-03-07 20:52] VITALS: BP_SYST 158; BP_SYST 159; BP_DIAS 97; PULSE 88; RESP 18; TEMP 98.1; O2SAT 95
[2025-03-07] MEDS: MEMANTINE HCL 5 MG TAB PO SCH (21:11)
[2025-03-07] MEDS: OLANZapine 5 MG TAB PO SCH (21:11)
[2025-03-07] MEDS: METOPROLOL TARTRATE 50 MG TAB PO SCH (21:12)
[2025-03-08] VITALS (7 sets, daily range): BP systolic 107–174; BP diastolic 71–91; PULSE 62–84; RESP 17–20; TEMP 97.5–98.2; O2SAT 93–100
[2025-03-08] MEDS: HYDROcodone-ACET 5/325MG TAB PO PRN (00:32)
[2025-03-08 01:42] LABS: Urine Protein, UAD TRACE (Negative)
[2025-03-08 08:01] LABS: Hematocrit 43.8 % (36.0-46.0); Hemoglobin 13.9 g/dL (12.2-16.2); Mean Corpuscular Hemoglobin 32.0 pg (28.0-32.0); Mean Corpuscular Volume 100.5 fL (80.0-100.0); Nucleated Red Blood Cells % 0.2 %
[2025-03-08 08:39] LABS: Anion Gap 13 (5-15)
[2025-03-08 08:44] LABS: BUN/Creatinine Ratio 24.2 (10.0-20.0)
[2025-03-08 08:51] LABS: Alanine Aminotransferase 40 U/L (7-40); Albumin 3.8 g/dL (3.2-4.8); Alkaline Phosphatase 143 U/L (46-116); Bilirubin, Total 1.0 mg/dL (0.2-1.0); Blood Urea Nitrogen 40 mg/dL (9-23); Calcium 8.4 mg/dL (8.7-10.4); Carbon Dioxide 22 mmol/L (20-31); Chloride 116 mmol/L (98-107); Glucose 61 mg/dL (74-106); Potassium 4.9 mmol/L (3.5-5.1); Sodium 151 mmol/L (136-145)
[2025-03-08 08:52] LABS: Total Protein 7.2 g/dL (5.7-8.2)
[2025-03-08] MEDS: CARBIDOPA W LEVODOPA CR 25/100mg TABLET PO SCH (09:47)
--- NOTE | 2025-03-08 12:44 | DVHPN2 ---
Reviewed: Care Plan, H&P, Labs, Medications, Previous Orders, Radiology Changes from previous H/P or p: No Changes Eyes: No Pain, No Vision change, No Conjunctivae inflammation, No Eyelid inflammation, No Other, No Redness ENT: No Ear pain, No Ear discharge, No Nose pain, No Nose discharge, No Nose congestion, No Mouth pain, No Mouth swelling, No Throat pain, No Throat swelling, No Other Cardiovascular: No Chest Pain, No Palpitations, No Orthopnea, No Paroxysmal Noc. Dyspnea, No Edema, No Lt Headedness, No Other Respiratory: No Cough, No Dry, No Shortness of breath, No SOB with excertion, No Wheezing, No Hemoptysis, No Pleuritic Pain, No Sputum, No Other Gastrointestinal: No Nausea, No Vomiting, No Abdominal Pain, No Diarrhea, No Constipation, No Melena, No Hematochezia, No Other Genitourinary: No Dysuria, No Frequency, No Incontinence, No Hematuria, No Retention, No Other Musculoskeletal: No other, No neck pain, No shoulder pain, No arm pain, No back pain, No hand pain; leg pain (left knee); No foot pain Skin: No Rash, No Lesions, No Jaundice, No Bruising, No Other Objective Vitals Vital Signs Date Time Temp Pulse Resp B/P (MAP) Pulse Ox O2 Delivery O2 Flow Rate FiO2 03/08/25 10:48 62 109/75 03/08/25 08:00 18 95 Room Air* 0 21 03/08/25 05:00 98.0 98.0 Intake/Output Intake and Output 03/08/25 07:00 Intake Total 650 ml Output Total 250 ml Balance 400 ml Intake Oral 650 ml Output Urine Total 250 ml Medications Current Medications Medications Dose Ordered Sig/Jared Route Start Time Stop Time Status Last Admin Dose Admin Acetaminophen/ Hydrocodone Bitart 1 tab Q4HP PRN PO 03/07/25 17:15 03/08/25 00:32 1 TAB Ondansetron HCl 4 mg Q4HP PRN IV 03/07/25 17:15 Docusate Sodium 100 mg BIDPRN PRN PO 03/07/25 17:15 Acetaminophen 650 mg Q6HP PRN PO 03/07/25 17:15 Carbidopa/Levodopa 1 tab DAILY PO 03/08/25 10:00 03/08/25 09:47 1 TAB Metoprolol Tartrate 25 mg BID PO 03/07/25 22:00 03/08/25 09:48 25 MG Memantine 10 mg BID PO 03/07/25 22:00 03/08/25 09:48 10 MG Olanzapine 2.5 mg BID PO 03/07/25 22:00 03/08/25 09:47 2.5 MG Quetiapine Fumarate 50 mg QPM PO 03/07/25 18:00 03/07/25 18:58 50 MG Laboratory Results Laboratory Tests 03/08/25 05:02 Chemistry Test 03/07/25 13:12 03/08/25 05:02 Calcium Level 8.6 mg/dL (8.7-10.4) L 8.4 mg/dL (8.7-10.4) L Albumin 3.8 g/dL (3.2-4.8) Total Protein 7.2 g/dL (5.7-8.2) LFT Test 03/08/25 05:02 Alanine Aminotransferase (ALT) 40 U/L (7-40) Alkaline Phosphatase 143 U/L (46-116) H Aspartate Amino Transferase (AST) 44 U/L (13-40) H Total Bilirubin 1.0 mg/dL (0.2-1.0) Urinalysis Test 03/07/25 23:20 Urine Color Light-yellow (Yellow) Urine Clarity Turbid (Clear) H Urine pH 6.0 (5.0-9.0) Urine Specific [place] 1.019 (1.001-1.035) Urine Protein Trace (Negative) H Urine Ketones Negative (Negative) Urine Blood Negative /uL (Negative) Urine Nitrite 2+ (Negative) H Urine Bilirubin Negative (Negative) Urine Urobilinogen Normal mg/dL (Negative) Urine Leukocyte Esterase 3+ /uL (Negative) Urine RBC None seen /hpf (0 - 4) Urine Microscopic WBC 115 /HPF (0-5) H Urine Squamous Epithelial Cells None seen /hpf (<5) Urine Bacteria Mod /hpf (None Seen) H Urine Glucose Normal mg/dL (Normal) Labs and/or images reviewed: Labs reviewed by me, Image(s) reviewed by me Assessment/Plan Assessment/Plan Fracture left patellar pole consult for ortho Dr. Garza Mechanical fall Hypertension History of CVA GERD History of colon cancer status post hemicolectomy Chronic renal insufficiency with history of dialysis in the past Parkinson's Dementia CT head negative Time spent 70 minutes Advanced care planning time 20 minutes Patient is full code Plan discussed with: Patient My Orders Orders - JEF HARMAN MD Procedure Category Date Status Time * Orthopedic Consult CONS 03/08/25 Verified 12:40 Date of Service: Mar 08, 2025 Billing Provider: JEF HARMAN MD Common Visit Codes: [id number] DISCH DAY >30min JEF HARMAN MD Mar 08, 2025 12:44
[2025-03-09] VITALS (8 sets, daily range): BP systolic 118–192; BP diastolic 57–98; PULSE 70–93; RESP 17–19; TEMP 97–98.2; O2SAT 95–98
[2025-03-09] MEDS: hydrALAZINE HCL 20 MG/ML VL IV ONE (07:36)
--- NOTE | 2025-03-09 08:30 | DVHPN2 ---
Reviewed: Care Plan, H&P, Labs, Medications, Previous Orders, Radiology Changes from previous H/P or p: No Changes Eyes: No Pain, No Vision change, No Conjunctivae inflammation, No Eyelid inflammation, No Other, No Redness ENT: No Ear pain, No Ear discharge, No Nose pain, No Nose discharge, No Nose congestion, No Mouth pain, No Mouth swelling, No Throat pain, No Throat swelling, No Other Cardiovascular: No Chest Pain, No Palpitations, No Orthopnea, No Paroxysmal Noc. Dyspnea, No Edema, No Lt Headedness, No Other Respiratory: No Cough, No Dry, No Shortness of breath, No SOB with excertion, No Wheezing, No Hemoptysis, No Pleuritic Pain, No Sputum, No Other Gastrointestinal: No Nausea, No Vomiting, No Abdominal Pain, No Diarrhea, No Constipation, No Melena, No Hematochezia, No Other Genitourinary: No Dysuria, No Frequency, No Incontinence, No Hematuria, No Retention, No Other Musculoskeletal: No other, No neck pain, No shoulder pain, No arm pain, No back pain, No hand pain; leg pain (left knee); No foot pain Skin: No Rash, No Lesions, No Jaundice, No Bruising, No Other Objective Vitals Vital Signs Date Time Temp Pulse Resp B/P (MAP) Pulse Ox O2 Delivery O2 Flow Rate FiO2 03/09/25 07:36 157/92 03/09/25 05:00 97.8 77 18 98 97.8 03/08/25 20:00 Room Air* 0 21 Intake/Output Intake and Output 03/09/25 07:00 Intake Total 150 ml Output Total 650 ml Balance -500 ml Intake Oral 150 ml Output Urine Total 650 ml Stool Total 0 ml Medications Current Medications Medications Dose Ordered Sig/Jaerd Route Start Time Stop Time Status Last Admin Dose Admin Acetaminophen/ Hydrocodone Bitart 1 tab Q4HP PRN PO 03/07/25 17:15 03/08/25 00:32 1 TAB Ondansetron HCl 4 mg Q4HP PRN IV 03/07/25 17:15 Docusate Sodium 100 mg BIDPRN PRN PO 03/07/25 17:15 Acetaminophen 650 mg Q6HP PRN PO 03/07/25 17:15 Carbidopa/Levodopa 1 tab DAILY PO 03/08/25 10:00 03/08/25 09:47 1 TAB Memantine 10 mg BID PO 03/07/25 22:00 03/08/25 21:31 10 MG Olanzapine 2.5 mg BID PO 03/07/25 22:00 03/08/25 21:31 2.5 MG Quetiapine Fumarate 50 mg QPM PO 03/07/25 18:00 03/08/25 17:07 50 MG Clonidine HCl 0.1 mg Q4HP PRN PO 03/09/25 05:15 Metoprolol Tartrate 50 mg BID PO 03/09/25 08:30 UNV Laboratory Results Laboratory Tests 03/08/25 05:02 Urinalysis Test 03/07/25 23:20 Urine Color Light-yellow (Yellow) Urine Clarity Turbid (Clear) H Urine pH 6.0 (5.0-9.0) Urine Specific [place] 1.019 (1.001-1.035) Urine Protein Trace (Negative) H Urine Ketones Negative (Negative) Urine Blood Negative /uL (Negative) Urine Nitrite 2+ (Negative) H Urine Bilirubin Negative (Negative) Urine Urobilinogen Normal mg/dL (Negative) Urine Leukocyte Esterase 3+ /uL (Negative) Urine RBC None seen /hpf (0 - 4) Urine Microscopic WBC 115 /HPF (0-5) H Urine Squamous Epithelial Cells None seen /hpf (<5) Urine Bacteria Mod /hpf (None Seen) H Urine Glucose Normal mg/dL (Normal) Labs and/or images reviewed: Labs reviewed by me, Image(s) reviewed by me Assessment/Plan Assessment/Plan Fracture left patellar pole consult for ortho Dr. Garza Mechanical fall: Fall from walker Hypertension History of CVA GERD History of colon cancer status post hemicolectomy Chronic renal insufficiency with history of dialysis in the past: Consult for Dr. Moe Parkinson's Severe Dementia CT head negative Time spent 50 minutes Advanced care planning time 20 minutes Patient is full code morning caregiver Azeb [phone] at bedside Plan discussed with: Patient My Orders Orders - JEF HARMAN MD Procedure Category Date Status Time * Orthopedic Consult CONS 03/08/25 Transmitted 12:40 Apply Z-Guard JOSE M 03/08/25 In Process 12:30 Metoprolol Tartrate PHA 03/09/25 Logged Tablet (Lopressor Ta 08:30 *Dr[facility] CONS 03/09/25 Transmitted -[place] 08:25 Date of Service: Mar 09, 2025 Billing Provider: JEF HARMAN MD Common Visit Codes: [id number] INP/OBS CARE(HIGH) JEF HARMAN MD Mar 09, 2025 08:30
[2025-03-09] MEDS: METOPROLOL TARTRATE 50 MG TAB PO SCH (09:56)
[2025-03-09] MEDS: D5W 5% 1,000 ML IV SCH (12:59)
--- NOTE | 2025-03-09 14:36 | DVH ---
CLINICAL HISTORY: CKD TECHNIQUE: Complete ultrasound exam of the kidneys and bladder was performed. COMPARISON: US KIDNEY on DOS: 07/02/24, CT ABD PELVIS WO CONTRAST on DOS: 01/08/22 FINDINGS: The right kidney has normal echogenicity and measures 8.3 cm. There is a 1.8 cm cyst with no evidence for stone. There is no hydronephrosis. The left kidney has normal echogenicity and measures 8.7 cm. There is a 1.2 cm cyst with no evidence for stone. There is no hydronephrosis. The bladder contains a Coates catheter. The bladder 185 mL. There are gallstones. The CBD is normal in caliber, measuring 4 mm. IMPRESSION: Bilateral simple renal cysts. Coates catheter within bladder. Bladder volume equals 185 ML, suggesting only dysfunction. Cholelithiasis.
[2025-03-09 15:22] LABS: Magnesium 2.4 mg/dL (1.6-2.6)
--- NOTE | 2025-03-09 16:42 | DVHCONRES ---
Date Seen: Mar 09, 2025 Resident Creating Document: MABEL SCHULTE RESDIENT History of Present Illness Kamala Galaviz is an 84-year-old female with past medical history of dementia, chronic renal insufficiency that required HD earlier this year, depression, hypertension, and GERD, who was brought to the hospital via EMS S/P fall. Patient lives with her caregiver, she witnessed the fall. She states the patient usually does well when she ambulates with her walker. This morning about 0700 she was walking back from the bathroom when the caregiver noticed she paused. She looked over and fell to her knees, then fell back. The caregiver states she was not able to get to her before she fell, but that she did not hit her head or lose consciousness. She called EMS to bring her to the hospital because the patient was in too much pain to get up from the ground. Patient follows with Dr. [facility]oe[facility] for nephrology and was recently seen in office. Family History: Depression G8 BROTHER, Onset:40's - 50 Hypertension G8 SISTER, Onset:50's - 60 Allergies: Coded Allergies: NO KNOWN ALLERGIES (Unverified , 07/10/10) Home Meds Reported Medications Memantine Hydrochloride (Memantine HCl) 10 Mg Tab, 10 MG PO BID, TAB 03/07/25 Olanzapine (Zyprexa) 20 Mg Tab, 2.5 MG PO BID, TAB 03/07/25 Quetiapine Fumerate (Seroquel) 50 Mg Tab, 1 TAB PO QPM, #30 TAB 2 Refills 03/07/25 Metoprolol Tartrate (Metoprolol Tartrate) 50 Mg Tab, 25 MG PO BID, TAB 03/07/25 Amlodipine Besylate (Amlodipine Besylate) 10 Mg Tab, 1 TAB PO DAILY 05/31/24 Carbidopa-Levodopa (Carbidopa/Levodopa Er) 25 /100 Tab, 25-100 05/31/24 Pantoprazole Sodium Sesquihydr (Pantoprazole Sodium) 40 Mg Tab, 1 TAB PO DAILY 05/31/24 Mirabegron Base (MYRBETRIQ) 50 Mg Tab, 50 MG OR DAILY, TAB 11/18/19 Ferrous Sulfate (Ferrous Sulfate) 325 Mg Tab, 325 MG PO BIDWM for 30 Days, MG 11/18/19 Bupropion Hcl (Bupropion Hcl) 100 Mg Tab, 150 MG PO DAILY for 30 Days, MG 11/18/19 Aspirin-Dipyridamole (Aggrenox) 1 Cap Cap, 1 CAP PO BID, #60 CAP 5 Refills 11/18/19 Fluoxetine Hcl (Fluoxetine Hcl) 20 Mg Cap, 40 MG PO DAILY 07/10/10 Discontinued Reported Medications Carvedilol (Carvedilol) 6.25 Mg Tab, 1 TAB PO BID 05/31/24 Atorvastatin Calcium (Lipitor) 20 Mg Tab 07/10/10 Current Medications Current Medications Medications (Trade) Dose Ordered Sig/Jared Route PRN Reason Start Time Stop Time Status Last Admin Clonidine HCl (Catapres Tablet) 0.1 mg Q4HP PRN PO SBP>150 03/09/25 05:15 Metoprolol Tartrate (Lopressor Tablet) 50 mg BID PO 03/09/25 08:30 03/09/25 09:56 Dextrose 1,000 ml @ 75 mls/hr [id number] IV 03/09/25 12:30 03/09/25 12:59 Review of Systems Seen and examined at the bedside. Patient is altered, follow simple command, but can not communicate properly. Vital Signs Vital Signs Date Time Temp Pulse Resp B/P (MAP) Pulse Ox O2 Delivery O2 Flow Rate FiO2 03/09/25 14:17 97.0 74 19 130/82 (98) 96 97.0 03/09/25 08:00 Room Air* 0 21 Physical Exam General Appearance: Alert, lethargic, follows simple command, can not communicate properly HEENT: Atraumatic, PERRLA, EOMI, Mucous membrane moist/pink Respiratory: Clear to auscultation, Normal air movement Cardiovascular: Regular rate, Normal S1, Normal S2, No murmurs, no chest wall tenderness Abdominal: Normal bowel sounds, Soft, No tenderness, No hepatospenomegaly, No m asses Extremities: Decreased range of motion of left knee, Skin: No rashes, No breakdown, No significant lesion Neuro: Normal gait, Normal speech, Strength at 5/5 X4 ext, Normal tone, Sensation intact, Cranial nerves 3-12 NL, Reflexes 2+ Psych/Mental Status: Mental status NL, Mood NL Labs/Diagnostic Data Labs Test 03/09/25 14:54 03/08/25 05:02 03/07/25 23:20 03/07/25 13:12 Range/Units Phosphorus Level 3.8 2.4-5.1 mg/dL Magnesium Level 2.4 1.6-2.6 mg/dL Parathyroid Hormone (Intact) 106.0 H 18.4-80.1 pg/mL White Blood Count 11.4 H 4.4-10.8 10^3/uL Red Blood Count 4.36 4.0-5.20 10^6/uL Hemoglobin 13.9 12.2-16.2 g/dL Hematocrit 43.8 36.0-46.0 % Mean Corpuscular Volume 100.5 H 80.0-100.0 fL Mean Corpuscular Hemoglobin 32.0 28.0-32.0 pg Mean Corpuscular Hemoglobin Concent 31.8 L 32.0-36.0 g/dL Red Cell Distribution Width 16.4 H 11.8-14.3 % Platelet Count 143 140-450 10^3/uL Mean Platelet Volume 9.6 6.9-10.8 fL Neutrophils (%) (Auto) 64.0 37.0-80.0 % Lymphocytes (%) (Auto) 26.4 10.0-50.0 % Monocytes (%) (Auto) 7.7 0.0-12.0 % Eosinophils (%) (Auto) 1.6 0.0-7.0 % Basophils (%) (Auto) 0.3 0.0-2.0 % Neutrophils # (Auto) 7.3 1.6-8.6 10 ^3/uL Lymphocytes # (Auto) 3.0 0.4-5.4 10 ^3/uL Monocytes # (Auto) 0.9 0-1.3 10 ^3/uL Eosinophils # (Auto) 0.2 0-0.8 10 ^3/uL Basophils # (Auto) 0 0-0.2 10 ^3/uL Nucleated Red Blood Cells 0.2 % Sodium Level 151 #H 136-145 mmol/L Potassium Level 4.9 3.5-5.1 mmol/L Chloride Level 116 H 98-107 mmol/L Carbon Dioxide Level 22 20-31 mmol/L Anion Gap 13 5-15 Blood Urea Nitrogen 40 #H 9-23 mg/dL Creatinine 1.65 H 0.550-1.02 mg/dL Glomerular Filtration Rate Calc 31 >90 mL/min BUN/Creatinine Ratio 24.2 H 10.0-20.0 Serum Glucose 61 L 74-106 mg/dL Calcium Level 8.4 L 8.7-10.4 mg/dL Total Bilirubin 1.0 0.2-1.0 mg/dL Aspartate Amino Transferase (AST) 44 H 13-40 U/L Alanine Aminotransferase (ALT) 40 7-40 U/L Alkaline Phosphatase 143 H 46-116 U/L Total Protein 7.2 5.7-8.2 g/dL Albumin 3.8 3.2-4.8 g/dL Urine Color Light-yellow Yellow Urine Clarity Turbid H Clear Urine pH 6.0 5.0-9.0 Urine Specific [place] 1.019 1.001-1.035 Urine Protein Trace H Negative Urine Ketones Negative Negative Urine Blood Negative Negative /uL Urine Nitrite 2+ H Negative Urine Bilirubin Negative Negative Urine Urobilinogen Normal Negative mg/dL Urine Leukocyte Esterase 3+ Negative /uL Urine RBC None seen 0 - 4 /hpf Urine Microscopic WBC 115 H 0-5 /HPF Urine Squamous Epithelial Cells None seen <5 /hpf Urine Bacteria Mod H None Seen /hpf Urine Glucose Normal Normal mg/dL Troponin I High Sensitivity 11 </=34 ng/L Microbiology Date/Time Source Procedure Growth Status 03/07/25 23:20 Urine - [place] Urine Culture - Preliminary Resulted Assessment This is an 84-year-old lady with past medical history of dementia, Parkinson disease, CVA, hypertension, colon cancer (status post surgery/chemotherapy), depression brought in status post mechanical fall and decreased oral intake. Nephrology consulted, due to BISI and hypernatremia. Patient has history of hemodialysis, later on due to improvement of kidney function, stopped hemodialysis. Assessment: BISI, on CKD 3B, VMN Hypovolemic hypernatremia/dehydration UTI metabolic encephalopathy, due to above Hypertension Parkinson disease Dementia * Serum sodium is raised at 1:56 a.m., downtrending * Renal ultrasound shows, bilateral simple renal cysts Plan/recommendation: (Dr. Fox) * IV D5W at 75ml per hour * Strict I&Os * Rocephin 1 g daily * Check serum osmolality, urine osmolality, urine sodium * Follow up with the patient Thank you for giving us the opportunity to take care of your patient. Please call back if you have any questions/concerns. Addendum Patient seen and examined, plan discussed with resident. Agree with above, we will follow closely Plan discussed with: Patient, Other (RN and caregiver) MABEL SCHULTE Mar 09, 2025 16:42 SHANNA FOX MD Mar 09, 2025 18:24
[2025-03-10] VITALS (8 sets, daily range): BP systolic 128–171; BP diastolic 68–93; PULSE 71–98; RESP 18–20; TEMP 97.4–98.8; O2SAT 94–100
--- NOTE | 2025-03-10 08:21 | DVHPN2 ---
Reviewed: Care Plan, H&P, Labs, Medications, Previous Orders, Radiology Changes from previous H/P or p: No Changes Eyes: No Pain, No Vision change, No Conjunctivae inflammation, No Eyelid inflammation, No Other, No Redness ENT: No Ear pain, No Ear discharge, No Nose pain, No Nose discharge, No Nose congestion, No Mouth pain, No Mouth swelling, No Throat pain, No Throat swelling, No Other Cardiovascular: No Chest Pain, No Palpitations, No Orthopnea, No Paroxysmal Noc. Dyspnea, No Edema, No Lt Headedness, No Other Respiratory: No Cough, No Dry, No Shortness of breath, No SOB with excertion, No Wheezing, No Hemoptysis, No Pleuritic Pain, No Sputum, No Other Gastrointestinal: No Nausea, No Vomiting, No Abdominal Pain, No Diarrhea, No Constipation, No Melena, No Hematochezia, No Other Genitourinary: No Dysuria, No Frequency, No Incontinence, No Hematuria, No Retention, No Other Musculoskeletal: No other, No neck pain, No shoulder pain, No arm pain, No back pain, No hand pain; leg pain (left knee); No foot pain Skin: No Rash, No Lesions, No Jaundice, No Bruising, No Other Objective Vitals Vital Signs Date Time Temp Pulse Resp B/P (MAP) Pulse Ox O2 Delivery O2 Flow Rate FiO2 03/10/25 06:51 162/90 03/10/25 05:00 97.4 75 18 95 97.4 03/09/25 20:00 Room Air* 0 21 Intake/Output Intake and Output 03/10/25 07:00 Intake Total 1125 ml Output Total 850 ml Balance 275 ml Intake Oral 1125 ml Output Urine Total 850 ml # Bowel Movements 1 Medications Current Medications Medications Dose Ordered Sig/Jared Route Start Time Stop Time Status Last Admin Dose Admin Acetaminophen/ Hydrocodone Bitart 1 tab Q4HP PRN PO 03/07/25 17:15 03/08/25 00:32 1 TAB Ondansetron HCl 4 mg Q4HP PRN IV 03/07/25 17:15 Docusate Sodium 100 mg BIDPRN PRN PO 03/07/25 17:15 Acetaminophen 650 mg Q6HP PRN PO 03/07/25 17:15 Carbidopa/Levodopa 1 tab DAILY PO 03/08/25 10:00 03/09/25 09:56 1 TAB Memantine 10 mg BID PO 03/07/25 22:00 03/09/25 21:49 10 MG Olanzapine 2.5 mg BID PO 03/07/25 22:00 03/09/25 21:49 2.5 MG Quetiapine Fumarate 50 mg QPM PO 03/07/25 18:00 03/09/25 17:15 50 MG Clonidine HCl 0.1 mg Q4HP PRN PO 03/09/25 05:15 03/10/25 06:51 0.1 MG Metoprolol Tartrate 50 mg BID PO 03/09/25 08:30 03/09/25 21:50 50 MG Dextrose 1,000 ml @ 75 mls/hr [id number] IV 03/09/25 12:30 03/09/25 12:59 75 MLS/HR Ceftriaxone Sodium 50 ml @ 100 mls/hr DAILY@09 IV 03/10/25 09:00 Laboratory Results Laboratory Tests 03/08/25 05:02 Chemistry Test 03/09/25 14:54 Magnesium Level 2.4 mg/dL (1.6-2.6) Phosphorus Level 3.8 mg/dL (2.4-5.1) Urinalysis Test 03/07/25 23:20 Urine Color Light-yellow (Yellow) Urine Clarity Turbid (Clear) H Urine pH 6.0 (5.0-9.0) Urine Specific [place] 1.019 (1.001-1.035) Urine Protein Trace (Negative) H Urine Ketones Negative (Negative) Urine Blood Negative /uL (Negative) Urine Nitrite 2+ (Negative) H Urine Bilirubin Negative (Negative) Urine Urobilinogen Normal mg/dL (Negative) Urine Leukocyte Esterase 3+ /uL (Negative) Urine RBC None seen /hpf (0 - 4) Urine Microscopic WBC 115 /HPF (0-5) H Urine Squamous Epithelial Cells None seen /hpf (<5) Urine Bacteria Mod /hpf (None Seen) H Urine Glucose Normal mg/dL (Normal) Microbiology Microbiology Date/Time Source Procedure Growth Status 03/07/25 23:20 Urine - [place] Urine Culture - Preliminary Resulted Labs and/or images reviewed: Labs reviewed by me, Image(s) reviewed by me Assessment/Plan Assessment/Plan Fracture left patellar pole consult for ortho Dr. 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 CONS 03/09/25 Transmitted -[place] 08:25 Date of Service: Mar 10, 2025 Billing Provider: JEF HARMAN MD Common Visit Codes: [id number] CARE 30-74 MIN JEF HARMAN MD Mar 10, 2025 08:21
--- NOTE | 2025-03-10 14:50 | DVHPN2 ---
Progress Note Date Seen: Mar 10, 2025 Medical Necessity Reason Pt with a Central, PICC or Fol: No Subjective Patient reports: No new complaints (Poor historian) Review of Systems: Deferred Objective vital signs Vital Sign Date Time Temp Pulse Resp B/P (MAP) Pulse Ox O2 Delivery O2 Flow Rate FiO2 03/10/25 13:54 71 128/68 03/10/25 12:45 98.7 20 97 98.7 03/10/25 08:00 Room Air* 0 21 Total Intake and Output 03/09/25 03/09/25 03/10/25 15:00 23:00 07:00 Intake Total 325 ml 800 ml Output Total 400 ml 450 ml Balance -75 ml 350 ml medications Current Medications Medications Dose Ordered Sig/Jared Route Start Time Stop Time Status Last Admin Dose Admin Acetaminophen/ Hydrocodone Bitart 1 tab Q4HP PRN PO 03/07/25 17:15 03/08/25 00:32 1 TAB Ondansetron HCl 4 mg Q4HP PRN IV 03/07/25 17:15 Docusate Sodium 100 mg BIDPRN PRN PO 03/07/25 17:15 Acetaminophen 650 mg Q6HP PRN PO 03/07/25 17:15 Carbidopa/Levodopa 1 tab DAILY PO 03/08/25 10:00 03/10/25 12:56 1 TAB Memantine 10 mg BID PO 03/07/25 22:00 03/10/25 12:56 10 MG Olanzapine 2.5 mg BID PO 03/07/25 22:00 03/10/25 12:57 2.5 MG Quetiapine Fumarate 50 mg QPM PO 03/07/25 18:00 03/09/25 17:15 50 MG Clonidine HCl 0.1 mg Q4HP PRN PO 03/09/25 05:15 03/10/25 06:51 0.1 MG Metoprolol Tartrate 50 mg BID PO 03/09/25 08:30 03/10/25 12:54 50 MG Dextrose 1,000 ml @ 75 mls/hr [id number] IV 03/09/25 12:30 03/09/25 12:59 75 MLS/HR Ceftriaxone Sodium 50 ml @ 100 mls/hr DAILY@09 IV 03/10/25 09:00 03/10/25 12:53 100 MLS/HR laboratory and microbiology Laboratory Tests 03/08/25 05:02 Test 03/10/25 14:12 Range/Units Serum Glucose Pending Microbiology Date/Time Source Procedure Growth Status 03/07/25 23:20 Urine - [place] Urine Culture - Preliminary Resulted Problem List/Assessment/Plan Problem List/Assessment/Plan BISI, on CKD 3B, prerenal etiology Hypovolemic hypernatremia/dehydration UTI metabolic encephalopathy, due to above Hypertension Parkinson disease Dementia * Renal ultrasound shows, bilateral simple renal cysts Plan/recommendation: Labs today pending * IV D5W at 75ml per hour * Strict I&Os * Rocephin 1 g daily Plan discussed with: Other My Orders My Orders Orders - SHANNA FOX MD Procedure Category Date Status Time Basic Metabolic Panel LAB 03/10/25 In Process 11:33 Basic Metabolic Panel LAB 03/11/25 Verified 04:00 Dietary Evaluation Review Comments: Nutrition Recommendation 1) Ensure enlive 240ml BID if PO intake <50% 2) Monitor PO intake, lab values, weight trend, and I/O Expected Outcomes/Goals: Intake to meet >75% estimated needs Fu 3-5 days SHANNA FOX MD Mar 10, 2025 14:50
[2025-03-10 15:03] LABS: Anion Gap 10 (5-15); Carbon Dioxide 24 mmol/L (20-31); Potassium 4.2 mmol/L (3.5-5.1); Sodium 144 mmol/L (136-145)
[2025-03-10 15:09] LABS: Calcium 8.3 mg/dL (8.7-10.4); Chloride 110 mmol/L (98-107)
[2025-03-10 15:10] LABS: BUN/Creatinine Ratio 32.1 (10.0-20.0); Blood Urea Nitrogen 44 mg/dL (9-23); Glucose 125 mg/dL (74-106)
[2025-03-10] MEDS: DOCUSATE SOD 100 MG CAP PO PRN (17:39)
[2025-03-11] VITALS (7 sets, daily range): BP systolic 141–161; BP diastolic 67–94; PULSE 67–89; RESP 18–20; TEMP 97.7–99.3; O2SAT 95–98
--- NOTE | 2025-03-11 08:08 | DVHINCON2 ---
Date of service: Mar 11, 2025 Reason for Consultation Left knee pain History of Present Illness 84 yo F with dementia, chronic renal insufficiency, depression, hypertension, GERD sp mechanical fall on both her knees 3 days ago. Pain with adl/motion - Left greater than right knee. Limited story from patient Past Medical History as above Family History: Depression G8 BROTHER, Onset:40's - 50 Hypertension G8 SISTER, Onset:50's - 60 Allergies: Coded Allergies: NO KNOWN ALLERGIES (Unverified , 07/10/10) Home Meds Reported Medications Memantine Hydrochloride (Memantine HCl) 10 Mg Tab, 10 MG PO BID, TAB 03/07/25 Olanzapine (Zyprexa) 20 Mg Tab, 2.5 MG PO BID, TAB 03/07/25 Quetiapine Fumerate (Seroquel) 50 Mg Tab, 1 TAB PO QPM, #30 TAB 2 Refills 03/07/25 Metoprolol Tartrate (Metoprolol Tartrate) 50 Mg Tab, 25 MG PO BID, TAB 03/07/25 Amlodipine Besylate (Amlodipine Besylate) 10 Mg Tab, 1 TAB PO DAILY 05/31/24 Carbidopa-Levodopa (Carbidopa/Levodopa Er) 25 /100 Tab, 25-100 05/31/24 Pantoprazole Sodium Sesquihydr (Pantoprazole Sodium) 40 Mg Tab, 1 TAB PO DAILY 05/31/24 Mirabegron Base (MYRBETRIQ) 50 Mg Tab, 50 MG OR DAILY, TAB 11/18/19 Ferrous Sulfate (Ferrous Sulfate) 325 Mg Tab, 325 MG PO BIDWM for 30 Days, MG 11/18/19 Bupropion Hcl (Bupropion Hcl) 100 Mg Tab, 150 MG PO DAILY for 30 Days, MG 11/18/19 Aspirin-Dipyridamole (Aggrenox) 1 Cap Cap, 1 CAP PO BID, #60 CAP 5 Refills 11/18/19 Fluoxetine Hcl (Fluoxetine Hcl) 20 Mg Cap, 40 MG PO DAILY 07/10/10 Discontinued Reported Medications Carvedilol (Carvedilol) 6.25 Mg Tab, 1 TAB PO BID 05/31/24 Atorvastatin Calcium (Lipitor) 20 Mg Tab 07/10/10 Current Medications Current Medications Medications (Trade) Dose Ordered Sig/Jared Route PRN Reason Start Time Stop Time Status Last Admin Ceftriaxone Sodium 50 ml @ 100 mls/hr DAILY@09 IV 03/10/25 09:00 03/10/25 12:53 Review of Systems limited secondary to dementia Vital Signs Vital Signs Date Time Temp Pulse Resp B/P (MAP) Pulse Ox O2 Delivery O2 Flow Rate FiO2 03/11/25 07:34 Room Air* 0 21 03/11/25 07:00 99.3 86 20 141/78 (99) 95 99.3 Physical Exam NAD answers simple questions/ pleasantly confused BL LE: +TTP at left knee knee ROM 0-100 SLR unable to test secondary to directions Labs/Diagnostic Data Labs Test 03/10/25 14:12 03/09/25 18:26 03/09/25 14:54 03/08/25 05:02 Range/Units Sodium Level 144 # 136-145 mmol/L Potassium Level 4.2 3.5-5.1 mmol/L Chloride Level 110 H 98-107 mmol/L Carbon Dioxide Level 24 20-31 mmol/L Anion Gap 10 5-15 Blood Urea Nitrogen 44 H 9-23 mg/dL Creatinine 1.37 H 0.550-1.02 mg/dL Glomerular Filtration Rate Calc 38 >90 mL/min BUN/Creatinine Ratio 32.1 H 10.0-20.0 Serum Glucose 125 H 74-106 mg/dL Calcium Level 8.3 L 8.7-10.4 mg/dL Serum Osmolality 321 H 278-298 mOsm/kg Phosphorus Level 3.8 2.4-5.1 mg/dL Magnesium Level 2.4 1.6-2.6 mg/dL Parathyroid Hormone (Intact) 106.0 H 18.4-80.1 pg/mL White Blood Count 11.4 H 4.4-10.8 10^3/uL Red Blood Count 4.36 4.0-5.20 10^6/uL Hemoglobin 13.9 12.2-16.2 g/dL Hematocrit 43.8 36.0-46.0 % Mean Corpuscular Volume 100.5 H 80.0-100.0 fL Mean Corpuscular Hemoglobin 32.0 28.0-32.0 pg Mean Corpuscular Hemoglobin Concent 31.8 L 32.0-36.0 g/dL Red Cell Distribution Width 16.4 H 11.8-14.3 % Platelet Count 143 140-450 10^3/uL Mean Platelet Volume 9.6 6.9-10.8 fL Neutrophils (%) (Auto) 64.0 37.0-80.0 % Lymphocytes (%) (Auto) 26.4 10.0-50.0 % Monocytes (%) (Auto) 7.7 0.0-12.0 % Eosinophils (%) (Auto) 1.6 0.0-7.0 % Basophils (%) (Auto) 0.3 0.0-2.0 % Neutrophils # (Auto) 7.3 1.6-8.6 10 ^3/uL Lymphocytes # (Auto) 3.0 0.4-5.4 10 ^3/uL Monocytes # (Auto) 0.9 0-1.3 10 ^3/uL Eosinophils # (Auto) 0.2 0-0.8 10 ^3/uL Basophils # (Auto) 0 0-0.2 10 ^3/uL Nucleated Red Blood Cells 0.2 % Total Bilirubin 1.0 0.2-1.0 mg/dL Aspartate Amino Transferase (AST) 44 H 13-40 U/L Alanine Aminotransferase (ALT) 40 7-40 U/L Alkaline Phosphatase 143 H 46-116 U/L Total Protein 7.2 5.7-8.2 g/dL Albumin 3.8 3.2-4.8 g/dL Test 03/07/25 23:20 03/07/25 13:12 Range/Units Urine Color Light-yellow Yellow Urine Clarity Turbid H Clear Urine pH 6.0 5.0-9.0 Urine Specific [place] 1.019 1.001-1.035 Urine Protein Trace H Negative Urine Ketones Negative Negative Urine Blood Negative Negative /uL Urine Nitrite 2+ H Negative Urine Bilirubin Negative Negative Urine Urobilinogen Normal Negative mg/dL Urine Leukocyte Esterase 3+ Negative /uL Urine RBC None seen 0 - 4 /hpf Urine Microscopic WBC 115 H 0-5 /HPF Urine Squamous Epithelial Cells None seen <5 /hpf Urine Bacteria Mod H None Seen /hpf Urine Glucose Normal Normal mg/dL Troponin I High Sensitivity 11 </=34 ng/L Microbiology Date/Time Source Procedure Growth Status 03/07/25 23:20 Urine - [place] Urine Culture - Preliminary Resulted Plan/Recommendation 84 yo F with left nondisplaced patella fracture 1. We can continue to treat patient nonoperatively with protected weight bearing/bracing 2. Place into Left knee immobilizer 3. WBAT with walker 4. PT 5. pain control 6. fu in [facility] ortho clinic in 2 weeks - at that time can adjust to ROM brace and have patient start bending her knee Plan discussed with: Patient ERIKA BUTLER MD Mar 11, 2025 08:08
--- NOTE | 2025-03-11 08:41 | DVHPN2 ---
Reviewed: Care Plan, H&P, Labs, Medications, Previous Orders, Radiology Changes from previous H/P or p: No Changes Eyes: No Pain, No Vision change, No Conjunctivae inflammation, No Eyelid inflammation, No Other, No Redness ENT: No Ear pain, No Ear discharge, No Nose pain, No Nose discharge, No Nose congestion, No Mouth pain, No Mouth swelling, No Throat pain, No Throat swelling, No Other Cardiovascular: No Chest Pain, No Palpitations, No Orthopnea, No Paroxysmal Noc. Dyspnea, No Edema, No Lt Headedness, No Other Respiratory: No Cough, No Dry, No Shortness of breath, No SOB with excertion, No Wheezing, No Hemoptysis, No Pleuritic Pain, No Sputum, No Other Gastrointestinal: No Nausea, No Vomiting, No Abdominal Pain, No Diarrhea, No Constipation, No Melena, No Hematochezia, No Other Genitourinary: No Dysuria, No Frequency, No Incontinence, No Hematuria, No Retention, No Other Musculoskeletal: No other, No neck pain, No shoulder pain, No arm pain, No back pain, No hand pain; leg pain (left knee); No foot pain Skin: No Rash, No Lesions, No Jaundice, No Bruising, No Other Objective Vitals Vital Signs Date Time Temp Pulse Resp B/P (MAP) Pulse Ox O2 Delivery O2 Flow Rate FiO2 03/11/25 07:34 Room Air* 0 21 03/11/25 07:00 99.3 86 20 141/78 (99) 95 99.3 Intake/Output Intake and Output 03/11/25 07:00 Intake Total 850 ml Output Total 1600 ml Balance -750 ml Intake Oral 800 ml IV Total 50 ml Output Urine Total 1600 ml # Bowel Movements 3 Medications Current Medications Medications Dose Ordered Sig/Jared Route Start Time Stop Time Status Last Admin Dose Admin Acetaminophen/ Hydrocodone Bitart 1 tab Q4HP PRN PO 03/07/25 17:15 03/10/25 17:40 1 TAB Ondansetron HCl 4 mg Q4HP PRN IV 03/07/25 17:15 Docusate Sodium 100 mg BIDPRN PRN PO 03/07/25 17:15 03/10/25 17:39 100 MG Acetaminophen 650 mg Q6HP PRN PO 03/07/25 17:15 Carbidopa/Levodopa 1 tab DAILY PO 03/08/25 10:00 03/10/25 12:56 1 TAB Memantine 10 mg BID PO 03/07/25 22:00 03/10/25 22:36 10 MG Olanzapine 2.5 mg BID PO 03/07/25 22:00 03/10/25 22:36 2.5 MG Quetiapine Fumarate 50 mg QPM PO 03/07/25 18:00 03/10/25 17:39 50 MG Clonidine HCl 0.1 mg Q4HP PRN PO 03/09/25 05:15 03/11/25 00:40 0.1 MG Metoprolol Tartrate 50 mg BID PO 03/09/25 08:30 03/10/25 22:36 50 MG Dextrose 1,000 ml @ 75 mls/hr [id number] IV 03/09/25 12:30 03/09/25 12:59 75 MLS/HR Ceftriaxone Sodium 50 ml @ 100 mls/hr DAILY@09 IV 03/10/25 09:00 03/10/25 12:53 100 MLS/HR Laboratory Results Laboratory Tests 03/08/25 05:02 03/10/25 14:12 Chemistry Test 03/10/25 14:12 Calcium Level 8.3 mg/dL (8.7-10.4) L Urinalysis Test 03/07/25 23:20 Urine Color Light-yellow (Yellow) Urine Clarity Turbid (Clear) H Urine pH 6.0 (5.0-9.0) Urine Specific [place] 1.019 (1.001-1.035) Urine Protein Trace (Negative) H Urine Ketones Negative (Negative) Urine Blood Negative /uL (Negative) Urine Nitrite 2+ (Negative) H Urine Bilirubin Negative (Negative) Urine Urobilinogen Normal mg/dL (Negative) Urine Leukocyte Esterase 3+ /uL (Negative) Urine RBC None seen /hpf (0 - 4) Urine Microscopic WBC 115 /HPF (0-5) H Urine Squamous Epithelial Cells None seen /hpf (<5) Urine Bacteria Mod /hpf (None Seen) H Urine Glucose Normal mg/dL (Normal) Microbiology Microbiology Date/Time Source Procedure Growth Status 03/07/25 23:20 Urine - [place] Urine Culture - Preliminary Resulted Labs and/or images reviewed: Labs reviewed by me, Image(s) reviewed by me Assessment/Plan Assessment/Plan Nondisplaced Fracture left patella, consult for ortho Dr. Garza appreciated, advised nonoperative management placed in knee immobilizer and follow up in two weeks in two weeks in ortho clinic for ROM brace fitment Mechanical fall: Fall from walker Sepsis secondary to urinary tract infection: Urine cultures growing Gram- negative rods, continue Rocephin Hypertension History of CVA GERD History of colon cancer status post hemicolectomy Chronic renal insufficiency with history of dialysis in the past: Consult by Dr Vazquez appreciated BISI on CKD 3 Hypovolemic hypernatremia secondary to dehydration Parkinson's Severe Dementia CT head negative Patient's daughter has POA Time spent 50 minutes Advanced care planning time 20 minutes 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
--- NOTE | 2025-03-11 08:46 | DVHPN2 ---
Progress Note Date Seen: Mar 11, 2025 Medical Necessity Reason Pt with a Central, PICC or Fol: No Subjective Patient reports: No new complaints Review of Systems: Deferred Objective vital signs Vital Sign Date Time Temp Pulse Resp B/P (MAP) Pulse Ox O2 Delivery O2 Flow Rate FiO2 03/11/25 07:34 Room Air* 0 21 03/11/25 07:00 99.3 86 20 141/78 (99) 95 99.3 Total Intake and Output 03/10/25 03/10/25 03/11/25 15:00 23:00 07:00 Intake Total 50 ml 480 ml 320 ml Output Total 1200 ml 400 ml Balance 50 ml -720 ml -80 ml medications Current Medications Medications Dose Ordered Sig/Jared Route Start Time Stop Time Status Last Admin Dose Admin Acetaminophen/ Hydrocodone Bitart 1 tab Q4HP PRN PO 03/07/25 17:15 03/10/25 17:40 1 TAB Ondansetron HCl 4 mg Q4HP PRN IV 03/07/25 17:15 Docusate Sodium 100 mg BIDPRN PRN PO 03/07/25 17:15 03/10/25 17:39 100 MG Acetaminophen 650 mg Q6HP PRN PO 03/07/25 17:15 Carbidopa/Levodopa 1 tab DAILY PO 03/08/25 10:00 03/10/25 12:56 1 TAB Memantine 10 mg BID PO 03/07/25 22:00 03/10/25 22:36 10 MG Olanzapine 2.5 mg BID PO 03/07/25 22:00 03/10/25 22:36 2.5 MG Quetiapine Fumarate 50 mg QPM PO 03/07/25 18:00 03/10/25 17:39 50 MG Clonidine HCl 0.1 mg Q4HP PRN PO 03/09/25 05:15 03/11/25 00:40 0.1 MG Metoprolol Tartrate 50 mg BID PO 03/09/25 08:30 03/10/25 22:36 50 MG Dextrose 1,000 ml @ 75 mls/hr [id number] IV 03/09/25 12:30 03/09/25 12:59 75 MLS/HR Ceftriaxone Sodium 50 ml @ 100 mls/hr DAILY@09 IV 03/10/25 09:00 03/10/25 12:53 100 MLS/HR laboratory and microbiology Laboratory Tests 03/10/25 14:12 03/08/25 05:02 Test 03/10/25 14:12 Range/Units Serum Glucose 125 H 74-106 mg/dL Microbiology Date/Time Source Procedure Growth Status 03/07/25 23:20 Urine - [place] Urine Culture - Preliminary Resulted Problem List/Assessment/Plan Problem List/Assessment/Plan BISI, on CKD 3B, prerenal etiology Hypovolemic hypernatremia/dehydration UTI gram neg metabolic encephalopathy, due to above Hypertension Parkinson disease Dementia * Renal ultrasound shows, bilateral simple renal cysts Plan/recommendation: * IV D5W at 75ml per hour * Strict I&Os * Rocephin 1 g daily Plan discussed with: Patient My Orders My Orders Orders - SHANNA FOX MD Procedure Category Date Status Time Basic Metabolic Panel LAB 03/11/25 Logged 04:00 Dietary Evaluation Review Comments: Nutrition Recommendation 1) Ensure enlive 240ml BID if PO intake <50% 2) Monitor PO intake, lab values, weight trend, and I/O Expected Outcomes/Goals: Intake to meet >75% estimated needs Fu 3-5 days SHANNA FOX MD Mar 11, 2025 08:46
[2025-03-11 10:26] LABS: Potassium 3.7 mmol/L (3.5-5.1); Sodium 145 mmol/L (136-145)
[2025-03-11 10:27] LABS: Anion Gap 11 (5-15); Carbon Dioxide 21 mmol/L (20-31)
[2025-03-11 10:28] LABS: Calcium 8.1 mg/dL (8.7-10.4); Chloride 113 mmol/L (98-107)
[2025-03-11 10:33] LABS: BUN/Creatinine Ratio 29.5 (10.0-20.0)
[2025-03-11 10:48] LABS: Blood Urea Nitrogen 38 mg/dL (9-23); Glucose 156 mg/dL (74-106)
[2025-03-12 05:00] VITALS: BP 140/87; PULSE 71; RESP 17; TEMP 97.9; O2SAT 96
--- NOTE | 2025-03-12 08:52 | DVHPN2 ---
Progress Note Date Seen: Mar 12, 2025 Resident Creating Document: MABEL SCHULTE RESDIENT Medical Necessity Reason Pt with a Central, PICC or Fol: No Objective vital signs Vital Sign Date Time Temp Pulse Resp B/P (MAP) Pulse Ox O2 Delivery O2 Flow Rate FiO2 03/12/25 08:38 77 171/68 03/12/25 08:00 Room Air* 0 21 03/12/25 05:00 97.9 17 96 97.9 Total Intake and Output 03/11/25 03/11/25 03/12/25 15:00 23:00 07:00 Intake Total 50 ml 650 ml 540 ml Output Total 700 ml 500 ml Balance 50 ml -50 ml 40 ml medications Current Medications Medications Dose Ordered Sig/Jared Route Start Time Stop Time Status Last Admin Dose Admin Acetaminophen/ Hydrocodone Bitart 1 tab Q4HP PRN PO 03/07/25 17:15 03/11/25 17:45 1 TAB Ondansetron HCl 4 mg Q4HP PRN IV 03/07/25 17:15 Docusate Sodium 100 mg BIDPRN PRN PO 03/07/25 17:15 03/10/25 17:39 100 MG Acetaminophen 650 mg Q6HP PRN PO 03/07/25 17:15 Carbidopa/Levodopa 1 tab DAILY PO 03/08/25 10:00 03/12/25 08:38 1 TAB Memantine 10 mg BID PO 03/07/25 22:00 03/12/25 08:38 10 MG Olanzapine 2.5 mg BID PO 03/07/25 22:00 03/12/25 08:38 2.5 MG Quetiapine Fumarate 50 mg QPM PO 03/07/25 18:00 03/11/25 17:44 50 MG Clonidine HCl 0.1 mg Q4HP PRN PO 03/09/25 05:15 03/11/25 23:24 0.1 MG Metoprolol Tartrate 50 mg BID PO 03/09/25 08:30 03/12/25 08:38 50 MG Dextrose 1,000 ml @ 75 mls/hr [id number] IV 03/09/25 12:30 03/11/25 23:24 75 MLS/HR Ceftriaxone Sodium 50 ml @ 100 mls/hr DAILY@09 IV 03/10/25 09:00 03/12/25 08:37 100 MLS/HR Examination General Appearance: Alert, lethargic, follows simple command, can not communicate properly HEENT: Atraumatic, PERRLA, EOMI, Mucous membrane moist/pink Respiratory: Clear to auscultation, Normal air movement Cardiovascular: Regular rate, Normal S1, Normal S2, No murmurs, no chest wall tenderness Abdominal: Normal bowel sounds, Soft, No tenderness, No hepatospenomegaly, No masses Extremities: Decreased range of motion of left knee, Skin: No rashes, No breakdown, No significant lesion Neuro: Normal gait, Normal speech, Strength at 5/5 X4 ext, Normal tone, Sensation intact, Cranial nerves 3-12 NL, Reflexes 2+ Psych/Mental Status: Mental status NL, Mood NL laboratory and microbiology Laboratory Tests 03/11/25 10:02 03/08/25 05:02 Test 03/11/25 10:02 Range/Units Serum Glucose 156 H 74-106 mg/dL Microbiology Date/Time Source Procedure Growth Status 03/07/25 23:20 Urine - [place] Urine Culture - Preliminary Resulted Labs and/or images reviewed: Labs reviewed by me, Image(s) reviewed by me Problem List/Assessment/Plan Problem List/Assessment/Plan This is an 84-year-old lady with past medical history of dementia, Parkinson disease, CVA, hypertension, colon cancer (status post surgery/chemotherapy), depression brought in status post mechanical fall and decreased oral intake. Nephrology consulted, due to BISI and hypernatremia. Patient has history of hemodialysis, later on due to improvement of kidney function, stopped hemodialysis. Assessment: BISI, on CKD 3B, VMN Hypovolemic hypernatremia/dehydration UTI Metabolic encephalopathy, due to above Hypertension Parkinson disease Dementia * Renal ultrasound shows, bilateral simple renal cysts Plan/recommendation: (Dr. Draper) * IV D5W at 75ml per hour * Strict I&Os * Rocephin 1 g daily * Follow up with the patient Thank you for giving us the opportunity to take care of your patient. Please call back if you have any questions/concerns. Plan discussed with: Patient, Other (RN) Dietary Evaluation Review Comments: Nutrition Recommendation 1) Ensure enlive 240ml BID if PO intake <50% 2) Monitor PO intake, lab values, weight trend, and I/O Expected Outcomes/Goals: Intake to meet >75% estimated needs Fu 3-5 days MABEL SCHULTE Mar 12, 2025 08:51
[2025-03-12 09:00] VITALS: BP 171/68; PULSE 77; RESP 20; TEMP 97.5; O2SAT 99
--- NOTE | 2025-03-12 09:07 | DVHPN2 ---
Progress Note Date Seen: Mar 12, 2025 Medical Necessity Reason Pt with a Central, PICC or Fol: No Subjective Patient reports: No new complaints Other Systems: Patient seen and examined by myself today in follow-up Objective vital signs Vital Sign Date Time Temp Pulse Resp B/P (MAP) Pulse Ox O2 Delivery O2 Flow Rate FiO2 03/12/25 08:38 77 171/68 03/12/25 08:00 Room Air* 0 21 03/12/25 05:00 97.9 17 96 97.9 Total Intake and Output 03/11/25 03/11/25 03/12/25 15:00 23:00 07:00 Intake Total 50 ml 650 ml 540 ml Output Total 700 ml 500 ml Balance 50 ml -50 ml 40 ml medications Current Medications Medications Dose Ordered Sig/Jared Route Start Time Stop Time Status Last Admin Dose Admin Acetaminophen/ Hydrocodone Bitart 1 tab Q4HP PRN PO 03/07/25 17:15 03/11/25 17:45 1 TAB Ondansetron HCl 4 mg Q4HP PRN IV 03/07/25 17:15 Docusate Sodium 100 mg BIDPRN PRN PO 03/07/25 17:15 03/10/25 17:39 100 MG Acetaminophen 650 mg Q6HP PRN PO 03/07/25 17:15 Carbidopa/Levodopa 1 tab DAILY PO 03/08/25 10:00 03/12/25 08:38 1 TAB Memantine 10 mg BID PO 03/07/25 22:00 03/12/25 08:38 10 MG Olanzapine 2.5 mg BID PO 03/07/25 22:00 03/12/25 08:38 2.5 MG Quetiapine Fumarate 50 mg QPM PO 03/07/25 18:00 03/11/25 17:44 50 MG Clonidine HCl 0.1 mg Q4HP PRN PO 03/09/25 05:15 03/11/25 23:24 0.1 MG Metoprolol Tartrate 50 mg BID PO 03/09/25 08:30 03/12/25 08:38 50 MG Dextrose 1,000 ml @ 75 mls/hr [id number] IV 03/09/25 12:30 03/11/25 23:24 75 MLS/HR Ceftriaxone Sodium 50 ml @ 100 mls/hr DAILY@09 IV 03/10/25 09:00 03/12/25 08:37 100 MLS/HR Examination: LUNGS:Normal, CVS:Normal, MSK:Normal laboratory and microbiology Laboratory Tests 03/11/25 10:02 03/08/25 05:02 Test 03/11/25 10:02 Range/Units Serum Glucose 156 H 74-106 mg/dL Microbiology Date/Time Source Procedure Growth Status 03/07/25 23:20 Urine - [place] Urine Culture - Preliminary Resulted Problem List/Assessment/Plan Problem List/Assessment/Plan Acute kidney injury superimposed Chronic Kidney Disease secondary hemodynamic mediated Left patella fracture status post fall Hyponatremia due to dehydration UTI gram neg Hypertension Parkinson disease Dementia Secondary hyperparathyroidism Recommendations Kidney function is improving Increased urine output Strict I&Os IV antibiotics Continue IV fluids hydration Add calcitriol 0.25 mcg p.o. q.day We will continue to follow Plan discussed with: Patient Dietary Evaluation Review Comments: Nutrition Recommendation 1) Ensure enlive 240ml BID if PO intake <50% 2) Monitor PO intake, lab values, weight trend, and I/O Expected Outcomes/Goals: Intake to meet >75% estimated needs Fu 3-5 days NICK NICHOLAS MD Mar 12, 2025 09:07
--- NOTE | 2025-03-12 09:20 | DVHPN2 ---
Reviewed: Care Plan, H&P, Labs, Medications, Previous Orders, Radiology Changes from previous H/P or p: No Changes Eyes: No Pain, No Vision change, No Conjunctivae inflammation, No Eyelid inflammation, No Other, No Redness ENT: No Ear pain, No Ear discharge, No Nose pain, No Nose discharge, No Nose congestion, No Mouth pain, No Mouth swelling, No Throat pain, No Throat swelling, No Other Cardiovascular: No Chest Pain, No Palpitations, No Orthopnea, No Paroxysmal Noc. Dyspnea, No Edema, No Lt Headedness, No Other Respiratory: No Cough, No Dry, No Shortness of breath, No SOB with excertion, No Wheezing, No Hemoptysis, No Pleuritic Pain, No Sputum, No Other Gastrointestinal: No Nausea, No Vomiting, No Abdominal Pain, No Diarrhea, No Constipation, No Melena, No Hematochezia, No Other Genitourinary: No Dysuria, No Frequency, No Incontinence, No Hematuria, No Retention, No Other Musculoskeletal: No other, No neck pain, No shoulder pain, No arm pain, No back pain, No hand pain; leg pain (left knee); No foot pain Skin: No Rash, No Lesions, No Jaundice, No Bruising, No Other Objective Vitals Vital Signs Date Time Temp Pulse Resp B/P (MAP) Pulse Ox O2 Delivery O2 Flow Rate FiO2 03/12/25 09:00 97.5 77 20 171/68 (102) 99 97.5 03/12/25 08:00 Room Air* 0 21 Intake/Output Intake and Output 03/12/25 07:00 Intake Total 1240 ml Output Total 1200 ml Balance 40 ml Intake Oral 890 ml IV Total 350 ml Output Urine Total 1200 ml # Bowel Movements 1 Medications Current Medications Medications Dose Ordered Sig/Jared Route Start Time Stop Time Status Last Admin Dose Admin Acetaminophen/ Hydrocodone Bitart 1 tab Q4HP PRN PO 03/07/25 17:15 03/11/25 17:45 1 TAB Ondansetron HCl 4 mg Q4HP PRN IV 03/07/25 17:15 Docusate Sodium 100 mg BIDPRN PRN PO 03/07/25 17:15 03/10/25 17:39 100 MG Acetaminophen 650 mg Q6HP PRN PO 03/07/25 17:15 Carbidopa/Levodopa 1 tab DAILY PO 03/08/25 10:00 03/12/25 08:38 1 TAB Memantine 10 mg BID PO 03/07/25 22:00 03/12/25 08:38 10 MG Olanzapine 2.5 mg BID PO 03/07/25 22:00 03/12/25 08:38 2.5 MG Quetiapine Fumarate 50 mg QPM PO 03/07/25 18:00 03/11/25 17:44 50 MG Clonidine HCl 0.1 mg Q4HP PRN PO 03/09/25 05:15 03/11/25 23:24 0.1 MG Metoprolol Tartrate 50 mg BID PO 03/09/25 08:30 03/12/25 08:38 50 MG Dextrose 1,000 ml @ 75 mls/hr [id number] IV 03/09/25 12:30 03/11/25 23:24 75 MLS/HR Ceftriaxone Sodium 50 ml @ 100 mls/hr DAILY@09 IV 03/10/25 09:00 03/12/25 08:37 100 MLS/HR Calcitriol 0.25 mcg DAILY PO 03/12/25 10:00 UNV Laboratory Results Laboratory Tests 03/08/25 05:02 03/11/25 10:02 Chemistry Test 03/11/25 10:02 Calcium Level 8.1 mg/dL (8.7-10.4) L Urinalysis Test 03/07/25 23:20 Urine Color Light-yellow (Yellow) Urine Clarity Turbid (Clear) H Urine pH 6.0 (5.0-9.0) Urine Specific [place] 1.019 (1.001-1.035) Urine Protein Trace (Negative) H Urine Ketones Negative (Negative) Urine Blood Negative /uL (Negative) Urine Nitrite 2+ (Negative) H Urine Bilirubin Negative (Negative) Urine Urobilinogen Normal mg/dL (Negative) Urine Leukocyte Esterase 3+ /uL (Negative) Urine RBC None seen /hpf (0 - 4) Urine Microscopic WBC 115 /HPF (0-5) H Urine Squamous Epithelial Cells None seen /hpf (<5) Urine Bacteria Mod /hpf (None Seen) H Urine Glucose Normal mg/dL (Normal) Microbiology Microbiology Date/Time Source Procedure Growth Status 03/07/25 23:20 Urine - [place] Urine Culture - Preliminary Resulted Labs and/or images reviewed: Labs reviewed by me, Image(s) reviewed by me Assessment/Plan Assessment/Plan Nondisplaced Fracture left patella, consult for ortho Dr. Garza appreciated, advised nonoperative management placed in knee immobilizer and follow up in two weeks in two weeks in ortho clinic for ROM brace fitment Mechanical fall: Fall from walker Sepsis secondary to urinary tract infection: Urine cultures growing Gram- negative rods, continue Rocephin Hypertension History of CVA GERD History of colon cancer status post hemicolectomy Chronic renal insufficiency with history of dialysis in the past: Consult by Dr Vazquez appreciated BISI on CKD 3 Hypovolemic hypernatremia secondary to dehydration Parkinson's Severe Dementia CT head negative Patient's daughter has POA Time spent 50 minutes Advanced care planning time 20 minutes 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
[2025-03-12] MEDS: CALCITRIOL 0.25 MCG CAP PO SCH (10:00)
[2025-03-12 11:13] LABS: Potassium 4.1 mmol/L (3.5-5.1); Sodium 143 mmol/L (136-145)
[2025-03-12 11:14] LABS: Anion Gap 9 (5-15); Carbon Dioxide 22 mmol/L (20-31)
[2025-03-12 11:19] LABS: BUN/Creatinine Ratio 19.4 (10.0-20.0); Blood Urea Nitrogen 21 mg/dL (9-23); Calcium 8.3 mg/dL (8.7-10.4); Chloride 112 mmol/L (98-107)
[2025-03-12 11:21] LABS: Glucose 112 mg/dL (74-106)
[2025-03-12] MEDS: D5W 5% 1,000 ML IV SCH (12:15)
[2025-03-12 13:06] VITALS: BP 152/109; PULSE 72; RESP 21; TEMP 98.1; O2SAT 93
[2025-03-12 17:00] VITALS: BP 152/94; PULSE 82; RESP 21; TEMP 97.8; O2SAT 99
[2025-03-12 21:04] VITALS: PULSE 88; RESP 17; TEMP 97.8; O2SAT 96
[2025-03-12 23:19] VITALS: BP 157/101; PULSE 17; RESP 69
[2025-03-13 00:45] VITALS: BP 144/84; PULSE 69; RESP 17; TEMP 97.9; O2SAT 95
[2025-03-13 04:32] VITALS: BP 145/86; PULSE 76; RESP 17; TEMP 97.8; O2SAT 95
[2025-03-13 08:00] VITALS: PULSE 79; RESP 18; O2SAT 97
--- NOTE | 2025-03-13 08:26 | DVHPN2 ---
Reviewed: Care Plan, H&P, Labs, Medications, Previous Orders, Radiology Changes from previous H/P or p: No Changes Eyes: No Pain, No Vision change, No Conjunctivae inflammation, No Eyelid inflammation, No Other, No Redness ENT: No Ear pain, No Ear discharge, No Nose pain, No Nose discharge, No Nose congestion, No Mouth pain, No Mouth swelling, No Throat pain, No Throat swelling, No Other Cardiovascular: No Chest Pain, No Palpitations, No Orthopnea, No Paroxysmal Noc. Dyspnea, No Edema, No Lt Headedness, No Other Respiratory: No Cough, No Dry, No Shortness of breath, No SOB with excertion, No Wheezing, No Hemoptysis, No Pleuritic Pain, No Sputum, No Other Gastrointestinal: No Nausea, No Vomiting, No Abdominal Pain, No Diarrhea, No Constipation, No Melena, No Hematochezia, No Other Genitourinary: No Dysuria, No Frequency, No Incontinence, No Hematuria, No Retention, No Other Musculoskeletal: No other, No neck pain, No shoulder pain, No arm pain, No back pain, No hand pain; leg pain (left knee); No foot pain Skin: No Rash, No Lesions, No Jaundice, No Bruising, No Other Objective Vitals Vital Signs Date Time Temp Pulse Resp B/P (MAP) Pulse Ox O2 Delivery O2 Flow Rate FiO2 03/13/25 04:32 97.8 76 17 145/86 (105) 95 97.8 03/12/25 19:57 Room Air* 0 21 Intake/Output Intake and Output 03/13/25 07:00 Intake Total 1550 ml Output Total 2452 ml Balance -902 ml Intake Oral 1500 ml IV Total 50 ml Output Urine Total 2450 ml Stool Total 2 ml Medications Current Medications Medications Dose Ordered Sig/Jared Route Start Time Stop Time Status Last Admin Dose Admin Acetaminophen/ Hydrocodone Bitart 1 tab Q4HP PRN PO 03/07/25 17:15 03/12/25 23:23 1 TAB Ondansetron HCl 4 mg Q4HP PRN IV 03/07/25 17:15 Docusate Sodium 100 mg BIDPRN PRN PO 03/07/25 17:15 03/10/25 17:39 100 MG Acetaminophen 650 mg Q6HP PRN PO 03/07/25 17:15 Carbidopa/Levodopa 1 tab DAILY PO 03/08/25 10:00 03/12/25 08:38 1 TAB Memantine 10 mg BID PO 03/07/25 22:00 03/12/25 21:37 10 MG Olanzapine 2.5 mg BID PO 03/07/25 22:00 03/12/25 21:36 2.5 MG Quetiapine Fumarate 50 mg QPM PO 03/07/25 18:00 03/12/25 17:34 50 MG Clonidine HCl 0.1 mg Q4HP PRN PO 03/09/25 05:15 03/12/25 21:37 0.1 MG Metoprolol Tartrate 50 mg BID PO 03/09/25 08:30 03/12/25 21:37 50 MG Ceftriaxone Sodium 50 ml @ 100 mls/hr DAILY@09 IV 03/10/25 09:00 03/12/25 08:37 100 MLS/HR Calcitriol 0.25 mcg DAILY PO 03/12/25 10:00 Dextrose 1,000 ml @ 50 mls/hr Q20H IV 03/12/25 12:15 03/12/25 12:15 50 MLS/HR Amlodipine Besylate 10 mg DAILY PO 03/13/25 10:00 UNV Laboratory Results Laboratory Tests 03/08/25 05:02 03/12/25 10:42 Chemistry Test 03/12/25 10:42 Calcium Level 8.3 mg/dL (8.7-10.4) L Urinalysis Test 03/07/25 23:20 Urine Color Light-yellow (Yellow) Urine Clarity Turbid (Clear) H Urine pH 6.0 (5.0-9.0) Urine Specific [place] 1.019 (1.001-1.035) Urine Protein Trace (Negative) H Urine Ketones Negative (Negative) Urine Blood Negative /uL (Negative) Urine Nitrite 2+ (Negative) H Urine Bilirubin Negative (Negative) Urine Urobilinogen Normal mg/dL (Negative) Urine Leukocyte Esterase 3+ /uL (Negative) Urine RBC None seen /hpf (0 - 4) Urine Microscopic WBC 115 /HPF (0-5) H Urine Squamous Epithelial Cells None seen /hpf (<5) Urine Bacteria Mod /hpf (None Seen) H Urine Glucose Normal mg/dL (Normal) Microbiology Microbiology Date/Time Source Procedure Growth Status 03/07/25 23:20 Urine - [place] Urine Culture - Preliminary Escherichia coli - ESBL Resulted Labs and/or images reviewed: Labs reviewed by me, Image(s) reviewed by me Assessment/Plan Assessment/Plan Sepsis secondary to urinary tract infection: Urine cultures growing ESBL E coli, DC Rocephin, start Invanz 1 g IV daily for three weeks Nondisplaced Fracture left patella, consult for ortho Dr. 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
--- NOTE | 2025-03-13 08:49 | DVHDS2 ---
Discharge Summary Date of Admission Mar 07, 2025 at 17:15 Date of Discharge: Mar 13, 2025 Admitting Diagnosis Fracture left patella Wounds: Fracture left patella Labs/Diagnostic Data: Laboratory Results Test 03/12/25 10:42 03/09/25 18:26 03/09/25 14:54 03/08/25 05:02 Sodium Level 143 mmol/L (136-145) Potassium Level 4.1 mmol/L (3.5-5.1) Chloride Level 112 mmol/L (98-107) Carbon Dioxide Level 22 mmol/L (20-31) Anion Gap 9 (5-15) Blood Urea Nitrogen 21 mg/dL (9-23) Creatinine 1.08 mg/dL (0.550-1.02) Glomerular Filtration Rate Calc 51 mL/min (>90) BUN/Creatinine Ratio 19.4 (10.0-20.0) Serum Glucose 112 mg/dL (74-106) Calcium Level 8.3 mg/dL (8.7-10.4) Serum Osmolality 321 mOsm/kg (278-298) Phosphorus Level 3.8 mg/dL (2.4-5.1) Magnesium Level 2.4 mg/dL (1.6-2.6) Parathyroid Hormone (Intact) 106.0 pg/mL (18.4-80.1) White Blood Count 11.4 10^3/uL (4.4-10.8) Red Blood Count 4.36 10^6/uL (4.0-5.20) Hemoglobin 13.9 g/dL (12.2-16.2) Hematocrit 43.8 % (36.0-46.0) Mean Corpuscular Volume 100.5 fL (80.0-100.0) Mean Corpuscular Hemoglobin 32.0 pg (28.0-32.0) Mean Corpuscular Hemoglobin Concent 31.8 g/dL (32.0-36.0) Red Cell Distribution Width 16.4 % (11.8-14.3) Platelet Count 143 10^3/uL (140-450) Mean Platelet Volume 9.6 fL (6.9-10.8) Neutrophils (%) (Auto) 64.0 % (37.0-80.0) Lymphocytes (%) (Auto) 26.4 % (10.0-50.0) Monocytes (%) (Auto) 7.7 % (0.0-12.0) Eosinophils (%) (Auto) 1.6 % (0.0-7.0) Basophils (%) (Auto) 0.3 % (0.0-2.0) Neutrophils # (Auto) 7.3 10 ^3/uL (1.6-8.6) Lymphocytes # (Auto) 3.0 10 ^3/uL (0.4-5.4) Monocytes # (Auto) 0.9 10 ^3/uL (0-1.3) Eosinophils # (Auto) 0.2 10 ^3/uL (0-0.8) Basophils # (Auto) 0 10 ^3/uL (0-0.2) Nucleated Red Blood Cells 0.2 % Total Bilirubin 1.0 mg/dL (0.2-1.0) Aspartate Amino Transferase (AST) 44 U/L (13-40) Alanine Aminotransferase (ALT) 40 U/L (7-40) Alkaline Phosphatase 143 U/L (46-116) Total Protein 7.2 g/dL (5.7-8.2) Albumin 3.8 g/dL (3.2-4.8) Test 03/07/25 23:20 03/07/25 13:12 Urine Color Light-yellow (Yellow) Urine Clarity Turbid (Clear) Urine pH 6.0 (5.0-9.0) Urine Specific [place] 1.019 (1.001-1.035) Urine Protein Trace (Negative) Urine Ketones Negative (Negative) Urine Blood Negative /uL (Negative) Urine Nitrite 2+ (Negative) Urine Bilirubin Negative (Negative) Urine Urobilinogen Normal mg/dL (Negative) Urine Leukocyte Esterase 3+ /uL (Negative) Urine RBC None seen /hpf (0 - 4) Urine Microscopic WBC 115 /HPF (0-5) Urine Squamous Epithelial Cells None seen /hpf (<5) Urine Bacteria Mod /hpf (None Seen) Urine Glucose Normal mg/dL (Normal) Troponin I High Sensitivity 11 ng/L (</=34) Other Laboratory Tests 03/12/25 10:42 03/08/25 05:02 Brief Hx & Hospital Course: 84-year-old female with a history of hypertension CVA GERD colon cancer status post hemicolectomy chronic kidney disease Parkinson's severe dementia had a mechanical fall and admitted to the hospital for left patellar fracture seen by orthopedic Dr in a year advised conservative management with the knee immobilizer follow up in two weeks for knee brace. Patient also found to be in sepsis secondary to urinary tract infection started with Rocephin urine cultures came positive for ESBL E coli . Started on Rocephin discontinued and then started on Invanz 1 g IV daily for three weeks for ESBL E coli which she will continue in fdc facility Discussed with the patient's daughter and power of traffic law attorney Sophie and she is requesting fdc [facility] for IV antibiotics. General condition satisfactory at the time of discharge Consults/Reason for consult Orthopedic Dr Garza Operations or Procedures None Condition at Discharge: Fair Final Diagnosis/Problems List Sepsis secondary to urinary tract infection: Urine cultures growing ESBL E coli, DC Rocephin, start Invanz 1 g IV daily for three weeks Nondisplaced Fracture left patella, consult for ortho Dr. Garza appreciated, advised nonoperative management placed in knee immobilizer and follow up in two weeks in two weeks in ortho clinic for ROM brace fitment Mechanical fall: Fall from walker Hypertension History of CVA GERD History of colon cancer status post hemicolectomy Chronic renal insufficiency with history of dialysis in the past: Consult by Dr Vazquez appreciated BISI on CKD 3 Hypovolemic hypernatremia secondary to dehydration Parkinson's Severe Dementia CT head negative Discharge Disposition: Alf Facility Discharge Instruct/Medications Diet: Cardiac 2g Na,low cholest Activity: No Restrictions, As Tolerated Follow Up/Referral: Follow up with the senior care Medications: Invanz 1 g IV daily for three weeks for ESBL E coli in the urine See list for other meds Scheduled Amlodipine Besylate (Amlodipine Besylate), 1 TAB PO DAILY, (Reported) Aspirin-Dipyridamole (Aggrenox), 1 CAP PO BID, (Reported) Bupropion Hcl (Bupropion Hcl), 150 MG PO DAILY, (Reported) Ferrous Sulfate (Ferrous Sulfate), 325 MG PO BIDWM, (Reported) Fluoxetine Hcl (Fluoxetine Hcl), 40 MG PO DAILY, (Reported) Memantine Hydrochloride (Memantine HCl), 10 MG PO BID, (Reported) Metoprolol Tartrate (Metoprolol Tartrate), 25 MG PO BID, (Reported) Mirabegron Base (Myrbetriq), 50 MG OR DAILY, (Reported) Olanzapine (Zyprexa), 2.5 MG PO BID, (Reported) Pantoprazole Sodium Sesquihydr (Pantoprazole Sodium), 1 TAB PO DAILY, (Reported) Quetiapine Fumerate (Seroquel), 1 TAB PO QPM, (Reported) Miscellaneous Medications Carbidopa-Levodopa (Carbidopa/Levodopa Er), 25-100, (Reported) Discontinued Medications Atorvastatin Calcium (Lipitor), (Reported) Carvedilol (Carvedilol), 1 TAB PO BID, (Reported) 39 (Time taken for discharge summary 39 minutes) Discharge Statement: "Patient was advised to return to the ER or call 911 if any headaches, dizziness, shortness of breath, chest pain, abdominal pain, bleeding, fevers, or worsening of medical condition. Patient was counseled about treatment plan, medications, possible side effects, patientverbalized understanding. All questions were answered to the best of my ability. This discharge took greater then 30 minutes in planning, reviewing documentation, counseling the patient, and discussing with other team members." ASSESSMENT ASSESSMENT Hospital Course Marginally improved Assessment Sepsis secondary to urinary tract infection: Urine cultures growing ESBL E coli, DC Rocephin, start Invanz 1 g IV daily for three weeks Nondisplaced Fracture left patella, consult for ortho Dr. Garza appreciated, advised nonoperative management placed in knee immobilizer and follow up in two weeks in two weeks in ortho clinic for ROM brace fitment Mechanical fall: Fall from walker Hypertension History of CVA GERD History of colon cancer status post hemicolectomy Chronic renal insufficiency with history of dialysis in the past: Consult by Dr Vazquez appreciated BISI on CKD 3 Hypovolemic hypernatremia secondary to dehydration Parkinson's Severe Dementia CT head negative Date of Service: Mar 13, 2025 Billing Provider: JEF HARMAN MD Common Visit Codes: 96322-MIJ/OBS DISCH DAY >30min JEF HARMAN MD Mar 13, 2025 08:49
[2025-03-13 09:00] VITALS: BP 163/108; PULSE 79; RESP 16; TEMP 98.1; O2SAT 98
--- NOTE | 2025-03-13 10:37 | DVHPN2 ---
Progress Note Date Seen: Mar 13, 2025 Resident Creating Document: MABEL SCHULTE RESDIENT Medical Necessity Reason Pt with a Central, PICC or Fol: No Subjective Review of Systems Patient seen and examined at the bedside. Patient is feeling better since admission. Other Systems: Patient seen and examined by myself today in rounds with the medicine resident, I agree with his assessment and plan Objective vital signs Vital Sign Date Time Temp Pulse Resp B/P (MAP) Pulse Ox O2 Delivery O2 Flow Rate FiO2 03/13/25 09:48 79 163/108 03/13/25 09:00 98.1 16 98 98.1 03/12/25 19:57 Room Air* 0 21 Total Intake and Output 03/12/25 03/12/25 03/13/25 15:00 23:00 07:00 Intake Total 50 ml 700 ml 800 ml Output Total 802 ml 1650 ml Balance 50 ml -102 ml -850 ml medications Current Medications Medications Dose Ordered Sig/Jared Route Start Time Stop Time Status Last Admin Dose Admin Acetaminophen/ Hydrocodone Bitart 1 tab Q4HP PRN PO 03/07/25 17:15 03/12/25 23:23 1 TAB Ondansetron HCl 4 mg Q4HP PRN IV 03/07/25 17:15 Docusate Sodium 100 mg BIDPRN PRN PO 03/07/25 17:15 03/10/25 17:39 100 MG Acetaminophen 650 mg Q6HP PRN PO 03/07/25 17:15 Carbidopa/Levodopa 1 tab DAILY PO 03/08/25 10:00 03/13/25 09:47 1 TAB Memantine 10 mg BID PO 03/07/25 22:00 03/13/25 09:48 10 MG Olanzapine 2.5 mg BID PO 03/07/25 22:00 03/13/25 09:48 2.5 MG Quetiapine Fumarate 50 mg QPM PO 03/07/25 18:00 03/12/25 17:34 50 MG Clonidine HCl 0.1 mg Q4HP PRN PO 03/09/25 05:15 03/12/25 21:37 0.1 MG Metoprolol Tartrate 50 mg BID PO 03/09/25 08:30 03/13/25 09:48 50 MG Calcitriol 0.25 mcg DAILY PO 03/12/25 10:00 03/13/25 09:47 0.25 MCG Amlodipine Besylate 10 mg DAILY PO 03/13/25 10:00 03/13/25 09:46 10 MG Ertapenem 1 gm/ Sodium Chloride 50 ml @ 100 mls/hr DAILY IV 03/13/25 10:00 Examination General Appearance: Alert, lethargic, follows simple command, can not communicate properly HEENT: Atraumatic, PERRLA, EOMI, Mucous membrane moist/pink Respiratory: Clear to auscultation, Normal air movement Cardiovascular: Regular rate, Normal S1, Normal S2, No murmurs, no chest wall tenderness Abdominal: Normal bowel sounds, Soft, No tenderness, No hepatospenomegaly, No masses Extremities: Decreased range of motion of left knee, Skin: No rashes, No breakdown, No significant lesion Neuro: Normal gait, Normal speech, Strength at 5/5 X4 ext, Normal tone, Sensation intact, Cranial nerves 3-12 NL, Reflexes 2+ Psych/Mental Status: Mental status NL, Mood NL laboratory and microbiology Laboratory Tests 03/12/25 10:42 03/08/25 05:02 Test 03/12/25 10:42 Range/Units Serum Glucose 112 H 74-106 mg/dL Microbiology Date/Time Source Procedure Growth Status 03/07/25 23:20 Urine - [place] Urine Culture - Preliminary Escherichia coli - ESBL Resulted Labs and/or images reviewed: Labs reviewed by me, Image(s) reviewed by me Problem List/Assessment/Plan Problem List/Assessment/Plan This is an 84-year-old lady with past medical history of dementia, Parkinson disease, CVA, hypertension, colon cancer (status post surgery/chemotherapy), depression brought in status post mechanical fall and decreased oral intake. Nephrology consulted, due to BISI and hypernatremia. Patient has history of hemodialysis, later on due to improvement of kidney function, stopped hemodialysis. Assessment: BISI, on CKD 3B, VMN Hypovolemic hypernatremia/dehydration UTI Metabolic encephalopathy, due to above Hypertension Parkinson disease Dementia * Renal ultrasound shows, bilateral simple renal cysts Plan/recommendation: (Dr. Nicholas) * serum sodium normalized * DC D5W * We sign off the case, please reconsult as needed Thank you for giving us the opportunity to take care of your patient. Please call back if you have any questions/concerns. Plan discussed with: Patient, Other (RN) My Orders My Orders Orders - MABEL SCHULTE Procedure Category Date Status Time Basic Metabolic Panel LAB 03/13/25 Logged 08:21 Amlodipine Tablet PHA 03/13/25 In Process (Norvasc Tablet) 10:00 Dietary Evaluation Review Comments: Nutrition Recommendation 1) Ensure enlive 240ml BID if PO intake <50% 2) Monitor PO intake, lab values, weight trend, and I/O Expected Outcomes/Goals: Intake to meet >75% estimated needs Fu 3-5 days MABEL SCHULTE Mar 13, 2025 10:37 NICK NICHOLAS MD Mar 13, 2025 11:04
[2025-03-13] MEDS: ERTAPENEM SOD INJ 1 GM in SODIUM CHL 0.9% 50 ML IV SCH (11:36)
[2025-03-13 12:36] VITALS: BP 169/100; PULSE 83; RESP 16; TEMP 98; O2SAT 99
[2025-03-13 12:38] VITALS: BP 163/108; PULSE 79; RESP 16; TEMP 98.1; O2SAT 98
== END 2025-03-13 16:15 | DRG 871 ==
LOC: EDBD 08:58 → EDUNIT# 08:58 → ER 08:58 → OVERFLOW 17:15 → CENTRAL 20:50
PROVIDERS: ADMIT Family Medicine; ATTEND Family Medicine
PROC: 05HC33Z Insertion of Infusion Device into Left Basilic Vein, Percutaneous Approach (ICD-10-PCS; principal; 2025-03-12)
PROC: B54NZZA Ultrasonography of Left Upper Extremity Veins, Guidance (ICD-10-PCS; 2025-03-12)
PROC: 05H933Z Insertion of Infusion Device into Right Brachial Vein, Percutaneous Approach (ICD-10-PCS; 2025-03-13)
PROC: B54MZZA Ultrasonography of Right Upper Extremity Veins, Guidance (ICD-10-PCS; 2025-03-13)
DX: A41.51 Sepsis due to Escherichia coli [E. coli] (principal); G93.41 Metabolic encephalopathy; N17.0 Acute kidney failure with tubular necrosis; R53.2 Functional quadriplegia; S82.002A Unspecified fracture of left patella, initial encounter for closed fracture; E87.0 Hyperosmolality and hypernatremia; N39.0 Urinary tract infection, site not specified; N25.81 Secondary hyperparathyroidism of renal origin; E87.1 Hypo-osmolality and hyponatremia; F32.A Depression, unspecified; E86.0 Dehydration; E86.1 Hypovolemia; G20.A1 Parkinson's disease without dyskinesia, without mention of fluctuations; K21.9 Gastro-esophageal reflux disease without esophagitis; F02.C0 Dementia in other diseases classified elsewhere, severe, without behavioral disturbance, psychotic disturbance, mood disturbance, and anxiety; I12.9 Hypertensive chronic kidney disease with stage 1 through stage 4 chronic kidney disease, or unspecified chronic kidney disease; E78.5 Hyperlipidemia, unspecified; N18.32 Chronic kidney disease, stage 3b; N28.1 Cyst of kidney, acquired; W18.39XA Other fall on same level, initial encounter; Z90.710 Acquired absence of both cervix and uterus; Z86.73 Personal history of transient ischemic attack (TIA), and cerebral infarction without residual deficits; Z85.038 Personal history of other malignant neoplasm of large intestine; Z90.49 Acquired absence of other specified parts of digestive tract; Z81.8 Family history of other mental and behavioral disorders; Z82.49 Family history of ischemic heart disease and other diseases of the circulatory system; Y93.89 Activity, other specified; Y92.89 Other specified places as the place of occurrence of the external cause; Y99.8 Other external cause status
CPT/HCPCS: 36415; 70450; 71045; 73562; 76775; 80048; 80053; 81001; 83735; 83930; 83970; 84100; 84484; 85025; 87086; 87088; 87186; 97163; 99291; G0378; J1335; J7042